=== PATIENT | female | born 1965 | race Caucasian/White ===

== ENCOUNTER 2017-10-16 17:45 | Emergency (ER) | payer OTHER, MEDICARE ==
[2017-10-16 17:58] VITALS: BP 131/81
--- NOTE | 2017-10-16 18:24 | EDM.PDOC ---
ED HPI GENERAL MEDICAL PROBLEM - General Chief Complaint: Lower Extremity Injury/Pain Stated Complaint: [facility] Time Seen by Provider: 10/16/17 18:10 Source of Information: Reports: Patient History Limitations: Reports: No Limitations - History of Present Illness INITIAL COMMENTS - FREE TEXT/NARRATIVE: Patient is a 52-year-old female who underwent right rotator cuff surgery the end of August with shoulder immobilizer in place. Patient presents to the ED complaining of posterior midline cervical neck pain, right shoulder pain, right upper arm pain, and right hip status post fall. Patient states she was walking up the stairs and accidentally fell over her granddaughter landing on the affected areas. She did hit her head on the wall but denies any loss of consciousness. This was at the top of the stairs and was unable to get up and thus has not been weightbearing since. She has pain to the right lateral aspect of her hip. Pinpoint tenderness noted. No pain distally. States headache is mild in nature. No vision changes, nausea/vomiting, chest pain, shortness of breath, abdominal pain, no numbness/tingling to extremities, or any additional complaints. She does have limited range of motion secondary to neck pain. She was transported via ambulance and administered fentanyl in route. She is on no anticoagulants. 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: IV/IO Right Shoulder Pain Score (Numeric/FACES): 10 Right Hip Pain Score (Numeric/FACES): 10 - Related Data Allergies Allergy/AdvReac Type Severity Reaction Status Date / Time amoxicillin [From Augmentin] Allergy Diarrhea Verified 10/16/17 17:56 clavulanic acid Allergy Diarrhea Verified 10/16/17 17:56 [From Augmentin] exenatide [From Bydureon] Allergy Other Verified 10/16/17 17:56 metformin Allergy Other Verified 10/16/17 17:56 simvastatin Allergy Other Verified 10/16/17 17:56 Sulfonylureas Allergy Other Verified 10/16/17 17:56 Home Meds: Home Meds Carvedilol [Coreg] 3.125 mg PO BID 10/09/15 [History] Gabapentin [Neurontin] 300 mg PO BID 10/09/15 [History] Losartan [Cozaar] 50 mg PO BID 10/09/15 [History] Omeprazole [Prilosec] 40 mg PO BEDTIME 10/09/15 [History] Spironolactone [Aldactone] 25 mg PO DAILY 10/09/15 [History] Venlafaxine [Effexor] 150 mg PO DAILY 10/09/15 [History] Zolpidem [Ambien] 10 mg PO BEDTIME 10/09/15 [History] lamoTRIgine [Lamictal] 100 mg PO BID 10/09/15 [History] traZODone 150 mg PO BEDTIME 10/09/15 [History] ALPRAZolam [Xanax] 0.5 - 1 mg PO Q4HR PRN 04/12/16 [History] Calcium Carb & Citrate/Vit D3 [Citracal + D ER] 200 - 600 mg PO DAILY 04/12/16 [ History] Ergocalciferol (Vitamin D2) [Vitamin D] 400 intunit PO DAILY 04/12/16 [History] Ferrous Gluconate 325 mg PO BEDTIME 04/12/16 [History] Gluc HCl/Csa/Nelson Hy/Hyalur Ac [Glucosamine Chondroitin] 1 tab PO BEDTIME [History] Magnesium 250 mg PO DAILY 04/12/16 [History] Meloxicam 15 mg PO BEDTIME 04/12/16 [History] Multivitamin [Multivitamins] 1 tab PO BEDTIME 04/12/16 [History] Vit B Cmplx 3/Fa/Vit C/Biotin [Drafter (Cad) Electrical-Marsha Rx Tablet] 1 tab PO BEDTIME 04/12/16 [ History] Cyclobenzaprine [Flexeril] 5 mg PO BID PRN 07/10/16 [History] Acetaminophen/HYDROcodone [[place]field 325-5 MG] 1 tab PO Q6H PRN #12 tablet 10/16/17 [Rx] Past Medical History HEENT History: Reports: Impaired Vision Other HEENT History: glasses Cardiovascular History: Reports: Angina, Cardiomyopathy, Hypertension Other Cardiovascular History: PSVT, 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." Respiratory History: Reports: Sleep Apnea Gastrointestinal History: Reports: Bowel Obstruction Other Gastrointestinal History: hernia Genitourinary History: Reports: Renal Calculus, Urinary Incontinence FREIGHT CHECKER History: Reports: Endometriosis, Other Musculoskeletal History: T7 compression fx, 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 Hematologic History: Reports: Anemia Dermatologic History: Reports: Other (See Below) Other Dermatologic History: Celoids - Infectious Disease History Infectious Disease History: Reports: Influenza - Past Surgical History GI Surgical History: Reports: Appendectomy, Cholecystectomy, Hernia Repair/Other , Other (See Below) Musculoskeletal Surgical History: Reports: Shoulder Surgery Social & Family History - Family History Family Medical History: Noncontributory - Tobacco Use Smoking Status *Q: Former Smoker Years of Tobacco use: 6 Packs/Tins Daily: 0.5 Used Tobacco, but Quit: Yes Month Tobacco Last Used: 1990 Second Hand Smoke Exposure: No - Caffeine Use Caffeine Use: Reports: Soda - Recreational Drug Use Recreational Drug Use: No - Living Situation & Occupation Living situation: Reports: , with Family Occupation: Employed Review of Systems - Review of Systems Review Of Systems: ROS reveals no pertinent complaints other than HPI. ED EXAM, GENERAL - Physical Exam Exam: See Below Exam Limited By: No Limitations General Appearance: Alert, WD/WN, Mild Distress Eye Exam: Bilateral Eye: EOMI, PERRL Ears: Hearing Grossly Normal Nose: Normal Inspection Throat/Mouth: Normal Inspection, Normal Oropharynx, Normal Voice, No Airway Compromise Head: Atraumatic, Normocephalic Neck: Normal Inspection, Supple, Limited Range of Motion, Tender Midline (c4-6) Respiratory/Chest: No Respiratory Distress, Lungs Clear, Normal Breath Sounds, No Accessory Muscle Use, Chest Non-Tender Cardiovascular: Normal Peripheral Pulses, Regular Rate, Rhythm Peripheral Pulses: 3+: Radial (L), Radial (R) GI/Abdominal: Normal Bowel Sounds, Soft, Non-Tender, No Organomegaly, No Distention Back Exam: Normal Inspection. No: Paraspinal Tenderness, Vertebral Tenderness Extremities: Other (Right arm is in a shoulder immobilizer. Pinpoint tenderness along the lateral aspect of the shoulder and upper arm. No bony abnormalities noted. No pain noted with palpation of the elbow, forearm, wrist, hand. No sensory deficits noted. No pain along the clavicle. Surgical incisions intact with no signs of infection. ) Neurological: Alert, Oriented, CN II-XII Intact, Normal Cognition, No Motor/ Sensory Deficits Psychiatric: Normal Affect Skin Exam: Warm, Dry, Intact, Normal Color Course - Vital Signs Last Recorded V/S: Last Vital Signs Temp 97.8 F 10/16/17 17:53 Pulse 66 10/16/17 17:53 Resp 20 10/16/17 17:53 BP 131/81 10/16/17 17:53 Pulse Ox 98 10/16/17 17:53 - Orders/Labs/Meds Orders: Active Orders 24 hr Category Date Time Status Hip Min 2V or 3V Rt [CR] Stat Exams 10/16/17 20:02 Taken Hip wo Cont Rt [CT] Stat Exams 10/16/17 20:17 Taken Humerus Rt [CR] Stat Exams 10/16/17 18:28 Taken Shoulder Comp Rt [CR] Stat Exams 10/16/17 18:28 Taken Meds: Medications Discontinued Medications Generic Name Dose Route Start Last Admin Trade Name Baldomero PRN Reason Stop Dose Admin Fentanyl 50 mcg 10/16/17 19:55 10/16/17 20:01 Sublimaze IVPUSH 10/16/17 19:56 50 mcg ONETIME ONE Administration Oxycodone/Acetaminophen 1 tab 10/16/17 19:53 10/16/17 20:02 Percocet 325-5 Mg PO 10/16/17 19:54 1 tab ONETIME ONE Administration - Re-Assessments/Exams Free Text/Narrative Re-Assessment/Exam: Will obtain CT of the cervical spine, x-ray of the right shoulder and humerus, and x-ray of the right hip. Pain under control at this point with IV fentanyl per ambulance. X-ray of the right shoulder: no acute findings. Reviewed with Dr. Gonzalez. X-ray of the right humerus: no acute findings. Reviewed with Dr. Gonzalez. Patient complaining of pain after having the x-rays obtained. Ordered fentanyl 50 mg IVP, and Percocet 5-325 by mouth 1. X-ray of the right hip was not ordered initially by mistake. On examination patient has limited change in range of motion. Pain is localized to the lateral aspect of hip. Offered to obtain x-ray of the right hip to the patient initially refused. After speaking with her she did have it difficulties with transferring thus we'll go ahead with the x-ray. X-ray of the right hip does show a apparent questionable avulsion fracture. Limited images thus we'll order a CT of the right hip. 10/16/17 21:35 CT of the hip reveal no acute fracture dislocation identified. Discharge instructions as documented. Departure - Departure Time of Disposition: 21:37 Disposition: Home, Self-Care 01 Condition: Good Clinical Impression: Status post shoulder surgery, Neck pain on right side, Right hip pain, Status post fall - Discharge Information Prescriptions: Acetaminophen/HYDROcodone [[place] 325-5 MG] 1 tab PO Q6H PRN #12 tablet PRN Reason: Pain (Severe 7-10) Instructions: Pain Medicine Instructions, [id number] Referrals: Radha Goodman [Primary Care Provider] - Forms: ED Department Discharge Additional Instructions: As discussed no acute finding noted on studies. Keep following instructions by orthopedic surgeon for right shoulder. Apply ice to the affected area 4 times daily, 20 minutes in duration, do not apply ice directly on the skin. Continue taking all home medications as prescribed. In addition for severe pain take norco 5-325mg 1 tab every 6 hrs for pain as needed. Followup with orthopedic surgeon if pain does not improve. Return to the E.D. if you develop any new or worsening. No driving this evening since receiving a sedative medication while in the E.D. No driving while taking norco. - My Orders Last 24 Hours: My Active Orders 10/16/17 18:28 Humerus Rt [CR] Stat Shoulder Comp Rt [CR] Stat 10/16/17 20:02 Hip Min 2V or 3V Rt [CR] Stat 10/16/17 20:17 Hip wo Cont Rt [CT] Stat - Assessment/Plan Last 24 Hours: My Active Orders 10/16/17 18:28 Humerus Rt [CR] Stat Shoulder Comp Rt [CR] Stat 10/16/17 20:02 Hip Min 2V or 3V Rt [CR] Stat 10/16/17 20:17 Hip wo Cont Rt [CT] Stat
--- NOTE | 2017-10-16 19:24 | CT ---
CT cervical spine Technique: Multiple axial sections were obtained from above C1 inferiorly to the top of T2. Reconstructed sagittal and coronal images were reviewed. Findings: Small bony density is seen off the tip of C2 which is well corticated and felt to be incidental. Minimal disc space narrowing is noted anteriorly at C5-C6. Slight anterior osteophytes are noted at C5-C6 and C6-C7. Minimal posterior osteophytes are noted C5-C6. Mastoid sinuses and middle ear cavities are clear. Posterior skull base is intact. Vertebral bodies and posterior arches are intact. No fracture is seen. No bony central or bony neural foraminal stenosis is seen. No abnormal subluxation is seen on the reconstructed sagittal views. Impression: 1. Slight degenerative change. 2. Nothing acute is appreciated on CT study of the cervical spine. Diagnostic code #2
[2017-10-16] MEDS ORDERED: Acetaminophen/oxyCODONE 325-5 MG Tab PO ONE (19:53)
[2017-10-16] MEDS ORDERED: fentaNYL 100 MCG/2 ML SDV IVPUSH ONE (19:55)
--- NOTE | 2017-10-17 15:52 | CR ---
Right hip: AP and frog-leg lateral views of the right hip were obtained. Calcification is noted off the greater trochanter which appears old and likely represents old calcific bursitis. Joint space within the right hip is maintained. No acute fracture or other abnormality is seen. Impression: 1. Nothing acute is appreciated. Other incidental finding as noted above. Diagnostic code #2
--- NOTE | 2017-10-17 15:52 | CR ---
Right humerus: Two views of the right humerus were obtained. Comparison: No prior study. Acromioclavicular joint is widened most likely due to previous resection of the distal right clavicle. No acute fracture or other bony abnormality is seen. Impression: 1. Incidental finding. Nothing acute is seen on two-view right humerus study. Diagnostic code #1
--- NOTE | 2017-10-17 15:52 | CR ---
Right shoulder: Three views of the right shoulder were obtained. Comparison: No prior right shoulder study. Acromioclavicular joint is widened most likely representing resection of the distal right clavicle. Glenohumeral joint is within normal limits. No fracture, dislocation or other bony abnormality is seen. Impression: 1. Presumed resection of the distal right clavicle. 2. Right shoulder study is otherwise unremarkable. Diagnostic code #2
--- NOTE | 2017-10-19 08:03 | CT ---
CT right hip Technique: Multiple axial sections through the right hip were obtained. Intravenous contrast was not utilized. Comparison: Prior right hip radiograph performed earlier on the same day (8:03 PM). Findings: Well-corticated calcification off the greater trochanter is seen. This appears to be old. No fracture is appreciated within the right hip. Inferior and superior pubic rami on the right side appear intact. Slight sigmoid diverticulosis is incidentally noted. Impression: 1. Incidental findings. Nothing acute is appreciated on CT study of the right hip. Diagnostic code #2 I agree with preliminary report issued by [facility] ([facility] preliminary report dictated on 10/16/17, 10:18 PM Central Time) [email or web address]
== END 2017-10-16 22:00 | disposition home or self-care (01) ==
LOC: JD.ED 17:45
DX: M54.2 Cervicalgia (principal); M25.551 Pain in right hip; I10 Essential (primary) hypertension; E11.9 Type 2 diabetes mellitus without complications; Z88.1 Allergy status to other antibiotic agents; Z88.8 Allergy status to other drugs, medicaments and biological substances; Z79.899 Other long term (current) drug therapy; Z87.891 Personal history of nicotine dependence; Z98.890 Other specified postprocedural states; W18.30XA Fall on same level, unspecified, initial encounter
CPT/HCPCS: 72125; 73030; 73060; 73502; 73700; 96374; 99285; A9270; J3010; 99284

== ENCOUNTER 2017-10-25 08:34 | Emergency (ER) | payer OTHER, MEDICARE ==
[2017-10-25] MEDS ORDERED: Ondansetron 4 MG/2 ML SDV IVPUSH ONE (09:20)
[2017-10-25] MEDS ORDERED: Sodium Chloride 0.9% 1,000 ML IV ONE (09:20)
[2017-10-25] MEDS ORDERED: Atropine/Diphenoxylate 0.025-2.5 MG Tab PO ONE (10:39)
--- NOTE | 2017-10-25 10:42 | EDM.PDOC ---
ED HPI GENERAL MEDICAL PROBLEM - General Chief Complaint: Gastrointestinal Problem Stated Complaint: VOMITING AND DIARRHEA Time Seen by Provider: 10/25/17 08:49 Source of Information: Reports: Patient, Family () History Limitations: Reports: No Limitations - History of Present Illness INITIAL COMMENTS - FREE TEXT/NARRATIVE: The patient states that she developed loose bowel movements , then developed nausea and emesis this past 10/23/2017. She took Zofran, and while she has had some nausea, she has not had any emesis since. Her loose bowel movements have developed into watery diarrhea, however. No blood. She has had lower abdominal cramps. No fever. She states that she feels dizzy when upright since yesterday. She states that she took 3 tablets of Imodium on 10/23/2017, 2 tablets yesterday , but none today, as she states that it has not helped. No prior similar symptoms. The patient does not recall eating any spoiled food. She has not been on any antibiotics since 09/19/2017. No recent travel. No similarly ill contacts. The patient's PCP is Dr. Goodman. - Related Data Allergies Allergy/AdvReac Type Severity Reaction Status Date / Time exenatide [From Bydureon] Allergy Other Verified 10/25/17 09:03 metformin Allergy Other Verified 10/25/17 09:03 simvastatin Allergy Other Verified 10/25/17 09:03 Exwdfer-Pef-Mxk Reductase Allergy Muscle Verified 10/25/17 09:03 Inhibitor Aches Sulfonylureas Allergy Other Verified 10/25/17 09:03 amoxicillin [From Augmentin] AdvReac Diarrhea Verified 10/25/17 09:03 clavulanic acid AdvReac Diarrhea Verified 10/25/17 09:03 [From Augmentin] Home Meds: Home Meds Carvedilol [Coreg] 3.125 mg PO BID 10/09/15 [History] Gabapentin [Neurontin] 300 mg PO BID 10/09/15 [History] Losartan [Cozaar] 50 mg PO BID 10/09/15 [History] Omeprazole [Prilosec] 40 mg PO BEDTIME 10/09/15 [History] Spironolactone [Aldactone] 25 mg PO DAILY 10/09/15 [History] Venlafaxine [Effexor] 150 mg PO DAILY 10/09/15 [History] Zolpidem [Ambien] 10 mg PO BEDTIME 10/09/15 [History] lamoTRIgine [Lamictal] 100 mg PO BID 10/09/15 [History] traZODone 150 mg PO BEDTIME 10/09/15 [History] ALPRAZolam [Xanax] 0.5 - 1 mg PO Q4HR PRN 04/12/16 [History] Calcium Carb & Citrate/Vit D3 [Citracal + D ER] 200 - 600 mg PO DAILY 04/12/16 [ History] Ergocalciferol (Vitamin D2) [Vitamin D] 400 intunit PO DAILY 04/12/16 [History] Ferrous Gluconate 325 mg PO BEDTIME 04/12/16 [History] Gluc HCl/Csa/Nelson Hy/Hyalur Ac [Glucosamine Chondroitin] 1 tab PO BEDTIME [History] Magnesium 250 mg PO DAILY 04/12/16 [History] Meloxicam 15 mg PO BEDTIME 04/12/16 [History] Multivitamin [Multivitamins] 1 tab PO BEDTIME 04/12/16 [History] Vit B Cmplx 3/Fa/Vit C/Biotin [[employer]-Marsha Rx Tablet] 1 tab PO BEDTIME 04/12/16 [ History] Cyclobenzaprine [Flexeril] 5 mg PO BID PRN 07/10/16 [History] Acetaminophen/HYDROcodone [[place] 325-5 MG] 1 tab PO Q6H PRN #12 tablet 10/16/17 [Rx] Diphenoxylate HCl/Atropine [Lomotil] 2 tab PO Q6H PRN #24 tablet 10/25/17 [Rx] Ondansetron [Zofran ODT] 1 tab PO Q8H PRN #10 tab.dis 10/25/17 [Rx] Past Medical History HEENT History: Reports: Impaired Vision Other HEENT History: glasses Cardiovascular History: Reports: Angina (Vasospastic), Cardiomyopathy ( Idiopathic, LVEF 55%), Hypertension Respiratory History: Reports: Sleep Apnea (on nightly BiPAP, O2) Gastrointestinal History: Reports: Bowel Obstruction (SBO) Genitourinary History: Reports: Renal Calculus, Urinary Incontinence [facility] [facility] History: Reports: Endometriosis, Musculoskeletal History: Reports: Fracture (T7 compression fx) Psychiatric History: Reports: Anxiety, Depression, Suicidal Ideation, Other ( See Below) (Borderline personality disorder) Endocrine/Metabolic History: Reports: Diabetes, Type II, Obesity/BMI 30+ Hematologic History: Reports: Anemia - Infectious Disease History Infectious Disease History: Reports: Influenza - Past Surgical History HEENT Surgical History: Reports: Adenoidectomy, Tonsillectomy GI Surgical History: Reports: Appendectomy, Cholecystectomy, Hernia Repair/ Other (x 2), Other (See Below) (Terminal ileum resection) Musculoskeletal Surgical History: Reports: Shoulder Surgery (Left, arthroscopic. Right, open) Social & Family History - Family History Family Medical History: Noncontributory - Tobacco Use Smoking Status *Q: Former Smoker Years of Tobacco use: 14 Packs/Tins Daily: 0.5 Month Tobacco Last Used: Quit 1987 Second Hand Smoke Exposure: No - Caffeine Use Caffeine Use: Reports: Coffee, Soda - Alcohol Use Alcohol Use History: Yes Alcohol Use Frequency: Socially - Recreational Drug Use Recreational Drug Use: Yes Drug Use in Last 12 Months: No Recreational Drug Type: Reports: Marijuana/Hashish (last in 1986) - Living Situation & Occupation Living situation: Reports: , with Spouse, with Family (Granddaughter) Occupation: Unemployed ED ROS GENERAL - Review of Systems Review Of Systems: ROS reveals no pertinent complaints other than HPI. ED EXAM, GI/ABD - Physical Exam Exam: See Below Exam Limited By: No Limitations General Appearance: Alert, WD/WN, No Apparent Distress Eyes: Bilateral: Normal Appearance, EOMI Ears: Normal External Exam, Hearing Grossly Normal Nose: Normal Inspection, No Blood Throat/Mouth: Normal Inspection, Normal Lips, Normal Voice, No Airway Compromise Head: Atraumatic, Normocephalic Neck: Normal Inspection, Full Range of Motion Respiratory/Chest: No Respiratory Distress, Lungs Clear, Normal Breath Sounds, No Accessory Muscle Use Cardiovascular: Normal Peripheral Pulses, Regular Rate, Rhythm, No Gallop, No JVD, No Murmur, No Rub GI/Abdominal Exam: Normal Bowel Sounds, Soft, Non-Tender, No Organomegaly, No Distention, No Abnormal Bruit, No Mass, Other (Obese) (Female) Exam: Deferred Rectal (Female) Exam: Deferred Back Exam: Normal Inspection, Full Range of Motion, NT Extremities: Normal Inspection, Normal Range of Motion, No Pedal Edema, Normal Capillary Refill Neurological: Alert, Oriented, Normal Cognition, No Motor/Sensory Deficits Psychiatric: Normal Affect Skin Exam: Warm, Dry, Intact, Normal Color, No Rash Course - Vital Signs Last Recorded V/S: Last Vital Signs Temp 36.1 C 10/25/17 08:57 Pulse 75 10/25/17 08:57 Resp 16 10/25/17 08:57 BP 119/69 10/25/17 08:57 Pulse Ox 95 10/25/17 08:57 Orthostatic Blood Pressure [ 113/82 Standing] Orthostatic Blood Pressure [ 98/64 Sitting] Orthostatic Blood Pressure [ 97/58 Supine] - Orders/Labs/Meds Orders: Active Orders 24 hr Category Date Time Status Orthostatic Vital Signs [RC] STAT Care 10/25/17 09:18 Active CULTURE STOOL + SHIGATOX [RM] Stat Lab 10/25/17 09:50 Received [facility] 1 & 2 RT-PCR Stat Lab 10/25/17 09:50 Received Labs: Laboratory Tests 10/25/17 10/25/17 Range/Units 09:40 09:40 WBC 6.21 (3.98-10.04) K/mm3 RBC 4.12 (3.98-5.22) M/mm3 Hgb 12.3 (11.2-15.7) gm/L Hct 38.6 (34.1-44.9) % MCV 93.7 (79.4-94.8) fl MCH 29.9 (25.6-32.2) pg MCHC 31.9 L (32.2-35.5) g/dl RDW Std Deviation 47.0 H (36.4-46.3) fL Plt Count 280 (182-369) K/mm3 MPV 9.1 L (9.4-12.3) fl Neutrophils % (Manual) 61 H (40-60) % Band Neutrophils % 0 (0-10) % Lymphocytes % (Manual) 27 (20-40) % Atypical Lymphs % 0 % Monocytes % (Manual) 5 (2-10) % Eosinophils % (Manual) 7 H (0.7-5.8) % Basophils % (Manual) 0 L (0.1-1.2) Platelet Estimate Adequate RBC Morph Comment Normal Sodium 141 (136-145) mEq/L Potassium 4.2 (3.5-5.1) mEq/L Chloride 105 (98-107) mEq/L Carbon Dioxide 25 (21-32) mEq/L Anion Gap 15.2 H (5-15) BUN 16 (7-18) mg/dL Creatinine 0.9 (0.55-1.02) mg/dL Est Cr Clr Drug Dosing 73.76 mL/min Estimated GFR (MDRD) > 60 (>60) mL/min BUN/Creatinine Ratio 17.8 (14-18) Glucose 103 (74-106) mg/dL Calcium 8.9 (8.5-10.1) mg/dL Magnesium 1.9 (1.8-2.4) mg/dl Total Bilirubin 0.3 (0.2-1.0) mg/dL AST 24 (15-37) U/L ALT 34 (14-59) U/L Alkaline Phosphatase 92 (46-116) U/L Total Protein 7.1 (6.4-8.2) g/dl Albumin 3.5 (3.4-5.0) g/dl Globulin 3.6 gm/dL Albumin/Globulin Ratio 1.0 (1-2) Meds: Medications Discontinued Medications Generic Name Dose Route Start Last Admin Trade Name Freq PRN Reason Stop Dose Admin Diphenoxylate HCl/Atropine 2 tab 10/25/17 10:39 10/25/17 11:23 Lomotil 0.025-2.5 Mg PO 10/25/17 10:40 2 tab ONETIME ONE Administration Sodium Chloride 1,000 mls @ 999 mls/hr 10/25/17 09:20 10/25/17 10:05 Normal Saline IV 10/25/17 10:20 999 mls/hr ONETIME ONE Administration Ondansetron HCl 4 mg 10/25/17 09:20 10/25/17 10:03 Zofran IVPUSH 10/25/17 09:21 4 mg ONETIME ONE Administration - Re-Assessments/Exams Free Text/Narrative Re-Assessment/Exam: 10/25/17 10:01 The patient is not orthostatic. 10/25/17 11:46 Test results discussed with the patient. Today's workup is unremarkable. She is not dehydrated, and has not suffered any loculated abnormalities from her vomiting or diarrhea. As she does not have a history of fever or bloody diarrhea , bacterial gastroenteritis was not suspected, but her stool WBCs have returned negative, further reducing the likelihood that this is bacterial. Based on her history, this is most likely viral. I explained her that there are is no direct treatment for viral gastroenteritis, but that we can treat her symptoms with Zofran. As she states that Imodium did not work for her, I will prescribe Lomotil. I would like her to stay adequately hydrated with Gatorade or Powerade , and I would like her to follow-up with her PCP, Dr. Goodman, either tomorrow or 10/27/2017. Departure - Departure Time of Disposition: 11:49 Disposition: Home, Self-Care 01 Condition: Fair Clinical Impression: Viral gastroenteritis - Discharge Information Prescriptions: Diphenoxylate HCl/Atropine [Lomotil] 2 tab PO Q6H PRN #24 tablet PRN Reason: Diarrhea Ondansetron [Zofran ODT] 1 tab PO Q8H PRN #10 tab.dis PRN Reason: Nausea/Vomiting Instructions: Viral Gastroenteritis, Adult, [id number] Referrals: Radha Goodman [Primary Care Provider] - Forms: ED Department Discharge Additional Instructions: You were seen in the emergency room for vomiting and watery diarrhea. Workup in the ER included blood work, stool studies, and positional blood pressure checks. Your entire workup was unremarkable. You have not suffered any electrolyte abnormalities, you are not dehydrated, and your blood pressure did not significantly drop when you stood up. A stool culture and stool norovirus test have been sent, but will not be back for 2 to 3 days. If you are hungry, consider chicken noodle soup. Stay well hydrated. Gatorade or Powerade are best. Prescriptions for the anti-nausea medicine Zofran and the anti-diarrhea medicine Lomotil have been sent to the [facility] pharmacy on , [address] from [facility]. They will be open between noon and 4:00 today. Dissolve one tablet of Zofran on your tongue up to every 8 hours, as needed for nausea/vomiting. Take 2 tablets of Lomotil up to every 6 hours, as needed for diarrhea, not to exceed 8 tablets within a 24-hour period. Follow-up with Dr. Goodman either tomorrow or 10/27/2017. If any other problems, please do not hesitate to return to the ER. - My Orders Last 24 Hours: My Active Orders 10/25/17 09:18 Orthostatic Vital Signs [RC] STAT 10/25/17 09:50 CULTURE STOOL + SHIGATOX [RM] Stat [facility] 1 & 2 RT-PCR Stat - Assessment/Plan Last 24 Hours: My Active Orders 10/25/17 09:18 Orthostatic Vital Signs [RC] STAT 10/25/17 09:50 CULTURE STOOL + SHIGATOX [RM] Stat [facility] 1 & 2 RT-PCR Stat
[2017-10-25 15:59] VITALS: BP 93/55
== END 2017-10-25 12:30 | disposition home or self-care (01) ==
LOC: JD.ED 08:34
DX: A08.4 Viral intestinal infection, unspecified (principal); E11.9 Type 2 diabetes mellitus without complications; Z88.8 Allergy status to other drugs, medicaments and biological substances; Z88.2 Allergy status to sulfonamides; Z88.1 Allergy status to other antibiotic agents; Z79.899 Other long term (current) drug therapy; Z87.891 Personal history of nicotine dependence
CPT/HCPCS: 36415; 80053; 83735; 85025; 87046; 87425; 87427; 87798; 89055; 96361; 96374; 99284; A9270; J2405; J7040

== ENCOUNTER 2018-04-16 12:38 | Emergency (ER) | payer BC, MEDICARE ==
[2018-04-16 13:01] VITALS: BP 120/82
[2018-04-16] MEDS ORDERED: Albuterol 0.083% 2.5 MG/3 ML Neb Soln NEB ONE (13:16)
[2018-04-16] MEDS ORDERED: Sodium Chloride 0.9% 10 ML Syringe FLUSH PRN (13:17)
--- NOTE | 2018-04-16 13:29 | EDM.PDOC ---
ED HPI GENERAL MEDICAL PROBLEM - General Chief Complaint: Respiratory Problem Stated Complaint: RESPIRATORY ISSUES Time Seen by Provider: 04/16/18 13:06 Source of Information: Reports: Patient History Limitations: Reports: No Limitations - History of Present Illness INITIAL COMMENTS - FREE TEXT/NARRATIVE: 52-year-old female presents for evaluation and treatment of shortness of breath. Patient reports on Thursday she was exposed to a child with a fever. She reports that Thursday she worsening shortness of breath, wheezing and dyspnea on insertion. She reports associated symptoms of a cough and head congestion. She denies any headaches, lightheadedness or dizziness. She denies any pain or swelling in her legs. She denies any fevers or chills but she has been feeling "hot" ". Patient is on 3 L nasal cannula at all times. This was recently started January for pulmonary shunt. She uses a CPAP at night. Patient has also been experiencing Sinus congestion. She denies any ear pain or throat pain. Reports she has tried [id number] sinus rinses which seemed to cause her ear pain and did not relieve her sinus congestion. Reports she had similar symptoms in February. She saw her primary care provider who prescribed albuterol, prednisone and Z-Jim. She followed up in the clinic as she did not improve with these treatments. Prescribed Levaquin. She states she then felt better after the Levaquin. She reports her white blood cell count at that time was 13.9. Patient reports that she had a cardiac catheterization done on February [facility]. She states it was unremarkable. Primary care provider is Dr. Welch and Khalida Mars. Chest Pain Score (Numeric/FACES): 2 - Related Data Allergies Allergy/AdvReac Type Severity Reaction Status Date / Time exenatide [From Bydureon] Allergy Other Verified 04/16/18 13:02 metformin Allergy Other Verified 04/16/18 13:02 simvastatin Allergy Other Verified 04/16/18 13:02 Sulfonylureas Allergy Other Verified 04/16/18 13:02 amoxicillin [From Augmentin] AdvReac Diarrhea Verified 04/16/18 13:02 clavulanic acid AdvReac Diarrhea Verified 04/16/18 13:02 [From Augmentin] Jhzpzac-Dfe-Bas Reductase AdvReac Muscle Verified 04/16/18 13:02 Inhibitor Aches Home Meds: Home Meds Carvedilol [Coreg] 3.125 mg PO BID 10/09/15 [History] Gabapentin [Neurontin] 600 mg PO QAM 10/09/15 [History] Losartan [Cozaar] 50 mg PO BID 10/09/15 [History] Omeprazole [Prilosec] 40 mg PO BEDTIME 10/09/15 [History] Spironolactone [Aldactone] 25 mg PO DAILY 10/09/15 [History] Venlafaxine [Effexor] 75 mg PO DAILY 10/09/15 [History] lamoTRIgine [Lamictal] 200 mg PO QAM 10/09/15 [History] traZODone 150 mg PO BEDTIME 10/09/15 [History] ALPRAZolam [Xanax] 0.5 - 1 mg PO Q4HR PRN 04/12/16 [History] Calcium Carb & Citrate/Vit D3 [Citracal + D ER] 600 mg PO DAILY 04/12/16 [ History] Ergocalciferol (Vitamin D2) [Vitamin D] 1,000 intunit PO DAILY 04/12/16 [History ] Gluc HCl/Csa/Nelson Hy/Hyalur Ac [Glucosamine Chondroitin] 1 tab PO BEDTIME [History] Magnesium 400 mg PO DAILY 04/12/16 [History] Meloxicam 15 mg PO BEDTIME 04/12/16 [History] Multivitamin [Multivitamins] 1 tab PO BEDTIME 04/12/16 [History] Vit B Cmplx 3/Fa/Vit C/Biotin [Res[employer] Writer-Marsha Rx Tablet] 1 tab PO BEDTIME 04/12/16 [ History] Cyclobenzaprine [Flexeril] 5 mg PO BID PRN 07/10/16 [History] Acetaminophen/HYDROcodone [[place] 325-5 MG] 1 tab PO Q6H PRN #12 tablet 10/16/17 [Rx] Ondansetron [Zofran ODT] 1 tab PO Q8H PRN #10 tab.dis 10/25/17 [Rx] Codeine/Promethazine [Phenergan with Codeine] 5 ml PO Q4HR PRN #120 ml 04/16/18 [Rx] Gabapentin [Neurontin] 1,200 mg PO QPM 04/16/18 [History] Liraglutide [[place] 3-Jim] 1.8 mg INJECT QPM 04/16/18 [History] Methylphenidate HCl [[place]] 18 mg PO QAM 04/16/18 [History] Temazepam 1 - 2 tab PO QPM 04/16/18 [History] lamoTRIgine [Lamictal] 100 mg PO QPM 18 [History] Past Medical History HEENT History: Reports: Impaired Vision Other HEENT History: glasses Cardiovascular History: Reports: Angina, Cardiomyopathy, Hypertension Other Cardiovascular History: PSVT, 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." Respiratory History: Reports: Sleep Apnea Gastrointestinal History: Reports: Bowel Obstruction Other Gastrointestinal History: hernia Genitourinary History: Reports: Renal Calculus, Urinary Incontinence [employer]IEF History: Reports: Endometriosis, Musculoskeletal History: Reports: Fracture, Muscular Dystrophy Other Musculoskeletal History: T7 compression fx, 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 Hematologic History: Reports: Anemia Dermatologic History: Reports: Other (See Below) Other Dermatologic History: Celoids - Infectious Disease History Infectious Disease History: Reports: Influenza - Past Surgical History HEENT Surgical History: Reports: Adenoidectomy, Tonsillectomy GI Surgical History: Reports: Appendectomy, Cholecystectomy, Hernia Repair/Other , Other (See Below) Musculoskeletal Surgical History: Reports: Shoulder Surgery Social & Family History - Family History Family Medical History: Noncontributory - Tobacco Use Smoking Status *Q: Never Smoker - Caffeine Use Caffeine Use: Reports: None - Recreational Drug Use Recreational Drug Use: No - Living Situation & Occupation Living situation: Reports: , with Spouse, with Family (Granddaughter) Occupation: Unemployed ED ROS GENERAL - Review of Systems Review Of Systems: See Below Constitutional: Denies: Fever, Chills HEENT: Reports: Ear Pain, Sinus Problem (reports congestion). Denies: Throat Pain Respiratory: Reports: Shortness of Breath, Wheezing, Cough, Sputum Cardiovascular: Reports: Dyspnea on Exertion. Denies: Edema, Lightheadedness Musculoskeletal: Denies: Leg Pain Neurological: Denies: Dizziness, Headache ED EXAM, GENERAL - Physical Exam Exam: See Below Exam Limited By: No Limitations General Appearance: Alert, WD/WN, No Apparent Distress, Obese Eye Exam: Bilateral Eye: Normal Inspection Ears: Normal External Exam, Normal Canal, Hearing Grossly Normal Ear Exam: Bilateral Ear: TM Red Nose: Normal Inspection Throat/Mouth: Normal Inspection, Normal Lips, Normal Voice, No Airway Compromise , Other (dry mucus membranes) Respiratory/Chest: No Respiratory Distress, Lungs Clear, Normal Breath Sounds Cardiovascular: Normal Peripheral Pulses, Regular Rate, Rhythm, No Murmur GI/Abdominal: Soft, Non-Tender Neurological: Alert, Oriented, Normal Cognition Psychiatric: Normal Affect, Normal Mood Skin Exam: Warm, Dry, Normal Color Course - Vital Signs Last Recorded V/S: Last Vital Signs Temp 98.1 F 04/16/18 12:52 Pulse 79 04/16/18 12:52 Resp 12 04/16/18 12:52 BP 120/82 04/16/18 12:52 Pulse Ox 100 04/16/18 13:17 - Orders/Labs/Meds Labs: Laboratory Tests 04/16/18 04/16/18 04/16/18 Range/Units 13:50 13:50 13:50 WBC 6.78 (3.98-10.04) K/mm3 RBC 4.09 (3.98-5.22) M/mm3 Hgb 12.4 (11.2-15.7) gm/L Hct 38.9 (34.1-44.9) % MCV 95.1 H (79.4-94.8) fl MCH 30.3 (25.6-32.2) pg MCHC 31.9 L (32.2-35.5) g/dl RDW Std Deviation 44.6 (36.4-46.3) fL Plt Count 285 (182-369) K/mm3 MPV 8.8 L (9.4-12.3) fl Neutrophils % (Manual) 51 (40-60) % Band Neutrophils % 0 (0-10) % Lymphocytes % (Manual) 41 H (20-40) % Monocytes % (Manual) 6 (2-10) % Eosinophils % (Manual) 2 (0.7-5.8) % Basophils % (Manual) 0 L (0.1-1.2) Platelet Estimate Adequate RBC Morph Comment Normal Sodium 140 (136-145) mEq/L Potassium 4.6 (3.5-5.1) mEq/L Chloride 104 (98-107) mEq/L Carbon Dioxide 28 (21-32) mEq/L Anion Gap 12.6 (5-15) BUN 15 (7-18) mg/dL Creatinine 1.1 H (0.55-1.02) mg/dL Est Cr Clr Drug Dosing 62.52 mL/min Estimated GFR (MDRD) 52 (>60) mL/min BUN/Creatinine Ratio 13.6 L (14-18) Glucose 94 (74-106) mg/dL Calcium 9.3 (8.5-10.1) mg/dL Magnesium 2.2 (1.8-2.4) mg/dl Total Bilirubin 0.4 (0.2-1.0) mg/dL AST 20 (15-37) U/L ALT 42 (14-59) U/L Alkaline Phosphatase 90 (46-116) U/L C-Reactive Protein 1.2 H* (<1.0) mg/dL NT-Pro-B Natriuret Pep 100 (0-125) pg/mL Total Protein 7.9 (6.4-8.2) g/dl Albumin 3.9 (3.4-5.0) g/dl Globulin 4.0 gm/dL Albumin/Globulin Ratio 1.0 (1-2) Meds: Medications Discontinued Medications Generic Name Dose Route Start Last Admin Trade Name Freq PRN Reason Stop Dose Admin Albuterol 2.5 mg 04/16/18 13:16 04/16/18 13:24 Proventil Neb Soln NEB 04/16/18 13:17 2.5 mg ONETIME ONE Administration Sodium Chloride 500 mls @ 999 mls/hr 04/16/18 16:03 04/16/18 16:10 Normal Saline IV 04/16/18 16:33 999 mls/hr ONETIME ONE Administration Sodium Chloride 10 ml 04/16/18 13:17 04/16/18 13:54 Saline Flush FLUSH 10 ml ASDIRECTED PRN Administration Keep Vein Open - Radiology Interpretation Free Text/Narrative:: Chest: Two views of the chest were obtained. Comparison: Prior chest x-ray of 03/10/18. Heart size and mediastinum are normal. Lungs are clear. Bony structures are within normal limits for the patient's age. Impression: 1. Nothing acute is seen on two-view chest x-ray. - Re-Assessments/Exams Free Text/Narrative Re-Assessment/Exam: 04/16/18 16:14 Reviewed the labs and imaging with the patient. Her blood pressure was slight low with systolic 90s to low 100s, improved with a 500 bolus of fluid. The plans to treat her for viral infection. A decongestant for the nasal congestion , cough syrup and close follow-up in the clinic. She is agreeable as planned. Will check her shortly. 04/16/18 17:15 b/p improved to 100/64. Will discharge home with recommendations for viral upper respiratory infection. Discharge instructions as documented. Departure - Departure Time of Disposition: 17:17 Disposition: Home, Self-Care 01 Condition: Fair Clinical Impression: Viral upper respiratory illness - Discharge Information *PRESCRIPTION DRUG MONITORING PROGRAM REVIEWED*: No *COPY OF PRESCRIPTION DRUG MONITORING REPORT IN PATIENT STIVEN: No Prescriptions: Codeine/Promethazine [Phenergan with Codeine] 5 ml PO Q4HR PRN #120 ml PRN Reason: Cough Instructions: Upper Respiratory Infection, Adult, [id number] Referrals: Gina Welch MD [Primary Care Provider] - Forms: ED Department Discharge Additional Instructions: Follow-up in the clinic next week for recheck of your symptoms. Rest. Make sure you are drinking plenty of fluids. Recommend a decongestant such as Sudafed D, these are available over-the- counter. phenergran with codein cough syrup 5mls PO every 4-6 horus prn cough. Codeine is habit-forming, take as little as need to control your cough. Do not drive or operate machinery within 10 hours of taking codeine. Take your albuterol as prescribed. Return to the ER for symptoms change or worsen.
--- NOTE | 2018-04-16 16:02 | CR ---
Chest: Two views of the chest were obtained. Comparison: Prior chest x-ray of 03/10/18. Heart size and mediastinum are normal. Lungs are clear. Bony structures are within normal limits for the patient's age. Impression: 1. Nothing acute is seen on two-view chest x-ray. Diagnostic code #1
[2018-04-16] MEDS ORDERED: Sodium Chloride 0.9% 500 ML IV ONE (16:03)
== END 2018-04-16 17:35 | disposition home or self-care (01) ==
LOC: JD.ED 12:38
DX: J06.9 Acute upper respiratory infection, unspecified (principal); E11.9 Type 2 diabetes mellitus without complications; E66.9 Obesity, unspecified; Z88.8 Allergy status to other drugs, medicaments and biological substances; Z88.1 Allergy status to other antibiotic agents; Z88.2 Allergy status to sulfonamides; Z79.899 Other long term (current) drug therapy
CPT/HCPCS: 36415; 71046; 80053; 83735; 83880; 85007; 85027; 86140; 94640; 96360; 99285; J7040; J7050

== ENCOUNTER 2018-05-04 18:59 | Emergency (ER) | payer BC, MEDICARE ==
[2018-05-04 19:07] VITALS: BP 97/76
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
== END 2018-05-04 22:15 ==
LOC: JD.ED 18:59
DX: T42.4X2A Poisoning by benzodiazepines, intentional self-harm, initial encounter (principal); R40.2421 Glasgow coma scale score 9-12, in the field [EMT or ambulance]; E11.9 Type 2 diabetes mellitus without complications; E66.9 Obesity, unspecified; Z88.8 Allergy status to other drugs, medicaments and biological substances; Z88.2 Allergy status to sulfonamides; Z88.1 Allergy status to other antibiotic agents; Z79.899 Other long term (current) drug therapy
CPT/HCPCS: 36415; 80053; 80306; 85025; 99285; G0480

== ENCOUNTER 2018-12-29 08:39 | Emergency (ER) | payer BC, MEDICARE ==
[2018-12-29 08:58] VITALS: BP 126/78
[2018-12-29] MEDS ORDERED: Sodium Chloride 0.9% 10 ML Syringe FLUSH PRN (09:25)
--- NOTE | 2018-12-29 10:08 | CR ---
Chest: Portable view of the chest was obtained. Comparison: Prior chest x-ray of 12/14/18. Heart size within normal limits for portable technique. Lungs are clear with no acute parenchymal change. Bony structures show prior resection of the distal right clavicle. Impression: 1. Nothing acute is seen on portable chest x-ray. Diagnostic code #2
--- NOTE | 2018-12-29 11:39 | EDM.PDOC ---
ED HPI GENERAL MEDICAL PROBLEM - General Chief Complaint: Chest Pain Stated Complaint: CHEST CONGESTION/SOB Time Seen by Provider: 12/29/18 08:59 Source of Information: Reports: Patient, RN Notes Reviewed - History of Present Illness INITIAL COMMENTS - FREE TEXT/NARRATIVE: 53-year-old female comes in with symptoms of fatigue, anterior chest "heaviness ", shortness of breath and just not feeling well for the past 4 to 5 days. she does have history of "cardiomyopathy. She states this was diagnosed about 12-15 years ago. On medication her ejection fraction has improved and to her knowledge that has been relatively stable for her for quite some time. She does run low oxygen saturation typically, often in the upper 80s. There's been no recent cough fever or chills. No current abdominal pain nausea or vomiting. She is not diabetic. She has been eating and drinking satisfactorily. No recent medication changes. - Related Data Allergies Allergy/AdvReac Type Severity Reaction Status Date / Time exenatide [From Bydureon] Allergy Hives Verified 12/29/18 08:59 metformin Allergy Other Verified 05/04/18 19:07 oxycodone Allergy Itching Verified 12/29/18 08:59 simvastatin Allergy Other Verified 05/04/18 19:07 Sulfonylureas Allergy Other Verified 05/04/18 19:07 clavulanic acid AdvReac Diarrhea Verified 05/04/18 19:07 [From Augmentin] [id number] Reductase AdvReac Muscle Verified 05/04/18 19:07 Inhibitor Aches Home Meds: Home Meds Carvedilol [Coreg] 3.125 mg PO BID 10/09/15 [History] Gabapentin [Neurontin] 600 mg PO QAM 10/09/15 [History] Losartan [Cozaar] 50 mg PO BID 10/09/15 [History] Omeprazole [Prilosec] 40 mg PO BEDTIME 10/09/15 [History] Spironolactone [Aldactone] 25 mg PO DAILY 10/09/15 [History] Venlafaxine [Effexor] 75 mg PO DAILY 10/09/15 [History] traZODone 150 mg PO BEDTIME 10/09/15 [History] ALPRAZolam [Xanax] 0.5 - 1 mg PO Q4HR PRN 04/12/16 [History] Ergocalciferol (Vitamin D2) [Vitamin D] 1,000 intunit PO DAILY 04/12/16 [History ] Gluc HCl/Csa/Nelson Hy/Hyalur Ac [Glucosamine Chondroitin] 1 tab PO BEDTIME [History] Magnesium 400 mg PO DAILY 04/12/16 [History] Cyclobenzaprine [Flexeril] 5 mg PO BID PRN 07/10/16 [History] Acetaminophen/HYDROcodone [[place] 325-5 MG] 1 tab PO Q6H PRN #12 tablet 10/16/17 [Rx] Liraglutide [Victoza 3-Jim] 1.8 mg INJECT QPM 04/16/18 [History] Temazepam 1 - 2 tab PO QPM 04/16/18 [History] lamoTRIgine [Lamictal] 100 mg PO QPM 04/16/18 [History] Past Medical History HEENT History: Reports: Impaired Vision Other HEENT History: glasses Cardiovascular History: Reports: Angina, Cardiomyopathy, Hypertension Other Cardiovascular History: PSVT, 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." Respiratory History: Reports: Sleep Apnea Gastrointestinal History: Reports: Bowel Obstruction Other Gastrointestinal History: hernia Genitourinary History: Reports: Renal Calculus, Urinary Incontinence 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 Hematologic History: Reports: Anemia Dermatologic History: Reports: Other (See Below) Other Dermatologic History: Keloids - Infectious Disease History Infectious Disease History: Reports: Influenza - Past Surgical History HEENT Surgical History: Reports: Adenoidectomy, Tonsillectomy GI Surgical History: Reports: Appendectomy, Cholecystectomy, Hernia Repair/Other , Other (See Below) Other GI Surgeries/Procedures: Bowel resection after bowel obstruction. Musculoskeletal Surgical History: Reports: Shoulder Surgery Social & Family History - Family History Family Medical History: Noncontributory - Tobacco Use Smoking Status *Q: Never Smoker - Caffeine Use Caffeine Use: Reports: Other Other Caffeine Use: unknown - Recreational Drug Use Recreational Drug Use: No - Living Situation & Occupation Living situation: Reports: , with Spouse, with Family (Granddaughter) Occupation: Unemployed ED ROS GENERAL - Review of Systems Review Of Systems: See Below Constitutional: Denies: Fever, Chills, Diaphoresis HEENT: Denies: Throat Pain Respiratory: Reports: Shortness of Breath (Chronically with exertion). Denies: Cough Cardiovascular: Reports: Chest Pain (Chest heaviness for the past 4-5 days), Palpitations GI/Abdominal: Denies: Abdominal Pain (Occasional), Nausea, Vomiting Musculoskeletal: Reports: Shoulder Pain (Occasional mild), Arm Pain (States her arms felt heavier than usual) Skin: Denies: Rash Neurological: Reports: Dizziness (Mild) ED EXAM, GENERAL - Physical Exam Exam: See Below General Appearance: Alert, No Apparent Distress Eye Exam: Bilateral Eye: PERRL Throat/Mouth: Normal Inspection Neck: Supple Respiratory/Chest: No Respiratory Distress, Lungs Clear, Normal Breath Sounds Cardiovascular: Regular Rate, Rhythm GI/Abdominal: Soft, Non-Tender Extremities: Normal Inspection. No: Pedal Edema Skin Exam: Warm, Dry, Normal Color EKG INTERPRETATION EKG Date: 12/29/18 Rhythm: NSR Rate (Beats/Min): 69 [place]: Normal P-Wave: Present QRS: Other (Q waves present lead 3) ST-T: Normal Course - Vital Signs Last Recorded V/S: Last Vital Signs Temp 97.5 F 12/29/18 08:55 Pulse 69 12/29/18 08:55 Resp 14 12/29/18 08:55 BP 126/78 12/29/18 08:55 Pulse Ox 89 L 12/29/18 08:55 - Orders/Labs/Meds Orders: Active Orders 24 hr Category Date Time Status EKG Documentation Completion [RC] ASDIRECTED Care 12/29/18 08:56 Active Peripheral IV Care [RC] . DIRECTED Care 12/29/18 09:25 Active Peripheral IV Insertion Adult [OM.PC] Stat Oth 12/29/18 09:25 Ordered EKG 12 Lead [EK] Stat Ther 12/29/18 08:56 Ordered Labs: Laboratory Tests 12/29/18 12/29/18 12/29/18 Range/Units 10:15 10:15 10:15 WBC 7.26 (3.98-10.04) K/mm3 RBC 4.22 (3.98-5.22) M/mm3 Hgb 12.9 (11.2-15.7) gm/L Hct 40.7 (34.1-44.9) % MCV 96.4 H (79.4-94.8) fl MCH 30.6 (25.6-32.2) pg MCHC 31.7 L (32.2-35.5) g/dl RDW Std Deviation 45.9 (36.4-46.3) fL Plt Count 304 (182-369) K/mm3 MPV 8.7 L (9.4-12.3) fl Neut % (Auto) 62.3 (34.0-71.1) % Lymph % (Auto) 26.0 (19.3-51.7) % [place] % (Auto) 7.3 (4.7-12.5) % Eos % (Auto) 3.7 (0.7-5.8) Baso % (Auto) 0.6 (0.1-1.2) % Neut # (Auto) 4.52 (1.56-6.13) K/mm3 Lymph # (Auto) 1.89 (1.18-3.74) K/mm3 [place] # (Auto) 0.53 H (0.24-0.36) K/mm3 Eos # (Auto) 0.27 (0.04-0.36) K/mm3 Baso # (Auto) 0.04 (0.01-0.08) K/mm3 D-Dimer, Quantitative 0.64 H (0.19-0.50) mg/L Sodium 142 (136-145) mEq/L Potassium 4.0 (3.5-5.1) mEq/L Chloride 106 (98-107) mEq/L Carbon Dioxide 29 (21-32) mEq/L Anion Gap 11.0 (5-15) BUN 12 (7-18) mg/dL Creatinine 1.2 H (0.55-1.02) mg/dL Est Cr Clr Drug Dosing 56.66 mL/min Estimated GFR (MDRD) 47 (>60) mL/min BUN/Creatinine Ratio 10.0 L (14-18) Glucose 103 (74-106) mg/dL Calcium 10.1 (8.5-10.1) mg/dL Total Bilirubin 0.4 (0.2-1.0) mg/dL AST 17 (15-37) U/L ALT 31 (14-59) U/L Alkaline Phosphatase 83 (46-116) U/L Creatine Kinase (26-192) U/L Troponin I (0.00-0.056) ng/mL Total Protein 7.4 (6.4-8.2) g/dl Albumin 4.0 (3.4-5.0) g/dl Globulin 3.4 gm/dL Albumin/Globulin Ratio 1.2 (1-2) TSH 3rd Generation 0.996 (0.358-3.74) uIU/mL 12/29/18 12/29/18 Range/Units 10:15 10:15 WBC (3.98-10.04) K/mm3 RBC (3.98-5.22) M/mm3 Hgb (11.2-15.7) gm/L Hct (34.1-44.9) % MCV (79.4-94.8) fl MCH (25.6-32.2) pg MCHC (32.2-35.5) g/dl RDW Std Deviation (36.4-46.3) fL Plt Count (182-369) K/mm3 MPV (9.4-12.3) fl Neut % (Auto) (34.0-71.1) % Lymph % (Auto) (19.3-51.7) % [place] % (Auto) (4.7-12.5) % Eos % (Auto) (0.7-5.8) Baso % (Auto) (0.1-1.2) % Neut # (Auto) (1.56-6.13) K/mm3 Lymph # (Auto) (1.18-3.74) K/mm3 [place] # (Auto) (0.24-0.36) K/mm3 Eos # (Auto) (0.04-0.36) K/mm3 Baso # (Auto) (0.01-0.08) K/mm3 D-Dimer, Quantitative (0.19-0.50) mg/L Sodium (136-145) mEq/L Potassium (3.5-5.1) mEq/L Chloride (98-107) mEq/L Carbon Dioxide (21-32) mEq/L Anion Gap (5-15) BUN (7-18) mg/dL Creatinine (0.55-1.02) mg/dL Est Cr Clr Drug Dosing mL/min Estimated GFR (MDRD) (>60) mL/min BUN/Creatinine Ratio (14-18) Glucose (74-106) mg/dL Calcium (8.5-10.1) mg/dL Total Bilirubin (0.2-1.0) mg/dL AST (15-37) U/L ALT (14-59) U/L Alkaline Phosphatase (46-116) U/L Creatine Kinase 252 H (26-192) U/L Troponin I 0.029 (0.00-0.056) ng/mL Total Protein (6.4-8.2) g/dl Albumin (3.4-5.0) g/dl Globulin gm/dL Albumin/Globulin Ratio (1-2) TSH 3rd Generation (0.358-3.74) uIU/mL Meds: Medications Discontinued Medications Generic Name Dose Route Start Last Admin Trade Name Freq PRN Reason Stop Dose Admin Sodium Chloride 10 ml 12/29/18 09:25 12/29/18 09:10 Saline Flush FLUSH 10 ml ASDIRECTED PRN Administration Keep Vein Open - Re-Assessments/Exams Free Text/Narrative Re-Assessment/Exam: 12/29/18 15:01 Chest x-ray looked fine, EKG showed Q waves inferiorly but no acute ST elevation or depression, came back all relatively okay, I'm her was slightly elevated at 0.64, not high enough to suggest PE, legs are nontender without swelling warmth at erythema or edema. trop came back at 0.024. With her hx of cardiomyopathy that is acceptable. At time of discharge she mentioned also that she has hx of muscular dystrophy and wonders if I would check a cpk for her. That order was placed at time of discharge and has come back very mildly high at 252. Discharge instr. as documented. Departure - Departure Time of Disposition: 12:35 Disposition: Home, Self-Care 01 Condition: Fair Clinical Impression: Myalgia, Fatigue, Atypical chest pain Instructions: Muscle Pain, Adult Referrals: Gina Welch MD [Primary Care Provider] - Forms: ED Department Discharge Additional Instructions: Rest, drink plenty of water to maintain hydration, continue current medications , try see Dr. Welch Thursday for recheck or otherwise early next week next available appointment, return to ED as needed if symptoms worsening in any way. - My Orders Last 24 Hours: My Active Orders 12/29/18 08:56 EKG Documentation Completion [RC] ASDIRECTED EKG 12 Lead [EK] Stat 12/29/18 09:25 Peripheral IV Care [RC] . DIRECTED Peripheral IV Insertion Adult [OM.PC] Stat - Assessment/Plan Last 24 Hours: My Active Orders 12/29/18 08:56 EKG Documentation Completion [RC] ASDIRECTED EKG 12 Lead [EK] Stat 12/29/18 09:25 Peripheral IV Care [RC] . DIRECTED Peripheral IV Insertion Adult [OM.PC] Stat
== END 2018-12-29 12:38 | disposition home or self-care (01) ==
LOC: JD.ED 08:39
DX: R07.89 Other chest pain (principal); R53.83 Other fatigue; M79.10 Myalgia, unspecified site; F41.9 Anxiety disorder, unspecified; F32.9 Major depressive disorder, single episode, unspecified; I10 Essential (primary) hypertension; D64.9 Anemia, unspecified; Z79.899 Other long term (current) drug therapy; Z88.8 Allergy status to other drugs, medicaments and biological substances; Z88.1 Allergy status to other antibiotic agents
CPT/HCPCS: 36415; 71045; 71045-26; 80053; 82550; 84443; 84484; 85025; 85379; 93005; 99285-25

== ENCOUNTER 2020-10-31 16:30 | Inpatient (IN) | payer BC, MEDICARE ==
[2020-10-31] MEDS ORDERED: Sodium Chloride 0.9% 10 ML Syringe FLUSH PRN (16:57)
[2020-10-31] MEDS ORDERED: HYDROmorphone 1 MG/ML Syringe IVPUSH ONE (16:59)
[2020-10-31] MEDS ORDERED: Sodium Chloride 0.9% 1,000 ML IV SCH (17:00)
[2020-10-31] MEDS ORDERED: Albuterol/Ipratropium 3.0-0.5 MG/3 ML Neb Soln NEB ONE (17:00)
--- NOTE | 2020-10-31 18:05 | EDM.PDOC ---
ED HPI GENERAL MEDICAL PROBLEM - General Chief Complaint: Chest Pain Stated Complaint: [facility] Time Seen by Provider: 10/31/20 16:48 Source of Information: Reports: Patient, EMS History Limitations: Reports: No Limitations - History of Present Illness INITIAL COMMENTS - FREE TEXT/NARRATIVE: The patient presents by [facility] for chest pain. She also has ge neralized weakness and generalized muscle pain. She has muscular dystrophy and they just moved back to the area from [place] and she may have over done it. She says when her CK gets very high she can feel like this. She also has shortness of breath. Her gas treater says she is a CO2 retainer. She thinks she has COPD. She has no fever, chills, cough, abdominal pain, nausea or vomiting. She is on Bipap at night but today she was using it because she felt short of breath. When she arrived here her oxygen saturations were low and she needed oxygen. Onset: Gradual Duration: Day(s): Quality: Reports: Sharp Severity: Moderate Improves with: Reports: None Worsens with: Reports: None Associated Symptoms: Reports: Chest Pain, Shortness of Breath. Denies: Cough, Fever/Chills, Headaches, Nausea/Vomiting Treatments CONVERTER OPERATOR: Reports: IV/IO Middle Chest Pain Score (Numeric/FACES): 8 - Related Data Allergies Allergy/AdvReac Type Severity Reaction Status Date / Time exenatide [From Bydureon] Allergy Severe Hives Verified 10/31/20 16:48 metformin Allergy Severe Other Verified 10/31/20 16:48 oxycodone Allergy Severe Itching Verified 10/31/20 16:48 simvastatin Allergy Severe Other Verified 10/31/20 16:48 Sulfonylureas Allergy Severe Other Verified 10/31/20 16:48 clavulanic acid AdvReac Severe Diarrhea Verified 10/31/20 16:48 [From Augmentin] [id number] Reductase AdvReac Severe Muscle Verified 10/31/20 16:48 Inhibitor Aches Home Meds: Home Meds Gabapentin [Neurontin] 900 mg PO BID 10/09/15 [History] Losartan [Cozaar] 50 mg PO BID 10/09/15 [History] Spironolactone [Aldactone] 25 mg PO DAILY 10/09/15 [History] Venlafaxine [Effexor] 75 mg PO DAILY 10/09/15 [History] carvediloL [Coreg] 3.125 mg PO BID 10/09/15 [History] traZODone 150 mg PO BEDTIME 10/09/15 [History] ALPRAZolam [Xanax] 0.5 - 1 mg PO Q4HR PRN 04/12/16 [History] Glucosam/Chond/Collagen/Hyalur [Glucosamine Chondroitin] 1 tab PO BEDTIME 04/12/16 [History] Magnesium 400 mg PO DAILY 04/12/16 [History] Cyclobenzaprine [Flexeril] 5 mg PO BID PRN 07/10/16 [History] Acetaminophen/HYDROcodone [[place] 325-5 MG] 1 tab PO Q6H PRN #12 tablet 10/16/17 [Rx] Liraglutide [Victoza 3-Jim] 1.8 mg INJECT QPM 04/16/18 [History] Temazepam 3 tab PO QPM 04/16/18 [History] lamoTRIgine [Lamictal] 100 mg PO QPM 04/16/18 [History] Cholecalciferol (Vitamin D3) [Vitamin D3] 1,000 unit PO DAILY 07/23/19 [History] Past Medical History HEENT History: Reports: Impaired Vision Other HEENT History: glasses Cardiovascular History: Reports: Angina, Cardiomyopathy, Hypertension, SOB on Exertion Other Cardiovascular History: PSVT, 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." Respiratory History: Reports: Sleep Apnea Other Respiratory History: "CO2 retention." Gastrointestinal History: Reports: Bowel Obstruction Other Gastrointestinal History: hernia Genitourinary History: Reports: Renal Calculus, Urinary Incontinence 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 Hematologic History: Reports: Anemia Immunologic History: Reports: None Oncologic (Cancer) History: Reports: None Dermatologic History: Reports: Other (See Below) Other Dermatologic History: Keloids - Infectious Disease History Infectious Disease History: Reports: Influenza - Past Surgical History HEENT Surgical History: Reports: Adenoidectomy, Tonsillectomy Cardiovascular Surgical History: Reports: Other (See Below) Other Cardiovascular Surgeries/Procedures: Pt has had 7 cardiac catheterizations. GI Surgical History: Reports: Appendectomy, Cholecystectomy, Hernia Repair/Other, Other (See Below) Other GI Surgeries/Procedures: Bowel resection after bowel obstruction. Musculoskeletal Surgical History: Reports: Ganglion Cyst, Shoulder Surgery Other Musculoskeletal Surgeries/Procedures:: Carpal tunnel, trigger finger surgery Social & Family History - Family History Family Medical History: No Pertinent Family History - Tobacco Use Tobacco Use Status *Q: Never Tobacco User - Caffeine Use Caffeine Use: Reports: Tea Other Caffeine Use: unknown - Recreational Drug Use Recreational Drug Use: No - Living Situation & Occupation Living situation: Reports: , with Spouse, with Family (Granddaughter) Occupation: Unemployed ED ROS GENERAL - Review of Systems Review Of Systems: See Below Constitutional: Reports: No Symptoms HEENT: Reports: No Symptoms Respiratory: Reports: Shortness of Breath Cardiovascular: Reports: Chest Pain Endocrine: Reports: No Symptoms GI/Abdominal: Reports: No Symptoms : Reports: No Symptoms Musculoskeletal: Reports: Muscle Stiffness ED EXAM, GENERAL - Physical Exam Exam: See Below Exam Limited By: No Limitations General Appearance: Alert, No Apparent Distress Ears: Normal External Exam Nose: Normal Inspection Head: Atraumatic, Normocephalic Neck: Normal Inspection Respiratory/Chest: No Respiratory Distress, Decreased Breath Sounds Cardiovascular: Regular Rate, Rhythm, No Edema, No Murmur GI/Abdominal: Soft, Non-Tender, No Organomegaly, No Mass Back Exam: Normal Inspection Extremities: Normal Inspection #1 Interpretation EKG Date: 10/31/20 Time: 16:41 Rhythm: NSR Rate (Beats/Min): 79 [place]: LAD-Left [place] Deviation P-Wave: Present QRS: Normal ST-T: Normal QT: Normal EKG Interpretation Comments: Q waves in the anterior and inferior leads. Course - Vital Signs Last Recorded V/S: Last Vital Signs Temp 97 F 10/31/20 16:44 Pulse 78 10/31/20 16:44 Resp 16 10/31/20 16:44 BP 123/67 10/31/20 16:44 Pulse Ox 92 L 10/31/20 17:16 - Orders/Labs/Meds Orders: Active Orders 24 hr Category Date Time Status Cardiac Monitoring [RC] . DIRECTED Care 10/31/20 16:57 Active EKG Documentation Completion [RC] STAT Care 10/31/20 16:58 Active Oxygen Therapy [RC] PRN Care 10/31/20 16:57 Active Peripheral IV Care [RC] . DIRECTED Care 10/31/20 16:57 Active RT Aerosol Therapy [RC] ASDIRECTED Care 10/31/20 17:00 Active Chest 1V Frontal [CR] Stat Exams 10/31/20 16:58 Taken Sodium Chloride 0.9% [Normal Saline] 1,000 ml Med 10/31/20 17:00 Active IV .BOLUS Sodium Chloride 0.9% [Saline Flush] Med 10/31/20 16:57 Active 10 ml FLUSH ASDIRECTED PRN Peripheral IV Insertion Adult [OM.PC] Stat Oth 10/31/20 16:57 Ordered Medication Orders Sodium Chloride (Normal Saline) 1,000 mls @ 1,000 mls/hr IV .BOLUS JUSTIN Last Infusion: 10/31/20 18:43 Dose: 125 mls/hr Documented by: [id number] Admin: 10/31/20 17:31 Dose: 1,000 mls/hr Documented by: [email or web address] Sodium Chloride (Saline Flush) 10 ml FLUSH ASDIRECTED PRN PRN Reason: Keep Vein Open Last Admin: 10/31/20 17:32 Dose: 10 ml Documented by: [id number] Labs: Laboratory Tests 10/31/20 10/31/20 10/31/20 Range/Units 16:58 16:59 17:31 WBC 4.42 (3.98-10.04) K/mm3 RBC 3.93 L (3.98-5.22) M/mm3 Hgb 11.8 D (11.2-15.7) gm/dl Hct 38.5 (34.1-44.9) % MCV 98.0 H (79.4-94.8) fl MCH 30.0 (25.6-32.2) pg MCHC 30.6 L (32.2-35.5) g/dl RDW Std Deviation 48.6 H (36.4-46.3) fL Plt Count 300 (182-369) K/mm3 MPV 9.3 L (9.4-12.3) fl Neut % (Auto) 50.4 (34.0-71.1) % Lymph % (Auto) 29.9 (19.3-51.7) % [place] % (Auto) 14.7 H (4.7-12.5) % Eos % (Auto) 4.3 (0.7-5.8) Baso % (Auto) 0.7 (0.1-1.2) % Neut # (Auto) 2.23 (1.56-6.13) K/mm3 Lymph # (Auto) 1.32 (1.18-3.74) K/mm3 [place] # (Auto) 0.65 H (0.24-0.36) K/mm3 Eos # (Auto) 0.19 (0.04-0.36) K/mm3 Baso # (Auto) 0.03 (0.01-0.08) K/mm3 D-Dimer, Quantitative (0.19-0.50) mg/L Puncture Site Rt radial ABG pH 7.34 L (7.35-7.45) ABG pCO2 50.8 H (35.0-45.0) mmHg ABG pO2 61.0 L (80.0-100.0) mmHg ABG HCO3 26.9 H (22.0-26.0) meq/L ABG O2 Saturation 89.4 L (96.0-97.0) % ABG Base Excess 1.0 (-2-2.0) Vik Test Positive O2 Delivery Device Nasal cannula Oxygen Flow Rate 2.0 FiO2 0.00 L (21.00-100.00) % Sodium (136-145) mEq/L Potassium (3.5-5.1) mEq/L Chloride (98-107) mEq/L Carbon Dioxide (21-32) mEq/L Anion Gap (5-15) BUN (7-18) mg/dL Creatinine (0.55-1.02) mg/dL Est Cr Clr Drug Dosing mL/min Estimated GFR (MDRD) (>60) mL/min BUN/Creatinine Ratio (14-18) Glucose (74-106) mg/dL Calcium (8.5-10.1) mg/dL Total Bilirubin (0.2-1.0) mg/dL AST (15-37) U/L ALT (14-59) U/L Alkaline Phosphatase (46-116) U/L Creatine Kinase (26-192) U/L CK-MB (CK-2) (0-3.6) ng/ml Troponin I (0.00-0.056) ng/mL Total Protein (6.4-8.2) g/dl Albumin (3.4-5.0) g/dl Globulin gm/dL Albumin/Globulin Ratio (1-2) SARS-CoV-2 RNA (MARY) Positive H (NEGATIVE) 10/31/20 10/31/20 Range/Units 17:31 17:31 WBC (3.98-10.04) K/mm3 RBC (3.98-5.22) M/mm3 Hgb (11.2-15.7) gm/dl Hct (34.1-44.9) % MCV (79.4-94.8) fl MCH (25.6-32.2) pg MCHC (32.2-35.5) g/dl RDW Std Deviation (36.4-46.3) fL Plt Count (182-369) K/mm3 MPV (9.4-12.3) fl Neut % (Auto) (34.0-71.1) % Lymph % (Auto) (19.3-51.7) % [place] % (Auto) (4.7-12.5) % Eos % (Auto) (0.7-5.8) Baso % (Auto) (0.1-1.2) % Neut # (Auto) (1.56-6.13) K/mm3 Lymph # (Auto) (1.18-3.74) K/mm3 [place] # (Auto) (0.24-0.36) K/mm3 Eos # (Auto) (0.04-0.36) K/mm3 Baso # (Auto) (0.01-0.08) K/mm3 D-Dimer, Quantitative 1.36 H (0.19-0.50) mg/L Puncture Site ABG pH (7.35-7.45) ABG pCO2 (35.0-45.0) mmHg ABG pO2 (80.0-100.0) mmHg ABG HCO3 (22.0-26.0) meq/L ABG O2 Saturation (96.0-97.0) % ABG Base Excess (-2-2.0) Vik Test O2 Delivery Device Oxygen Flow Rate FiO2 (21.00-100.00) % Sodium 143 (136-145) mEq/L Potassium 4.1 (3.5-5.1) mEq/L Chloride 105 (98-107) mEq/L Carbon Dioxide 28 (21-32) mEq/L Anion Gap 14.1 (5-15) BUN 12 (7-18) mg/dL Creatinine 1.3 H (0.55-1.02) mg/dL Est Cr Clr Drug Dosing 51.10 mL/min Estimated GFR (MDRD) 43 (>60) mL/min BUN/Creatinine Ratio 9.2 L (14-18) Glucose 138 H (74-106) mg/dL Calcium 8.7 (8.5-10.1) mg/dL Total Bilirubin 0.2 (0.2-1.0) mg/dL AST 43 H (15-37) U/L ALT 59 (14-59) U/L Alkaline Phosphatase 84 (46-116) U/L Creatine Kinase 449 H (26-192) U/L CK-MB (CK-2) 1.4 (0-3.6) ng/ml Troponin I 0.054 (0.00-0.056) ng/mL Total Protein 7.1 (6.4-8.2) g/dl Albumin 3.6 (3.4-5.0) g/dl Globulin 3.5 gm/dL Albumin/Globulin Ratio 1.0 (1-2) SARS-CoV-2 RNA (MARY) (NEGATIVE) Meds: Medications Generic Name Dose Route Start Last Admin Trade Name Freq PRN Reason Stop Dose Admin Sodium Chloride 1,000 mls @ 1,000 mls/hr 10/31/20 17:00 10/31/20 18:43 Normal Saline IV Infused .BOLUS JUSTIN Infusion Sodium Chloride 10 ml 10/31/20 16:57 10/31/20 17:32 Saline Flush FLUSH 10 ml ASDIRECTED PRN Administration Keep Vein Open Discontinued Medications Generic Name Dose Route Start Last Admin Trade Name Freq PRN Reason Stop Dose Admin Albuterol/Ipratropium 3 ml 10/31/20 17:00 10/31/20 17:15 Duoneb 3.0-0.5 Mg/3 Ml NEB 10/31/20 17:01 3 ml ONETIME ONE Administration Hydromorphone HCl 1 mg 10/31/20 16:59 10/31/20 17:31 Dilaudid IVPUSH 10/31/20 17:00 1 mg ONETIME ONE Administration Methylprednisolone Sodium Succinate 125 mg 10/31/20 18:07 10/31/20 18:44 Solu-Medrol IVPUSH 10/31/20 18:08 125 mg ONETIME ONE Administration - Re-Assessments/Exams Free Text/Narrative Re-Assessment/Exam: 10/31/20 18:05 I ordered oxygen, IV NS at 1L, EKG, CXR, and labs. 10/31/20 18:48 Her CXR shows nothing acute. 10/31/20 18:49 Her EKG shows a NSR with Q waves in the anterior and inferior leads. I did order a duoneb and solu-medrol 125mg IV. Her CBC is negative. Her creatinine is elevated at 1.3. Her D-dimer is elevated at 1.36. Her glucose was elevated at 138. Her AST is elevated at 43. Her CK was elevated at 449. She is COVID 19 positive. I feels she needs to be admitted. She is on 4L by [place]. I talked to Dr Flowers and he agreed to the admission. Departure - Departure Time of Disposition: 18:55 Disposition: Admitted As Inpatient 66 Condition: Fair Clinical Impression: COVID-19, Hypoxia, Elevated CK Forms: ED Department Discharge Sepsis Event Note (ED) - Evaluation Sepsis Screening Result: No Definite Risk - Focused Exam Vital Signs: Vital Signs Temp Pulse Resp BP Pulse Ox Pulse Ox 10/31/20 17:16 92 L 10/31/20 16:57 90 L 10/31/20 16:51 91 L 10/31/20 16:44 97 F 78 16 123/67 84 L - My Orders Last 24 Hours: My Active Orders 10/31/20 16:57 Cardiac Monitoring [RC] . DIRECTED Oxygen Therapy [RC] PRN Peripheral IV Care [RC] . DIRECTED Sodium Chloride 0.9% [Saline Flush] 10 ml FLUSH ASDIRECTED PRN Peripheral IV Insertion Adult [OM.PC] Stat 10/31/20 16:58 EKG Documentation Completion [RC] STAT Chest 1V Frontal [CR] Stat 10/31/20 17:00 RT Aerosol Therapy [RC] ASDIRECTED Sodium Chloride 0.9% [Normal Saline] 1,000 ml IV .BOLUS - Assessment/Plan Last 24 Hours: My Active Orders 10/31/20 16:57 Cardiac Monitoring [RC] . DIRECTED Oxygen Therapy [RC] PRN Peripheral IV Care [RC] . DIRECTED Sodium Chloride 0.9% [Saline Flush] 10 ml FLUSH ASDIRECTED PRN Peripheral IV Insertion Adult [OM.PC] Stat 10/31/20 16:58 EKG Documentation Completion [RC] STAT Chest 1V Frontal [CR] Stat 10/31/20 17:00 RT Aerosol Therapy [RC] ASDIRECTED Sodium Chloride 0.9% [Normal Saline] 1,000 ml IV .BOLUS
[2020-10-31] MEDS ORDERED: methylPREDNISolone Sodium Succinate 125 MG/2 ML SDV IVPUSH ONE (18:07)
--- NOTE | 2020-10-31 20:22 | PCM.HP.2 ---
H&P History of Present Illness - General Date of Service: 10/31/20 Admit Problem/Dx: Admission Diagnosis/Problem Admission Diagnosis/Problem Hypoxia Source of Information: Patient, Old Records, Provider, RN Notes Reviewed, Significant Other History Limitations: Reports: Physical Impairment - History of Present Illness Initial Comments - Free Text/Narative: This is a 55 yo white female with past medical hx/o HTN, Iatrogenic Hypothyroidism due to Thyroid Surgery, Chronic Neck Pain, DM2, Urinary Retention, Vit D Deficiency, Muscle Spasms, Muscular Dystrophy, Peripheral Neur opathy, Anxiety, Depression Insomnia and Obesity who comes to us for evaluation of generalized weakness as well as diffuse aches and pains. Her chief complaints were associated with chills, wet cough, some lightheadedness, shortness of breath, chest pain, mild lower abdominal pain, tired, fatigue and overall sense of not feeling well. Patient states she just moved back in area from [place]. She felt she may have over worked herself. Her symptoms started over the weekend. She denies having been exposed to covid + individuals but she felt maybe her . However he has not been tested. She is on BIPAP at night but usually not on supplemental O2. Upon arrival to ED she, found hypoxic with O2 sat in the low 80s. Her initial work up shows a CBC notable for RBC of 3.93, MCV of 98, MCHC of 30 .6, RDW of 48.6, MPV of 9.3, and Monocytes of 14.7. Her coagulation is significant for d-dimer of 1.36. Her ABG shows a pH of 7.34, pCO2 of 50.8, pO2 of 61, HCO3 of 26.9, O2 sat of 89.4% on 2L NC. Her chemistry is significant for Cr of 1.3, BS of 138, AST of 43, and CK off 449. Her initial troponin is wnl. Her covid-test is positive. Her chest x-ray shows no acute abnormal findings. Patient is coming in for further management of generalized weakness and covid-19 infection. Middle Chest Pain Score (Numeric/FACES): 8 - Related Data Allergies/Adverse Reactions: Allergies Allergy/AdvReac Type Severity Reaction Status Date / Time exenatide [From Bydureon] Allergy Intermediate Hives Verified 11/01/20 12:03 oxycodone Allergy Intermediate Itching Verified 11/01/20 12:03 metformin Allergy Unknown Other Verified 11/01/20 12:03 simvastatin Allergy Unknown Other Verified 11/01/20 12:03 Sulfonylureas Allergy Unknown Other Verified 11/01/20 12:03 clavulanic acid AdvReac Mild Diarrhea Verified 11/01/20 12:03 [From Augmentin] [id number] Reductase AdvReac Mild Muscle Verified 11/01/20 12:03 Inhibitor Aches Home Medications: Home Meds Gabapentin [Neurontin] 1,800 mg PO BID 10/09/15 [History] Losartan [Cozaar] 50 mg PO BID 10/09/15 [History] Spironolactone [Aldactone] 25 mg PO DAILY 10/09/15 [History] carvediloL [Coreg] 3.125 mg PO BID 10/09/15 [History] traZODone 225 mg PO BEDTIME 10/09/15 [History] ALPRAZolam [Xanax] 0.5 mg PO TID PRN 04/12/16 [History] Temazepam 45 mg PO BEDTIME PRN 04/16/18 [History] lamoTRIgine [Lamictal] 200 mg PO BID 04/16/18 [History] Cholecalciferol (Vitamin D3) [Vitamin D3] 10,000 unit PO DAILY 07/23/19 [History] Acetaminophen with Codeine [Acetaminophen-Cod #4] 1 tab PO TID PRN 11/01/20 [History] Albuterol Sulfate [Albuterol Sulfate HFA] 1 puff INH Q4H PRN 11/01/20 [History] Fluticasone Propion/Salmeterol [Advair 250-50 Diskus] 1 puff INH BID 11/01/20 [History] Levothyroxine Sodium [Levothyroxine] 137 mcg PO ACBREAKFAST 11/01/20 [History] Methylphenidate HCl [Methylphenidate ER] 27 mg PO DAILY 11/01/20 [History] Multivitamin [Multi-Day Vitamins] 1 tab PO DAILY 11/01/20 [History] Triamcinolone Acetonide [Nasacort AQ [place]] 2 sprays NASBOTH DAILY 11/01/20 [History] Venlafaxine HCl [Venlafaxine ER] 187.5 mg PO DAILY 11/01/20 [History] Past Medical History HEENT History: Reports: Impaired Vision Other HEENT History: glasses Cardiovascular History: Reports: Angina, Cardiomyopathy, Hypertension, SOB on Exertion Other Cardiovascular History: PSVT, 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." Respiratory History: Reports: Sleep Apnea Other Respiratory History: "CO2 retention." Gastrointestinal History: Reports: Bowel Obstruction Other Gastrointestinal History: hernia Genitourinary History: Reports: Renal Calculus, Urinary Incontinence [employer] History: Reports: Endometriosis, Musculoskeletal History: Reports: Fracture, Muscular Dystrophy Other Musculoskeletal History: T7 compression fx, 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 Hematologic History: Reports: Anemia Immunologic History: Reports: None Oncologic (Cancer) History: Reports: None Dermatologic History: Reports: Other (See Below) Other Dermatologic History: Keloids - Infectious Disease History Infectious Disease History: Reports: Influenza - Past Surgical History HEENT Surgical History: Reports: Adenoidectomy, Tonsillectomy Cardiovascular Surgical History: Reports: Other (See Below) Other Cardiovascular Surgeries/Procedures: Pt has had 7 cardiac catheterizations. GI Surgical History: Reports: Appendectomy, Cholecystectomy, Hernia Repair/Other, Other (See Below) Other GI Surgeries/Procedures: Bowel resection after bowel obstruction. Musculoskeletal Surgical History: Reports: Ganglion Cyst, Shoulder Surgery Other Musculoskeletal Surgeries/Procedures:: Carpal tunnel, trigger finger surgery Social & Family History - Family History Family Medical History: No Pertinent Family History - Tobacco Use Tobacco Use Status *Q: Never Tobacco User - Caffeine Use Caffeine Use: Reports: Tea Other Caffeine Use: unknown - Recreational Drug Use Recreational Drug Use: No - Living Situation & Occupation Living situation: Reports: , with Spouse, with Family (Granddaughter) Occupation: Unemployed H&P Review of Systems - Review of Systems: Review Of Systems: See Below General: Reports: Chills, Malaise, Weakness, Fatigue. Denies: Fever HEENT: Reports: No Symptoms Pulmonary: Reports: Shortness of Breath, Cough, Sputum Cardiovascular: Reports: Lightheadedness. Denies: Chest Pain, Edema Gastrointestinal: Reports: Abdominal Pain (lower abdomen). Denies: Nausea, Vomiting Genitourinary: Reports: No Symptoms Musculoskeletal: Reports: Muscle Pain Skin: Denies: Jaundice, Bruising, Rash, Erythema Psychiatric: Denies: Confusion, Depression, Anxiety Neurological: Reports: Dizziness, Difficulty Walking, Weakness, Gait Disturba nce. Denies: Paresthesia, Seizure, Trouble Speaking Hematologic/Lymphatic: Reports: No Symptoms Immunologic: Reports: No Symptoms Exam - Exam Exam: See Below - Vital Signs Vital Signs: Last Vital Signs Temp 36.1 C 10/31/20 16:44 Pulse 78 10/31/20 16:44 Resp 16 10/31/20 16:44 BP 123/67 10/31/20 16:44 Pulse Ox 92 L 10/31/20 17:16 Weight: 110.223 kg - Exam Quality Assessment: Supplemental Oxygen General: Alert, Oriented, Cooperative, Mild Distress HEENT: Conjunctiva Clear, EACs Clear, EOMI, Hearing Intact, Mucosa Moist & [place], Nares Patent, Normal Nasal Septum, Posterior Pharynx Clear, Pupils Equal, Pupils Reactive Neck: Supple, Trachea Midline Lungs: Clear to Auscultation, Normal Respiratory Effort Cardiovascular: Regular Rate, Regular Rhythm GI/Abdominal Exam: Normal Bowel Sounds, Soft, Non-Tender, No Organomegaly, No Distention, No Abnormal Bruit, Other (Obese) (Female) Exam: Deferred Rectal (Female) Exam: Deferred Back Exam: Normal Inspection, Decreased Range of Motion Extremities: Normal Inspection, Normal Range of Motion, Non-Tender, No Pedal Edema, Normal Capillary Refill, Other (baseline muscular dystrophy) Peripheral Pulses: 2+: Dorsalis Pedis (L), Dorsalis Pedis (R) Skin: Warm, Dry, Intact Neuro Extensive - Mental Status: Oriented x3, Normal Cognition, Memory Intact Neuro Extensive - Motor, Sensory, Reflexes: CN II-XII Intact, Abnormal Gait Psychiatric: Alert, Normal Affect, Normal Mood - Patient Data Lab Results Last 24 hrs: Laboratory Results - last 24 hr 10/31/20 10/31/20 10/31/20 Range/Units 16:58 16:59 17:31 WBC 4.42 (3.98-10.04) K/mm3 RBC 3.93 L (3.98-5.22) M/mm3 Hgb 11.8 D (11.2-15.7) gm/dl Hct 38.5 (34.1-44.9) % MCV 98.0 H (79.4-94.8) fl MCH 30.0 (25.6-32.2) pg MCHC 30.6 L (32.2-35.5) g/dl RDW Std Deviation 48.6 H (36.4-46.3) fL Plt Count 300 (182-369) K/mm3 MPV 9.3 L (9.4-12.3) fl Neut % (Auto) 50.4 (34.0-71.1) % Lymph % (Auto) 29.9 (19.3-51.7) % [place] % (Auto) 14.7 H (4.7-12.5) % Eos % (Auto) 4.3 (0.7-5.8) Baso % (Auto) 0.7 (0.1-1.2) % Neut # (Auto) 2.23 (1.56-6.13) K/mm3 Lymph # (Auto) 1.32 (1.18-3.74) K/mm3 [place] # (Auto) 0.65 H (0.24-0.36) K/mm3 Eos # (Auto) 0.19 (0.04-0.36) K/mm3 Baso # (Auto) 0.03 (0.01-0.08) K/mm3 D-Dimer, Quantitative (0.19-0.50) mg/L Puncture Site Rt radial ABG pH 7.34 L (7.35-7.45) ABG pCO2 50.8 H (35.0-45.0) mmHg ABG pO2 61.0 L (80.0-100.0) mmHg ABG HCO3 26.9 H (22.0-26.0) meq/L ABG O2 Saturation 89.4 L (96.0-97.0) % ABG Base Excess 1.0 (-2-2.0) Vik Test Positive O2 Delivery Device Nasal cannula Oxygen Flow Rate 2.0 FiO2 0.00 L (21.00-100.00) % Sodium (136-145) mEq/L Potassium (3.5-5.1) mEq/L Chloride (98-107) mEq/L Carbon Dioxide (21-32) mEq/L Anion Gap (5-15) BUN (7-18) mg/dL Creatinine (0.55-1.02) mg/dL Est Cr Clr Drug Dosing mL/min Estimated GFR (MDRD) (>60) mL/min BUN/Creatinine Ratio (14-18) Glucose (74-106) mg/dL Calcium (8.5-10.1) mg/dL Total Bilirubin (0.2-1.0) mg/dL AST (15-37) U/L ALT (14-59) U/L Alkaline Phosphatase (46-116) U/L Creatine Kinase (26-192) U/L CK-MB (CK-2) (0-3.6) ng/ml Troponin I (0.00-0.056) ng/mL Total Protein (6.4-8.2) g/dl Albumin (3.4-5.0) g/dl Globulin gm/dL Albumin/Globulin Ratio (1-2) SARS-CoV-2 RNA (MARY) Positive H (NEGATIVE) 10/31/20 10/31/20 Range/Units 17:31 17:31 WBC (3.98-10.04) K/mm3 RBC (3.98-5.22) M/mm3 Hgb (11.2-15.7) gm/dl Hct (34.1-44.9) % MCV (79.4-94.8) fl MCH (25.6-32.2) pg MCHC (32.2-35.5) g/dl RDW Std Deviation (36.4-46.3) fL Plt Count (182-369) K/mm3 MPV (9.4-12.3) fl Neut % (Auto) (34.0-71.1) % Lymph % (Auto) (19.3-51.7) % [place] % (Auto) (4.7-12.5) % Eos % (Auto) (0.7-5.8) Baso % (Auto) (0.1-1.2) % Neut # (Auto) (1.56-6.13) K/mm3 Lymph # (Auto) (1.18-3.74) K/mm3 [place] # (Auto) (0.24-0.36) K/mm3 Eos # (Auto) (0.04-0.36) K/mm3 Baso # (Auto) (0.01-0.08) K/mm3 D-Dimer, Quantitative 1.36 H (0.19-0.50) mg/L Puncture Site ABG pH (7.35-7.45) ABG pCO2 (35.0-45.0) mmHg ABG pO2 (80.0-100.0) mmHg ABG HCO3 (22.0-26.0) meq/L ABG O2 Saturation (96.0-97.0) % ABG Base Excess (-2-2.0) Vik Test O2 Delivery Device Oxygen Flow Rate FiO2 (21.00-100.00) % Sodium 143 (136-145) mEq/L Potassium 4.1 (3.5-5.1) mEq/L Chloride 105 (98-107) mEq/L Carbon Dioxide 28 (21-32) mEq/L Anion Gap 14.1 (5-15) BUN 12 (7-18) mg/dL Creatinine 1.3 H (0.55-1.02) mg/dL Est Cr Clr Drug Dosing 51.10 mL/min Estimated GFR (MDRD) 43 (>60) mL/min BUN/Creatinine Ratio 9.2 L (14-18) Glucose 138 H (74-106) mg/dL Calcium 8.7 (8.5-10.1) mg/dL Total Bilirubin 0.2 (0.2-1.0) mg/dL AST 43 H (15-37) U/L ALT 59 (14-59) U/L Alkaline Phosphatase 84 (46-116) U/L Creatine Kinase 449 H (26-192) U/L CK-MB (CK-2) 1.4 (0-3.6) ng/ml Troponin I 0.054 (0.00-0.056) ng/mL Total Protein 7.1 (6.4-8.2) g/dl Albumin 3.6 (3.4-5.0) g/dl Globulin 3.5 gm/dL Albumin/Globulin Ratio 1.0 (1-2) SARS-CoV-2 RNA (MARY) (NEGATIVE) Result Diagrams: 11/01/20 06:46 11/01/20 06:46 Sepsis Event Note - Evaluation Sepsis Screening Result: No Definite Risk - Focused Exam Vital Signs: Vital Signs Temp Pulse Resp BP Pulse Ox Pulse Ox 10/31/20 17:16 92 L 10/31/20 16:57 90 L 10/31/20 16:51 91 L 10/31/20 16:44 36.1 C 78 16 123/67 84 L Problem List Initiated/Reviewed/Updated: Yes Orders Last 24hrs: Active Orders 24 hr Category Date Time Status Patient Status [ADT] Routine ADT 10/31/20 19:12 Active Cardiac Monitoring [RC] . DIRECTED Care 10/31/20 16:57 Active EKG Documentation Completion [RC] STAT Care 10/31/20 16:58 Active Oxygen Therapy [RC] PRN Care 10/31/20 16:57 Active Peripheral IV Care [RC] . DIRECTED Care 10/31/20 16:57 Active RT Aerosol Therapy [RC] ASDIRECTED Care 10/31/20 17:00 Active Chest 1V Frontal [CR] Stat Exams 10/31/20 16:58 Taken Sodium Chloride 0.9% [Normal Saline] 1,000 ml Med 10/31/20 17:00 Active IV .BOLUS Sodium Chloride 0.9% [Saline Flush] Med 10/31/20 16:57 Active 10 ml FLUSH ASDIRECTED PRN Peripheral IV Insertion Adult [OM.PC] Stat Oth 10/31/20 16:57 Ordered Medication Orders Sodium Chloride (Normal Saline) 1,000 mls @ 1,000 mls/hr IV .BOLUS JUSTIN Last Infusion: 10/31/20 18:43 Dose: 125 mls/hr Documented by: [email or web address] Admin: 10/31/20 17:31 Dose: 1,000 mls/hr Documented by: [email or web address] Sodium Chloride (Saline Flush) 10 ml FLUSH ASDIRECTED PRN PRN Reason: Keep Vein Open Last Admin: 10/31/20 17:32 Dose: 10 ml Documented by: [email or web address] Assessment/Plan Comment:: This is a 55 yo white female with past medical hx/o HTN, Iatrogenic 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 Assessment: Acute: Covid-19 Infection with respiratory symptoms Acute respiratory failure on 3L NC Hypoxia with O2 sat in the low 80s on RA Elevated D-dimer 1.36 -Symptom started this weekend -Covid positive today -Chest x-ray shows no acute abnormal findings -Plan: IV fluids for hydration, Chest CTA to r/o PE. inflammatory markers. Dexamethasone 6 mg po daily for 10 days and Veklury for 5 days. Consider Actemra Therapy. No indication for IV antibiotics. Vit D level and Thyroid Panel. Oral zinc supplement. IS/FV as directed. H2B for GI prophylaxis. DVT prophylaxis: Elizabeth enox 40 mg sub BID. RT to assess and treat. Acute Kidney Injury vs CKD Stage 2-3 -Cr of 1.3, appears to be at baseline -IV fluids for hydration -Monitor renal panel Hyperglycemia with DM2 -BS of 138 -Expect to get worse with steroid (for covid-19 treatment) -Hold oral agents if she is on -Accu-check TID with ISS Generalized Weakness Diffuse Aches and Pain Elevated AST Nontraumatic Rhabdomyolysis with CK of 449 Chronic Muscular Dystrophy Class II Obese -She normally follows a specialist in [place] Q3 months -Monitor CK level -IV fluids for hydration -BMI of >35 -Dietary Consult for weight management Chest Pain r/o ACS -Has risk factors to include HTN, DM2, and Obesity -ACS work up -Lexiscan test and nuclear scan in AM Chronic: HTN, Iatrogenic Hypothyroidism due to Thyroid Surgery, Chronic Neck Pain, DM2, Urinary Retention, Vit D Deficiency, Muscle Spasms, Muscular Dystrophy, Peripheral Neuropathy, Anxiety, Depression, Insomnia, and Obesity Plan: Admit to [facility]. Routine AM labs. ACS work up. Inflammatory markers. ADA diet. NPO midnight. Lexiscan stress test in AM. Resume home meds once verified. Additional orders as above. IS as directed. PT/OT for generalized weakness. Code status is full. Prognosis is guarded-good.
[2020-10-31] MEDS ORDERED: Apixaban 5 MG Tab PO ONE (21:19)
[2020-10-31] MEDS ORDERED: Promethazine 12.5 MG in Sodium Chloride 0.9% 50 ML IV PRN (22:35)
[2020-10-31] MEDS ORDERED: Morphine 2 MG/ML SYRINGE IVPUSH PRN (22:35)
[2020-10-31] MEDS ORDERED: Polyethylene Glycol 3350 Powder 17 GM Packet PO PRN (22:35)
[2020-10-31] MEDS ORDERED: HYDROmorphone 0.5 MG/0.5 ML Syringe IVPUSH PRN (22:35)
[2020-10-31] MEDS ORDERED: Albuterol/Ipratropium 3.0-0.5 MG/3 ML Neb Soln NEB PRN (22:35)
[2020-10-31] MEDS ORDERED: Ondansetron 4 MG/2 ML SDV IV PRN (22:35)
[2020-10-31] MEDS ORDERED: Bisacodyl 5 MG Tab PO PRN (22:35)
[2020-10-31 23:26] LABS: VITAMIN D,25-HYDROXY 60.2 ng/ml (30.0-100.0)
[2020-10-31] MEDS ORDERED: REMDESIVIR 200 MG in Sodium Chloride 0.9% 250 ML IV ONE (23:30)
[2020-10-31] MEDS ORDERED: Nitroglycerin 0.4 MG Tab.SL SL PRN (23:32)
[2020-11-01] MEDS ORDERED: Enoxaparin 40 MG/0.4 ML Syringe SUBCUT ONE (00:33)
[2020-11-01] MEDS: Sodium Chloride 0.9% 1,000 ML IV SCH ×2 (02:25→17:16)
--- NOTE | 2020-11-01 07:55 | PCM.PN ---
- General Info Date of Service: 11/01/20 Admission Dx/Problem (Free Text): Admission Diagnosis/Problem Admission Diagnosis/Problem Hypoxia Subjective Update: No significant overnight or acute issues. her Chest CTA was negative for PE. She did receive Lovenox 40 mg subQ for DVT prophylaxis last night. Her lexiscan stress test was negative. Troponin I was slightly elevated x 2. EKG showed no acute ischemia. Lipid panel is abnormal with LDL of 107. BS is slightly up at 224, CK is better at 342. She was on 3 L NC overnight but now on 2L. She does not have lingering chest pain/discomfort. She feels about the same and wanting to take her psych meds. She tells me she also has ADHD and BPD with suicidal ideations. She denies feeling depressed or having suicidal thoughts at the moment. Functional Status: Reports: Pain Controlled, Ambulating, Urinating, Incentive Spirometry. Denies: New Symptoms - Review of Systems General: Reports: Weakness, Fatigue, Malaise. Denies: Fever, Chills HEENT: Denies: Contact Lenses Pulmonary: Reports: Shortness of Breath Cardiovascular: Denies: Chest Pain Gastrointestinal: Denies: Abdominal Pain, Nausea, Vomiting Musculoskeletal: Reports: Joint Pain Skin: Denies: Cyanosis, Rash Neurological: Reports: Difficulty Walking, Weakness, Gait Disturbance. Denies: Confusion, Dizziness, Headache, Seizure, Syncope Psychiatric: Denies: Depression, Anxiety - Patient Data Vitals - Most Recent: Last Vital Signs Temp 36.4 C 11/01/20 04:16 Pulse 65 11/01/20 04:16 Resp 20 11/01/20 04:16 BP 116/79 11/01/20 04:16 Pulse Ox 91 L 11/01/20 06:57 Weight - Most Recent: 111.493 kg I&O - Last 24 Hours: Intake & Output 10/31/20 11/01/20 11/01/20 22:59 06:59 14:59 Intake Total 780 Output Total 900 Balance -120 Lab Results Last 24 Hours: Laboratory Results - last 24 hr 10/31/20 10/31/20 10/31/20 Range/Units 16:58 16:59 17:31 WBC 4.42 (3.98-10.04) K/mm3 RBC 3.93 L (3.98-5.22) M/mm3 Hgb 11.8 D (11.2-15.7) gm/dl Hct 38.5 (34.1-44.9) % MCV 98.0 H (79.4-94.8) fl MCH 30.0 (25.6-32.2) pg MCHC 30.6 L (32.2-35.5) g/dl RDW Std Deviation 48.6 H (36.4-46.3) fL Plt Count 300 (182-369) K/mm3 MPV 9.3 L (9.4-12.3) fl Neut % (Auto) 50.4 (34.0-71.1) % Lymph % (Auto) 29.9 (19.3-51.7) % [place] % (Auto) 14.7 H (4.7-12.5) % Eos % (Auto) 4.3 (0.7-5.8) Baso % (Auto) 0.7 (0.1-1.2) % Neut # (Auto) 2.23 (1.56-6.13) K/mm3 Lymph # (Auto) 1.32 (1.18-3.74) K/mm3 [place] # (Auto) 0.65 H (0.24-0.36) K/mm3 Eos # (Auto) 0.19 (0.04-0.36) K/mm3 Baso # (Auto) 0.03 (0.01-0.08) K/mm3 ESR (0-20) mm/hr D-Dimer, Quantitative (0.19-0.50) mg/L Puncture Site Rt radial ABG pH 7.34 L (7.35-7.45) ABG pCO2 50.8 H (35.0-45.0) mmHg ABG pO2 61.0 L (80.0-100.0) mmHg ABG HCO3 26.9 H (22.0-26.0) meq/L ABG O2 Saturation 89.4 L (96.0-97.0) % ABG Base Excess 1.0 (-2-2.0) Vik Test Positive O2 Delivery Device Nasal cannula Oxygen Flow Rate 2.0 FiO2 0.00 L (21.00-100.00) % Sodium (136-145) mEq/L Potassium (3.5-5.1) mEq/L Chloride (98-107) mEq/L Carbon Dioxide (21-32) mEq/L Anion Gap (5-15) BUN (7-18) mg/dL Creatinine (0.55-1.02) mg/dL Est Cr Clr Drug Dosing mL/min Estimated GFR (MDRD) (>60) mL/min BUN/Creatinine Ratio (14-18) Glucose (74-106) mg/dL Lactic Acid (0.4-2.0) mmol/L Calcium (8.5-10.1) mg/dL Total Bilirubin (0.2-1.0) mg/dL AST (15-37) U/L ALT (14-59) U/L Alkaline Phosphatase (46-116) U/L Lactate Dehydrogenase (81-234) U/L Creatine Kinase (26-192) U/L CK-MB (CK-2) (0-3.6) ng/ml Troponin I (0.00-0.056) ng/mL C-Reactive Protein (<1.0) mg/dL Total Protein (6.4-8.2) g/dl Albumin (3.4-5.0) g/dl Globulin gm/dL Albumin/Globulin Ratio (1-2) Vitamin D 25-Hydroxy (30.0-100.0) ng/ml Free T4 (0.76-1.46) ng/dL TSH 3rd Generation (0.358-3.74) uIU/mL SARS-CoV-2 RNA (MARY) Positive H (NEGATIVE) 10/31/20 10/31/20 10/31/20 Range/Units 17:31 17:31 22:15 WBC (3.98-10.04) K/mm3 RBC (3.98-5.22) M/mm3 Hgb (11.2-15.7) gm/dl Hct (34.1-44.9) % MCV (79.4-94.8) fl MCH (25.6-32.2) pg MCHC (32.2-35.5) g/dl RDW Std Deviation (36.4-46.3) fL Plt Count (182-369) K/mm3 MPV (9.4-12.3) fl Neut % (Auto) (34.0-71.1) % Lymph % (Auto) (19.3-51.7) % [place] % (Auto) (4.7-12.5) % Eos % (Auto) (0.7-5.8) Baso % (Auto) (0.1-1.2) % Neut # (Auto) (1.56-6.13) K/mm3 Lymph # (Auto) (1.18-3.74) K/mm3 [place] # (Auto) (0.24-0.36) K/mm3 Eos # (Auto) (0.04-0.36) K/mm3 Baso # (Auto) (0.01-0.08) K/mm3 ESR 14 (0-20) mm/hr D-Dimer, Quantitative 1.36 H (0.19-0.50) mg/L Puncture Site ABG pH (7.35-7.45) ABG pCO2 (35.0-45.0) mmHg ABG pO2 (80.0-100.0) mmHg ABG HCO3 (22.0-26.0) meq/L ABG O2 Saturation (96.0-97.0) % ABG Base Excess (-2-2.0) Vik Test O2 Delivery Device Oxygen Flow Rate FiO2 (21.00-100.00) % Sodium 143 (136-145) mEq/L Potassium 4.1 (3.5-5.1) mEq/L Chloride 105 (98-107) mEq/L Carbon Dioxide 28 (21-32) mEq/L Anion Gap 14.1 (5-15) BUN 12 (7-18) mg/dL Creatinine 1.3 H (0.55-1.02) mg/dL Est Cr Clr Drug Dosing 51.10 mL/min Estimated GFR (MDRD) 43 (>60) mL/min BUN/Creatinine Ratio 9.2 L (14-18) Glucose 138 H (74-106) mg/dL Lactic Acid (0.4-2.0) mmol/L Calcium 8.7 (8.5-10.1) mg/dL Total Bilirubin 0.2 (0.2-1.0) mg/dL AST 43 H (15-37) U/L ALT 59 (14-59) U/L Alkaline Phosphatase 84 (46-116) U/L Lactate Dehydrogenase (81-234) U/L Creatine Kinase 449 H (26-192) U/L CK-MB (CK-2) 1.4 (0-3.6) ng/ml Troponin I 0.054 (0.00-0.056) ng/mL C-Reactive Protein (<1.0) mg/dL Total Protein 7.1 (6.4-8.2) g/dl Albumin 3.6 (3.4-5.0) g/dl Globulin 3.5 gm/dL Albumin/Globulin Ratio 1.0 (1-2) Vitamin D 25-Hydroxy (30.0-100.0) ng/ml Free T4 (0.76-1.46) ng/dL TSH 3rd Generation (0.358-3.74) uIU/mL SARS-CoV-2 RNA (MARY) (NEGATIVE) 10/31/20 10/31/20 10/31/20 Range/Units 22:15 22:15 22:15 WBC (3.98-10.04) K/mm3 RBC (3.98-5.22) M/mm3 Hgb (11.2-15.7) gm/dl Hct (34.1-44.9) % MCV (79.4-94.8) fl MCH (25.6-32.2) pg MCHC (32.2-35.5) g/dl RDW Std Deviation (36.4-46.3) fL Plt Count (182-369) K/mm3 MPV (9.4-12.3) fl Neut % (Auto) (34.0-71.1) % Lymph % (Auto) (19.3-51.7) % [place] % (Auto) (4.7-12.5) % Eos % (Auto) (0.7-5.8) Baso % (Auto) (0.1-1.2) % Neut # (Auto) (1.56-6.13) K/mm3 Lymph # (Auto) (1.18-3.74) K/mm3 [place] # (Auto) (0.24-0.36) K/mm3 Eos # (Auto) (0.04-0.36) K/mm3 Baso # (Auto) (0.01-0.08) K/mm3 ESR (0-20) mm/hr D-Dimer, Quantitative 1.33 H (0.19-0.50) mg/L Puncture Site ABG pH (7.35-7.45) ABG pCO2 (35.0-45.0) mmHg ABG pO2 (80.0-100.0) mmHg ABG HCO3 (22.0-26.0) meq/L ABG O2 Saturation (96.0-97.0) % ABG Base Excess (-2-2.0) Vik Test O2 Delivery Device Oxygen Flow Rate FiO2 (21.00-100.00) % Sodium (136-145) mEq/L Potassium (3.5-5.1) mEq/L Chloride (98-107) mEq/L Carbon Dioxide (21-32) mEq/L Anion Gap (5-15) BUN (7-18) mg/dL Creatinine (0.55-1.02) mg/dL Est Cr Clr Drug Dosing mL/min Estimated GFR (MDRD) (>60) mL/min BUN/Creatinine Ratio (14-18) Glucose (74-106) mg/dL Lactic Acid 1.7 (0.4-2.0) mmol/L Calcium (8.5-10.1) mg/dL Total Bilirubin (0.2-1.0) mg/dL AST (15-37) U/L ALT (14-59) U/L Alkaline Phosphatase (46-116) U/L Lactate Dehydrogenase 204 (81-234) U/L Creatine Kinase (26-192) U/L CK-MB (CK-2) (0-3.6) ng/ml Troponin I (0.00-0.056) ng/mL C-Reactive Protein 4.9 H* (<1.0) mg/dL Total Protein (6.4-8.2) g/dl Albumin (3.4-5.0) g/dl Globulin gm/dL Albumin/Globulin Ratio (1-2) Vitamin D 25-Hydroxy (30.0-100.0) ng/ml Free T4 (0.76-1.46) ng/dL TSH 3rd Generation (0.358-3.74) uIU/mL SARS-CoV-2 RNA (MARY) (NEGATIVE) 10/31/20 10/31/20 11/01/20 Range/Units 22:15 22:15 06:46 WBC 4.79 (3.98-10.04) K/mm3 RBC 3.97 L (3.98-5.22) M/mm3 Hgb 11.8 (11.2-15.7) gm/dl Hct 38.9 (34.1-44.9) % MCV 98.0 H (79.4-94.8) fl MCH 29.7 (25.6-32.2) pg MCHC 30.3 L (32.2-35.5) g/dl RDW Std Deviation 48.5 H (36.4-46.3) fL Plt Count 310 (182-369) K/mm3 MPV 9.2 L (9.4-12.3) fl Neut % (Auto) 79.8 H (34.0-71.1) % Lymph % (Auto) 17.1 L (19.3-51.7) % [place] % (Auto) 2.7 L (4.7-12.5) % Eos % (Auto) 0 L (0.7-5.8) Baso % (Auto) 0.2 (0.1-1.2) % Neut # (Auto) 3.82 (1.56-6.13) K/mm3 Lymph # (Auto) 0.82 L (1.18-3.74) K/mm3 [place] # (Auto) 0.13 L (0.24-0.36) K/mm3 Eos # (Auto) 0.00 L (0.04-0.36) K/mm3 Baso # (Auto) 0.01 (0.01-0.08) K/mm3 ESR (0-20) mm/hr D-Dimer, Quantitative (0.19-0.50) mg/L Puncture Site ABG pH (7.35-7.45) ABG pCO2 (35.0-45.0) mmHg ABG pO2 (80.0-100.0) mmHg ABG HCO3 (22.0-26.0) meq/L ABG O2 Saturation (96.0-97.0) % ABG Base Excess (-2-2.0) Vik Test O2 Delivery Device Oxygen Flow Rate FiO2 (21.00-100.00) % Sodium (136-145) mEq/L Potassium (3.5-5.1) mEq/L Chloride (98-107) mEq/L Carbon Dioxide (21-32) mEq/L Anion Gap (5-15) BUN (7-18) mg/dL Creatinine (0.55-1.02) mg/dL Est Cr Clr Drug Dosing mL/min Estimated GFR (MDRD) (>60) mL/min BUN/Creatinine Ratio (14-18) Glucose (74-106) mg/dL Lactic Acid (0.4-2.0) mmol/L Calcium (8.5-10.1) mg/dL Total Bilirubin (0.2-1.0) mg/dL AST (15-37) U/L ALT (14-59) U/L Alkaline Phosphatase (46-116) U/L Lactate Dehydrogenase (81-234) U/L Creatine Kinase (26-192) U/L CK-MB (CK-2) (0-3.6) ng/ml Troponin I 0.064 H* (0.00-0.056) ng/mL C-Reactive Protein (<1.0) mg/dL Total Protein (6.4-8.2) g/dl Albumin (3.4-5.0) g/dl Globulin gm/dL Albumin/Globulin Ratio (1-2) Vitamin D 25-Hydroxy 60.2 (30.0-100.0) ng/ml Free T4 0.98 (0.76-1.46) ng/dL TSH 3rd Generation 3.766 H (0.358-3.74) uIU/mL SARS-CoV-2 RNA (MARY) (NEGATIVE) Med Orders - Current: Current Medications Acetaminophen (Tylenol) 650 mg PO Q4H PRN PRN Reason: Pain (Mild 1-3)/fever Albuterol/Ipratropium (Duoneb 3.0-0.5 Mg/3 Ml) 3 ml NEB Q4H PRN PRN Reason: Shortness Of Breath/wheezing Bisacodyl (Dulcolax) 5 mg PO DAILY PRN PRN Reason: Constipation Dexamethasone (Dexamethasone) 6 mg PO DAILY [facility] Stop: 11/10/20 09:01 Enoxaparin Sodium (Lovenox) 40 mg SUBCUT BID JUSTIN Famotidine (Pepcid) 20 mg PO BID [facility] Hydromorphone HCl (Dilaudid) 0.5 mg IVPUSH Q2H PRN PRN Reason: Pain (severe 7-10) Promethazine HCl 12.5 mg/ (Sodium Chloride) 50.5 mls @ 100 mls/hr IV Q6H PRN PRN Reason: Nausea/Vomiting Remdesivir 100 mg/ Sodium (Chloride) 100 mls @ 100 mls/hr IV Q24H [facility] Stop: 11/04/20 21:59 Sodium Chloride (Normal Saline) 1,000 mls @ 75 mls/hr IV ASDIRECTED [facility] Last Admin: 11/01/20 02:25 Dose: 75 mls/hr Documented by: Ibuprofen (Motrin) 600 mg PO Q6H PRN PRN Reason: Pain (moderate 4-6) Insulin Human Lispro (Humalog) 0 unit SUBCUT TIDAC [facility]; Protocol Morphine Sulfate (Morphine) 1 mg IVPUSH Q4H PRN PRN Reason: Pain (severe 7-10) Stop: 11/01/20 22:37 Nitroglycerin (Nitrostat) 0.4 mg SL Q5M PRN PRN Reason: Chest Pain Ondansetron HCl (Zofran) 4 mg IV Q6H PRN PRN Reason: Nausea/Vomiting Polyethylene Glycol (Miralax) 17 gm PO DAILY PRN PRN Reason: Constipation Senna/Docusate Sodium (Senna Plus) 1 tab PO BID PRN PRN Reason: Constipation Sodium Chloride (Saline Flush) 10 ml FLUSH ASDIRECTED PRN PRN Reason: Keep Vein Open Last Admin: 10/31/20 17:32 Dose: 10 ml Documented by: Zinc Sulfate (Zincate) 220 mg PO DAILY [facility] Zolpidem Tartrate (Ambien) 5 mg PO BEDTIME PRN PRN Reason: Sleep Discontinued Medications Albuterol/Ipratropium (Duoneb 3.0-0.5 Mg/3 Ml) 3 ml NEB ONETIME ONE Stop: 10/31/20 17:01 Last Admin: 10/31/20 17:15 Dose: 3 ml Documented by: Apixaban (Eliquis) 5 mg PO ONETIME ONE Stop: 10/31/20 21:20 Last Admin: 10/31/20 21:24 Dose: Not Given Documented by: Enoxaparin Sodium (Lovenox) 40 mg SUBCUT ONETIME ONE Stop: 11/01/20 00:34 Last Admin: 11/01/20 01:08 Dose: 40 mg Documented by: Hydromorphone HCl (Dilaudid) 1 mg IVPUSH ONETIME ONE Stop: 10/31/20 17:00 Last Admin: 10/31/20 17:31 Dose: 1 mg Documented by: Sodium Chloride (Normal Saline) 1,000 mls @ 1,000 mls/hr IV .BOLUS JUSTIN Last Infusion: 10/31/20 18:43 Dose: Infused Documented by: Remdesivir 200 mg/ Sodium (Chloride) 250 mls @ 250 mls/hr IV ONETIME ONE Stop: 11/01/20 00:29 Last Admin: 11/01/20 01:07 Dose: 250 mls/hr Documented by: Methylprednisolone Sodium Succinate (Solu-Medrol) 125 mg IVPUSH ONETIME ONE Stop: 10/31/20 18:08 Last Admin: 10/31/20 18:44 Dose: 125 mg Documented by: - Exam Quality Assessment: Supplemental Oxygen General: Alert, Oriented, Cooperative, No Acute Distress, Other (Obese) HEENT: Pupils Equal, Pupils Reactive, EOMI, Mucous Membr. Moist/[place] Neck: Supple, Trachea Midline Lungs: Clear to Auscultation, Normal Respiratory Effort Cardiovascular: Regular Rate, Regular Rhythm GI/Abdominal Exam: Normal Bowel Sounds, Soft, Non-Tender, No Organomegaly, No Abnormal Bruit, Guarding, Other (Obese) (Female) Exam: Deferred Back Exam: Normal Inspection, Decreased Range of Motion Extremities: Normal Inspection, Normal Range of Motion, Non-Tender, No Pedal Edema, Normal Capillary Refill Peripheral Pulses: 2+: Dorsalis Pedis (L), Dorsalis Pedis (R) Skin: Warm, Dry, Intact Neurological: No New Focal Deficit. No: Normal Gait Psy/Mental Status: Alert, Normal Affect, Normal Mood - Patient Data Lab Results Last 24 hrs: Laboratory Results - last 24 hr 10/31/20 10/31/20 10/31/20 Range/Units 16:58 16:59 17:31 WBC 4.42 (3.98-10.04) K/mm3 RBC 3.93 L (3.98-5.22) M/mm3 Hgb 11.8 D (11.2-15.7) gm/dl Hct 38.5 (34.1-44.9) % MCV 98.0 H (79.4-94.8) fl MCH 30.0 (25.6-32.2) pg MCHC 30.6 L (32.2-35.5) g/dl RDW Std Deviation 48.6 H (36.4-46.3) fL Plt Count 300 (182-369) K/mm3 MPV 9.3 L (9.4-12.3) fl Neut % (Auto) 50.4 (34.0-71.1) % Lymph % (Auto) 29.9 (19.3-51.7) % [place] % (Auto) 14.7 H (4.7-12.5) % Eos % (Auto) 4.3 (0.7-5.8) Baso % (Auto) 0.7 (0.1-1.2) % Neut # (Auto) 2.23 (1.56-6.13) K/mm3 Lymph # (Auto) 1.32 (1.18-3.74) K/mm3 [place] # (Auto) 0.65 H (0.24-0.36) K/mm3 Eos # (Auto) 0.19 (0.04-0.36) K/mm3 Baso # (Auto) 0.03 (0.01-0.08) K/mm3 ESR (0-20) mm/hr D-Dimer, Quantitative (0.19-0.50) mg/L Puncture Site Rt radial ABG pH 7.34 L (7.35-7.45) ABG pCO2 50.8 H (35.0-45.0) mmHg ABG pO2 61.0 L (80.0-100.0) mmHg ABG HCO3 26.9 H (22.0-26.0) meq/L ABG O2 Saturation 89.4 L (96.0-97.0) % ABG Base Excess 1.0 (-2-2.0) Vik Test Positive O2 Delivery Device Nasal cannula Oxygen Flow Rate 2.0 FiO2 0.00 L (21.00-100.00) % Sodium (136-145) mEq/L Potassium (3.5-5.1) mEq/L Chloride (98-107) mEq/L Carbon Dioxide (21-32) mEq/L Anion Gap (5-15) BUN (7-18) mg/dL Creatinine (0.55-1.02) mg/dL Est Cr Clr Drug Dosing mL/min Estimated GFR (MDRD) (>60) mL/min BUN/Creatinine Ratio (14-18) Glucose (74-106) mg/dL Lactic Acid (0.4-2.0) mmol/L Calcium (8.5-10.1) mg/dL Total Bilirubin (0.2-1.0) mg/dL AST (15-37) U/L ALT (14-59) U/L Alkaline Phosphatase (46-116) U/L Lactate Dehydrogenase (81-234) U/L Creatine Kinase (26-192) U/L CK-MB (CK-2) (0-3.6) ng/ml Troponin I (0.00-0.056) ng/mL C-Reactive Protein (<1.0) mg/dL Total Protein (6.4-8.2) g/dl Albumin (3.4-5.0) g/dl Globulin gm/dL Albumin/Globulin Ratio (1-2) Vitamin D 25-Hydroxy (30.0-100.0) ng/ml Free T4 (0.76-1.46) ng/dL TSH 3rd Generation (0.358-3.74) uIU/mL SARS-CoV-2 RNA (MARY) Positive H (NEGATIVE) 10/31/20 10/31/20 10/31/20 Range/Units 17:31 17:31 22:15 WBC (3.98-10.04) K/mm3 RBC (3.98-5.22) M/mm3 Hgb (11.2-15.7) gm/dl Hct (34.1-44.9) % MCV (79.4-94.8) fl MCH (25.6-32.2) pg MCHC (32.2-35.5) g/dl RDW Std Deviation (36.4-46.3) fL Plt Count (182-369) K/mm3 MPV (9.4-12.3) fl Neut % (Auto) (34.0-71.1) % Lymph % (Auto) (19.3-51.7) % [place] % (Auto) (4.7-12.5) % Eos % (Auto) (0.7-5.8) Baso % (Auto) (0.1-1.2) % Neut # (Auto) (1.56-6.13) K/mm3 Lymph # (Auto) (1.18-3.74) K/mm3 [place] # (Auto) (0.24-0.36) K/mm3 Eos # (Auto) (0.04-0.36) K/mm3 Baso # (Auto) (0.01-0.08) K/mm3 ESR 14 (0-20) mm/hr D-Dimer, Quantitative 1.36 H (0.19-0.50) mg/L Puncture Site ABG pH (7.35-7.45) ABG pCO2 (35.0-45.0) mmHg ABG pO2 (80.0-100.0) mmHg ABG HCO3 (22.0-26.0) meq/L ABG O2 Saturation (96.0-97.0) % ABG Base Excess (-2-2.0) Vik Test O2 Delivery Device Oxygen Flow Rate FiO2 (21.00-100.00) % Sodium 143 (136-145) mEq/L Potassium 4.1 (3.5-5.1) mEq/L Chloride 105 (98-107) mEq/L Carbon Dioxide 28 (21-32) mEq/L Anion Gap 14.1 (5-15) BUN 12 (7-18) mg/dL Creatinine 1.3 H (0.55-1.02) mg/dL Est Cr Clr Drug Dosing 51.10 mL/min Estimated GFR (MDRD) 43 (>60) mL/min BUN/Creatinine Ratio 9.2 L (14-18) Glucose 138 H (74-106) mg/dL Lactic Acid (0.4-2.0) mmol/L Calcium 8.7 (8.5-10.1) mg/dL Total Bilirubin 0.2 (0.2-1.0) mg/dL AST 43 H (15-37) U/L ALT 59 (14-59) U/L Alkaline Phosphatase 84 (46-116) U/L Lactate Dehydrogenase (81-234) U/L Creatine Kinase 449 H (26-192) U/L CK-MB (CK-2) 1.4 (0-3.6) ng/ml Troponin I 0.054 (0.00-0.056) ng/mL C-Reactive Protein (<1.0) mg/dL Total Protein 7.1 (6.4-8.2) g/dl Albumin 3.6 (3.4-5.0) g/dl Globulin 3.5 gm/dL Albumin/Globulin Ratio 1.0 (1-2) Vitamin D 25-Hydroxy (30.0-100.0) ng/ml Free T4 (0.76-1.46) ng/dL TSH 3rd Generation (0.358-3.74) uIU/mL SARS-CoV-2 RNA (MARY) (NEGATIVE) 10/31/20 10/31/20 10/31/20 Range/Units 22:15 22:15 22:15 WBC (3.98-10.04) K/mm3 RBC (3.98-5.22) M/mm3 Hgb (11.2-15.7) gm/dl Hct (34.1-44.9) % MCV (79.4-94.8) fl MCH (25.6-32.2) pg MCHC (32.2-35.5) g/dl RDW Std Deviation (36.4-46.3) fL Plt Count (182-369) K/mm3 MPV (9.4-12.3) fl Neut % (Auto) (34.0-71.1) % Lymph % (Auto) (19.3-51.7) % [place] % (Auto) (4.7-12.5) % Eos % (Auto) (0.7-5.8) Baso % (Auto) (0.1-1.2) % Neut # (Auto) (1.56-6.13) K/mm3 Lymph # (Auto) (1.18-3.74) K/mm3 [place] # (Auto) (0.24-0.36) K/mm3 Eos # (Auto) (0.04-0.36) K/mm3 Baso # (Auto) (0.01-0.08) K/mm3 ESR (0-20) mm/hr D-Dimer, Quantitative 1.33 H (0.19-0.50) mg/L Puncture Site ABG pH (7.35-7.45) ABG pCO2 (35.0-45.0) mmHg ABG pO2 (80.0-100.0) mmHg ABG HCO3 (22.0-26.0) meq/L ABG O2 Saturation (96.0-97.0) % ABG Base Excess (-2-2.0) Vik Test O2 Delivery Device Oxygen Flow Rate FiO2 (21.00-100.00) % Sodium (136-145) mEq/L Potassium (3.5-5.1) mEq/L Chloride (98-107) mEq/L Carbon Dioxide (21-32) mEq/L Anion Gap (5-15) BUN (7-18) mg/dL Creatinine (0.55-1.02) mg/dL Est Cr Clr Drug Dosing mL/min Estimated GFR (MDRD) (>60) mL/min BUN/Creatinine Ratio (14-18) Glucose (74-106) mg/dL Lactic Acid 1.7 (0.4-2.0) mmol/L Calcium (8.5-10.1) mg/dL Total Bilirubin (0.2-1.0) mg/dL AST (15-37) U/L ALT (14-59) U/L Alkaline Phosphatase (46-116) U/L Lactate Dehydrogenase 204 (81-234) U/L Creatine Kinase (26-192) U/L CK-MB (CK-2) (0-3.6) ng/ml Troponin I (0.00-0.056) ng/mL C-Reactive Protein 4.9 H* (<1.0) mg/dL Total Protein (6.4-8.2) g/dl Albumin (3.4-5.0) g/dl Globulin gm/dL Albumin/Globulin Ratio (1-2) Vitamin D 25-Hydroxy (30.0-100.0) ng/ml Free T4 (0.76-1.46) ng/dL TSH 3rd Generation (0.358-3.74) uIU/mL SARS-CoV-2 RNA (MARY) (NEGATIVE) 10/31/20 10/31/20 11/01/20 Range/Units 22:15 22:15 06:46 WBC 4.79 (3.98-10.04) K/mm3 RBC 3.97 L (3.98-5.22) M/mm3 Hgb 11.8 (11.2-15.7) gm/dl Hct 38.9 (34.1-44.9) % MCV 98.0 H (79.4-94.8) fl MCH 29.7 (25.6-32.2) pg MCHC 30.3 L (32.2-35.5) g/dl RDW Std Deviation 48.5 H (36.4-46.3) fL Plt Count 310 (182-369) K/mm3 MPV 9.2 L (9.4-12.3) fl Neut % (Auto) 79.8 H (34.0-71.1) % Lymph % (Auto) 17.1 L (19.3-51.7) % [place] % (Auto) 2.7 L (4.7-12.5) % Eos % (Auto) 0 L (0.7-5.8) Baso % (Auto) 0.2 (0.1-1.2) % Neut # (Auto) 3.82 (1.56-6.13) K/mm3 Lymph # (Auto) 0.82 L (1.18-3.74) K/mm3 [place] # (Auto) 0.13 L (0.24-0.36) K/mm3 Eos # (Auto) 0.00 L (0.04-0.36) K/mm3 Baso # (Auto) 0.01 (0.01-0.08) K/mm3 ESR (0-20) mm/hr D-Dimer, Quantitative (0.19-0.50) mg/L Puncture Site ABG pH (7.35-7.45) ABG pCO2 (35.0-45.0) mmHg ABG pO2 (80.0-100.0) mmHg ABG HCO3 (22.0-26.0) meq/L ABG O2 Saturation (96.0-97.0) % ABG Base Excess (-2-2.0) Vik Test O2 Delivery Device Oxygen Flow Rate FiO2 (21.00-100.00) % Sodium (136-145) mEq/L Potassium (3.5-5.1) mEq/L Chloride (98-107) mEq/L Carbon Dioxide (21-32) mEq/L Anion Gap (5-15) BUN (7-18) mg/dL Creatinine (0.55-1.02) mg/dL Est Cr Clr Drug Dosing mL/min Estimated GFR (MDRD) (>60) mL/min BUN/Creatinine Ratio (14-18) Glucose (74-106) mg/dL Lactic Acid (0.4-2.0) mmol/L Calcium (8.5-10.1) mg/dL Total Bilirubin (0.2-1.0) mg/dL AST (15-37) U/L ALT (14-59) U/L Alkaline Phosphatase (46-116) U/L Lactate Dehydrogenase (81-234) U/L Creatine Kinase (26-192) U/L CK-MB (CK-2) (0-3.6) ng/ml Troponin I 0.064 H* (0.00-0.056) ng/mL C-Reactive Protein (<1.0) mg/dL Total Protein (6.4-8.2) g/dl Albumin (3.4-5.0) g/dl Globulin gm/dL Albumin/Globulin Ratio (1-2) Vitamin D 25-Hydroxy 60.2 (30.0-100.0) ng/ml Free T4 0.98 (0.76-1.46) ng/dL TSH 3rd Generation 3.766 H (0.358-3.74) uIU/mL SARS-CoV-2 RNA (MARY) (NEGATIVE) Result Diagrams: 11/01/20 06:46 11/01/20 06:46 Sepsis Event Note - Evaluation Sepsis Screening Result: No Definite Risk - Focused Exam Vital Signs: Vital Signs Temp Pulse Pulse Resp BP BP Pulse Ox 11/01/20 06:57 11/01/20 04:16 36.4 C 65 20 116/79 95 10/31/20 22:35 10/31/20 20:52 36.6 C 66 20 106/74 95 10/31/20 20:40 71 17 108/69 89 L 10/31/20 20:00 71 17 90 L Pulse Ox 11/01/20 06:57 91 L 11/01/20 04:16 10/31/20 22:35 95 10/31/20 20:52 10/31/20 20:40 10/31/20 20:00 - Problem List Review Problem List Initiated/Reviewed/Updated: Yes - My Orders Last 24 Hours: My Active Orders 10/31/20 Breakfast Nothing Per Oral Diet [DIET] 10/31/20 Dinner Heart Healthy Diet [DIET] 10/31/20 22:13 Ang Chest [CT] Stat 10/31/20 22:15 PROCALCITONIN [REF] Stat 10/31/20 22:35 Height and Weight [RC] 06 Oxygen Therapy [RC] PRN Up With Assistance [RC] BID Up ad Emily [RC] BID VTE/DVT Education [RC] DAILY Vital Signs [RC] Q4HR Consult to Case Management/Gallery Host [CONS] Routine Consult to Print Operator [CONS] Routine Consult to Spiritual Care [CONS] Routine OT Evaluation and Treatment [CONS] Routine PT Evaluation and Treatment [CONS] Routine Respiratory Care Assess and Treatment [CONS] Routine CULTURE SPUTUM + SMEAR [RM] Stat Acetaminophen [TylenoL] 650 mg PO Q4H PRN Albuterol/Ipratropium [DuoNeb 3.0-0.5 MG/3 ML] 3 ml NEB Q4H PRN Docusate Sodium/Sennosides [Senna Plus] 1 tab PO BID PRN HYDROmorphone [Dilaudid] 0.5 mg IVPUSH Q2H PRN Ibuprofen [Motrin] 600 mg PO Q6H PRN Morphine 1 mg IVPUSH Q4H PRN Ondansetron [Zofran] 4 mg IV Q6H PRN Promethazine [Phenergan] 12.5 mg Sodium Chloride 0.9% [Normal Saline] 50 ml IV Q6H Zolpidem [Ambien] 5 mg PO BEDTIME PRN bisacodyL [Dulcolax] 5 mg PO DAILY PRN polyethylene glycoL 3350 [MiraLAX] 17 gm PO DAILY PRN Resuscitation Status Routine 10/31/20 22:36 Intake and Output [RC] 04,16 10/31/20 22:40 IS (RT) [RT Incentive Spirometry] [RC] ASDIRECTED 10/31/20 22:41 Consult to Pulmonary Rehabilitation [CONS] Routine 10/31/20 22:42 Accu Check [Blood Glucose Check, Bedside] [RC] TIDAC 10/31/20 23:00 Sodium Chloride 0.9% [Normal Saline] 1,000 ml IV ASDIRECTED 10/31/20 23:32 Nitroglycerin [Nitrostat] 0.4 mg SL Q5M PRN 11/01/20 06:46 CMP [COMPREHENSIVE METABOLIC PN,CMP] [CHEM] AM CREATINE KINASE,CK [CHEM] AM CRP [C-REACTIVE PROTEIN] [CHEM] AM LIPID PANEL [CHEM] AM MAGNESIUM [CHEM] AM TROPONIN I [CHEM] Q6H 11/01/20 07:00 EKG 12 Lead [EKG Documentation Completion] [RC] ROUTINE NPO After Midnight [Nothing per Oral After Midnight Diet] [DIET] Insulin Lispro [HumaLOG] See Protocol SUBCUT TIDAC Lexiscan [EKG Stress NM Adenosine] [EK] Routine 11/01/20 09:00 Enoxaparin [Lovenox] 40 mg SUBCUT BID Famotidine [Pepcid] 20 mg PO BID Zinc Sulfate [Zincate] 220 mg PO DAILY dexAMETHasone 6 mg PO DAILY 11/01/20 21:00 Remdesivir 100 mg Sodium Chloride 0.9% [Normal Saline] 100 ml IV Q24H 11/02/20 05:11 CBC WITH AUTO DIFF [HEME] AM CMP [COMPREHENSIVE METABOLIC PN,CMP] [CHEM] AM CREATINE KINASE,CK [CHEM] AM CRP [C-REACTIVE PROTEIN] [CHEM] AM MAGNESIUM [CHEM] AM 11/03/20 05:11 CBC WITH AUTO DIFF [HEME] AM CMP [COMPREHENSIVE METABOLIC PN,CMP] [CHEM] AM CRP [C-REACTIVE PROTEIN] [CHEM] AM MAGNESIUM [CHEM] AM 11/04/20 05:11 CBC WITH AUTO DIFF [HEME] AM CMP [COMPREHENSIVE METABOLIC PN,CMP] [CHEM] AM CRP [C-REACTIVE PROTEIN] [CHEM] AM MAGNESIUM [CHEM] AM 11/05/20 05:11 CBC WITH AUTO DIFF [HEME] AM CMP [COMPREHENSIVE METABOLIC PN,CMP] [CHEM] AM MAGNESIUM [CHEM] AM 11/06/20 05:11 CBC WITH AUTO DIFF [HEME] AM CMP [COMPREHENSIVE METABOLIC PN,CMP] [CHEM] AM MAGNESIUM [CHEM] AM 11/07/20 05:11 CBC WITH AUTO DIFF [HEME] AM CMP [COMPREHENSIVE METABOLIC PN,CMP] [CHEM] AM MAGNESIUM [CHEM] AM - Plan Plan:: This is a 55 yo white female with past medical hx/o HTN, Iatrogenic 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 Assessment: Acute: Covid-19 Infection with respiratory symptoms Acute respiratory failure on 3L NC; now on 2L NC Hypoxia with O2 sat in the low 80s on RA Elevated D-dimer 1.36 Elevated CRP of 4.3, POA -Symptom started this weekend -Covid positive today -Chest x-ray shows no acute abnormal findings -Chest CTA negative for PE -Plan: IV fluids for hydration. Inflammatory markers. Dexamethasone 6 mg po daily for 1/10 days and Veklury for 2/5 days. Consider Actemra Therapy. No indication for IV antibiotics. Vit D wnl. Thyroid Panel: Elevated TSH with normal FT4 level. Oral zinc supplement. IS/FV as directed. H2B for GI prophylaxis. DVT prophylaxis: Lovenox 40 mg sub BID. RT to assess and treat. Acute Kidney Injury vs CKD Stage 2-3, improved -Cr of 1.3, appears to be at baseline -IV fluids for hydration -Monitor renal panel Hyperglycemia with DM2 -Last A1C 6.4 10/2019 -BS of 138; now 224 -Expect to get worse with steroid -Hold oral agents -Add Lantus 10 units subQ BID -Accu-check TID with ISS Generalized Weakness Diffuse Aches and Pain Elevated AST Nontraumatic Rhabdomyolysis with CK of 449; now 342 Muscular Dystrophy Class II Obese -She normally follows a specialist in [place] Q3 months -Monitor CK level -IV fluids for hydration -BMI of 36.3 -Dietary Consult for weight management Hyperlipidemia -Has hx/o diabetes -LDL of 107 -She is intolerant to statin. Also has chronic generalized body aches and pain -Diet controlled -May benefit with at least fish oil Chest Pain r/o ACS -Troponin x 2 slightly elevated -EKGs show no acute ST-T wave changes -No abnormal rhythm on telemetry -Lexiscan test is negative; nuclear scan is pending Chronic: HTN, Iatrogenic Hypothyroidism due to Thyroid Surgery, Chronic Neck Pain, DM2, Urinary Retention, Vit D Deficiency, Muscle Spasms, Muscular Dystrophy, Peripheral Neuropathy, Anxiety, Depression, Insomnia, and Obesity Plan: She looks much better clinically. Routine AM labs. Inflammatory markers. ADA diet. Resume home meds once verified. Additional orders as above. IS as directed. PT/OT for generalized weakness. Code status is full. Prognosis remains guarded-good. LOS > 96hrs, she needs to complete Covid-19 treatment regimen. 1400: Nuclear scan report read as no definite findings of ischemia are seen.
[2020-11-01] MEDS: Acetaminophen 325 MG Tab PO PRN (08:00)
--- NOTE | 2020-11-01 08:38 | PCM.PRNOTE ---
- Free Text/Narrative Note: Date of service: 11/01/20 Procedure: Regadenoson (Lexiscan) stress test Ordering provider: Dr. Cali Flowers Indication: Chest pain Baseline EKG: Sinus rhythm at 63 bpm. Near q-waves in V1-V4 Risks and benefits were discussed with the patient and consent form was signed. The patient received Regadenoson (Lexiscan) 0.4 mg IV and a nuclear agent using standard protocol. The patient was seated for the procedure. Lexiscan test: Heart rate: 85 bpm; Blood pressure: 137/94mm Hg; Oxygenation: 99%. EKG changes of ischemia during stress test or in recovery: None Arrhythmias: None Adverse effects of Lexiscan: Dyspnea that rapidly and spontaneously resolved prior to completion of test. Test terminated due to: End of protocol Impression: 1. Indeterminate Lexiscan stress test ECG for ischemia. Non-diagnostic per Lexiscan protocol. No definitive signs of ischemia seen. 2. Nuclear images pending and will be reported separately per Radiologist.
--- NOTE | 2020-11-01 10:14 | CR ---
Chest: Frontal view of the chest was obtained. Comparison: Prior chest x-ray of 01/03/20. Heart size and mediastinum are within normal limits. There is minimal atelectasis within the right upper lung. Lungs otherwise are clear. Bony structure shows prior surgery within the distal right clavicle. No acute osseous abnormality is appreciated. Impression: 1. Findings believed to be incidental. 2. Nothing acute is seen. Diagnostic code #2
--- NOTE | 2020-11-01 10:17 | CT ---
CT chest Technique: Multiple axial sections through the chest were obtained. Intravenous contrast was utilized. Study has been performed as a pulmonary angiogram protocol. Comparison: Prior CT chest study of 02/02/18. Findings: Pulmonary arteries are well opacified. No filling defects are seen to indicate pulmonary embolism. Thoracic aorta shows mild atherosclerotic change with no aneurysm. Mediastinum shows no adenopathy. No pericardial thickening is seen. Small portion of the visualized upper abdominal structures shows prior cholecystectomy. Lung window settings were reviewed. Very slight peribronchial wall thickening is seen. Very slight areas of scarring and atelectasis are seen within the left lung base. Bone window settings were reviewed which show mild degenerative changes scattered within the spine. No acute osseous abnormality is appreciated. Impression: 1. Slight peribronchial thickening with differential including bronchitis, history of asthma or change from smoking. Please correlate. 2. No findings of pulmonary embolism. 3. Other findings as noted above. Nothing acute is otherwise seen. Diagnostic code #3 I agree with preliminary report from [facility], finalized on 11/01/20, 1:15 AM NURSE [facility]WIFE
[2020-11-01] MEDS: Dexamethasone 4 MG Tab PO SCH (10:51)
[2020-11-01] MEDS: Zinc Sulfate 220 MG Cap PO SCH (10:51)
[2020-11-01] MEDS: Enoxaparin 40 MG/0.4 ML Syringe SUBCUT SCH ×2 (10:51→20:18)
[2020-11-01] MEDS: Famotidine 20 MG Tab PO SCH ×2 (10:51→20:17)
[2020-11-01] MEDS: Ibuprofen 600 MG Tab PO PRN (12:45)
--- NOTE | 2020-11-01 13:04 | NM ---
Addendum: Stress dose of technetium 99m Cardiolite was given as 31.3 mCi after the exam's dictation. --- Addendum1 above dictated on [11/01/2020 13:25] by [Leif Walker Hilton J.] --- --- Addendum1 above signed on [11/01/2020 13:42] by [Leif Walker Hilton J.] --- --- Original report below dictated on [11/01/2020 12:58] by [Leif Walker Hilton J.] --- --- Original report below signed on [11/01/2020 13:01] by [Leif Walker Hilton J.] --- Cardiolite cardiac scan with Lexiscan Technique: I have data stating the patient was stressed utilizing Lexiscan protocol. Stress dose of technetium 99m Cardiolite was 10.8 mCi. Rest dose not given at time of dictation. SPECT imaging was obtained 3 planes for both portions of the study. Study was also gated. Low-dose chest CT was performed to allow for attenuation correction. Comparison: No prior study is available at this time. Findings: Activity is somewhat patchy. There is diminished activity within the inferior wall which disappears on the attenuation corrected images most likely relating to diaphragmatic attenuation. I do not see any definite areas of reversible change. Ejection fraction is 59 percent. Wall thickening appears fairly normal. Impression: 1. No definite findings of ischemia are seen on Cardiolite scan with Lexiscan protocol. Diagnostic code #2 --- Addendum1 signed ---
[2020-11-01] MEDS: Insulin Glarg,Human.Rec.Analog 100 Unit/ML SUBCUT SCH (17:11)
[2020-11-01] MEDS ORDERED: Temazepam 15 MG Cap PO PRN (19:25)
[2020-11-01] MEDS ORDERED: [UNRECOGNIZED DRUG - OTHER] PO PRN (19:25)
[2020-11-01] MEDS ORDERED: ACETAMINOPHEN WITH CODEINE PO PRN (19:25)
[2020-11-01] MEDS: Losartan 50 MG Tab PO SCH (20:15)
[2020-11-01] MEDS: traZODone 50 MG Tab PO SCH (20:16)
[2020-11-01] MEDS: Carvedilol 3.125 MG Tab PO SCH (20:17)
[2020-11-01] MEDS: Gabapentin 600 MG Tab PO SCH (20:17)
[2020-11-01] MEDS: REMDESIVIR 100 MG in Sodium Chloride 0.9% 100 ML IV SCH (20:21)
[2020-11-01] MEDS ORDERED: Non-Formulary Medication 1 Each (Fluticasone Propion/Salmeterol 1 PUFF) INH SCH (21:00)
[2020-11-01] MEDS: lamoTRIgine 100 MG Tab PO SCH (21:35)
[2020-11-01] MEDS: Zolpidem 5 MG Tab PO PRN (21:35)
[2020-11-01] MEDS: Formoterol/Mometasone 200-5 MCG 8.8 GM Inhaler IH SCH (22:48)
[2020-11-02] MEDS ORDERED: LEVOTHYROXINE SODIUM 137 MCG PO SCH (06:00)
[2020-11-02] MEDS: Levothyroxine 112 MCG Tab PO SCH (06:43)
[2020-11-02] MEDS: Levothyroxine 25 MCG Tab PO SCH (06:43)
[2020-11-02] MEDS: Sodium Chloride 0.9% 1,000 ML IV SCH ×2 (06:43→22:12)
[2020-11-02] MEDS: Insulin Glarg,Human.Rec.Analog 100 Unit/ML SUBCUT SCH ×2 (06:45→17:26)
[2020-11-02] MEDS: Fluticasone Propionate Nasal Spray 16 GM Bottle NASBOTH SCH (08:26)
[2020-11-02] MEDS: Gabapentin 600 MG Tab PO SCH ×2 (08:26→20:50)
[2020-11-02] MEDS: Venlafaxine 75 MG Cap.ER PO SCH (08:27)
[2020-11-02] MEDS: Famotidine 20 MG Tab PO SCH ×2 (08:27→20:50)
[2020-11-02] MEDS: Cholecalciferol (Vitamin D3) 5,000 UNIT Cap PO SCH (08:27)
[2020-11-02] MEDS: lamoTRIgine 100 MG Tab PO SCH ×2 (08:27→20:53)
[2020-11-02] MEDS: Venlafaxine 37.5 MG Cap.ER PO SCH (08:27)
[2020-11-02] MEDS: Carvedilol 3.125 MG Tab PO SCH ×2 (08:28→20:51)
[2020-11-02] MEDS: Losartan 50 MG Tab PO SCH ×2 (08:28→20:51)
[2020-11-02] MEDS: Zinc Sulfate 220 MG Cap PO SCH (08:28)
[2020-11-02] MEDS: Dexamethasone 4 MG Tab PO SCH (08:29)
[2020-11-02] MEDS: Enoxaparin 40 MG/0.4 ML Syringe SUBCUT SCH ×2 (08:30→20:53)
[2020-11-02] MEDS: Spironolactone 25 MG Tab PO SCH (08:34)
[2020-11-02] MEDS: METHYLPHENIDATE 27 MG PO SCH (08:35)
[2020-11-02] MEDS: ALPRAZolam 1 MG Tab PO PRN (08:55)
[2020-11-02] MEDS: Acetaminophen 325 MG Tab PO PRN (08:55)
[2020-11-02] MEDS ORDERED: VENLAFAXINE HCL PO SCH (09:00)
[2020-11-02] MEDS ORDERED: METHYLPHENIDATE HCL 27 MG PO SCH (09:00)
[2020-11-02] MEDS ORDERED: TRIAMCINOLONE ACETONIDE NASBOTH SCH (09:00)
[2020-11-02] MEDS: ADVAIR INH SCH ×2 (09:34→21:39)
[2020-11-02] MEDS: Formoterol/Mometasone 200-5 MCG 8.8 GM Inhaler IH SCH (09:53)
--- NOTE | 2020-11-02 10:03 | PCM.PN ---
- General Info Date of Service: 11/02/20 Admission Dx/Problem (Free Text): Admission Diagnosis/Problem Admission Diagnosis/Problem Hypoxia Subjective Update: In to see Nickie. She is laying in the bed taking a nap. She reports she has had quite a busy morning. She states that she is feeling pretty good but is quite dyspneic with exertion. She also reports significant weakness. She is off of oxygen now. We discussed pulmonary rehab and social work/case management is working on setting this up. Patient reportedly has a COPD diagnosis confirmed with PFT that was obtained at the [facility] and case management is obtaining these notes. Patient will likely remain hospitalized until Thursday while she completes her remdesivir treatment. Otherwise her labs look good. We will continue current treatment plan. Functional Status: Reports: Pain Controlled, Tolerating Diet, Ambulating, Urinating, Incentive Spirometry, Other (Acapella ). Denies: New Symptoms - Review of Systems General: Reports: Weakness, Fatigue, Malaise. Denies: Fever, Chills HEENT: Reports: No Symptoms. Denies: Headaches, Sore Throat Pulmonary: Reports: No Symptoms, Shortness of Breath, Cough. Denies: Sputum, Wheezing Cardiovascular: Reports: No Symptoms, Dyspnea on Exertion. Denies: Chest Pain, Palpitations, Edema Gastrointestinal: Reports: No Symptoms. Denies: Abdominal Pain, Constipation, Diarrhea, Nausea, Vomiting Genitourinary: Reports: No Symptoms. Denies: Pain Musculoskeletal: Reports: No Symptoms Skin: Reports: No Symptoms. Denies: Cyanosis Neurological: Reports: Difficulty Walking, Weakness, Gait Disturbance. Denies: Confusion Psychiatric: Reports: No Symptoms - Patient Data Vitals - Most Recent: Last Vital Signs Temp 98.0 F 11/01/20 20:00 Pulse 68 11/02/20 08:28 Resp 15 11/02/20 01:57 BP 139/92 H 11/02/20 08:28 Pulse Ox 96 11/02/20 07:20 Weight - Most Recent: 244 lb 1.6 oz I&O - Last 24 Hours: Intake & Output 11/01/20 11/02/20 11/02/20 22:59 06:59 14:59 Intake Total 1152 1899 Output Total 1700 1300 Balance -548 599 Lab Results Last 24 Hours: Laboratory Results - last 24 hr 10/31/20 11/01/20 11/01/20 Range/Units 22:15 11:02 12:35 WBC (3.98-10.04) K/mm3 RBC (3.98-5.22) M/mm3 Hgb (11.2-15.7) gm/dl Hct (34.1-44.9) % MCV (79.4-94.8) fl MCH (25.6-32.2) pg MCHC (32.2-35.5) g/dl RDW Std Deviation (36.4-46.3) fL Plt Count (182-369) K/mm3 MPV (9.4-12.3) fl Neut % (Auto) (34.0-71.1) % Lymph % (Auto) (19.3-51.7) % Falls % (Auto) (4.7-12.5) % Eos % (Auto) (0.7-5.8) Baso % (Auto) (0.1-1.2) % Neut # (Auto) (1.56-6.13) K/mm3 Lymph # (Auto) (1.18-3.74) K/mm3 Falls # (Auto) (0.24-0.36) K/mm3 Eos # (Auto) (0.04-0.36) K/mm3 Baso # (Auto) (0.01-0.08) K/mm3 Sodium (136-145) mEq/L Potassium (3.5-5.1) mEq/L Chloride (98-107) mEq/L Carbon Dioxide (21-32) mEq/L Anion Gap (5-15) BUN (7-18) mg/dL Creatinine (0.55-1.02) mg/dL Est Cr Clr Drug Dosing mL/min Estimated GFR (MDRD) (>60) mL/min BUN/Creatinine Ratio (14-18) Glucose (74-106) mg/dL POC Glucose 201 H 169 H (70-105) mg/dL Calcium (8.5-10.1) mg/dL Magnesium (1.8-2.4) mg/dl Total Bilirubin (0.2-1.0) mg/dL AST (15-37) U/L ALT (14-59) U/L Alkaline Phosphatase (46-116) U/L Creatine Kinase (26-192) U/L C-Reactive Protein (<1.0) mg/dL Total Protein (6.4-8.2) g/dl Albumin (3.4-5.0) g/dl Globulin gm/dL Albumin/Globulin Ratio (1-2) Procalcitonin <0.05 ng/mL 11/01/20 11/02/20 11/02/20 Range/Units 16:54 05:45 06:12 WBC (3.98-10.04) K/mm3 RBC (3.98-5.22) M/mm3 Hgb (11.2-15.7) gm/dl Hct (34.1-44.9) % MCV (79.4-94.8) fl MCH (25.6-32.2) pg MCHC (32.2-35.5) g/dl RDW Std Deviation (36.4-46.3) fL Plt Count (182-369) K/mm3 MPV (9.4-12.3) fl Neut % (Auto) (34.0-71.1) % Lymph % (Auto) (19.3-51.7) % Falls % (Auto) (4.7-12.5) % Eos % (Auto) (0.7-5.8) Baso % (Auto) (0.1-1.2) % Neut # (Auto) (1.56-6.13) K/mm3 Lymph # (Auto) (1.18-3.74) K/mm3 Falls # (Auto) (0.24-0.36) K/mm3 Eos # (Auto) (0.04-0.36) K/mm3 Baso # (Auto) (0.01-0.08) K/mm3 Sodium 144 (136-145) mEq/L Potassium 4.4 (3.5-5.1) mEq/L Chloride 107 (98-107) mEq/L Carbon Dioxide 26 (21-32) mEq/L Anion Gap 15.4 H (5-15) BUN 13 (7-18) mg/dL Creatinine 0.9 (0.55-1.02) mg/dL Est Cr Clr Drug Dosing 73.81 mL/min Estimated GFR (MDRD) > 60 (>60) mL/min BUN/Creatinine Ratio 14.4 (14-18) Glucose 161 H (74-106) mg/dL POC Glucose 173 H 181 H (70-105) mg/dL Calcium 8.3 L (8.5-10.1) mg/dL Magnesium 2.3 (1.8-2.4) mg/dl Total Bilirubin 0.1 L (0.2-1.0) mg/dL AST 20 (15-37) U/L ALT 42 (14-59) U/L Alkaline Phosphatase 77 (46-116) U/L Creatine Kinase 178 (26-192) U/L C-Reactive Protein 2.1 H* (<1.0) mg/dL Total Protein 6.8 (6.4-8.2) g/dl Albumin 3.4 (3.4-5.0) g/dl Globulin 3.4 gm/dL Albumin/Globulin Ratio 1.0 (1-2) Procalcitonin ng/mL 11/02/20 Range/Units 06:12 WBC 9.18 (3.98-10.04) K/mm3 RBC 3.94 L (3.98-5.22) M/mm3 Hgb 11.8 (11.2-15.7) gm/dl Hct 38.5 (34.1-44.9) % MCV 97.7 H (79.4-94.8) fl MCH 29.9 (25.6-32.2) pg MCHC 30.6 L (32.2-35.5) g/dl RDW Std Deviation 48.5 H (36.4-46.3) fL Plt Count 337 (182-369) K/mm3 MPV 9.4 (9.4-12.3) fl Neut % (Auto) 67.0 (34.0-71.1) % Lymph % (Auto) 20.6 (19.3-51.7) % Falls % (Auto) 12.2 (4.7-12.5) % Eos % (Auto) 0.1 L (0.7-5.8) Baso % (Auto) 0.0 L (0.1-1.2) % Neut # (Auto) 6.15 H (1.56-6.13) K/mm3 Lymph # (Auto) 1.89 (1.18-3.74) K/mm3 Falls # (Auto) 1.12 H (0.24-0.36) K/mm3 Eos # (Auto) 0.01 L (0.04-0.36) K/mm3 Baso # (Auto) 0.00 L (0.01-0.08) K/mm3 Sodium (136-145) mEq/L Potassium (3.5-5.1) mEq/L Chloride (98-107) mEq/L Carbon Dioxide (21-32) mEq/L Anion Gap (5-15) BUN (7-18) mg/dL Creatinine (0.55-1.02) mg/dL Est Cr Clr Drug Dosing mL/min Estimated GFR (MDRD) (>60) mL/min BUN/Creatinine Ratio (14-18) Glucose (74-106) mg/dL POC Glucose (70-105) mg/dL Calcium (8.5-10.1) mg/dL Magnesium (1.8-2.4) mg/dl Total Bilirubin (0.2-1.0) mg/dL AST (15-37) U/L ALT (14-59) U/L Alkaline Phosphatase (46-116) U/L Creatine Kinase (26-192) U/L C-Reactive Protein (<1.0) mg/dL Total Protein (6.4-8.2) g/dl Albumin (3.4-5.0) g/dl Globulin gm/dL Albumin/Globulin Ratio (1-2) Procalcitonin ng/mL [facility] Results Last 24 Hours: Microbiology 11/01/20 12:10 Gram Stain - Final Sputum - Expectorated Sputum Culture - Preliminary Med Orders - Current: Current Medications Acetaminophen (Tylenol) 650 mg PO Q4H PRN PRN Reason: Pain (Mild 1-3)/fever Last Admin: 11/02/20 08:55 Dose: 650 mg Documented by: Acetaminophen/Codeine Phosphate (Tylenol With Codeine No.3 300mg/30mg) 1 tab PO TID PRN PRN Reason: Pain Albuterol/Ipratropium (Duoneb 3.0-0.5 Mg/3 Ml) 3 ml NEB Q4H PRN PRN Reason: Shortness Of Breath/wheezing Alprazolam (Xanax) 0.5 mg PO TID PRN PRN Reason: Anxiety Last Admin: 11/02/20 08:55 Dose: 0.5 mg Documented by: Bisacodyl (Dulcolax) 5 mg PO DAILY PRN PRN Reason: Constipation Carvedilol (Coreg) 3.125 mg PO BID [facility] Last Admin: 11/02/20 08:28 Dose: 3.125 mg Documented by: Cholecalciferol (Vitamin D3) 10,000 unit PO DAILY [facility] Last Admin: 11/02/20 08:27 Dose: 10,000 unit Documented by: Dexamethasone (Dexamethasone) 6 mg PO DAILY [facility] Stop: 11/10/20 09:01 Last Admin: 11/02/20 08:29 Dose: 6 mg Documented by: Enoxaparin Sodium (Lovenox) 40 mg SUBCUT BID [facility] Last Admin: 11/02/20 08:30 Dose: 40 mg Documented by: Famotidine (Pepcid) 20 mg PO BID [facility] Last Admin: 11/02/20 08:27 Dose: 20 mg Documented by: Fluticasone Propionate (Flonase) 0 gm NASBOTH DAILY [facility] Last Admin: 11/02/20 08:26 Dose: 2 spray Documented by: Gabapentin (Neurontin) 1,800 mg PO BID [facility] Last Admin: 11/02/20 08:26 Dose: 1,800 mg Documented by: Hydromorphone HCl (Dilaudid) 0.5 mg IVPUSH Q2H PRN PRN Reason: Pain (severe 7-10) Promethazine HCl 12.5 mg/ (Sodium Chloride) 50.5 mls @ 100 mls/hr IV Q6H PRN PRN Reason: Nausea/Vomiting Remdesivir 100 mg/ Sodium (Chloride) 100 mls @ 100 mls/hr IV Q24H [facility] Stop: 11/04/20 21:59 Last Admin: 11/01/20 20:21 Dose: 100 mls/hr Documented by: Sodium Chloride (Normal Saline) 1,000 mls @ 75 mls/hr IV ASDIRECTED [facility] Last Admin: 11/02/20 06:43 Dose: 75 mls/hr Documented by: Ibuprofen (Motrin) 600 mg PO Q6H PRN PRN Reason: Pain (moderate 4-6) Last Admin: 11/01/20 12:45 Dose: 600 mg Documented by: [facility]ulin [facility] Last Admin: 11/02/20 06:45 Dose: 10 unit Documented by: Insulin Human Lispro (Humalog) 0 unit SUBCUT TIDAC [facility]; Protocol Last Admin: 11/02/20 06:44 Dose: 2 unit Documented by: Lamotrigine (Lamotrigine) 200 mg PO BID [facility] Last Admin: 11/02/20 08:27 Dose: 200 mg Documented by: Levothyroxine Sodium (Levothyroxine) 112 mcg PO ACBREAKFAST [facility] Last Admin: 11/02/20 06:43 Dose: 112 mcg Documented by: Levothyroxine Sodium (Levothyroxine) 25 mcg PO ACBREAKFAST [facility] Last Admin: 11/02/20 06:43 Dose: 25 mcg Documented by: Losartan Potassium (Cozaar) 50 mg PO BID [facility] Last Admin: 11/02/20 08:28 Dose: 50 mg Documented by: Multivitamins (Thera) 1 each PO DAILY [facility] Nitroglycerin (Nitrostat) 0.4 mg SL Q5M PRN PRN Reason: Chest Pain Methylphenidate Er (27 Mg Ptom) 0 each PO DAILY [facility] Last Admin: 11/02/20 08:35 Dose: 1 each Documented by: Advair 250/50 Mcg (Inhaler Ptom) 0 each INH BID [facility] Last Admin: 11/02/20 09:34 Dose: 1 each Documented by: Ondansetron HCl (Zofran) 4 mg IV Q6H PRN PRN Reason: Nausea/Vomiting Polyethylene Glycol (Miralax) 17 gm PO DAILY PRN PRN Reason: Constipation Senna/Docusate Sodium (Senna Plus) 1 tab PO BID PRN PRN Reason: Constipation Sodium Chloride (Saline Flush) 10 ml FLUSH ASDIRECTED PRN PRN Reason: Keep Vein Open Last Admin: 10/31/20 17:32 Dose: 10 ml Documented by: Spironolactone (Aldactone) 25 mg PO DAILY [facility] Last Admin: 11/02/20 08:34 Dose: 25 mg Documented by: Trazodone HCl (Trazodone) 225 mg PO BEDTIME [facility] Last Admin: 11/01/20 20:16 Dose: 225 mg Documented by: Venlafaxine HCl (Effexor Xr) 150 mg PO DAILY [facility] Last Admin: 11/02/20 08:27 Dose: 150 mg Documented by: Venlafaxine HCl (Effexor Xr) 37.5 mg PO DAILY [facility] Last Admin: 11/02/20 08:27 Dose: 37.5 mg Documented by: Zinc Sulfate (Zincate) 220 mg PO DAILY [facility] Last Admin: 11/02/20 08:28 Dose: 220 mg Documented by: Zolpidem Tartrate (Ambien) 5 mg PO BEDTIME PRN PRN Reason: Sleep Last Admin: 11/01/20 21:35 Dose: 5 mg Documented by: Discontinued Medications Albuterol/Ipratropium (Duoneb 3.0-0.5 Mg/3 Ml) 3 ml NEB ONETIME ONE Stop: 10/31/20 17:01 Last Admin: 10/31/20 17:15 Dose: 3 ml Documented by: Apixaban (Eliquis) 5 mg PO ONETIME ONE Stop: 10/31/20 21:20 Last Admin: 10/31/20 21:24 Dose: Not Given Documented by: Enoxaparin Sodium (Lovenox) 40 mg SUBCUT ONETIME ONE Stop: 11/01/20 00:34 Last Admin: 11/01/20 01:08 Dose: 40 mg Documented by: Hydromorphone HCl (Dilaudid) 1 mg IVPUSH ONETIME ONE Stop: 10/31/20 17:00 Last Admin: 10/31/20 17:31 Dose: 1 mg Documented by: Sodium Chloride (Normal Saline) 1,000 mls @ 1,000 mls/hr IV .BOLUS [facility] Last Infusion: 10/31/20 18:43 Dose: Infused Documented by: Remdesivir 200 mg/ Sodium (Chloride) 250 mls @ 250 mls/hr IV ONETIME ONE Stop: 11/01/20 00:29 Last Admin: 11/01/20 01:07 Dose: 250 mls/hr Documented by: Methylprednisolone Sodium Succinate (Solu-Medrol) 125 mg IVPUSH ONETIME ONE Stop: 10/31/20 18:08 Last Admin: 10/31/20 18:44 Dose: 125 mg Documented by: Mometasone Furoate/Formoterol Fumar (Dulera 200-5 Mcg) 2 puff IH BID [facility] Last Admin: 11/02/20 09:53 Dose: Not Given Documented by: Morphine Sulfate (Morphine) 1 mg IVPUSH Q4H PRN PRN Reason: Pain (severe 7-10) Stop: 11/01/20 22:37 Non-Formulary Medication (Acetaminophen With Codeine [Acetaminophen-Cod #4]) 1 tab PO TID PRN PRN Reason: Pain Non-Formulary Medication (Methylphenidate Hcl [Methylphenidate Er]) 27 mg PO DAILY [facility] Regadenoson (Lexiscan) 0.4 mg IVPUSH ONETIME ONE Stop: 11/01/20 07:58 Last Admin: 11/01/20 08:05 Dose: 0.4 mg Documented by: Temazepam (Restoril) 45 mg PO BEDTIME PRN PRN Reason: Sleep - Exam Quality Assessment: Supplemental Oxygen (2L), DVT Prophylaxis. No: Urine Catheter General: Alert, Oriented, Cooperative, No Acute Distress HEENT: Pupils Equal, Pupils Reactive, Mucous Membr. Moist/[place] Neck: Supple, Trachea Midline Lungs: Clear to Auscultation, Normal Respiratory Effort Cardiovascular: Regular Rate, Regular Rhythm GI/Abdominal Exam: Normal Bowel Sounds, Soft, Non-Tender, No Distention (Female) Exam: Deferred Back Exam: Normal Inspection, Full Range of Motion Extremities: Normal Inspection, Normal Range of Motion, Non-Tender, No Pedal Edema, Normal Capillary Refill Peripheral Pulses: 2+: Radial (L), Radial (R), Dorsalis Pedis (L), Dorsalis Pedis (R) Skin: Warm, Dry, Intact Neurological: No New Focal Deficit Psy/Mental Status: Alert - Patient Data Lab Results Last 24 hrs: Laboratory Results - last 24 hr 10/31/20 11/01/20 11/01/20 Range/Units 22:15 11:02 12:35 WBC (3.98-10.04) K/mm3 RBC (3.98-5.22) M/mm3 Hgb (11.2-15.7) gm/dl Hct (34.1-44.9) % MCV (79.4-94.8) fl MCH (25.6-32.2) pg MCHC (32.2-35.5) g/dl RDW Std Deviation (36.4-46.3) fL Plt Count (182-369) K/mm3 MPV (9.4-12.3) fl Neut % (Auto) (34.0-71.1) % Lymph % (Auto) (19.3-51.7) % Falls % (Auto) (4.7-12.5) % Eos % (Auto) (0.7-5.8) Baso % (Auto) (0.1-1.2) % Neut # (Auto) (1.56-6.13) K/mm3 Lymph # (Auto) (1.18-3.74) K/mm3 Falls # (Auto) (0.24-0.36) K/mm3 Eos # (Auto) (0.04-0.36) K/mm3 Baso # (Auto) (0.01-0.08) K/mm3 Sodium (136-145) mEq/L Potassium (3.5-5.1) mEq/L Chloride (98-107) mEq/L Carbon Dioxide (21-32) mEq/L Anion Gap (5-15) BUN (7-18) mg/dL Creatinine (0.55-1.02) mg/dL Est Cr Clr Drug Dosing mL/min Estimated GFR (MDRD) (>60) mL/min BUN/Creatinine Ratio (14-18) Glucose (74-106) mg/dL POC Glucose 201 H 169 H (70-105) mg/dL Calcium (8.5-10.1) mg/dL Magnesium (1.8-2.4) mg/dl Total Bilirubin (0.2-1.0) mg/dL AST (15-37) U/L ALT (14-59) U/L Alkaline Phosphatase (46-116) U/L Creatine Kinase (26-192) U/L C-Reactive Protein (<1.0) mg/dL Total Protein (6.4-8.2) g/dl Albumin (3.4-5.0) g/dl Globulin gm/dL Albumin/Globulin Ratio (1-2) Procalcitonin <0.05 ng/mL 11/01/20 11/02/20 11/02/20 Range/Units 16:54 05:45 06:12 WBC (3.98-10.04) K/mm3 RBC (3.98-5.22) M/mm3 Hgb (11.2-15.7) gm/dl Hct (34.1-44.9) % MCV (79.4-94.8) fl MCH (25.6-32.2) pg MCHC (32.2-35.5) g/dl RDW Std Deviation (36.4-46.3) fL Plt Count (182-369) K/mm3 MPV (9.4-12.3) fl Neut % (Auto) (34.0-71.1) % Lymph % (Auto) (19.3-51.7) % Falls % (Auto) (4.7-12.5) % Eos % (Auto) (0.7-5.8) Baso % (Auto) (0.1-1.2) % Neut # (Auto) (1.56-6.13) K/mm3 Lymph # (Auto) (1.18-3.74) K/mm3 Falls # (Auto) (0.24-0.36) K/mm3 Eos # (Auto) (0.04-0.36) K/mm3 Baso # (Auto) (0.01-0.08) K/mm3 Sodium 144 (136-145) mEq/L Potassium 4.4 (3.5-5.1) mEq/L Chloride 107 (98-107) mEq/L Carbon Dioxide 26 (21-32) mEq/L Anion Gap 15.4 H (5-15) BUN 13 (7-18) mg/dL Creatinine 0.9 (0.55-1.02) mg/dL Est Cr Clr Drug Dosing 73.81 mL/min Estimated GFR (MDRD) > 60 (>60) mL/min BUN/Creatinine Ratio 14.4 (14-18) Glucose 161 H (74-106) mg/dL POC Glucose 173 H 181 H (70-105) mg/dL Calcium 8.3 L (8.5-10.1) mg/dL Magnesium 2.3 (1.8-2.4) mg/dl Total Bilirubin 0.1 L (0.2-1.0) mg/dL AST 20 (15-37) U/L ALT 42 (14-59) U/L Alkaline Phosphatase 77 (46-116) U/L Creatine Kinase 178 (26-192) U/L C-Reactive Protein 2.1 H* (<1.0) mg/dL Total Protein 6.8 (6.4-8.2) g/dl Albumin 3.4 (3.4-5.0) g/dl Globulin 3.4 gm/dL Albumin/Globulin Ratio 1.0 (1-2) Procalcitonin ng/mL 11/02/20 Range/Units 06:12 WBC 9.18 (3.98-10.04) K/mm3 RBC 3.94 L (3.98-5.22) M/mm3 Hgb 11.8 (11.2-15.7) gm/dl Hct 38.5 (34.1-44.9) % MCV 97.7 H (79.4-94.8) fl MCH 29.9 (25.6-32.2) pg MCHC 30.6 L (32.2-35.5) g/dl RDW Std Deviation 48.5 H (36.4-46.3) fL Plt Count 337 (182-369) K/mm3 MPV 9.4 (9.4-12.3) fl Neut % (Auto) 67.0 (34.0-71.1) % Lymph % (Auto) 20.6 (19.3-51.7) % Falls % (Auto) 12.2 (4.7-12.5) % Eos % (Auto) 0.1 L (0.7-5.8) Baso % (Auto) 0.0 L (0.1-1.2) % Neut # (Auto) 6.15 H (1.56-6.13) K/mm3 Lymph # (Auto) 1.89 (1.18-3.74) K/mm3 Falls # (Auto) 1.12 H (0.24-0.36) K/mm3 Eos # (Auto) 0.01 L (0.04-0.36) K/mm3 Baso # (Auto) 0.00 L (0.01-0.08) K/mm3 Sodium (136-145) mEq/L Potassium (3.5-5.1) mEq/L Chloride (98-107) mEq/L Carbon Dioxide (21-32) mEq/L Anion Gap (5-15) BUN (7-18) mg/dL Creatinine (0.55-1.02) mg/dL Est Cr Clr Drug Dosing mL/min Estimated GFR (MDRD) (>60) mL/min BUN/Creatinine Ratio (14-18) Glucose (74-106) mg/dL POC Glucose (70-105) mg/dL Calcium (8.5-10.1) mg/dL Magnesium (1.8-2.4) mg/dl Total Bilirubin (0.2-1.0) mg/dL AST (15-37) U/L ALT (14-59) U/L Alkaline Phosphatase (46-116) U/L Creatine Kinase (26-192) U/L C-Reactive Protein (<1.0) mg/dL Total Protein (6.4-8.2) g/dl Albumin (3.4-5.0) g/dl Globulin gm/dL Albumin/Globulin Ratio (1-2) Procalcitonin ng/mL Result Diagrams: 11/02/20 06:12 11/02/20 06:12 [facility] Results Last 24 hrs: Microbiology 11/01/20 12:10 Gram Stain - Final Sputum - Expectorated Sputum Culture - Preliminary Sepsis Event Note - Evaluation Sepsis Screening Result: No Definite Risk - Focused Exam Vital Signs: Vital Signs Pulse Resp BP Pulse Ox 11/02/20 08:28 68 139/92 H 11/02/20 08:08 139/92 H 11/02/20 07:20 68 96 11/02/20 01:57 72 15 117/76 93 L - Problem List & Annotations (1) Acute respiratory failure SNOMED Code(s): 11821144 Code(s): J96.00 - ACUTE RESPIRATORY FAILURE, UNSP W HYPOXIA OR HYPERCAPNIA Status: Acute Priority: High Current Visit: Yes Qualifiers: Respiratory failure complication: hypoxia Qualified Code(s): J96.01 - Acute respiratory failure with hypoxia (2) Elevated d-dimer SNOMED Code(s): 815668539 Code(s): R79.89 - OTHER SPECIFIED ABNORMAL FINDINGS OF BLOOD CHEMISTRY Status: Acute Priority: High Current Visit: Yes (3) Elevated C-reactive protein (CRP) SNOMED Code(s): 936582100321602 Code(s): R79.82 - ELEVATED C-REACTIVE PROTEIN (CRP) Status: Acute P riority: High Current Visit: Yes (4) DYLAN (acute kidney injury) SNOMED Code(s): 53905970, 04347117 Code(s): N17.9 - ACUTE KIDNEY FAILURE, UNSPECIFIED Status: Resolved Priority: High Current Visit: Yes (5) Hyperglycemia due to type 2 diabetes mellitus SNOMED Code(s): 284943548248616, 266330878023321 Code(s): E11.65 - TYPE 2 DIABETES MELLITUS WITH HYPERGLYCEMIA Status: Acute Priority: High Current Visit: Yes Qualifiers: Diabetes mellitus emt intermediate insulin use: without emt intermediate use Qualified Code(s): E11.65 - Type 2 diabetes mellitus with hyperglycemia (6) Generalized weakness SNOMED Code(s): 46832928 Code(s): R53.1 - WEAKNESS Status: Acute Priority: High Current Visit: Yes (7) Elevated AST (SGOT) SNOMED Code(s): 552644524 Code(s): R74.01 - ELEVATION OF LEVELS OF LIVER TRANSAMINASE LEVELS Status: Acute Priority: Medium Current Visit: Yes (8) Muscular dystrophy SNOMED Code(s): 52822433 Code(s): G71.00 - MUSCULAR DYSTROPHY, UNSPECIFIED Status: Chronic Priority: Medium Current Visit: Yes (9) Obesity (BMI 30-39.9) SNOMED Code(s): 307279773, 115504563 Code(s): E66.9 - OBESITY, UNSPECIFIED Status: Chronic Priority: Medium Current Visit: Yes (10) HLD (hyperlipidemia) SNOMED Code(s): 93238211 Code(s): E78.5 - HYPERLIPIDEMIA, UNSPECIFIED Status: Chronic Priority: Low Current Visit: No Qualifiers: Hyperlipidemia type: unspecified Qualified Code(s): E78.5 - Hyperlipidemia, unspecified (11) Elevated troponin I level SNOMED Code(s): 833329296 Code(s): R77.8 - OTHER SPECIFIED ABNORMALITIES OF PLASMA PROTEINS Status: Acute Priority: High Current Visit: Yes (12) HTN (hypertension) SNOMED Code(s): 53661880 Code(s): I10 - ESSENTIAL (PRIMARY) HYPERTENSION Status: Chronic Priority: Medium Current Visit: No Qualifiers: Hypertension type: unspecified Qualified Code(s): I10 - Essential (primary) hypertension (13) Hypothyroidism SNOMED Code(s): 04869069 Code(s): E03.9 - HYPOTHYROIDISM, UNSPECIFIED Status: Chronic Priority: Low Current Visit: No Qualifiers: Hypothyroidism type: postoperative Qualified Code(s): E89.0 - Postprocedural hypothyroidism (14) Chronic neck pain SNOMED Code(s): 7497567945216 Code(s): M54.2 - CERVICALGIA; G89.29 - OTHER CHRONIC PAIN Status: Chronic Priority: Low Current Visit: No (15) Peripheral neuropathy SNOMED Code(s): 794892613 Code(s): G62.9 - POLYNEUROPATHY, UNSPECIFIED Status: Chronic Priority: M edium Current Visit: No Qualifiers: Peripheral neuropathy type: polyneuropathy, unspecified Qualified Code(s): G62.9 - Polyneuropathy, unspecified (16) Anxiety SNOMED Code(s): 91516233 Code(s): F41.9 - ANXIETY DISORDER, UNSPECIFIED Status: Chronic Priority: Low Current Visit: No (17) Depression SNOMED Code(s): 32965907 Code(s): F32.9 - MAJOR DEPRESSIVE DISORDER, SINGLE EPISODE, UNSPECIFIED Status: Chronic Priority: Low Current Visit: No Qualifiers: Depression Type: other depression Qualified Code(s): F32.89 - Other specified depressive episodes (18) Insomnia SNOMED Code(s): 975162026 Code(s): G47.00 - INSOMNIA, UNSPECIFIED Status: Chronic Priority: Low Current Visit: No Qualifiers: Insomnia type: unspecified Qualified Code(s): G47.00 - Insomnia, unspecified (19) Type II diabetes mellitus SNOMED Code(s): 07352533 Code(s): E11.9 - TYPE 2 DIABETES MELLITUS WITHOUT COMPLICATIONS Status: Chronic Priority: Medium Current Visit: Yes Qualifiers: Diabetes mellitus alf insulin use: unspecified alf insulin use status Diabetes mellitus complication status: with other specified complication Qualified Code(s): E11.69 - Type 2 diabetes mellitus with other specified complication (20) Urinary retention SNOMED Code(s): 000724696 Code(s): R33.9 - RETENTION OF URINE, UNSPECIFIED Status: Chronic Priority: Low Current Visit: No (21) Vitamin D deficiency SNOMED Code(s): 09734557 Code(s): E55.9 - VITAMIN D DEFICIENCY, UNSPECIFIED Status: Chronic Priority: Low Current Visit: No (22) Muscle spasm SNOMED Code(s): 82582366 Code(s): M62.838 - OTHER MUSCLE SPASM Status: Chronic Priority: Low Current Visit: No (23) COVID-19 SNOMED Code(s): 351590947 Code(s): U07.1 - COVID-19 Status: Acute Priority: High Current Visit: Yes (24) Elevated CK SNOMED Code(s): 170236887 Code(s): R74.8 - ABNORMAL LEVELS OF OTHER SERUM ENZYMES Status: Acute Priority: High Current Visit: Yes (25) Hypoxia SNOMED Code(s): 513118468 Code(s): R09.02 - HYPOXEMIA Status: Acute Priority: High Current Visit: Yes (26) Atypical chest pain SNOMED Code(s): 774621778 Code(s): R07.89 - OTHER CHEST PAIN Status: Acute Priority: High Current Visit: Yes - Problem List Review Problem List Initiated/Reviewed/Updated: Yes - Plan Plan:: This is a 55 yo white female with past medical hx/o HTN, Iatrogenic 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 Assessment: Acute: Covid-19 Infection with respiratory symptoms Acute respiratory failure on 3L NC; now off of oxygen Hypoxia with O2 sat in the low 80s on RA in ED Elevated D-dimer 1.36 Elevated CRP of 4.3, POA-->2.1 -Symptom started this weekend -Covid positive -Chest x-ray shows no acute abnormal findings -Chest CTA negative for PE -Plan: IV fluids for hydration. Inflammatory markers. Dexamethasone 6 mg po daily for 2/10 days and Veklury for 2/5 days. Consider Actemra Therapy. No indic ation for IV antibiotics. Vit D wnl. Thyroid Panel: Elevated TSH with normal FT4 level. Oral zinc supplement. IS/FV as directed. H2B for GI prophylaxis. DVT prophylaxis: Lovenox 40 mg sub BID. RT to assess and treat. Hyperglycemia with DM2 -Last A1C 6.4 10/2019 -BS of 138; now 224-->161 -Expect to get worse with steroid -Hold oral agents -Add Lantus 10 units subQ BID -Accu-check TID with ISS Generalized Weakness Diffuse Aches and Pain Elevated AST Nontraumatic Rhabdomyolysis with CK of 449; now 342-->178 Muscular Dystrophy Class II Obese -She normally follows a specialist in [place] Q3 months -Monitor CK level -IV fluids for hydration -BMI of 36.3 -Dietary Consult for weight management Hyperlipidemia -Has hx/o diabetes -LDL of 107 -She is intolerant to statin. 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 Inflammatory markers. ADA diet. Additional orders as above. IS/acapella as directed. PT/OT for generalized weakness. Plan for pulmonary rehab after discharge. Code status is full. Prognosis remains guarded-good. LOS >96 hrs due to need for continuing COVID-19 treatment.
[2020-11-02] MEDS: Multivitamins,Therapeutic Tab PO SCH (11:31)
[2020-11-02] MEDS: traZODone 50 MG Tab PO SCH (20:52)
[2020-11-02] MEDS: REMDESIVIR 100 MG in Sodium Chloride 0.9% 100 ML IV SCH (20:53)
[2020-11-02] MEDS: Zolpidem 5 MG Tab PO PRN (23:20)
[2020-11-03] MEDS: Levothyroxine 112 MCG Tab PO SCH (06:38)
[2020-11-03] MEDS: Levothyroxine 25 MCG Tab PO SCH (06:39)
[2020-11-03] MEDS: Insulin Glarg,Human.Rec.Analog 100 Unit/ML SUBCUT SCH ×2 (06:39→17:52)
--- NOTE | 2020-11-03 07:44 | PCM.PN ---
- General Info Date of Service: 11/03/20 Admission Dx/Problem (Free Text): Admission Diagnosis/Problem Admission Diagnosis/Problem Hypoxia Subjective Update: No significant overnight. However she feels more achy and worn out his AM. She actually looks good this morning and in good spirits. She is now on RA sating adequately. Her morning labs are fairly unremarkable. Functional Status: Reports: Pain Controlled, Tolerating Diet, Ambulating, Urinating, Incentive Spirometry - Review of Systems General: Reports: Weakness. Denies: Fever, Chills Pulmonary: Denies: Shortness of Breath, Cough Cardiovascular: Denies: Chest Pain Gastrointestinal: Denies: Abdominal Pain, Nausea, Vomiting Genitourinary: Denies: Dysuria Musculoskeletal: Reports: Joint Pain Skin: Denies: Cyanosis, Pallor Neurological: Reports: Dizziness, Difficulty Walking, Weakness, Gait Disturbance. Denies: Confusion Psychiatric: Denies: Depression, Anxiety - Patient Data Vitals - Most Recent: Last Vital Signs Temp 36.4 C 11/03/20 06:45 Pulse 71 11/03/20 06:45 Resp 16 11/03/20 06:45 BP 127/89 11/03/20 06:45 Pulse Ox 95 11/03/20 06:45 Weight - Most Recent: 109.86 kg I&O - Last 24 Hours: Intake & Output 11/02/20 11/03/20 11/03/20 22:59 06:59 14:59 Intake Total 3103 1900 Output Total 900 1800 Balance 2203 100 Lab Results Last 24 Hours: Laboratory Results - last 24 hr 11/02/20 11/02/20 11/02/20 Range/Units 06:12 10:56 16:32 WBC (3.98-10.04) K/mm3 RBC (3.98-5.22) M/mm3 Hgb (11.2-15.7) gm/dl Hct (34.1-44.9) % MCV (79.4-94.8) fl MCH (25.6-32.2) pg MCHC (32.2-35.5) g/dl RDW Std Deviation (36.4-46.3) fL Plt Count (182-369) K/mm3 MPV (9.4-12.3) fl Neut % (Auto) (34.0-71.1) % Lymph % (Auto) (19.3-51.7) % [place] % (Auto) (4.7-12.5) % Eos % (Auto) (0.7-5.8) Baso % (Auto) (0.1-1.2) % Neut # (Auto) (1.56-6.13) K/mm3 Lymph # (Auto) (1.18-3.74) K/mm3 [place] # (Auto) (0.24-0.36) K/mm3 Eos # (Auto) (0.04-0.36) K/mm3 Baso # (Auto) (0.01-0.08) K/mm3 Sodium 144 (136-145) mEq/L Potassium 4.4 (3.5-5.1) mEq/L Chloride 107 (98-107) mEq/L Carbon Dioxide 26 (21-32) mEq/L Anion Gap 15.4 H (5-15) BUN 13 (7-18) mg/dL Creatinine 0.9 (0.55-1.02) mg/dL Est Cr Clr Drug Dosing 73.81 mL/min Estimated GFR (MDRD) > 60 (>60) mL/min BUN/Creatinine Ratio 14.4 (14-18) Glucose 161 H (74-106) mg/dL POC Glucose 173 H 231 H (70-105) mg/dL Calcium 8.3 L (8.5-10.1) mg/dL Magnesium 2.3 (1.8-2.4) mg/dl Total Bilirubin 0.1 L (0.2-1.0) mg/dL AST 20 (15-37) U/L ALT 42 (14-59) U/L Alkaline Phosphatase 77 (46-116) U/L Creatine Kinase 178 (26-192) U/L C-Reactive Protein 2.1 H* (<1.0) mg/dL Total Protein 6.8 (6.4-8.2) g/dl Albumin 3.4 (3.4-5.0) g/dl Globulin 3.4 gm/dL Albumin/Globulin Ratio 1.0 (1-2) 11/03/20 11/03/20 11/03/20 Range/Units 06:03 06:03 06:43 WBC 8.87 (3.98-10.04) K/mm3 RBC 4.06 (3.98-5.22) M/mm3 Hgb 12.2 (11.2-15.7) gm/dl Hct 39.7 (34.1-44.9) % MCV 97.8 H (79.4-94.8) fl MCH 30.0 (25.6-32.2) pg MCHC 30.7 L (32.2-35.5) g/dl RDW Std Deviation 50.1 H (36.4-46.3) fL Plt Count 327 (182-369) K/mm3 MPV 9.4 (9.4-12.3) fl Neut % (Auto) 57.3 (34.0-71.1) % Lymph % (Auto) 32.1 (19.3-51.7) % [place] % (Auto) 10.4 (4.7-12.5) % Eos % (Auto) 0.1 L (0.7-5.8) Baso % (Auto) 0.1 (0.1-1.2) % Neut # (Auto) 5.08 (1.56-6.13) K/mm3 Lymph # (Auto) 2.85 (1.18-3.74) K/mm3 [place] # (Auto) 0.92 H (0.24-0.36) K/mm3 Eos # (Auto) 0.01 L (0.04-0.36) K/mm3 Baso # (Auto) 0.01 (0.01-0.08) K/mm3 Sodium 142 (136-145) mEq/L Potassium 4.2 (3.5-5.1) mEq/L Chloride 107 (98-107) mEq/L Carbon Dioxide 27 (21-32) mEq/L Anion Gap 12.2 (5-15) BUN 15 (7-18) mg/dL Creatinine 1.0 (0.55-1.02) mg/dL Est Cr Clr Drug Dosing 66.43 mL/min Estimated GFR (MDRD) 58 (>60) mL/min BUN/Creatinine Ratio 15.0 (14-18) Glucose 143 H (74-106) mg/dL POC Glucose 153 H (70-105) mg/dL Calcium 8.5 (8.5-10.1) mg/dL Magnesium 2.3 (1.8-2.4) mg/dl Total Bilirubin 0.2 (0.2-1.0) mg/dL AST 18 (15-37) U/L ALT 37 (14-59) U/L Alkaline Phosphatase 71 (46-116) U/L Creatine Kinase (26-192) U/L C-Reactive Protein 1.1 H* (<1.0) mg/dL Total Protein 7.0 (6.4-8.2) g/dl Albumin 3.4 (3.4-5.0) g/dl Globulin 3.6 gm/dL Albumin/Globulin Ratio 0.9 L (1-2) Maximus Results Last 24 Hours: Microbiology 11/01/20 12:10 Gram Stain - Final Sputum - Expectorated Sputum Culture - Preliminary Med Orders - Current: Current Medications Acetaminophen (Tylenol) 650 mg PO Q4H PRN PRN Reason: Pain (Mild 1-3)/fever Last Admin: 11/02/20 08:55 Dose: 650 mg Documented by: Acetaminophen/Codeine Phosphate (Tylenol With Codeine No.3 300mg/30mg) 1 tab PO TID PRN PRN Reason: Pain Albuterol/Ipratropium (Duoneb 3.0-0.5 Mg/3 Ml) 3 ml NEB Q4H PRN PRN Reason: Shortness Of Breath/wheezing Alprazolam (Xanax) 0.5 mg PO TID PRN PRN Reason: Anxiety Last Admin: 11/02/20 08:55 Dose: 0.5 mg Documented by: Bisacodyl (Dulcolax) 5 mg PO DAILY PRN PRN Reason: Constipation Carvedilol (Coreg) 3.125 mg PO BID [facility] Last Admin: 11/02/20 20:51 Dose: 3.125 mg Documented by: Cholecalciferol (Vitamin D3) 10,000 unit PO DAILY [facility] Last Admin: 11/02/20 08:27 Dose: 10,000 unit Documented by: Dexamethasone (Dexamethasone) 6 mg PO DAILY [facility] Stop: 11/10/20 09:01 Last Admin: 11/02/20 08:29 Dose: 6 mg Documented by: Enoxaparin Sodium (Lovenox) 40 mg SUBCUT BID [facility] Last Admin: 11/02/20 20:53 Dose: 40 mg Documented by: Famotidine (Pepcid) 20 mg PO BID [facility] Last Admin: 11/02/20 20:50 Dose: 20 mg Documented by: Fluticasone Propionate (Flonase) 0 gm NASBOTH DAILY [facility] Last Admin: 11/02/20 08:26 Dose: 2 spray Documented by: Gabapentin (Neurontin) 1,800 mg PO BID [facility] Last Admin: 11/02/20 20:50 Dose: 1,800 mg Documented by: Hydromorphone HCl (Dilaudid) 0.5 mg IVPUSH Q2H PRN PRN Reason: Pain (severe 7-10) Promethazine HCl 12.5 mg/ (Sodium Chloride) 50.5 mls @ 100 mls/hr IV Q6H PRN PRN Reason: Nausea/Vomiting Remdesivir 100 mg/ Sodium (Chloride) 100 mls @ 100 mls/hr IV Q24H [facility] Stop: 11/04/20 21:59 Last Admin: 11/02/20 20:53 Dose: 100 mls/hr Documented by: Sodium Chloride (Normal Saline) 1,000 mls @ 75 mls/hr IV ASDIRECTED [facility] Last Admin: 11/02/20 22:12 Dose: 75 mls/hr Documented by: Ibuprofen (Motrin) 600 mg PO Q6H PRN PRN Reason: Pain (moderate 4-6) Last Admin: 11/01/20 12:45 Dose: 600 mg Documented by: [facility]ulin [facility] Last Admin: 11/03/20 06:39 Dose: 10 unit Documented by: Insulin Human Lispro (Humalog) 0 unit SUBCUT TIDAC [facility]; Protocol Last Admin: 11/02/20 17:27 Dose: 6 unit Documented by: Lamotrigine (Lamotrigine) 200 mg PO BID [facility] Last Admin: 11/02/20 20:53 Dose: 200 mg Documented by: Levothyroxine Sodium (Levothyroxine) 112 mcg PO ACBREAKFAST [facility] Last Admin: 11/03/20 06:38 Dose: 112 mcg Documented by: Levothyroxine Sodium (Levothyroxine) 25 mcg PO ACBREAKFAST [facility] Last Admin: 11/03/20 06:39 Dose: 25 mcg Documented by: Losartan Potassium (Cozaar) 50 mg PO BID [facility] Last Admin: 11/02/20 20:51 Dose: 50 mg Documented by: Multivitamins (Thera) 1 each PO DAILY [facility] Last Admin: 11/02/20 11:31 Dose: 1 each Documented by: Nitroglycerin (Nitrostat) 0.4 mg SL Q5M PRN PRN Reason: Chest Pain Methylphenidate Er (27 Mg Ptom) 0 each PO DAILY [facility] Last Admin: 11/02/20 08:35 Dose: 1 each Documented by: Advair 250/50 Mcg (Inhaler Ptom) 0 each INH BID [facility] Last Admin: 11/02/20 21:39 Dose: 1 each Documented by: Ondansetron HCl (Zofran) 4 mg IV Q6H PRN PRN Reason: Nausea/Vomiting Polyethylene Glycol (Miralax) 17 gm PO DAILY PRN PRN Reason: Constipation Senna/Docusate Sodium (Senna Plus) 1 tab PO BID PRN PRN Reason: Constipation Sodium Chloride (Saline Flush) 10 ml FLUSH ASDIRECTED PRN PRN Reason: Keep Vein Open Last Admin: 10/31/20 17:32 Dose: 10 ml Documented by: Spironolactone (Aldactone) 25 mg PO DAILY [facility] Last Admin: 11/02/20 08:34 Dose: 25 mg Documented by: Trazodone HCl (Trazodone) 225 mg PO BEDTIME [facility] Last Admin: 11/02/20 20:52 Dose: 225 mg Documented by: Venlafaxine HCl (Effexor Xr) 150 mg PO DAILY [facility] Last Admin: 11/02/20 08:27 Dose: 150 mg Documented by: Venlafaxine HCl (Effexor Xr) 37.5 mg PO DAILY [facility] Last Admin: 11/02/20 08:27 Dose: 37.5 mg Documented by: Zinc Sulfate (Zincate) 220 mg PO DAILY [facility] Last Admin: 11/02/20 08:28 Dose: 220 mg Documented by: Zolpidem Tartrate (Ambien) 5 mg PO BEDTIME PRN PRN Reason: Sleep Last Admin: 11/02/20 23:20 Dose: 5 mg Documented by: Discontinued Medications Albuterol/Ipratropium (Duoneb 3.0-0.5 Mg/3 Ml) 3 ml NEB ONETIME ONE Stop: 10/31/20 17:01 Last Admin: 10/31/20 17:15 Dose: 3 ml Documented by: Apixaban (Eliquis) 5 mg PO ONETIME ONE Stop: 10/31/20 21:20 Last Admin: 10/31/20 21:24 Dose: Not Given Documented by: Enoxaparin Sodium (Lovenox) 40 mg SUBCUT ONETIME ONE Stop: 11/01/20 00:34 Last Admin: 11/01/20 01:08 Dose: 40 mg Documented by: Hydromorphone HCl (Dilaudid) 1 mg IVPUSH ONETIME ONE Stop: 10/31/20 17:00 Last Admin: 10/31/20 17:31 Dose: 1 mg Documented by: Sodium Chloride (Normal Saline) 1,000 mls @ 1,000 mls/hr IV .BOLUS JUSTIN Last Infusion: 10/31/20 18:43 Dose: Infused Documented by: Remdesivir 200 mg/ Sodium (Chloride) 250 mls @ 250 mls/hr IV ONETIME ONE Stop: 11/01/20 00:29 Last Admin: 11/01/20 01:07 Dose: 250 mls/hr Documented by: Methylprednisolone Sodium Succinate (Solu-Medrol) 125 mg IVPUSH ONETIME ONE Stop: 10/31/20 18:08 Last Admin: 10/31/20 18:44 Dose: 125 mg Documented by: Mometasone Furoate/Formoterol Fumar (Dulera 200-5 Mcg) 2 puff IH BID JUSTIN Last Admin: 11/02/20 09:53 Dose: Not Given Documented by: Morphine Sulfate (Morphine) 1 mg IVPUSH Q4H PRN PRN Reason: Pain (severe 7-10) Stop: 11/01/20 22:37 Non-Formulary Medication (Acetaminophen With Codeine [Acetaminophen-Cod #4]) 1 tab PO TID PRN PRN Reason: Pain Non-Formulary Medication (Methylphenidate Hcl [Methylphenidate Er]) 27 mg PO DAILY [facility] Regadenoson (Lexiscan) 0.4 mg IVPUSH ONETIME ONE Stop: 11/01/20 07:58 Last Admin: 11/01/20 08:05 Dose: 0.4 mg Documented by: Temazepam (Restoril) 45 mg PO BEDTIME PRN PRN Reason: Sleep - Exam Quality Assessment: No: Supplemental Oxygen General: Alert, Oriented, Cooperative, No Acute Distress, Other (Obese) HEENT: Pupils Equal, Pupils Reactive, EOMI, Mucous Membr. Moist/[place] Lungs: Clear to Auscultation Cardiovascular: Regular Rate, Regular Rhythm GI/Abdominal Exam: Normal Bowel Sounds, Soft, Non-Tender, No Organomegaly, No Distention, No Abnormal Bruit, No Mass, Pelvis Stable, Other (Obese) (Female) Exam: Deferred Back Exam: Normal Inspection, Decreased Range of Motion Extremities: Normal Inspection, Normal Range of Motion, Non-Tender, No Pedal Edema, Normal Capillary Refill Peripheral Pulses: 2+: Dorsalis Pedis (L), Dorsalis Pedis (R) Skin: Warm, Dry, Intact Neurological: No New Focal Deficit. No: Normal Gait Psy/Mental Status: Alert, Normal Affect, Normal Mood - Patient Data Lab Results Last 24 hrs: Laboratory Results - last 24 hr 11/02/20 11/02/20 11/02/20 Range/Units 06:12 10:56 16:32 WBC (3.98-10.04) K/mm3 RBC (3.98-5.22) M/mm3 Hgb (11.2-15.7) gm/dl Hct (34.1-44.9) % MCV (79.4-94.8) fl MCH (25.6-32.2) pg MCHC (32.2-35.5) g/dl RDW Std Deviation (36.4-46.3) fL Plt Count (182-369) K/mm3 MPV (9.4-12.3) fl Neut % (Auto) (34.0-71.1) % Lymph % (Auto) (19.3-51.7) % [place] % (Auto) (4.7-12.5) % Eos % (Auto) (0.7-5.8) Baso % (Auto) (0.1-1.2) % Neut # (Auto) (1.56-6.13) K/mm3 Lymph # (Auto) (1.18-3.74) K/mm3 [place] # (Auto) (0.24-0.36) K/mm3 Eos # (Auto) (0.04-0.36) K/mm3 Baso # (Auto) (0.01-0.08) K/mm3 Sodium 144 (136-145) mEq/L Potassium 4.4 (3.5-5.1) mEq/L Chloride 107 (98-107) mEq/L Carbon Dioxide 26 (21-32) mEq/L Anion Gap 15.4 H (5-15) BUN 13 (7-18) mg/dL Creatinine 0.9 (0.55-1.02) mg/dL Est Cr Clr Drug Dosing 73.81 mL/min Estimated GFR (MDRD) > 60 (>60) mL/min BUN/Creatinine Ratio 14.4 (14-18) Glucose 161 H (74-106) mg/dL POC Glucose 173 H 231 H (70-105) mg/dL Calcium 8.3 L (8.5-10.1) mg/dL Magnesium 2.3 (1.8-2.4) mg/dl Total Bilirubin 0.1 L (0.2-1.0) mg/dL AST 20 (15-37) U/L ALT 42 (14-59) U/L Alkaline Phosphatase 77 (46-116) U/L Creatine Kinase 178 (26-192) U/L C-Reactive Protein 2.1 H* (<1.0) mg/dL Total Protein 6.8 (6.4-8.2) g/dl Albumin 3.4 (3.4-5.0) g/dl Globulin 3.4 gm/dL Albumin/Globulin Ratio 1.0 (1-2) 11/03/20 11/03/20 11/03/20 Range/Units 06:03 06:03 06:43 WBC 8.87 (3.98-10.04) K/mm3 RBC 4.06 (3.98-5.22) M/mm3 Hgb 12.2 (11.2-15.7) gm/dl Hct 39.7 (34.1-44.9) % MCV 97.8 H (79.4-94.8) fl MCH 30.0 (25.6-32.2) pg MCHC 30.7 L (32.2-35.5) g/dl RDW Std Deviation 50.1 H (36.4-46.3) fL Plt Count 327 (182-369) K/mm3 MPV 9.4 (9.4-12.3) fl Neut % (Auto) 57.3 (34.0-71.1) % Lymph % (Auto) 32.1 (19.3-51.7) % [place] % (Auto) 10.4 (4.7-12.5) % Eos % (Auto) 0.1 L (0.7-5.8) Baso % (Auto) 0.1 (0.1-1.2) % Neut # (Auto) 5.08 (1.56-6.13) K/mm3 Lymph # (Auto) 2.85 (1.18-3.74) K/mm3 [place] # (Auto) 0.92 H (0.24-0.36) K/mm3 Eos # (Auto) 0.01 L (0.04-0.36) K/mm3 Baso # (Auto) 0.01 (0.01-0.08) K/mm3 Sodium 142 (136-145) mEq/L Potassium 4.2 (3.5-5.1) mEq/L Chloride 107 (98-107) mEq/L Carbon Dioxide 27 (21-32) mEq/L Anion Gap 12.2 (5-15) BUN 15 (7-18) mg/dL Creatinine 1.0 (0.55-1.02) mg/dL Est Cr Clr Drug Dosing 66.43 mL/min Estimated GFR (MDRD) 58 (>60) mL/min BUN/Creatinine Ratio 15.0 (14-18) Glucose 143 H (74-106) mg/dL POC Glucose 153 H (70-105) mg/dL Calcium 8.5 (8.5-10.1) mg/dL Magnesium 2.3 (1.8-2.4) mg/dl Total Bilirubin 0.2 (0.2-1.0) mg/dL AST 18 (15-37) U/L ALT 37 (14-59) U/L Alkaline Phosphatase 71 (46-116) U/L Creatine Kinase (26-192) U/L C-Reactive Protein 1.1 H* (<1.0) mg/dL Total Protein 7.0 (6.4-8.2) g/dl Albumin 3.4 (3.4-5.0) g/dl Globulin 3.6 gm/dL Albumin/Globulin Ratio 0.9 L (1-2) Result Diagrams: 11/03/20 06:03 11/03/20 06:03 Maximus Results Last 24 hrs: Microbiology 11/01/20 12:10 Gram Stain - Final Sputum - Expectorated Sputum Culture - Preliminary Sepsis Event Note - Evaluation Sepsis Screening Result: No Definite Risk - Focused Exam Vital Signs: Vital Signs Temp Pulse Resp BP Pulse Ox Pulse Ox 11/03/20 06:45 36.4 C 71 16 127/89 95 11/03/20 06:00 94 L 11/02/20 21:41 93 L 11/02/20 20:51 16 L 112/84 11/02/20 19:58 36.7 C 69 16 112/84 95 - Problem List Review Problem List Initiated/Reviewed/Updated: Yes - My Orders Last 24 Hours: My Active Orders 11/02/20 09:00 Cholecalciferol (Vitamin D3) [Vitamin D3] 10,000 unit PO DAILY Fluticasone Propionate [Flonase] 0 gm NASBOTH DAILY Multivitamins,Therapeutic [Thera] 1 each PO DAILY Non-Formulary Medication [NF Drug] 0 each INH BID Non-Formulary Medication [NF Drug] See Dose Instructions PO DAILY Spironolactone [Aldactone] 25 mg PO DAILY Venlafaxine [Effexor XR] 150 mg PO DAILY Venlafaxine [Effexor XR] 37.5 mg PO DAILY 11/04/20 05:11 CBC WITH AUTO DIFF [HEME] AM CMP [COMPREHENSIVE METABOLIC PN,CMP] [CHEM] AM CRP [C-REACTIVE PROTEIN] [CHEM] AM MAGNESIUM [CHEM] AM 11/05/20 05:11 CBC WITH AUTO DIFF [HEME] AM CMP [COMPREHENSIVE METABOLIC PN,CMP] [CHEM] AM MAGNESIUM [CHEM] AM 11/06/20 05:11 CBC WITH AUTO DIFF [HEME] AM CMP [COMPREHENSIVE METABOLIC PN,CMP] [CHEM] AM MAGNESIUM [CHEM] AM 11/07/20 05:11 CBC WITH AUTO DIFF [HEME] AM CMP [COMPREHENSIVE METABOLIC PN,CMP] [CHEM] AM MAGNESIUM [CHEM] AM - Plan Plan:: This is a 55 yo white female with past medical hx/o HTN, Iatrogenic 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 Assessment: Acute: Covid-19 Infection with respiratory symptoms Acute respiratory failure on 3L NC; now off of oxygen Hypoxia with O2 sat in the low 80s on RA in ED Elevated D-dimer 1.36 Elevated CRP of 4.3, POA-->now 1.1 -Symptom started this weekend -Covid positive -Chest x-ray shows no acute abnormal findings -Chest CTA negative for PE -Plan: Inflammatory markers. Dexamethasone 6 mg po daily for 3/10 days and Veklury for 4/5 days. No need for Actemra Therapy. No indication for IV anti biotics. Vit D wnl. Thyroid Panel: Elevated TSH with normal FT4 level. Oral zinc supplement. IS/FV as directed. H2B for GI prophylaxis. DVT prophylaxis: Lovenox 40 mg sub BID. RT to assess and treat. Hyperglycemia with DM2; mostly controlled -Last A1C 6.4 10/2019 -BS of 138; now 153 -Expect to get worse with steroid -Hold oral agents if she is on any -Accu-check TID Lantus 10 units BID and high intensity ISS Generalized Weakness, improved Diffuse Aches and Pain, improved Elevated AST, resolved Nontraumatic Rhabdomyolysis with CK of 449--> 342-->178, improved Muscular Dystrophy Class II Obese -She normally follows a specialist in [place] Q3 months -Monitor CK level -IV fluids for hydration; discontinued -BMI of 36.3 -Dietary Consult for weight management Hyperlipidemia -Has hx/o diabetes -LDL of 107 -She is intolerant to statin. 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 She is now on RA. Continue current treatment and Routine AM labs. Inflammatory markers. ADA diet. Additional orders as above. IS/acapella as directed. PT/OT for generalized weakness. Plan for pulmonary rehab after discharge. Code status is full. Prognosis is good at this pint. LOS >96 hrs due to need for continuing COVID-19 treatment.
[2020-11-03] MEDS: ADVAIR INH SCH ×2 (08:08→21:06)
[2020-11-03] MEDS: Enoxaparin 40 MG/0.4 ML Syringe SUBCUT SCH ×2 (09:08→20:43)
[2020-11-03] MEDS: Cholecalciferol (Vitamin D3) 5,000 UNIT Cap PO SCH (09:09)
[2020-11-03] MEDS: Venlafaxine 75 MG Cap.ER PO SCH (09:10)
[2020-11-03] MEDS: Dexamethasone 4 MG Tab PO SCH (09:11)
[2020-11-03] MEDS: lamoTRIgine 100 MG Tab PO SCH ×2 (09:11→20:41)
[2020-11-03] MEDS: Gabapentin 600 MG Tab PO SCH ×2 (09:11→20:42)
[2020-11-03] MEDS: Multivitamins,Therapeutic Tab PO SCH (09:11)
[2020-11-03] MEDS: Losartan 50 MG Tab PO SCH ×2 (09:12→20:41)
[2020-11-03] MEDS: Venlafaxine 37.5 MG Cap.ER PO SCH (09:12)
[2020-11-03] MEDS: Carvedilol 3.125 MG Tab PO SCH ×2 (09:12→20:42)
[2020-11-03] MEDS: Spironolactone 25 MG Tab PO SCH (09:12)
[2020-11-03] MEDS: Zinc Sulfate 220 MG Cap PO SCH (09:12)
[2020-11-03] MEDS: METHYLPHENIDATE 27 MG PO SCH (09:13)
[2020-11-03] MEDS: Fluticasone Propionate Nasal Spray 16 GM Bottle NASBOTH SCH (09:13)
[2020-11-03] MEDS: Ibuprofen 600 MG Tab PO PRN (10:06)
[2020-11-03] MEDS: Famotidine 20 MG Tab PO SCH ×2 (10:06→20:41)
[2020-11-03] MEDS: Acetaminophen/Codeine 300-30 MG Tab PO PRN ×2 (10:06→20:40)
[2020-11-03] MEDS: Sodium Chloride 0.9% 1,000 ML IV SCH (11:29)
[2020-11-03] MEDS: REMDESIVIR 100 MG in Sodium Chloride 0.9% 100 ML IV SCH (20:39)
[2020-11-03] MEDS: Acetaminophen 325 MG Tab PO PRN (20:39)
[2020-11-03] MEDS: traZODone 50 MG Tab PO SCH (20:40)
[2020-11-03] MEDS: Zolpidem 5 MG Tab PO PRN (20:42)
[2020-11-04] MEDS: Levothyroxine 25 MCG Tab PO SCH (05:27)
[2020-11-04] MEDS: Levothyroxine 112 MCG Tab PO SCH (05:27)
--- NOTE | 2020-11-04 06:42 | PCM.PN ---
- General Info Date of Service: 11/04/20 Admission Dx/Problem (Free Text): Admission Diagnosis/Problem Admission Diagnosis/Problem Hypoxia Subjective Update: No significant overnight. No new complaints except for sweating/diaphoresis. To note, her room temp is 68 F. Her labs are essentially unremarkable except for slightly increased in Cr level 1.1. Functional Status: Reports: Pain Controlled, Tolerating Diet, Ambulating, Urinating, Incentive Spirometry - Review of Systems General: Reports: Weakness, Malaise. Denies: Fever, Chills HEENT: Reports: No Symptoms Pulmonary: Denies: Shortness of Breath Cardiovascular: Denies: Chest Pain Gastrointestinal: Denies: Abdominal Pain, Nausea, Vomiting Genitourinary: Reports: No Symptoms Musculoskeletal: Reports: Neck Pain, Joint Pain, Other (muscle) Skin: Denies: Cyanosis, Jaundice, Mottled, Pallor Neurological: Reports: Difficulty Walking, Weakness. Denies: Confusion Psychiatric: Denies: Depression, Anxiety, Agitation, Hallucinations - Patient Data Vitals - Most Recent: Last Vital Signs Temp 36.8 C 11/03/20 15:47 Pulse 66 11/03/20 20:42 Resp 16 11/03/20 15:47 BP 130/84 11/03/20 20:42 Pulse Ox 98 11/03/20 21:08 Weight - Most Recent: 108.59 kg I&O - Last 24 Hours: Intake & Output 11/03/20 11/03/20 11/04/20 14:59 22:59 06:59 Intake Total 700 2906 1700 Output Total 1500 2500 Balance 700 1406 -800 Lab Results Last 24 Hours: Laboratory Results - last 24 hr 11/03/20 11/03/20 11/03/20 Range/Units 06:03 06:03 06:43 WBC 8.87 (3.98-10.04) K/mm3 RBC 4.06 (3.98-5.22) M/mm3 Hgb 12.2 (11.2-15.7) gm/dl Hct 39.7 (34.1-44.9) % MCV 97.8 H (79.4-94.8) fl MCH 30.0 (25.6-32.2) pg MCHC 30.7 L (32.2-35.5) g/dl RDW Std Deviation 50.1 H (36.4-46.3) fL Plt Count 327 (182-369) K/mm3 MPV 9.4 (9.4-12.3) fl Neut % (Auto) 57.3 (34.0-71.1) % Lymph % (Auto) 32.1 (19.3-51.7) % [place] % (Auto) 10.4 (4.7-12.5) % Eos % (Auto) 0.1 L (0.7-5.8) Baso % (Auto) 0.1 (0.1-1.2) % Neut # (Auto) 5.08 (1.56-6.13) K/mm3 Lymph # (Auto) 2.85 (1.18-3.74) K/mm3 [place] # (Auto) 0.92 H (0.24-0.36) K/mm3 Eos # (Auto) 0.01 L (0.04-0.36) K/mm3 Baso # (Auto) 0.01 (0.01-0.08) K/mm3 Manual Slide Review Sodium 142 (136-145) mEq/L Potassium 4.2 (3.5-5.1) mEq/L Chloride 107 (98-107) mEq/L Carbon Dioxide 27 (21-32) mEq/L Anion Gap 12.2 (5-15) BUN 15 (7-18) mg/dL Creatinine 1.0 (0.55-1.02) mg/dL Est Cr Clr Drug Dosing 66.43 mL/min Estimated GFR (MDRD) 58 (>60) mL/min BUN/Creatinine Ratio 15.0 (14-18) Glucose 143 H (74-106) mg/dL POC Glucose 153 H (70-105) mg/dL Calcium 8.5 (8.5-10.1) mg/dL Magnesium 2.3 (1.8-2.4) mg/dl Total Bilirubin 0.2 (0.2-1.0) mg/dL AST 18 (15-37) U/L ALT 37 (14-59) U/L Alkaline Phosphatase 71 (46-116) U/L C-Reactive Protein 1.1 H* (<1.0) mg/dL Total Protein 7.0 (6.4-8.2) g/dl Albumin 3.4 (3.4-5.0) g/dl Globulin 3.6 gm/dL Albumin/Globulin Ratio 0.9 L (1-2) 11/03/20 11/03/20 11/04/20 Range/Units 11:17 16:44 05:01 WBC (3.98-10.04) K/mm3 RBC (3.98-5.22) M/mm3 Hgb (11.2-15.7) gm/dl Hct (34.1-44.9) % MCV (79.4-94.8) fl MCH (25.6-32.2) pg MCHC (32.2-35.5) g/dl RDW Std Deviation (36.4-46.3) fL Plt Count (182-369) K/mm3 MPV (9.4-12.3) fl Neut % (Auto) (34.0-71.1) % Lymph % (Auto) (19.3-51.7) % [place] % (Auto) (4.7-12.5) % Eos % (Auto) (0.7-5.8) Baso % (Auto) (0.1-1.2) % Neut # (Auto) (1.56-6.13) K/mm3 Lymph # (Auto) (1.18-3.74) K/mm3 [place] # (Auto) (0.24-0.36) K/mm3 Eos # (Auto) (0.04-0.36) K/mm3 Baso # (Auto) (0.01-0.08) K/mm3 Manual Slide Review Sodium 142 (136-145) mEq/L Potassium 4.2 (3.5-5.1) mEq/L Chloride 105 (98-107) mEq/L Carbon Dioxide 28 (21-32) mEq/L Anion Gap 13.2 (5-15) BUN 19 H (7-18) mg/dL Creatinine 1.1 H (0.55-1.02) mg/dL Est Cr Clr Drug Dosing 60.39 mL/min Estimated GFR (MDRD) 52 (>60) mL/min BUN/Creatinine Ratio 17.3 (14-18) Glucose 138 H (74-106) mg/dL POC Glucose 161 H 249 H (70-105) mg/dL Calcium 8.6 (8.5-10.1) mg/dL Magnesium 2.4 (1.8-2.4) mg/dl Total Bilirubin 0.3 (0.2-1.0) mg/dL AST 19 (15-37) U/L ALT 43 (14-59) U/L Alkaline Phosphatase 76 (46-116) U/L C-Reactive Protein 0.7 (<1.0) mg/dL Total Protein 7.4 (6.4-8.2) g/dl Albumin 3.7 (3.4-5.0) g/dl Globulin 3.7 gm/dL Albumin/Globulin Ratio 1.0 (1-2) 11/04/20 Range/Units 05:01 WBC 10.01 (3.98-10.04) K/mm3 RBC 4.19 (3.98-5.22) M/mm3 Hgb 12.6 (11.2-15.7) gm/dl Hct 40.6 (34.1-44.9) % MCV 96.9 H (79.4-94.8) fl MCH 30.1 (25.6-32.2) pg MCHC 31.0 L (32.2-35.5) g/dl RDW Std Deviation 48.2 H (36.4-46.3) fL Plt Count 350 (182-369) K/mm3 MPV 9.0 L (9.4-12.3) fl Neut % (Auto) 59.7 (34.0-71.1) % Lymph % (Auto) 29.6 (19.3-51.7) % [place] % (Auto) 10.1 (4.7-12.5) % Eos % (Auto) 0 L (0.7-5.8) Baso % (Auto) 0.2 (0.1-1.2) % Neut # (Auto) 5.98 (1.56-6.13) K/mm3 Lymph # (Auto) 2.96 (1.18-3.74) K/mm3 [place] # (Auto) 1.01 H (0.24-0.36) K/mm3 Eos # (Auto) 0.00 L (0.04-0.36) K/mm3 Baso # (Auto) 0.02 (0.01-0.08) K/mm3 Manual Slide Review Not Reportable Sodium (136-145) mEq/L Potassium (3.5-5.1) mEq/L Chloride (98-107) mEq/L Carbon Dioxide (21-32) mEq/L Anion Gap (5-15) BUN (7-18) mg/dL Creatinine (0.55-1.02) mg/dL Est Cr Clr Drug Dosing mL/min Estimated GFR (MDRD) (>60) mL/min BUN/Creatinine Ratio (14-18) Glucose (74-106) mg/dL POC Glucose (70-105) mg/dL Calcium (8.5-10.1) mg/dL Magnesium (1.8-2.4) mg/dl Total Bilirubin (0.2-1.0) mg/dL AST (15-37) U/L ALT (14-59) U/L Alkaline Phosphatase (46-116) U/L C-Reactive Protein (<1.0) mg/dL Total Protein (6.4-8.2) g/dl Albumin (3.4-5.0) g/dl Globulin gm/dL Albumin/Globulin Ratio (1-2) Maximus Results Last 24 Hours: Microbiology 11/01/20 12:10 Gram Stain - Final Sputum - Expectorated Sputum Culture - Preliminary Gram Positive Cocci Med Orders - Current: Current Medications Acetaminophen (Tylenol) 650 mg PO Q4H PRN PRN Reason: Pain (Mild 1-3)/fever Last Admin: 11/03/20 20:39 Dose: 650 mg Documented by: Acetaminophen/Codeine Phosphate (Tylenol With Codeine No.3 300mg/30mg) 1 tab PO TID PRN PRN Reason: Pain Last Admin: 11/03/20 20:40 Dose: 1 tab Documented by: Albuterol/Ipratropium (Duoneb 3.0-0.5 Mg/3 Ml) 3 ml NEB Q4H PRN PRN Reason: Shortness Of Breath/wheezing Alprazolam (Xanax) 0.5 mg PO TID PRN PRN Reason: Anxiety Last Admin: 11/02/20 08:55 Dose: 0.5 mg Documented by: Bisacodyl (Dulcolax) 5 mg PO DAILY PRN PRN Reason: Constipation Carvedilol (Coreg) 3.125 mg PO BID JUSTIN Last Admin: 11/03/20 20:42 Dose: 3.125 mg Documented by: Cholecalciferol (Vitamin D3) 10,000 unit PO DAILY [facility] Last Admin: 11/03/20 09:09 Dose: 10,000 unit Documented by: Dexamethasone (Dexamethasone) 6 mg PO DAILY [facility] Stop: 11/10/20 09:01 Last Admin: 11/03/20 09:11 Dose: 6 mg Documented by: Enoxaparin Sodium (Lovenox) 40 mg SUBCUT BID [facility] Last Admin: 11/03/20 20:43 Dose: 40 mg Documented by: Famotidine (Pepcid) 20 mg PO BID [facility] Last Admin: 11/03/20 20:41 Dose: 20 mg Documented by: Fluticasone Propionate (Flonase) 0 gm NASBOTH DAILY [facility] Last Admin: 11/03/20 09:13 Dose: 1 spray Documented by: Gabapentin (Neurontin) 1,800 mg PO BID [facility] Last Admin: 11/03/20 20:42 Dose: 1,800 mg Documented by: Hydromorphone HCl (Dilaudid) 0.5 mg IVPUSH Q2H PRN PRN Reason: Pain (severe 7-10) Promethazine HCl 12.5 mg/ (Sodium Chloride) 50.5 mls @ 100 mls/hr IV Q6H PRN PRN Reason: Nausea/Vomiting Remdesivir 100 mg/ Sodium (Chloride) 100 mls @ 100 mls/hr IV Q24H [facility] Stop: 11/04/20 21:59 Last Admin: 11/03/20 20:39 Dose: 100 mls/hr Documented by: Ibuprofen (Motrin) 600 mg PO Q6H PRN PRN Reason: Pain (moderate 4-6) Last Admin: 11/03/20 10:06 Dose: 600 mg Documented by: Insulin Glargine (Lantus) 10 unit SUBCUT BIDAC [facility] Last Admin: 11/03/20 17:52 Dose: 10 unit Documented by: Insulin Human Lispro (Humalog) 0 unit SUBCUT TIDAC [facility]; Protocol Last Admin: 11/03/20 17:53 Dose: 6 unit Documented by: Lamotrigine (Lamotrigine) 200 mg PO BID [facility] Last Admin: 11/03/20 20:41 Dose: 200 mg Documented by: Levothyroxine Sodium (Levothyroxine) 112 mcg PO ACBREAKFAST [facility] Last Admin: 11/04/20 05:27 Dose: 112 mcg Documented by: Levothyroxine Sodium (Levothyroxine) 25 mcg PO ACBREAKFAST [facility] Last Admin: 11/04/20 05:27 Dose: 25 mcg Documented by: Losartan Potassium (Cozaar) 50 mg PO BID [facility] Last Admin: 11/03/20 20:41 Dose: 50 mg Documented by: Multivitamins (Thera) 1 each PO DAILY [facility] Last Admin: 11/03/20 09:11 Dose: 1 each Documented by: Nitroglycerin (Nitrostat) 0.4 mg SL Q5M PRN PRN Reason: Chest Pain Methylphenidate Er (27 Mg Ptom) 0 each PO DAILY [facility] Last Admin: 11/03/20 09:13 Dose: 1 each Documented by: Advair 250/50 Mcg (Inhaler Ptom) 0 each INH BID [facility] Last Admin: 11/03/20 21:06 Dose: 1 each Documented by: Ondansetron HCl (Zofran) 4 mg IV Q6H PRN PRN Reason: Nausea/Vomiting Polyethylene Glycol (Miralax) 17 gm PO DAILY PRN PRN Reason: Constipation Senna/Docusate Sodium (Senna Plus) 1 tab PO BID PRN PRN Reason: Constipation Sodium Chloride (Saline Flush) 10 ml FLUSH ASDIRECTED PRN PRN Reason: Keep Vein Open Last Admin: 10/31/20 17:32 Dose: 10 ml Documented by: Spironolactone (Aldactone) 25 mg PO DAILY [facility] Last Admin: 11/03/20 09:12 Dose: 25 mg Documented by: Trazodone HCl (Trazodone) 225 mg PO BEDTIME [facility] Last Admin: 11/03/20 20:40 Dose: 225 mg Documented by: Venlafaxine HCl (Effexor Xr) 150 mg PO DAILY [facility] Last Admin: 11/03/20 09:10 Dose: 150 mg Documented by: Venlafaxine HCl (Effexor Xr) 37.5 mg PO DAILY [facility] Last Admin: 11/03/20 09:12 Dose: 37.5 mg Documented by: Zinc Sulfate (Zincate) 220 mg PO DAILY [facility] Last Admin: 11/03/20 09:12 Dose: 220 mg Documented by: Zolpidem Tartrate (Ambien) 5 mg PO BEDTIME PRN PRN Reason: Sleep Last Admin: 11/03/20 20:42 Dose: 5 mg Documented by: Discontinued Medications Albuterol/Ipratropium (Duoneb 3.0-0.5 Mg/3 Ml) 3 ml NEB ONETIME ONE Stop: 10/31/20 17:01 Last Admin: 10/31/20 17:15 Dose: 3 ml Documented by: Apixaban (Eliquis) 5 mg PO ONETIME ONE Stop: 10/31/20 21:20 Last Admin: 10/31/20 21:24 Dose: Not Given Documented by: Enoxaparin Sodium (Lovenox) 40 mg SUBCUT ONETIME ONE Stop: 11/01/20 00:34 Last Admin: 11/01/20 01:08 Dose: 40 mg Documented by: Hydromorphone HCl (Dilaudid) 1 mg IVPUSH ONETIME ONE Stop: 10/31/20 17:00 Last Admin: 10/31/20 17:31 Dose: 1 mg Documented by: Sodium Chloride (Normal Saline) 1,000 mls @ 1,000 mls/hr IV .BOLUS [facility] Last Infusion: 10/31/20 18:43 Dose: Infused Documented by: Remdesivir 200 mg/ Sodium (Chloride) 250 mls @ 250 mls/hr IV ONETIME ONE Stop: 11/01/20 00:29 Last Admin: 11/01/20 01:07 Dose: 250 mls/hr Documented by: Sodium Chloride (Normal Saline) 1,000 mls @ 75 mls/hr IV ASDIRECTED [facility] Last Admin: 11/03/20 11:29 Dose: 75 mls/hr Documented by: Methylprednisolone Sodium Succinate (Solu-Medrol) 125 mg IVPUSH ONETIME ONE Stop: 10/31/20 18:08 Last Admin: 10/31/20 18:44 Dose: 125 mg Documented by: Mometasone Furoate/Formoterol Fumar (Dulera 200-5 Mcg) 2 puff IH BID [facility] Last Admin: 11/02/20 09:53 Dose: Not Given Documented by: Morphine Sulfate (Morphine) 1 mg IVPUSH Q4H PRN PRN Reason: Pain (severe 7-10) Stop: 11/01/20 22:37 Non-Formulary Medication (Acetaminophen With Codeine [Acetaminophen-Cod #4]) 1 tab PO TID PRN PRN Reason: Pain Non-Formulary Medication (Methylphenidate Hcl [Methylphenidate Er]) 27 mg PO DAILY JUSTIN Regadenoson (Lexiscan) 0.4 mg IVPUSH ONETIME ONE Stop: 11/01/20 07:58 Last Admin: 11/01/20 08:05 Dose: 0.4 mg Documented by: Temazepam (Restoril) 45 mg PO BEDTIME PRN PRN Reason: Sleep - Exam General: Alert, Oriented, Cooperative, No Acute Distress, Other (obese) HEENT: Pupils Equal, Pupils Reactive, EOMI, Mucous Membr. Moist/[place] Neck: Supple Lungs: Clear to Auscultation, Normal Respiratory Effort Cardiovascular: Regular Rate, Regular Rhythm GI/Abdominal Exam: Normal Bowel Sounds, Soft, Non-Tender, No Organomegaly, No Distention, No Abnormal Bruit (Female) Exam: Deferred Back Exam: Normal Inspection, Decreased Range of Motion Extremities: Normal Inspection, Normal Range of Motion, Non-Tender, No Pedal Edema, Normal Capillary Refill Skin: Warm, Dry, Intact Wound/Incisions: Healing Well Neurological: No New Focal Deficit Psy/Mental Status: Alert, Normal Affect, Normal Mood - Patient Data Lab Results Last 24 hrs: Laboratory Results - last 24 hr 11/03/20 11/03/20 11/03/20 Range/Units 06:03 06:03 06:43 WBC 8.87 (3.98-10.04) K/mm3 RBC 4.06 (3.98-5.22) M/mm3 Hgb 12.2 (11.2-15.7) gm/dl Hct 39.7 (34.1-44.9) % MCV 97.8 H (79.4-94.8) fl MCH 30.0 (25.6-32.2) pg MCHC 30.7 L (32.2-35.5) g/dl RDW Std Deviation 50.1 H (36.4-46.3) fL Plt Count 327 (182-369) K/mm3 MPV 9.4 (9.4-12.3) fl Neut % (Auto) 57.3 (34.0-71.1) % Lymph % (Auto) 32.1 (19.3-51.7) % [place] % (Auto) 10.4 (4.7-12.5) % Eos % (Auto) 0.1 L (0.7-5.8) Baso % (Auto) 0.1 (0.1-1.2) % Neut # (Auto) 5.08 (1.56-6.13) K/mm3 Lymph # (Auto) 2.85 (1.18-3.74) K/mm3 [place] # (Auto) 0.92 H (0.24-0.36) K/mm3 Eos # (Auto) 0.01 L (0.04-0.36) K/mm3 Baso # (Auto) 0.01 (0.01-0.08) K/mm3 Manual Slide Review Sodium 142 (136-145) mEq/L Potassium 4.2 (3.5-5.1) mEq/L Chloride 107 (98-107) mEq/L Carbon Dioxide 27 (21-32) mEq/L Anion Gap 12.2 (5-15) BUN 15 (7-18) mg/dL Creatinine 1.0 (0.55-1.02) mg/dL Est Cr Clr Drug Dosing 66.43 mL/min Estimated GFR (MDRD) 58 (>60) mL/min BUN/Creatinine Ratio 15.0 (14-18) Glucose 143 H (74-106) mg/dL POC Glucose 153 H (70-105) mg/dL Calcium 8.5 (8.5-10.1) mg/dL Magnesium 2.3 (1.8-2.4) mg/dl Total Bilirubin 0.2 (0.2-1.0) mg/dL AST 18 (15-37) U/L ALT 37 (14-59) U/L Alkaline Phosphatase 71 (46-116) U/L C-Reactive Protein 1.1 H* (<1.0) mg/dL Total Protein 7.0 (6.4-8.2) g/dl Albumin 3.4 (3.4-5.0) g/dl Globulin 3.6 gm/dL Albumin/Globulin Ratio 0.9 L (1-2) 11/03/20 11/03/20 11/04/20 Range/Units 11:17 16:44 05:01 WBC (3.98-10.04) K/mm3 RBC (3.98-5.22) M/mm3 Hgb (11.2-15.7) gm/dl Hct (34.1-44.9) % MCV (79.4-94.8) fl MCH (25.6-32.2) pg MCHC (32.2-35.5) g/dl RDW Std Deviation (36.4-46.3) fL Plt Count (182-369) K/mm3 MPV (9.4-12.3) fl Neut % (Auto) (34.0-71.1) % Lymph % (Auto) (19.3-51.7) % [place] % (Auto) (4.7-12.5) % Eos % (Auto) (0.7-5.8) Baso % (Auto) (0.1-1.2) % Neut # (Auto) (1.56-6.13) K/mm3 Lymph # (Auto) (1.18-3.74) K/mm3 [place] # (Auto) (0.24-0.36) K/mm3 Eos # (Auto) (0.04-0.36) K/mm3 Baso # (Auto) (0.01-0.08) K/mm3 Manual Slide Review Sodium 142 (136-145) mEq/L Potassium 4.2 (3.5-5.1) mEq/L Chloride 105 (98-107) mEq/L Carbon Dioxide 28 (21-32) mEq/L Anion Gap 13.2 (5-15) BUN 19 H (7-18) mg/dL Creatinine 1.1 H (0.55-1.02) mg/dL Est Cr Clr Drug Dosing 60.39 mL/min Estimated GFR (MDRD) 52 (>60) mL/min BUN/Creatinine Ratio 17.3 (14-18) Glucose 138 H (74-106) mg/dL POC Glucose 161 H 249 H (70-105) mg/dL Calcium 8.6 (8.5-10.1) mg/dL Magnesium 2.4 (1.8-2.4) mg/dl Total Bilirubin 0.3 (0.2-1.0) mg/dL AST 19 (15-37) U/L ALT 43 (14-59) U/L Alkaline Phosphatase 76 (46-116) U/L C-Reactive Protein 0.7 (<1.0) mg/dL Total Protein 7.4 (6.4-8.2) g/dl Albumin 3.7 (3.4-5.0) g/dl Globulin 3.7 gm/dL Albumin/Globulin Ratio 1.0 (1-2) 11/04/20 Range/Units 05:01 WBC 10.01 (3.98-10.04) K/mm3 RBC 4.19 (3.98-5.22) M/mm3 Hgb 12.6 (11.2-15.7) gm/dl Hct 40.6 (34.1-44.9) % MCV 96.9 H (79.4-94.8) fl MCH 30.1 (25.6-32.2) pg MCHC 31.0 L (32.2-35.5) g/dl RDW Std Deviation 48.2 H (36.4-46.3) fL Plt Count 350 (182-369) K/mm3 MPV 9.0 L (9.4-12.3) fl Neut % (Auto) 59.7 (34.0-71.1) % Lymph % (Auto) 29.6 (19.3-51.7) % [place] % (Auto) 10.1 (4.7-12.5) % Eos % (Auto) 0 L (0.7-5.8) Baso % (Auto) 0.2 (0.1-1.2) % Neut # (Auto) 5.98 (1.56-6.13) K/mm3 Lymph # (Auto) 2.96 (1.18-3.74) K/mm3 [place] # (Auto) 1.01 H (0.24-0.36) K/mm3 Eos # (Auto) 0.00 L (0.04-0.36) K/mm3 Baso # (Auto) 0.02 (0.01-0.08) K/mm3 Manual Slide Review Not Reportable Sodium (136-145) mEq/L Potassium (3.5-5.1) mEq/L Chloride (98-107) mEq/L Carbon Dioxide (21-32) mEq/L Anion Gap (5-15) BUN (7-18) mg/dL Creatinine (0.55-1.02) mg/dL Est Cr Clr Drug Dosing mL/min Estimated GFR (MDRD) (>60) mL/min BUN/Creatinine Ratio (14-18) Glucose (74-106) mg/dL POC Glucose (70-105) mg/dL Calcium (8.5-10.1) mg/dL Magnesium (1.8-2.4) mg/dl Total Bilirubin (0.2-1.0) mg/dL AST (15-37) U/L ALT (14-59) U/L Alkaline Phosphatase (46-116) U/L C-Reactive Protein (<1.0) mg/dL Total Protein (6.4-8.2) g/dl Albumin (3.4-5.0) g/dl Globulin gm/dL Albumin/Globulin Ratio (1-2) Result Diagrams: 11/04/20 05:01 11/04/20 05:01 Maximus Results Last 24 hrs: Microbiology 11/01/20 12:10 Gram Stain - Final Sputum - Expectorated Sputum Culture - Preliminary Gram Positive Cocci Sepsis Event Note - Evaluation Sepsis Screening Result: No Definite Risk - Focused Exam Vital Signs: Vital Signs Pulse BP Pulse Ox 11/03/20 21:08 98 11/03/20 20:42 66 130/84 11/03/20 20:41 130/84 - Problem List Review Problem List Initiated/Reviewed/Updated: Yes - My Orders Last 24 Hours: My Active Orders 11/05/20 05:11 CBC WITH AUTO DIFF [HEME] AM CMP [COMPREHENSIVE METABOLIC PN,CMP] [CHEM] AM MAGNESIUM [CHEM] AM 11/06/20 05:11 CBC WITH AUTO DIFF [HEME] AM CMP [COMPREHENSIVE METABOLIC PN,CMP] [CHEM] AM MAGNESIUM [CHEM] AM 11/07/20 05:11 CBC WITH AUTO DIFF [HEME] AM CMP [COMPREHENSIVE METABOLIC PN,CMP] [CHEM] AM MAGNESIUM [CHEM] AM - Plan Plan:: This is a 55 yo white female with past medical hx/o HTN, Iatrogenic Hypothyroidism due to Thyroid Surgery, Chronic Neck Pain, DM2, Urinary Retention, Vit D Deficiency, Muscle Spasms, Muscular Dystrophy, Peripheral Neuro shalom, Anxiety, Depression, Insomnia, and Obesity who comes to us for evaluation of generalized weakness as well as diffuse aches and pains. Assessment: Acute: Covid-19 Infection with respiratory symptoms Acute respiratory failure on 3L NC; now on RA Hypoxia with O2 sat in the low 80s on RA in ED Elevated D-dimer 1.36 Elevated CRP of 4.3, POA-->now 0.7 -Symptom started this weekend -Covid positive -Chest x-ray shows no acute abnormal findings -Chest CTA negative for PE -Plan: Inflammatory markers. Dexamethasone 6 mg po daily for 4/10 days and Veklury for 4/5 days. No need for Actemra Therapy. No indication for IV antibiotics. Vit D wnl. Thyroid Panel: Elevated TSH with normal FT4 level. Oral zinc supplement. IS/FV as directed. H2B for GI prophylaxis. DVT prophylaxis: Lovenox 40 mg sub BID. RT to assess and treat. Hyperglycemia with DM2; mostly controlled -Last A1C 6.4 10/2019 -BS of 138; now 153 -Expect to get worse with steroid -Hold oral agents if she is on any -Accu-check TID Lantus 10 units BID and high intensity ISS Generalized Weakness, improved Diffuse Aches and Pain, improved Elevated AST, resolved Nontraumatic Rhabdomyolysis with CK of 449--> 342-->178, improved Muscular Dystrophy Class II Obese -She normally follows a specialist in [place] Q3 months -Monitor CK level -IV fluids for hydration; discontinued -BMI of 36.3 -Dietary Consult for weight management Hyperlipidemia -Has hx/o diabetes -LDL of 107 -She is intolerant to statin. Also has chronic generalized body aches and pain -Diet controlled -May benefit with at least with fish oil Chest Pain r/o ACS, resolved -Troponin x 2 slightly elevated but decreasing -EKGs show no acute ST-T wave changes -No abnormal rhythm on telemetry -Lexiscan test is negative; nuclear scan is negative Resolved: Acute Kidney Injury vs CKD Stage 2-3, Resolved Chronic: HTN, Iatrogenic Hypothyroidism due to Thyroid Surgery, Chronic Neck Pain, DM2, Urinary Retention, Vit D Deficiency, Muscle Spasms, Muscular Dystrophy, Peripheral Neuropathy, Anxiety, Depression, Insomnia, and Obesity Plan: Remains clinically stable. She remains on RA. Continue current treatment and Routine AM labs. Inflammatory markers. ADA diet. Additional orders as above. IS/acapella as directed. PT/OT for generalized weakness. Plan for pulmonary rehab after discharge. Code status is full. Prognosis is good at this pint. LOS >96 hrs due to need for continuing COVID-19 treatment.
[2020-11-04] MEDS: Insulin Glarg,Human.Rec.Analog 100 Unit/ML SUBCUT SCH ×2 (06:46→17:31)
[2020-11-04] MEDS: ADVAIR INH SCH ×2 (08:12→21:10)
[2020-11-04] MEDS: Fluticasone Propionate Nasal Spray 16 GM Bottle NASBOTH SCH (08:37)
[2020-11-04] MEDS: Famotidine 20 MG Tab PO SCH ×2 (08:37→21:01)
[2020-11-04] MEDS: Losartan 50 MG Tab PO SCH ×2 (08:37→21:02)
[2020-11-04] MEDS: Enoxaparin 40 MG/0.4 ML Syringe SUBCUT SCH ×2 (08:37→21:03)
[2020-11-04] MEDS: lamoTRIgine 100 MG Tab PO SCH ×2 (08:38→21:01)
[2020-11-04] MEDS: Dexamethasone 4 MG Tab PO SCH (08:38)
[2020-11-04] MEDS: Cholecalciferol (Vitamin D3) 5,000 UNIT Cap PO SCH (08:38)
[2020-11-04] MEDS: Multivitamins,Therapeutic Tab PO SCH (08:39)
[2020-11-04] MEDS: Zinc Sulfate 220 MG Cap PO SCH (08:39)
[2020-11-04] MEDS: Venlafaxine 37.5 MG Cap.ER PO SCH (08:39)
[2020-11-04] MEDS: Venlafaxine 75 MG Cap.ER PO SCH (08:39)
[2020-11-04] MEDS: Spironolactone 25 MG Tab PO SCH (08:39)
[2020-11-04] MEDS: Gabapentin 600 MG Tab PO SCH ×2 (08:39→21:01)
[2020-11-04] MEDS: Carvedilol 3.125 MG Tab PO SCH ×2 (08:39→21:02)
[2020-11-04] MEDS: METHYLPHENIDATE 27 MG PO SCH (08:40)
[2020-11-04] MEDS: ALPRAZolam 1 MG Tab PO PRN ×2 (08:54→17:38)
[2020-11-04] MEDS: Ibuprofen 600 MG Tab PO PRN ×2 (08:54→15:24)
[2020-11-04] MEDS: Acetaminophen/Codeine 300-30 MG Tab PO PRN ×2 (15:25→21:05)
[2020-11-04] MEDS: traZODone 50 MG Tab PO SCH (21:03)
[2020-11-04] MEDS: Zolpidem 5 MG Tab PO PRN (21:03)
[2020-11-04] MEDS: REMDESIVIR 100 MG in Sodium Chloride 0.9% 100 ML IV SCH (21:04)
[2020-11-04] MEDS: Acetaminophen 325 MG Tab PO PRN (21:04)
[2020-11-05] MEDS: Levothyroxine 112 MCG Tab PO SCH (06:27)
[2020-11-05] MEDS: Levothyroxine 25 MCG Tab PO SCH (06:27)
[2020-11-05] MEDS: Insulin Glarg,Human.Rec.Analog 100 Unit/ML SUBCUT SCH (06:28)
[2020-11-05] MEDS: ALPRAZolam 1 MG Tab PO PRN (06:38)
[2020-11-05] MEDS: ADVAIR INH SCH (08:19)
[2020-11-05] MEDS: Enoxaparin 40 MG/0.4 ML Syringe SUBCUT SCH ×2 (09:06→09:56)
[2020-11-05] MEDS: Multivitamins,Therapeutic Tab PO SCH (09:54)
[2020-11-05] MEDS: Famotidine 20 MG Tab PO SCH (09:54)
[2020-11-05] MEDS: Losartan 50 MG Tab PO SCH (09:55)
[2020-11-05] MEDS: Gabapentin 600 MG Tab PO SCH (09:55)
[2020-11-05] MEDS: Venlafaxine 75 MG Cap.ER PO SCH (09:55)
[2020-11-05] MEDS: Cholecalciferol (Vitamin D3) 5,000 UNIT Cap PO SCH (09:55)
[2020-11-05] MEDS: Zinc Sulfate 220 MG Cap PO SCH (09:55)
[2020-11-05] MEDS: Spironolactone 25 MG Tab PO SCH (09:55)
[2020-11-05] MEDS: Venlafaxine 37.5 MG Cap.ER PO SCH (09:55)
[2020-11-05] MEDS: Carvedilol 3.125 MG Tab PO SCH (09:56)
[2020-11-05] MEDS: Dexamethasone 4 MG Tab PO SCH (09:56)
[2020-11-05] MEDS: lamoTRIgine 100 MG Tab PO SCH (09:56)
[2020-11-05] MEDS: Fluticasone Propionate Nasal Spray 16 GM Bottle NASBOTH SCH (09:57)
[2020-11-05] MEDS: METHYLPHENIDATE 27 MG PO SCH (09:58)
--- NOTE | 2020-11-05 10:43 | PCM.PN ---
- General Info Date of Service: 11/05/20 Admission Dx/Problem (Free Text): Admission Diagnosis/Problem Admission Diagnosis/Problem Hypoxia - Patient Data Vitals - Most Recent: Last Vital Signs Temp 98.1 F 11/05/20 07:43 Pulse 65 11/05/20 09:56 Resp 16 11/05/20 07:43 BP 108/62 11/05/20 09:56 Pulse Ox 94 L 11/05/20 07:43 Weight - Most Recent: 239 lb I&O - Last 24 Hours: Intake & Output 11/04/20 11/05/20 11/05/20 22:59 06:59 14:59 Intake Total 1920 1300 Output Total 1500 2000 Balance 420 -700 Lab Results Last 24 Hours: Laboratory Results - last 24 hr 11/04/20 11/04/20 11/05/20 Range/Units 11:27 17:06 06:18 WBC 10.83 H (3.98-10.04) K/mm3 RBC 4.46 (3.98-5.22) M/mm3 Hgb 13.4 (11.2-15.7) gm/dl Hct 42.9 (34.1-44.9) % MCV 96.2 H (79.4-94.8) fl MCH 30.0 (25.6-32.2) pg MCHC 31.2 L (32.2-35.5) g/dl RDW Std Deviation 48.2 H (36.4-46.3) fL Plt Count 358 (182-369) K/mm3 MPV 9.1 L (9.4-12.3) fl Neut % (Auto) 56.1 (34.0-71.1) % Lymph % (Auto) 31.5 (19.3-51.7) % Early % (Auto) 11.1 (4.7-12.5) % Eos % (Auto) 0.4 L (0.7-5.8) Baso % (Auto) 0.2 (0.1-1.2) % Neut # (Auto) 6.08 (1.56-6.13) K/mm3 Lymph # (Auto) 3.41 (1.18-3.74) K/mm3 Early # (Auto) 1.20 H (0.24-0.36) K/mm3 Eos # (Auto) 0.04 (0.04-0.36) K/mm3 Baso # (Auto) 0.02 (0.01-0.08) K/mm3 Sodium (136-145) mEq/L Potassium (3.5-5.1) mEq/L Chloride (98-107) mEq/L Carbon Dioxide (21-32) mEq/L Anion Gap (5-15) BUN (7-18) mg/dL Creatinine (0.55-1.02) mg/dL Est Cr Clr Drug Dosing mL/min Estimated GFR (MDRD) (>60) mL/min BUN/Creatinine Ratio (14-18) Glucose (74-106) mg/dL POC Glucose 205 H 205 H (70-105) mg/dL Calcium (8.5-10.1) mg/dL Magnesium (1.8-2.4) mg/dl Total Bilirubin (0.2-1.0) mg/dL AST (15-37) U/L ALT (14-59) U/L Alkaline Phosphatase (46-116) U/L Total Protein (6.4-8.2) g/dl Albumin (3.4-5.0) g/dl Globulin gm/dL Albumin/Globulin Ratio (1-2) 11/05/20 11/05/20 Range/Units 06:18 06:38 WBC (3.98-10.04) K/mm3 RBC (3.98-5.22) M/mm3 Hgb (11.2-15.7) gm/dl Hct (34.1-44.9) % MCV (79.4-94.8) fl MCH (25.6-32.2) pg MCHC (32.2-35.5) g/dl RDW Std Deviation (36.4-46.3) fL Plt Count (182-369) K/mm3 MPV (9.4-12.3) fl Neut % (Auto) (34.0-71.1) % Lymph % (Auto) (19.3-51.7) % Early % (Auto) (4.7-12.5) % Eos % (Auto) (0.7-5.8) Baso % (Auto) (0.1-1.2) % Neut # (Auto) (1.56-6.13) K/mm3 Lymph # (Auto) (1.18-3.74) K/mm3 Early # (Auto) (0.24-0.36) K/mm3 Eos # (Auto) (0.04-0.36) K/mm3 Baso # (Auto) (0.01-0.08) K/mm3 Sodium 143 (136-145) mEq/L Potassium 4.8 (3.5-5.1) mEq/L Chloride 104 (98-107) mEq/L Carbon Dioxide 25 (21-32) mEq/L Anion Gap 18.8 H (5-15) BUN 19 H (7-18) mg/dL Creatinine 1.1 H (0.55-1.02) mg/dL Est Cr Clr Drug Dosing 60.39 mL/min Estimated GFR (MDRD) 52 (>60) mL/min BUN/Creatinine Ratio 17.3 (14-18) Glucose 122 H (74-106) mg/dL POC Glucose 128 H (70-105) mg/dL Calcium 8.8 (8.5-10.1) mg/dL Magnesium 2.6 H (1.8-2.4) mg/dl Total Bilirubin 0.3 (0.2-1.0) mg/dL AST 15 (15-37) U/L ALT 42 (14-59) U/L Alkaline Phosphatase 76 (46-116) U/L Total Protein 7.6 (6.4-8.2) g/dl Albumin 3.8 (3.4-5.0) g/dl Globulin 3.8 gm/dL Albumin/Globulin Ratio 1.0 (1-2) Maximus Results Last 24 Hours: Microbiology 11/01/20 12:10 Gram Stain - Final Sputum - Expectorated Sputum Culture - Final Staphylococcus Aureus Haemophilus Parainfluenzae Ii Med Orders - Current: Current Medications Acetaminophen (Tylenol) 650 mg PO Q4H PRN PRN Reason: Pain (Mild 1-3)/fever Last Admin: 11/04/20 21:04 Dose: 650 mg Documented by: Acetaminophen/Codeine Phosphate (Tylenol With Codeine No.3 300mg/30mg) 1 tab PO TID PRN PRN Reason: Pain Last Admin: 11/04/20 21:05 Dose: 1 tab Documented by: Albuterol/Ipratropium (Duoneb 3.0-0.5 Mg/3 Ml) 3 ml NEB Q4H PRN PRN Reason: Shortness Of Breath/wheezing Alprazolam (Xanax) 0.5 mg PO TID PRN PRN Reason: Anxiety Last Admin: 11/05/20 06:38 Dose: 0.5 mg Documented by: Bisacodyl (Dulcolax) 5 mg PO DAILY PRN PRN Reason: Constipation Carvedilol (Coreg) 3.125 mg PO BID [facility] Last Admin: 11/05/20 09:56 Dose: 3.125 mg Documented by: Cholecalciferol (Vitamin D3) 10,000 unit PO DAILY [facility] Last Admin: 11/05/20 09:55 Dose: 10,000 unit Documented by: Dexamethasone (Dexamethasone) 6 mg PO DAILY [facility] Stop: 11/10/20 09:01 Last Admin: 11/05/20 09:56 Dose: 6 mg Documented by: Enoxaparin Sodium (Lovenox) 40 mg SUBCUT BID [facility] Last Admin: 11/04/20 21:03 Dose: 40 mg Documented by: Famotidine (Pepcid) 20 mg PO BID [facility] Last Admin: 11/05/20 09:54 Dose: 20 mg Documented by: Fluticasone Propionate (Flonase) 0 gm NASBOTH DAILY [facility] Last Admin: 11/05/20 09:57 Dose: 2 spray Documented by: Gabapentin (Neurontin) 1,800 mg PO BID [facility] Last Admin: 11/05/20 09:55 Dose: 1,800 mg Documented by: Hydromorphone HCl (Dilaudid) 0.5 mg IVPUSH Q2H PRN PRN Reason: Pain (severe 7-10) Promethazine HCl 12.5 mg/ (Sodium Chloride) 50.5 mls @ 100 mls/hr IV Q6H PRN PRN Reason: Nausea/Vomiting Ibuprofen (Motrin) 600 mg PO Q6H PRN PRN Reason: Pain (moderate 4-6) Last Admin: 11/04/20 15:24 Dose: 600 mg Documented by: [facility]ulin [facility] Last Admin: 11/05/20 06:28 Dose: 10 unit Documented by: Insulin Human Lispro (Humalog) 0 unit SUBCUT TIDAC [facility]; Protocol Last Admin: 11/05/20 08:06 Dose: Not Given Documented by: Lamotrigine (Lamotrigine) 200 mg PO BID [facility] Last Admin: 11/05/20 09:56 Dose: 200 mg Documented by: Levothyroxine Sodium (Levothyroxine) 112 mcg PO ACBREAKFAST [facility] Last Admin: 11/05/20 06:27 Dose: 112 mcg Documented by: Levothyroxine Sodium (Levothyroxine) 25 mcg PO ACBREAKFAST [facility] Last Admin: 11/05/20 06:27 Dose: 25 mcg Documented by: Losartan Potassium (Cozaar) 50 mg PO BID [facility] Last Admin: 11/05/20 09:55 Dose: 50 mg Documented by: Multivitamins (Thera) 1 each PO DAILY [facility] Last Admin: 11/05/20 09:54 Dose: 1 each Documented by: Nitroglycerin (Nitrostat) 0.4 mg SL Q5M PRN PRN Reason: Chest Pain Methylphenidate Er (27 Mg Ptom) 0 each PO DAILY [facility] Last Admin: 11/05/20 09:58 Dose: 1 each Documented by: Advair 250/50 Mcg (Inhaler Ptom) 0 each INH BID [facility] Last Admin: 11/05/20 08:19 Dose: 1 each Documented by: Ondansetron HCl (Zofran) 4 mg IV Q6H PRN PRN Reason: Nausea/Vomiting Polyethylene Glycol (Miralax) 17 gm PO DAILY PRN PRN Reason: Constipation Senna/Docusate Sodium (Senna Plus) 1 tab PO BID PRN PRN Reason: Constipation Sodium Chloride (Saline Flush) 10 ml FLUSH ASDIRECTED PRN PRN Reason: Keep Vein Open Last Admin: 10/31/20 17:32 Dose: 10 ml Documented by: Spironolactone (Aldactone) 25 mg PO DAILY [facility] Last Admin: 11/05/20 09:55 Dose: 25 mg Documented by: Trazodone HCl (Trazodone) 225 mg PO BEDTIME [facility] Last Admin: 11/04/20 21:03 Dose: 225 mg Documented by: Venlafaxine HCl (Effexor Xr) 150 mg PO DAILY [facility] Last Admin: 11/05/20 09:55 Dose: 150 mg Documented by: Venlafaxine HCl (Effexor Xr) 37.5 mg PO DAILY [facility] Last Admin: 11/05/20 09:55 Dose: 37.5 mg Documented by: Zinc Sulfate (Zincate) 220 mg PO DAILY [facility] Last Admin: 11/05/20 09:55 Dose: 220 mg Documented by: Zolpidem Tartrate (Ambien) 5 mg PO BEDTIME PRN PRN Reason: Sleep Last Admin: 11/04/20 21:03 Dose: 5 mg Documented by: Discontinued Medications Albuterol/Ipratropium (Duoneb 3.0-0.5 Mg/3 Ml) 3 ml NEB ONETIME ONE Stop: 10/31/20 17:01 Last Admin: 10/31/20 17:15 Dose: 3 ml Documented by: Apixaban (Eliquis) 5 mg PO ONETIME ONE Stop: 10/31/20 21:20 Last Admin: 10/31/20 21:24 Dose: Not Given Documented by: Enoxaparin Sodium (Lovenox) 40 mg SUBCUT ONETIME ONE Stop: 11/01/20 00:34 Last Admin: 11/01/20 01:08 Dose: 40 mg Documented by: Hydromorphone HCl (Dilaudid) 1 mg IVPUSH ONETIME ONE Stop: 10/31/20 17:00 Last Admin: 10/31/20 17:31 Dose: 1 mg Documented by: Sodium Chloride (Normal Saline) 1,000 mls @ 1,000 mls/hr IV .BOLUS [facility] Last Infusion: 10/31/20 18:43 Dose: Infused Documented by: Remdesivir 200 mg/ Sodium (Chloride) 250 mls @ 250 mls/hr IV ONETIME ONE Stop: 11/01/20 00:29 Last Admin: 11/01/20 01:07 Dose: 250 mls/hr Documented by: Remdesivir 100 mg/ Sodium (Chloride) 100 mls @ 100 mls/hr IV Q24H JUSTIN Stop: 11/04/20 21:59 Last Admin: 11/04/20 21:04 Dose: 100 mls/hr Documented by: Sodium Chloride (Normal Saline) 1,000 mls @ 75 mls/hr IV ASDIRECTED [facility] Last Admin: 11/03/20 11:29 Dose: 75 mls/hr Documented by: Methylprednisolone Sodium Succinate (Solu-Medrol) 125 mg IVPUSH ONETIME ONE Stop: 10/31/20 18:08 Last Admin: 10/31/20 18:44 Dose: 125 mg Documented by: Mometasone Furoate/Formoterol Fumar (Dulera 200-5 Mcg) 2 puff IH BID [facility] Last Admin: 11/02/20 09:53 Dose: Not Given Documented by: Morphine Sulfate (Morphine) 1 mg IVPUSH Q4H PRN PRN Reason: Pain (severe 7-10) Stop: 11/01/20 22:37 Non-Formulary Medication (Acetaminophen With Codeine [Acetaminophen-Cod #4]) 1 tab PO TID PRN PRN Reason: Pain Non-Formulary Medication (Methylphenidate Hcl [Methylphenidate Er]) 27 mg PO DAILY [facility] Regadenoson (Lexiscan) 0.4 mg IVPUSH ONETIME ONE Stop: 11/01/20 07:58 Last Admin: 11/01/20 08:05 Dose: 0.4 mg Documented by: Temazepam (Restoril) 45 mg PO BEDTIME PRN PRN Reason: Sleep - Patient Data Lab Results Last 24 hrs: Laboratory Results - last 24 hr 11/04/20 11/04/20 11/05/20 Range/Units 11:27 17:06 06:18 WBC 10.83 H (3.98-10.04) K/mm3 RBC 4.46 (3.98-5.22) M/mm3 Hgb 13.4 (11.2-15.7) gm/dl Hct 42.9 (34.1-44.9) % MCV 96.2 H (79.4-94.8) fl MCH 30.0 (25.6-32.2) pg MCHC 31.2 L (32.2-35.5) g/dl RDW Std Deviation 48.2 H (36.4-46.3) fL Plt Count 358 (182-369) K/mm3 MPV 9.1 L (9.4-12.3) fl Neut % (Auto) 56.1 (34.0-71.1) % Lymph % (Auto) 31.5 (19.3-51.7) % Early % (Auto) 11.1 (4.7-12.5) % Eos % (Auto) 0.4 L (0.7-5.8) Baso % (Auto) 0.2 (0.1-1.2) % Neut # (Auto) 6.08 (1.56-6.13) K/mm3 Lymph # (Auto) 3.41 (1.18-3.74) K/mm3 Early # (Auto) 1.20 H (0.24-0.36) K/mm3 Eos # (Auto) 0.04 (0.04-0.36) K/mm3 Baso # (Auto) 0.02 (0.01-0.08) K/mm3 Sodium (136-145) mEq/L Potassium (3.5-5.1) mEq/L Chloride (98-107) mEq/L Carbon Dioxide (21-32) mEq/L Anion Gap (5-15) BUN (7-18) mg/dL Creatinine (0.55-1.02) mg/dL Est Cr Clr Drug Dosing mL/min Estimated GFR (MDRD) (>60) mL/min BUN/Creatinine Ratio (14-18) Glucose (74-106) mg/dL POC Glucose 205 H 205 H (70-105) mg/dL Calcium (8.5-10.1) mg/dL Magnesium (1.8-2.4) mg/dl Total Bilirubin (0.2-1.0) mg/dL AST (15-37) U/L ALT (14-59) U/L Alkaline Phosphatase (46-116) U/L Total Protein (6.4-8.2) g/dl Albumin (3.4-5.0) g/dl Globulin gm/dL Albumin/Globulin Ratio (1-2) 11/05/20 11/05/20 Range/Units 06:18 06:38 WBC (3.98-10.04) K/mm3 RBC (3.98-5.22) M/mm3 Hgb (11.2-15.7) gm/dl Hct (34.1-44.9) % MCV (79.4-94.8) fl MCH (25.6-32.2) pg MCHC (32.2-35.5) g/dl RDW Std Deviation (36.4-46.3) fL Plt Count (182-369) K/mm3 MPV (9.4-12.3) fl Neut % (Auto) (34.0-71.1) % Lymph % (Auto) (19.3-51.7) % Early % (Auto) (4.7-12.5) % Eos % (Auto) (0.7-5.8) Baso % (Auto) (0.1-1.2) % Neut # (Auto) (1.56-6.13) K/mm3 Lymph # (Auto) (1.18-3.74) K/mm3 Early # (Auto) (0.24-0.36) K/mm3 Eos # (Auto) (0.04-0.36) K/mm3 Baso # (Auto) (0.01-0.08) K/mm3 Sodium 143 (136-145) mEq/L Potassium 4.8 (3.5-5.1) mEq/L Chloride 104 (98-107) mEq/L Carbon Dioxide 25 (21-32) mEq/L Anion Gap 18.8 H (5-15) BUN 19 H (7-18) mg/dL Creatinine 1.1 H (0.55-1.02) mg/dL Est Cr Clr Drug Dosing 60.39 mL/min Estimated GFR (MDRD) 52 (>60) mL/min BUN/Creatinine Ratio 17.3 (14-18) Glucose 122 H (74-106) mg/dL POC Glucose 128 H (70-105) mg/dL Calcium 8.8 (8.5-10.1) mg/dL Magnesium 2.6 H (1.8-2.4) mg/dl Total Bilirubin 0.3 (0.2-1.0) mg/dL AST 15 (15-37) U/L ALT 42 (14-59) U/L Alkaline Phosphatase 76 (46-116) U/L Total Protein 7.6 (6.4-8.2) g/dl Albumin 3.8 (3.4-5.0) g/dl Globulin 3.8 gm/dL Albumin/Globulin Ratio 1.0 (1-2) Result Diagrams: 11/05/20 06:18 11/05/20 06:18 Maximus Results Last 24 hrs: Microbiology 11/01/20 12:10 Gram Stain - Final Sputum - Expectorated Sputum Culture - Final Staphylococcus Aureus Haemophilus Parainfluenzae Ii Sepsis Event Note - Evaluation Sepsis Screening Result: No Definite Risk - Focused Exam Vital Signs: Vital Signs Temp Pulse Resp BP Pulse Ox 11/05/20 09:56 65 108/62 11/05/20 09:55 108/62 11/05/20 07:43 98.1 F 65 16 108/59 L 94 L 11/05/20 06:41 97.9 F 58 L 16 121/93 H 94 L - Plan Plan:: This is a 55 yo white female with past medical hx/o HTN, Iatrogenic H ypothyroidism due to Thyroid Surgery, Chronic Neck Pain, DM2, Urinary Retention, Vit D Deficiency, Muscle Spasms, Muscular Dystrophy, Peripheral Neuropathy, Anxiety, Depression, Insomnia, and Obesity who comes to us for evaluation of generalized weakness as well as diffuse aches and pains. Assessment: Acute: Covid-19 Infection with respiratory symptoms Acute respiratory failure on 3L NC; now on RA Hypoxia with O2 sat in the low 80s on RA in ED Elevated D-dimer 1.36 Elevated CRP of 4.3, POA-->now 0.7 -Symptom started this weekend -Covid positive -Chest x-ray shows no acute abnormal findings -Chest CTA negative for PE -Plan: Inflammatory markers. Dexamethasone 6 mg po daily for 4/10 days and Veklury for 4/5 days. No need for Actemra Therapy. No indication for IV antibiotics. Vit D wnl. Thyroid Panel: Elevated TSH with normal FT4 level. Oral zinc supplement. IS/FV as directed. H2B for GI prophylaxis. DVT prophylaxis: Lovenox 40 mg sub BID. RT to assess and treat. Hyperglycemia with DM2; mostly controlled -Last A1C 6.4 10/2019 -BS of 138; now 153 -Expect to get worse with steroid -Hold oral agents if she is on any -Accu-check TID Lantus 10 units BID and high intensity ISS Generalized Weakness, improved Diffuse Aches and Pain, improved Elevated AST, resolved Nontraumatic Rhabdomyolysis with CK of 449--> 342-->178, improved Muscular Dystrophy Class II Obese -She normally follows a specialist in [place] Q3 months -Monitor CK level -IV fluids for hydration; discontinued -BMI of 36.3 -Dietary Consult for weight management Hyperlipidemia -Has hx/o diabetes -LDL of 107 -She is intolerant to statin. Also has chronic generalized body aches and pain -Diet controlled -May benefit with at least with fish oil Chest Pain r/o ACS, resolved -Troponin x 2 slightly elevated but decreasing -EKGs show no acute ST-T wave changes -No abnormal rhythm on telemetry -Lexiscan test is negative; nuclear scan is negative Resolved: Acute Kidney Injury vs CKD Stage 2-3, Resolved Chronic: HTN, Iatrogenic Hypothyroidism due to Thyroid Surgery, Chronic Neck Pain, DM2, Urinary Retention, Vit D Deficiency, Muscle Spasms, Muscular Dystrophy, Peripheral Neuropathy, Anxiety, Depression, Insomnia, and Obesity Plan: Remains clinically stable. She remains on RA. Continue current treatment a nd Routine AM labs. Inflammatory markers. ADA diet. Additional orders as above. IS/acapella as directed. PT/OT for generalized weakness. Plan for pulmonary rehab after discharge. Code status is full. Prognosis is good at this pint. LOS >96 hrs due to need for continuing COVID-19 treatment.
--- NOTE | 2020-11-05 11:14 | PCM.DCSUM1 ---
Discharge Summary - Hospital Course HPI Initial Comments: This is a 55 yo white female with past medical hx/o HTN, Iatrogenic Hypothyroidism due to Thyroid Surgery, Chronic Neck Pain, DM2, Urinary Retention, Vit D Deficiency, Muscle Spasms, Muscular Dystrophy, Peripheral Neuropathy, Anxiety, Depression Insomnia and Obesity who comes to us for evaluation of generalized weakness as well as diffuse aches and pains. Her chief complaints were associated with chills, wet cough, some lightheadedness, shortness of breath, chest pain, mild lower abdominal pain, tired, fatigue and overall sense of not feeling well. Patient states she just moved back in area from [place]. She felt she may have over worked herself. Her symptoms started over the weekend. She denies having been exposed to covid + individuals but she felt maybe her . However he has not been tested. She is on BIPAP at night but usually not on supplemental O2. Upon arrival to ED she, found hypoxic with O2 sat in the low 80s. Her initial work up shows a CBC notable for RBC of 3.93, MCV of 98, MCHC of 30.6, RDW of 48.6, MPV of 9.3, and Monocytes of 14.7. Her coagulation is significant for d-dimer of 1.36. Her ABG shows a pH of 7.34, pCO2 of 50.8, pO2 of 61, HCO3 of 26.9, O2 sat of 89.4% on 2L NC. Her chemistry is significant for Cr of 1.3, BS of 138, AST of 43, and CK off 449. Her initial troponin is wnl. Her covid-test is positive. Her chest x-ray shows no acute abnormal findings. Patient is coming in for further management of generalized weakness and covid-19 infection. Diagnosis: Stroke: No - Discharge Data Discharge Date: 11/05/20 (Admit date: 10/31/20) Discharge Disposition: Home, Self-Care 01 Condition: Good - Referral to Home Health Primary Care Physician: Gina Welch MD - Discharge Diagnosis/Problem(s) (1) Acute respiratory failure SNOMED Code(s): 03455044 ICD Code: J96.00 - ACUTE RESPIRATORY FAILURE, UNSP W HYPOXIA OR HYPERCAPNIA Status: Resolved Priority: High Qualifiers: Respiratory failure complication: hypoxia Qualified Code(s): J96.01 - Acute respiratory failure with hypoxia (2) Elevated d-dimer SNOMED Code(s): 170785692 ICD Code: R79.89 - OTHER SPECIFIED ABNORMAL FINDINGS OF BLOOD CHEMISTRY Status: Ruled-out Priority: High (3) Elevated C-reactive protein (CRP) SNOMED Code(s): 432391500801811 ICD Code: R79.82 - ELEVATED C-REACTIVE PROTEIN (CRP) Status: Acute Priority: High (4) DYLAN (acute kidney injury) SNOMED Code(s): 64834603, 19979501 ICD Code: N17.9 - ACUTE KIDNEY FAILURE, UNSPECIFIED Status: Resolved Priority: High (5) Hyperglycemia due to type 2 diabetes mellitus SNOMED Code(s): 361088372537414, 961135441140870 ICD Code: E11.65 - TYPE 2 DIABETES MELLITUS WITH HYPERGLYCEMIA Status: Acute Priority: High Qualifiers: Diabetes mellitus fdc insulin use: without fdc use Qualified Code(s): E11.65 - Type 2 diabetes mellitus with hyperglycemia (6) Generalized weakness SNOMED Code(s): 34790222 ICD Code: R53.1 - WEAKNESS Status: Resolved Priority: High (7) Elevated AST (SGOT) SNOMED Code(s): 598108754 ICD Code: R74.01 - ELEVATION OF LEVELS OF LIVER TRANSAMINASE LEVELS Status: Resolved Priority: Medium (8) Muscular dystrophy SNOMED Code(s): 75094436 ICD Code: G71.00 - MUSCULAR DYSTROPHY, UNSPECIFIED Status: Chronic Priori ty: Medium (9) Obesity (BMI 30-39.9) SNOMED Code(s): 766472476, 640381263 ICD Code: E66.9 - OBESITY, UNSPECIFIED Status: Chronic Priority: Medium (10) HLD (hyperlipidemia) SNOMED Code(s): 70594123 ICD Code: E78.5 - HYPERLIPIDEMIA, UNSPECIFIED Status: Chronic Priority: Low Qualifiers: Hyperlipidemia type: unspecified Qualified Code(s): E78.5 - Hyperlipidemia, unspecified (11) Elevated troponin I level SNOMED Code(s): 015705910 ICD Code: R77.8 - OTHER SPECIFIED ABNORMALITIES OF PLASMA PROTEINS Status: Acute Priority: High (12) HTN (hypertension) SNOMED Code(s): 68570883 ICD Code: I10 - ESSENTIAL (PRIMARY) HYPERTENSION Status: Chronic Prior ity: Medium Qualifiers: Hypertension type: unspecified Qualified Code(s): I10 - Essential (primary) hypertension (13) Hypothyroidism SNOMED Code(s): 04382592 ICD Code: E03.9 - HYPOTHYROIDISM, UNSPECIFIED Status: Chronic Priority: Low Qualifiers: Hypothyroidism type: postoperative Qualified Code(s): E89.0 - Postprocedural hypothyroidism (14) Chronic neck pain SNOMED Code(s): 6809350093550 ICD Code: M54.2 - CERVICALGIA; G89.29 - OTHER CHRONIC PAIN Status: Chronic Priority: Low (15) Peripheral neuropathy SNOMED Code(s): 060258580 ICD Code: G62.9 - POLYNEUROPATHY, UNSPECIFIED Status: Chronic Priority: Medium Qualifiers: Peripheral neuropathy type: polyneuropathy, unspecified Qualified Code(s): G62.9 - Polyneuropathy, unspecified (16) Anxiety SNOMED Code(s): 10526697 ICD Code: F41.9 - ANXIETY DISORDER, UNSPECIFIED Status: Chronic Priority: Low (17) Depression SNOMED Code(s): 96761078 ICD Code: F32.9 - MAJOR DEPRESSIVE DISORDER, SINGLE EPISODE, UNSPECIFIED Status: Chronic Priority: Low Qualifiers: Depression Type: other depression Qualified Code(s): F32.89 - Other specified depressive episodes (18) Insomnia SNOMED Code(s): 089954556 ICD Code: G47.00 - INSOMNIA, UNSPECIFIED Status: Chronic Priority: Low Qualifiers: Insomnia type: unspecified Qualified Code(s): G47.00 - Insomnia, unspecified (19) Type II diabetes mellitus SNOMED Code(s): 97454873 ICD Code: E11.9 - TYPE 2 DIABETES MELLITUS WITHOUT COMPLICATIONS Status: Chronic Priority: Medium Qualifiers: Diabetes mellitus buttermaker continuous churn insulin use: unspecified buttermaker continuous churn insulin use status Diabetes mellitus complication status: with other specified complication Qualified Code(s): E11.69 - Type 2 diabetes mellitus with other specified complication (20) Urinary retention SNOMED Code(s): 485234219 ICD Code: R33.9 - RETENTION OF URINE, UNSPECIFIED Status: Chronic Priority: Low (21) Vitamin D deficiency SNOMED Code(s): 79094767 ICD Code: E55.9 - VITAMIN D DEFICIENCY, UNSPECIFIED Status: Chronic Priority: Low (22) Muscle spasm SNOMED Code(s): 46397880 ICD Code: M62.838 - OTHER MUSCLE SPASM Status: Chronic Priority: Low (23) COVID-19 SNOMED Code(s): 699417751 ICD Code: U07.1 - COVID-19 Status: Acute Priority: High (24) Elevated CK SNOMED Code(s): 460933963 ICD Code: R74.8 - ABNORMAL LEVELS OF OTHER SERUM ENZYMES Status: Resolved Priority: High (25) Hypoxia SNOMED Code(s): 868245051 ICD Code: R09.02 - HYPOXEMIA Status: Resolved Priority: High (26) Atypical chest pain SNOMED Code(s): 839681305 ICD Code: R07.89 - OTHER CHEST PAIN Status: Resolved Priority: High - Patient Summary/Data Consults: Consultations 10/31/20 22:35 Consult to Case Management/Cryptographic Vulnerability Analyst [CONS] Routine Consult to Head Start Teacher [CONS] Routine Consult to Spiritual Care [CONS] Routine OT Evaluation and Treatment [CONS] Routine PT Evaluation and Treatment [CONS] Routine Respiratory Care Assess and Treatment [CONS] Routine Labs Pending at D/C: None Recommended Follow-up Testing/Procedures: Follow-up with primary care provider within 7-10 days of discharge, sooner if needed. Hospital Course: This is a 55-year-old female who presents to ED on 10/31/2020 with worsening weakness and shortness of breath. She does have a history of muscular dystrophy and states that she has had elevated CK in the past. She states she starts to feel like this when her CK is elevated as she recently moved from [place] causing some physical exertion while moving. She feels she may have overdone it. She reports generalized aches and pains. In the ED CK is elevated at 449. She is noted to be hypoxic with saturations in the low 80s on room air and her Covid 19 screen returns positive. She started on 6 mg p.o. dexamethasone and remdesivir. She is given IV fluids. D-dimer is noted to be slightly elevated at 1.36 however CTA is negative for PE. She started on 40 mg subcutaneous Lovenox twice daily. She does have a history of diabetes her last A1c in October 2019 was 6.4. Blood sugars have been elevated which is expected with her steroid. Lantus was increased and she was started on sliding scale insulin. All oral agents were held. She did work with PT and OT who are recommending home. Lipid panel was obtained and shows LDL of 107. She states she has been managing this with diet and dietitian was consulted. She is also noted chest pain and her troponin was noted to increase to 0.064. Repeat was down to 0.060. And her pain ultimately did resolve. She was given a Lexiscan stress test which was negative. On admission she was also noted to have acute renal injury. This did improve with IV fluids. She completed 5 days of remdesivir and p.o. dexamethasone. She was weaned off oxygen and doing quite well ambulating around the room. She was utilizing her incentive spirometry and Acapella regularly. She was instructed to continue to utilize I-S and Acapella for the next 1 to 2 weeks or until symptoms resolve. She was wearing her CPAP at night and did have an oxygen bleed in, although this was not required at discharge. She was directed to continue utilizing her home CPAP as prior. She was instructed to continue to quarantine/isolate for total of 20 days from when her symptoms began. She was warned that she will likely be contacted by a correctional counselor/case manager from the [facility] and she should follow their directions. She was prescribed zinc supplementation at discharge. No steroid was prescribed at discharge. There were some recommendations for pulmonary rehab at discharge. Patient stated that she has [place] however prior PFT obtained at the [facility] was normal. She was working with our therapy department to set up some outpatient pulmonary rehabilitation. She discharged today. All home medications were continued. Instructed to follow-up with primary care provider within 7 to 10 days of discharge, sooner if needed. Recommend repeat CBC, CMP, and magnesium at that visit. Consider repeat chest x-ray at that time as well. She was instructed to contact her primary care provider or return the emergency room should symptoms return or worsen. Discharged home today. - Patient Instructions Diet: Heart Healthy Diet, Diabetic Diet Activity: As Tolerated Driving: Do Not Drive Showering/Bathing: May Shower Notify Provider of: Fever, Increased Pain, Nausea and/or Vomiting Other/Special Instructions: Follow-up with primary care provider within 7-10 days of discharge, sooner if needed. Take all medications as prescribed. Continue to wear your CPAP at night as before. Continue to utilize your incenitve spirometer (clear/blue device you inhale through) and acapella (green tube you blow through) for 1-2 weeks or until symptoms resolve. You should continue to quarantine/isolate for a total of 20 days from onset of symptoms. You will likely be contacted by a correctional counselor/case manager from the [facility]. Follow their drections. Should symtpoms return or worsen contact your primary care provider or return to the Emergency Department. - Discharge Plan *PRESCRIPTION DRUG MONITORING PROGRAM REVIEWED*: No *COPY OF PRESCRIPTION DRUG MONITORING REPORT IN PATIENT STIVEN: No Prescriptions/Med Rec: Zinc Sulfate [Zincate] 220 mg PO DAILY #20 cap Home Medications: Home Meds Gabapentin [Neurontin] 1,800 mg PO BID 10/09/15 [History] Losartan [Cozaar] 50 mg PO BID 10/09/15 [History] Spironolactone [Aldactone] 25 mg PO DAILY 10/09/15 [History] carvediloL [Coreg] 3.125 mg PO BID 10/09/15 [History] traZODone 225 mg PO BEDTIME 10/09/15 [History] ALPRAZolam [Xanax] 0.5 mg PO TID PRN 04/12/16 [History] Temazepam 45 mg PO BEDTIME PRN 04/16/18 [History] lamoTRIgine [Lamictal] 200 mg PO BID 04/16/18 [History] Cholecalciferol (Vitamin D3) [Vitamin D3] 10,000 unit PO DAILY 07/23/19 [History] Acetaminophen with Codeine [Acetaminophen-Cod #4] 1 tab PO TID PRN 11/01/20 [History] Albuterol Sulfate [Albuterol Sulfate HFA] 1 puff INH Q4H PRN 11/01/20 [History] Fluticasone Propion/Salmeterol [Advair 250-50 Diskus] 1 puff INH BID 11/01/20 [History] Levothyroxine Sodium [Levothyroxine] 137 mcg PO ACBREAKFAST 11/01/20 [History] Methylphenidate HCl [Methylphenidate ER] 27 mg PO DAILY 11/01/20 [History] Multivitamin [Multi-Day Vitamins] 1 tab PO DAILY 11/01/20 [History] Triamcinolone Acetonide [Nasacort AQ Nerinx] 2 sprays NASBOTH DAILY 11/01/20 [History] Venlafaxine HCl [Venlafaxine ER] 187.5 mg PO DAILY 11/01/20 [History] Zinc Sulfate [Zincate] 220 mg PO DAILY #20 cap 11/05/20 [Rx] Oxygen Therapy Mode: Room Air Patient Handouts: Prone Position Therapy, COVID-19, How to Use an Incentive Spirometer, Diabetes Mellitus and Sick Day Management, 10 Things You Can Do to Manage Your COVID-19 Symptoms at Home - CDC, Sepsis, Diagnosis, Adult, COVID-19: How to Protect Yourself and Others - [facility] Referrals: Gina Welch MD [Primary Care Provider] - 11/15/20 11:15 am (Hospital follow-up appointment.) - Discharge Summary/Plan Comment DC Time >30 min.: Yes (45 mins ) - General Info Date of Service: 11/05/20 Admission Dx/Problem (Free Text: Admission Diagnosis/Problem Admission Diagnosis/Problem Hypoxia Functional Status: Reports: Pain Controlled, Tolerating Diet, Ambulating, Urinating, Incentive Spirometry, Other (Acapella ). Denies: New Symptoms - Review of Systems General: Reports: No Symptoms. Denies: Fever, Weakness, Fatigue, Malaise, Chills HEENT: Reports: No Symptoms. Denies: Headaches, Sore Throat Pulmonary: Reports: No Symptoms. Denies: Shortness of Breath, Pleuritic Chest Pain, Cough, Sputum, Wheezing Cardiovascular: Reports: No Symptoms. Denies: Chest Pain, Palpitations, Dyspnea on Exertion, Edema Gastrointestinal: Reports: No Symptoms. Denies: Abdominal Pain, Constipation, Diarrhea, Nausea, Vomiting Genitourinary: Reports: No Symptoms. Denies: Pain Musculoskeletal: Reports: No Symptoms Skin: Reports: No Symptoms. Denies: Cyanosis Neurological: Reports: No Symptoms. Denies: Confusion, Numbness, Pre-Existing Deficit, Tingling, Difficulty Walking, Weakness, Gait Disturbance Psychiatric: Reports: No Symptoms - Patient Data Vitals - Most Recent: Last Vital Signs Temp 98.1 F 11/05/20 07:43 Pulse 65 11/05/20 09:56 Resp 16 11/05/20 07:43 BP 108/62 11/05/20 09:56 Pulse Ox 94 L 11/05/20 07:43 Weight - Most Recent: 239 lb I&O - Last 24 hours: Intake & Output 11/04/20 11/05/20 11/05/20 22:59 06:59 14:59 Intake Total 1920 1300 Output Total 1500 2000 Balance 420 -700 Lab Results - Last 24 hrs: Laboratory Results - last 24 hr 11/04/20 11/04/20 11/05/20 Range/Units 11:27 17:06 06:18 WBC 10.83 H (3.98-10.04) K/mm3 RBC 4.46 (3.98-5.22) M/mm3 Hgb 13.4 (11.2-15.7) gm/dl Hct 42.9 (34.1-44.9) % MCV 96.2 H (79.4-94.8) fl MCH 30.0 (25.6-32.2) pg MCHC 31.2 L (32.2-35.5) g/dl RDW Std Deviation 48.2 H (36.4-46.3) fL Plt Count 358 (182-369) K/mm3 MPV 9.1 L (9.4-12.3) fl Neut % (Auto) 56.1 (34.0-71.1) % Lymph % (Auto) 31.5 (19.3-51.7) % [place] % (Auto) 11.1 (4.7-12.5) % Eos % (Auto) 0.4 L (0.7-5.8) Baso % (Auto) 0.2 (0.1-1.2) % Neut # (Auto) 6.08 (1.56-6.13) K/mm3 Lymph # (Auto) 3.41 (1.18-3.74) K/mm3 [place] # (Auto) 1.20 H (0.24-0.36) K/mm3 Eos # (Auto) 0.04 (0.04-0.36) K/mm3 Baso # (Auto) 0.02 (0.01-0.08) K/mm3 Sodium (136-145) mEq/L Potassium (3.5-5.1) mEq/L Chloride (98-107) mEq/L Carbon Dioxide (21-32) mEq/L Anion Gap (5-15) BUN (7-18) mg/dL Creatinine (0.55-1.02) mg/dL Est Cr Clr Drug Dosing mL/min Estimated GFR (MDRD) (>60) mL/min BUN/Creatinine Ratio (14-18) Glucose (74-106) mg/dL POC Glucose 205 H 205 H (70-105) mg/dL Calcium (8.5-10.1) mg/dL Magnesium (1.8-2.4) mg/dl Total Bilirubin (0.2-1.0) mg/dL AST (15-37) U/L ALT (14-59) U/L Alkaline Phosphatase (46-116) U/L Total Protein (6.4-8.2) g/dl Albumin (3.4-5.0) g/dl Globulin gm/dL Albumin/Globulin Ratio (1-2) 11/05/20 11/05/20 Range/Units 06:18 06:38 WBC (3.98-10.04) K/mm3 RBC (3.98-5.22) M/mm3 Hgb (11.2-15.7) gm/dl Hct (34.1-44.9) % MCV (79.4-94.8) fl MCH (25.6-32.2) pg MCHC (32.2-35.5) g/dl RDW Std Deviation (36.4-46.3) fL Plt Count (182-369) K/mm3 MPV (9.4-12.3) fl Neut % (Auto) (34.0-71.1) % Lymph % (Auto) (19.3-51.7) % [place] % (Auto) (4.7-12.5) % Eos % (Auto) (0.7-5.8) Baso % (Auto) (0.1-1.2) % Neut # (Auto) (1.56-6.13) K/mm3 Lymph # (Auto) (1.18-3.74) K/mm3 [place] # (Auto) (0.24-0.36) K/mm3 Eos # (Auto) (0.04-0.36) K/mm3 Baso # (Auto) (0.01-0.08) K/mm3 Sodium 143 (136-145) mEq/L Potassium 4.8 (3.5-5.1) mEq/L Chloride 104 (98-107) mEq/L Carbon Dioxide 25 (21-32) mEq/L Anion Gap 18.8 H (5-15) BUN 19 H (7-18) mg/dL Creatinine 1.1 H (0.55-1.02) mg/dL Est Cr Clr Drug Dosing 60.39 mL/min Estimated GFR (MDRD) 52 (>60) mL/min BUN/Creatinine Ratio 17.3 (14-18) Glucose 122 H (74-106) mg/dL POC Glucose 128 H (70-105) mg/dL Calcium 8.8 (8.5-10.1) mg/dL Magnesium 2.6 H (1.8-2.4) mg/dl Total Bilirubin 0.3 (0.2-1.0) mg/dL AST 15 (15-37) U/L ALT 42 (14-59) U/L Alkaline Phosphatase 76 (46-116) U/L Total Protein 7.6 (6.4-8.2) g/dl Albumin 3.8 (3.4-5.0) g/dl Globulin 3.8 gm/dL Albumin/Globulin Ratio 1.0 (1-2) AMBER Results - Last 24 hrs: Microbiology 11/01/20 12:10 Gram Stain - Final Sputum - Expectorated Sputum Culture - Final Staphylococcus Aureus Haemophilus Parainfluenzae Ii Med Orders - Current: Current Medications Acetaminophen (Tylenol) 650 mg PO Q4H PRN PRN Reason: Pain (Mild 1-3)/fever Last Admin: 11/04/20 21:04 Dose: 650 mg Documented by: Acetaminophen/Codeine Phosphate (Tylenol With Codeine No.3 300mg/30mg) 1 tab PO TID PRN PRN Reason: Pain Last Admin: 11/04/20 21:05 Dose: 1 tab Documented by: Albuterol/Ipratropium (Duoneb 3.0-0.5 Mg/3 Ml) 3 ml NEB Q4H PRN PRN Reason: Shortness Of Breath/wheezing Alprazolam (Xanax) 0.5 mg PO TID PRN PRN Reason: Anxiety Last Admin: 11/05/20 06:38 Dose: 0.5 mg Documented by: Bisacodyl (Dulcolax) 5 mg PO DAILY PRN PRN Reason: Constipation Carvedilol (Coreg) 3.125 mg PO BID [facility] Last Admin: 11/05/20 09:56 Dose: 3.125 mg Documented by: Cholecalciferol (Vitamin D3) 10,000 unit PO DAILY [facility] Last Admin: 11/05/20 09:55 Dose: 10,000 unit Documented by: Dexamethasone (Dexamethasone) 6 mg PO DAILY [facility] Stop: 11/10/20 09:01 Last Admin: 11/05/20 09:56 Dose: 6 mg Documented by: Enoxaparin Sodium (Lovenox) 40 mg SUBCUT BID [facility] Last Admin: 11/04/20 21:03 Dose: 40 mg Documented by: Famotidine (Pepcid) 20 mg PO BID [facility] Last Admin: 11/05/20 09:54 Dose: 20 mg Documented by: Fluticasone Propionate (Flonase) 0 gm NASBOTH DAILY [facility] Last Admin: 11/05/20 09:57 Dose: 2 spray Documented by: Gabapentin (Neurontin) 1,800 mg PO BID [facility] Last Admin: 11/05/20 09:55 Dose: 1,800 mg Documented by: Hydromorphone HCl (Dilaudid) 0.5 mg IVPUSH Q2H PRN PRN Reason: Pain (severe 7-10) Promethazine HCl 12.5 mg/ (Sodium Chloride) 50.5 mls @ 100 mls/hr IV Q6H PRN PRN Reason: Nausea/Vomiting Ibuprofen (Motrin) 600 mg PO Q6H PRN PRN Reason: Pain (moderate 4-6) Last Admin: 11/04/20 15:24 Dose: 600 mg Documented by: Insulin Glargine (Lantus) 10 unit SUBCUT BIDAC [facility] Last Admin: 11/05/20 06:28 Dose: 10 unit Documented by: Insulin Human Lispro (Humalog) 0 unit SUBCUT TIDAC [facility]; Protocol Last Admin: 11/05/20 08:06 Dose: Not Given Documented by: Lamotrigine (Lamotrigine) 200 mg PO BID [facility] Last Admin: 11/05/20 09:56 Dose: 200 mg Documented by: Levothyroxine Sodium (Levothyroxine) 112 mcg PO ACBREAKFAST [facility] Last Admin: 11/05/20 06:27 Dose: 112 mcg Documented by: Levothyroxine Sodium (Levothyroxine) 25 mcg PO ACBREAKFAST [facility] Last Admin: 11/05/20 06:27 Dose: 25 mcg Documented by: Losartan Potassium (Cozaar) 50 mg PO BID [facility] Last Admin: 11/05/20 09:55 Dose: 50 mg Documented by: Multivitamins (Thera) 1 each PO DAILY [facility] Last Admin: 11/05/20 09:54 Dose: 1 each Documented by: Nitroglycerin (Nitrostat) 0.4 mg SL Q5M PRN PRN Reason: Chest Pain Methylphenidate Er (27 Mg Ptom) 0 each PO DAILY [facility] Last Admin: 11/05/20 09:58 Dose: 1 each Documented by: Advair 250/50 Mcg (Inhaler Ptom) 0 each INH BID [facility] Last Admin: 11/05/20 08:19 Dose: 1 each Documented by: Ondansetron HCl (Zofran) 4 mg IV Q6H PRN PRN Reason: Nausea/Vomiting Polyethylene Glycol (Miralax) 17 gm PO DAILY PRN PRN Reason: Constipation Senna/Docusate Sodium (Senna Plus) 1 tab PO BID PRN PRN Reason: Constipation Sodium Chloride (Saline Flush) 10 ml FLUSH ASDIRECTED PRN PRN Reason: Keep Vein Open Last Admin: 10/31/20 17:32 Dose: 10 ml Documented by: Spironolactone (Aldactone) 25 mg PO DAILY [facility] Last Admin: 11/05/20 09:55 Dose: 25 mg Documented by: Trazodone HCl (Trazodone) 225 mg PO BEDTIME [facility] Last Admin: 11/04/20 21:03 Dose: 225 mg Documented by: Venlafaxine HCl (Effexor Xr) 150 mg PO DAILY [facility] Last Admin: 11/05/20 09:55 Dose: 150 mg Documented by: Venlafaxine HCl (Effexor Xr) 37.5 mg PO DAILY [facility] Last Admin: 11/05/20 09:55 Dose: 37.5 mg Documented by: Zinc Sulfate (Zincate) 220 mg PO DAILY [facility] Last Admin: 11/05/20 09:55 Dose: 220 mg Documented by: Zolpidem Tartrate (Ambien) 5 mg PO BEDTIME PRN PRN Reason: Sleep Last Admin: 11/04/20 21:03 Dose: 5 mg Documented by: Discontinued Medications Albuterol/Ipratropium (Duoneb 3.0-0.5 Mg/3 Ml) 3 ml NEB ONETIME ONE Stop: 10/31/20 17:01 Last Admin: 10/31/20 17:15 Dose: 3 ml Documented by: Apixaban (Eliquis) 5 mg PO ONETIME ONE Stop: 10/31/20 21:20 Last Admin: 10/31/20 21:24 Dose: Not Given Documented by: Enoxaparin Sodium (Lovenox) 40 mg SUBCUT ONETIME ONE Stop: 11/01/20 00:34 Last Admin: 11/01/20 01:08 Dose: 40 mg Documented by: Hydromorphone HCl (Dilaudid) 1 mg IVPUSH ONETIME ONE Stop: 10/31/20 17:00 Last Admin: 10/31/20 17:31 Dose: 1 mg Documented by: Sodium Chloride (Normal Saline) 1,000 mls @ 1,000 mls/hr IV .BOLUS [facility] Last Infusion: 10/31/20 18:43 Dose: Infused Documented by: Remdesivir 200 mg/ Sodium (Chloride) 250 mls @ 250 mls/hr IV ONETIME ONE Stop: 11/01/20 00:29 Last Admin: 11/01/20 01:07 Dose: 250 mls/hr Documented by: Remdesivir 100 mg/ Sodium (Chloride) 100 mls @ 100 mls/hr IV Q24H [facility] Stop: 11/04/20 21:59 Last Admin: 11/04/20 21:04 Dose: 100 mls/hr Documented by: Sodium Chloride (Normal Saline) 1,000 mls @ 75 mls/hr IV ASDIRECTED [facility] Last Admin: 11/03/20 11:29 Dose: 75 mls/hr Documented by: Methylprednisolone Sodium Succinate (Solu-Medrol) 125 mg IVPUSH ONETIME ONE Stop: 10/31/20 18:08 Last Admin: 10/31/20 18:44 Dose: 125 mg Documented by: Mometasone Furoate/Formoterol Fumar (Dulera 200-5 Mcg) 2 puff IH BID [facility] Last Admin: 11/02/20 09:53 Dose: Not Given Documented by: Morphine Sulfate (Morphine) 1 mg IVPUSH Q4H PRN PRN Reason: Pain (severe 7-10) Stop: 11/01/20 22:37 Non-Formulary Medication (Acetaminophen With Codeine [Acetaminophen-Cod #4]) 1 tab PO TID PRN PRN Reason: Pain Non-Formulary Medication (Methylphenidate Hcl [Methylphenidate Er]) 27 mg PO DAILY JUSTIN Regadenoson (Lexiscan) 0.4 mg IVPUSH ONETIME ONE Stop: 11/01/20 07:58 Last Admin: 11/01/20 08:05 Dose: 0.4 mg Documented by: Temazepam (Restoril) 45 mg PO BEDTIME PRN PRN Reason: Sleep - Exam Quality Assessment: Reports: DVT Prophylaxis. Denies: Supplemental Oxygen General: Reports: Alert, Oriented, Cooperative, No Acute Distress HEENT: Reports: Pupils Equal, Pupils Reactive, Mucous Membr. Moist/[place] Neck: Reports: Supple, Trachea Midline Lungs: Reports: Clear to Auscultation, Normal Respiratory Effort Cardiovascular: Reports: Regular Rate, Regular Rhythm GI/Abdominal Exam: Normal Bowel Sounds, Soft, Non-Tender, No Organomegaly, No Distention (Female) Exam: Deferred Rectal (Female) Exam: Deferred Back Exam: Reports: Normal Inspection, Decreased Range of Motion Extremities: Normal Inspection, Normal Range of Motion, Non-Tender, No Pedal E dominique, Normal Capillary Refill Skin: Reports: Warm, Dry, Intact Neurological: Reports: No New Focal Deficit Psy/Mental Status: Reports: Alert, Normal Affect, Normal Mood
[2020-11-05 12:03] VITALS: BP 120/87; PULSE 70
== END 2020-11-05 13:59 | disposition home or self-care (01) | DRG 177 ==
LOC: JD.ED 16:30 → JD.MS 19:25
PROVIDERS: ADMIT Internal Medicine; ATTEND Internal Medicine
PROC: XW033E5 Introduction of Remdesivir Anti-infective into Peripheral Vein, Percutaneous Approach, New Technology Group 5 (ICD-10-PCS; principal; 2020-10-31)
DX: U07.1 COVID-19 (principal); R09.02 Hypoxemia; J96.01 Acute respiratory failure with hypoxia; N17.9 Acute kidney failure, unspecified; I20.1 Angina pectoris with documented spasm; I10 Essential (primary) hypertension; G47.30 Sleep apnea, unspecified; R32 Unspecified urinary incontinence; G71.09 Other specified muscular dystrophies; F32.9 Major depressive disorder, single episode, unspecified; I42.9 Cardiomyopathy, unspecified; E11.9 Type 2 diabetes mellitus without complications; Z88.1 Allergy status to other antibiotic agents; M62.82 Rhabdomyolysis; R79.89 Other specified abnormal findings of blood chemistry; R79.82 Elevated C-reactive protein (CRP); E11.65 Type 2 diabetes mellitus with hyperglycemia; R74.01 Elevation of levels of liver transaminase levels; E78.5 Hyperlipidemia, unspecified; R77.8 Other specified abnormalities of plasma proteins; E03.9 Hypothyroidism, unspecified; M54.2 Cervicalgia; G89.29 Other chronic pain; F41.9 Anxiety disorder, unspecified; F32.89 Other specified depressive episodes; G47.00 Insomnia, unspecified; E11.42 Type 2 diabetes mellitus with diabetic polyneuropathy; E55.9 Vitamin D deficiency, unspecified; R74.8 Abnormal levels of other serum enzymes; R07.89 Other chest pain; R33.9 Retention of urine, unspecified; H54.7 Unspecified visual loss; E66.9 Obesity, unspecified; N18.30 Chronic kidney disease, stage 3 unspecified; I12.9 Hypertensive chronic kidney disease with stage 1 through stage 4 chronic kidney disease, or unspecified chronic kidney disease; E11.22 Type 2 diabetes mellitus with diabetic chronic kidney disease; R53.1 Weakness; Z88.5 Allergy status to narcotic agent; Z88.8 Allergy status to other drugs, medicaments and biological substances; Z79.890 Hormone replacement therapy; Z79.899 Other long term (current) drug therapy; Z98.890 Other specified postprocedural states; Z90.49 Acquired absence of other specified parts of digestive tract; Z68.35 Body mass index [BMI] 35.0-35.9, adult
CPT/HCPCS: 36415; 36600; 71045; 80053; 82550; 82553; 82803; 84484; 85025; 85379; 93005; 94640; 96374; 96375; 99285; J1170; J2930; J7030; U0002; 71275; 71275-26; 78452; 78452-26; 80061; 82306; 82962; 83605; 83615; 83735; 84145; 84439; 84443; 85652; 86140; 87070; 87077; 87186; 87205; 93010; 93017; 94667; 94668; 94761; 97162-GP; 97166-GO; 99222; 99233; 99239; 99284; A9270-GY; A9500; J1650; J1815-GY; J2785; J7050; J7620-GY; J8540

== ENCOUNTER 2020-11-18 14:26 | Emergency (ER) | payer MEDICARE ==
[2020-11-18 14:46] VITALS: BP 146/97
--- NOTE | 2020-11-18 15:25 | EDM.PDOC ---
ED HPI GENERAL MEDICAL PROBLEM - General Chief Complaint: Respiratory Problem Stated Complaint: SOB AND LOW O2 Time Seen by Provider: 11/18/20 14:43 Source of Information: Reports: Patient History Limitations: Reports: No Limitations - History of Present Illness INITIAL COMMENTS - FREE TEXT/NARRATIVE: 55 year old female presents to the ED with complaints of shortness of breath and low O2 sats at home post covid. Patient states she has a pulse oximeter and her O2 saturations have been ranging from 87 to 88% with any and all activity. Pt states that she was diagnosed with covid and hospitalized on 11/02/20. Pt was discharged to home on 11/05/20. Pt continued to have shortness of breath and low O2 saturations at home and was seen in the clinic on 11/15/20 and a repeat chest x-ray was completed which was unremarkable. Patient states she does have a history of cardiomyopathy and COPD. She states she did receive remdesivir treatments, steroids, and Lovenox injections while in the hospital however was not discharged home on any new medications. - Related Data Allergies Allergy/AdvReac Type Severity Reaction Status Date / Time exenatide [From Bydureon] Allergy Intermediate Hives Verified 11/18/20 15:45 oxycodone Allergy Intermediate Itching Verified 11/18/20 15:45 quetiapine [From Seroquel] Allergy Mild Other Verified 11/18/20 15:45 metformin Allergy Unknown Other Verified 11/18/20 15:45 Sulfonylureas Allergy Unknown Other Verified 11/18/20 15:45 Bkhkmou-Poc-Yya Reductase AdvReac Mild Muscle Verified 11/18/20 15:45 Inhibitor Aches Home Meds: Home Meds Gabapentin [Neurontin] 1,800 mg PO BID 10/09/15 [History] Losartan [Cozaar] 50 mg PO BID 10/09/15 [History] Spironolactone [Aldactone] 25 mg PO DAILY 10/09/15 [History] carvediloL [Coreg] 3.125 mg PO BID 10/09/15 [History] traZODone 225 mg PO BEDTIME 10/09/15 [History] ALPRAZolam [Xanax] 0.5 mg PO TID PRN 04/12/16 [History] Temazepam 45 mg PO BEDTIME PRN 04/16/18 [History] lamoTRIgine [Lamictal] 200 mg PO BID 04/16/18 [History] Cholecalciferol (Vitamin D3) [Vitamin D3] 10,000 unit PO DAILY 07/23/19 [History] Acetaminophen with Codeine [Acetaminophen-Cod #4] 1 tab PO TID PRN 11/01/20 [History] Albuterol Sulfate [Albuterol Sulfate HFA] 1 puff INH Q4H PRN 11/01/20 [History] Fluticasone Propion/Salmeterol [Advair 250-50 Diskus] 1 puff INH BID 11/01/20 [History] Levothyroxine Sodium [Levothyroxine] 137 mcg PO ACBREAKFAST 11/01/20 [History] Methylphenidate HCl [Methylphenidate ER] 27 mg PO DAILY 11/01/20 [History] Multivitamin [Multi-Day Vitamins] 1 tab PO DAILY 11/01/20 [History] Triamcinolone Acetonide [Nasacort AQ [place]] 2 sprays NASBOTH DAILY 11/01/20 [History] Venlafaxine HCl [Venlafaxine ER] 187.5 mg PO DAILY 11/01/20 [History] Zinc Sulfate [Zincate] 220 mg PO DAILY #20 cap 11/05/20 [Rx] valACYclovir HCl [Valtrex] 500 mg PO BID 11/18/20 [History] Past Medical History HEENT History: Reports: Impaired Vision Other HEENT History: glasses Cardiovascular History: Reports: Angina, Blood Clots/VTE/DVT, Cardiomyopathy, Hypertension, SOB on Exertion Other Cardiovascular History: PSVT, 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." Respiratory History: Reports: COPD, Pneumonia, Recurrent, Sleep Apnea, SOB Other Respiratory History: "CO2 retention." Gastrointestinal History: Reports: Bowel Obstruction, Colon Polyp Other Gastrointestinal History: hernia Genitourinary History: Reports: Renal Calculus, Urinary Incontinence PEDIATRIC OCCUPATIONAL THERAPIST History: Reports: Endometriosis, , Spontaneous , Other (See Below) Other PEDIATRIC OCCUPATIONAL THERAPIST History: 5 "miscarriages" Musculoskeletal History: Reports: Fracture, Muscular Dystrophy Other Musculoskeletal History: T7 compression fx, 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 Hematologic History: Reports: Anemia Immunologic History: Reports: None Oncologic (Cancer) History: Reports: None Dermatologic History: Reports: Other (See Below) Other Dermatologic History: Keloids - Infectious Disease History Infectious Disease History: Reports: Influenza, Novel Coronavirus - Past Surgical History HEENT Surgical History: Reports: Adenoidectomy, Tonsillectomy Cardiovascular Surgical History: Reports: Other (See Below) Other Cardiovascular Surgeries/Procedures: Pt has had 7 cardiac catheterizations. GI Surgical History: Reports: Appendectomy, Cholecystectomy, Hernia Repair/Other, Other (See Below) Other GI Surgeries/Procedures: Bowel resection after bowel obstruction. Musculoskeletal Surgical History: Reports: Ganglion Cyst, Shoulder Surgery Other Musculoskeletal Surgeries/Procedures:: Carpal tunnel, trigger finger surgery Social & Family History - Family History Family Medical History: No Pertinent Family History - Tobacco Use Tobacco Use Status *Q: Never Tobacco User Second Hand Smoke Exposure: No - Caffeine Use Caffeine Use: Reports: Soda, Tea Other Caffeine Use: unknown - Recreational Drug Use Recreational Drug Use: Yes Drug Use in Last 12 Months: No Recreational Drug Type: Reports: Cocaine, Marijuana/Hashish Other Recreational Drug Type: not used in 32 years - Living Situation & Occupation Living situation: Reports: , with Spouse, with Family (Granddaughter) Occupation: Unemployed ED ROS GENERAL - Review of Systems Review Of Systems: See Below Constitutional: Reports: No Symptoms HEENT: Reports: No Symptoms Respiratory: Reports: Shortness of Breath, Cough. Denies: Wheezing, Pleuritic Chest Pain, Sputum Cardiovascular: Reports: Dyspnea on Exertion, Lightheadedness. Denies: Chest Pain, Edema, Palpitations Endocrine: Reports: No Symptoms GI/Abdominal: Reports: No Symptoms : Reports: No Symptoms Musculoskeletal: Reports: No Symptoms Skin: Reports: No Symptoms Neurological: Reports: No Symptoms Psychiatric: Reports: No Symptoms Hematologic/Lymphatic: Reports: No Symptoms Immunologic: Reports: No Symptoms ED EXAM, GENERAL - Physical Exam Exam: See Below Exam Limited By: No Limitations General Appearance: Alert, WD/WN, No Apparent Distress Ears: Normal External Exam, Hearing Grossly Normal Nose: Normal Inspection, Normal Mucosa Throat/Mouth: Normal Inspection, Normal Lips, Normal Voice, No Airway Compromise Head: Atraumatic, Normocephalic Neck: Normal Inspection, Supple, Non-Tender, Full Range of Motion Respiratory/Chest: No Respiratory Distress, Lungs Clear, Normal Breath Sounds, No Accessory Muscle Use, Chest Non-Tender Cardiovascular: Normal Peripheral Pulses, Regular Rate, Rhythm, No Edema, No Murmur Peripheral Pulses: 2+: Radial (L), Radial (R) GI/Abdominal: Normal Bowel Sounds, Soft, Non-Tender, No Distention (Female) Exam: Deferred Rectal (Female) Exam: Deferred Back Exam: Normal Inspection, Full Range of Motion Extremities: Normal Inspection, Normal Range of Motion, Non-Tender, No Pedal Edema, Normal Capillary Refill Neurological: Alert, Oriented, Normal Cognition Psychiatric: Normal Affect, Normal Mood Skin Exam: Warm, Dry, Intact, Normal Color, No Rash Lymphatic: No Adenopathy Course - Vital Signs Text/Narrative:: Patient's O2 saturations upon the time of my assessment are 99% her lungs are clear to all lobes., however there is a possibility that the patient could have a pulmonary embolus status post Covid. I have ordered a CTA of the chest. Last Recorded V/S: Last Vital Signs Temp 97.0 F 11/18/20 14:43 Pulse Resp 18 11/18/20 14:43 BP 146/97 H 11/18/20 14:43 Pulse Ox 90 L 11/18/20 14:43 - Orders/Labs/Meds Orders: Active Orders 24 hr Category Date Time Status CTA Chest W WO Contrast [Ang Chest] [CT] Stat Exams 11/18/20 15:17 Taken - Re-Assessments/Exams Free Text/Narrative Re-Assessment/Exam: 11/18/20 17:18 vRad radiologist impression: 1. No pulmonary embolism is present. 2. Persistent mild bronchial wall thickening. Question possible bronchitis or reactive airway disease. No evidence for pneumonia. Pt will be discharged to home. Departure - Departure Time of Disposition: 17:19 Disposition: Home, Self-Care 01 Condition: Good Clinical Impression: Persistent dyspnea after COVID-19, COVID-19 - Discharge Information Referrals: Gina Welch MD [Primary Care Provider] - Forms: ED Department Discharge Additional Instructions: You were seen in the emergency department today with complaints of persistent shortness of breath after having covid. O2 saturations while in the emergency department were 96-99% on room air. A CT scan of the lungs was completed and you do not have a blood clot in your lungs. You will likely be short of breath as a result of having covid and there is no definite time period as to when or if this will resolve. Should your condition worsen or change, do not hesitate returning to the ED. Sepsis Event Note (ED) - Evaluation Sepsis Screening Result: No Definite Risk - Focused Exam Vital Signs: Vital Signs Temp Resp BP Pulse Ox 11/18/20 14:43 97.0 F 18 146/97 H 90 L - My Orders Last 24 Hours: My Active Orders 11/18/20 15:17 CTA Chest W WO Contrast [Ang Chest] [CT] Stat - Assessment/Plan Last 24 Hours: My Active Orders 11/18/20 15:17 CTA Chest W WO Contrast [Ang Chest] [CT] Stat
--- NOTE | 2020-11-19 07:55 | CT ---
CT chest Technique: Multiple axial sections through the chest were obtained. Intravenous contrast was utilized. Study has been performed as a pulmonary angiogram protocol. Comparison: Prior chest CT study of 02/02/18. Findings: Pulmonary arteries are fairly well opacified. No filling defects are seen to indicate pulmonary embolism. Thoracic aorta shows mild atherosclerotic calcification with no aneurysm. Mediastinum and hilar regions show no adenopathy. No pericardial thickening is seen. Small portion of the visualized upper abdominal structures show prior cholecystectomy. Lungs show minimal atelectasis within the left base. No acute parenchymal change is appreciated. Minimal thickening of the peribronchial markings is noted. Lungs otherwise are clear. Bone window settings were reviewed which show no acute osseous finding. Impression: 1. No findings of pulmonary embolism. 2. Minimal thickening of the peribronchial markings which is similar to prior study, most likely chronic. 3. Nothing acute is otherwise seen. Diagnostic code #2 I agree with preliminary report from [facility], finalized on 11/18/20, 6:12 PM CDT
== END 2020-11-18 17:39 | disposition home or self-care (01) ==
LOC: JD.ED 14:26
DX: U07.1 COVID-19 (principal); I10 Essential (primary) hypertension; J44.9 Chronic obstructive pulmonary disease, unspecified; E11.9 Type 2 diabetes mellitus without complications; D64.9 Anemia, unspecified; E66.9 Obesity, unspecified; Z68.36 Body mass index [BMI] 36.0-36.9, adult; Z79.899 Other long term (current) drug therapy; Z88.8 Allergy status to other drugs, medicaments and biological substances; Z88.5 Allergy status to narcotic agent; Z88.2 Allergy status to sulfonamides
CPT/HCPCS: 71275; 71275-26; 99283; 99285-25

== ENCOUNTER 2021-04-14 18:52 | Inpatient (IN) | payer BC, MEDICARE ==
[2021-04-14] MEDS ORDERED: Albuterol/Ipratropium 3.0-0.5 MG/3 ML Neb Soln NEB PRN (19:35)
--- NOTE | 2021-04-14 19:39 | EDM.PDOC ---
ED HPI GENERAL MEDICAL PROBLEM - General Chief Complaint: Respiratory Problem Stated Complaint: SYNCOPE, STUMBLING WHEN WALKING Time Seen by Provider: 04/14/21 19:31 Source of Information: Reports: Patient History Limitations: Reports: No Limitations - History of Present Illness INITIAL COMMENTS - FREE TEXT/NARRATIVE: 55-year-old female presents to the ED with confusion and reported syncopal event at home approximately an hour and a half ago. She apparently is stumbling and is confused according to her family members. Patient has chronic problems with CHF due to a cardiomyopathy and COPD and has been struggling ever since diagnosis of COVID-19 illness in early part of October of this year. She reports she usually takes DuoNeb inhalational treatments 4 times daily but has only used it once today. She has been out in the hot sun most of the day as well and ambient temperature today was 101 degrees outside. She admits she has not taken much in the way of fluids or food today. She reports that she was hospitalized on 02 November of this year for 3 days and discharged home on the . In hospital she did receive remdesivir treatments, dexamethasone, and Lovenox in jections but was not discharged home on any medications. Due to continued shortness of breath and low oxygen saturations at home she was seen in the clinic on 15 November and a repeat chest x-ray was completed which was unremarkable. Patient does have BiPAP machine at home and apparently is set at 20 over 13 mmHg. Oxygen saturations in the ED repeat initially reported at 82%. Patient is currently on 6 L/min by nasal cannula with O2 sats of 94%. She denies cough or sputum production. She feels that she is wheezing at times. Onset: Today, Gradual Onset Date: 04/14/21 Onset Time: 13:00 (He feels she has gradually gotten worse over the last 7 hours prior to coming to the ED.) Duration: Hour(s):, Constant, Getting Worse Location: Reports: Chest (Short of breath at rest. Lightheaded and dizzy. Generalized weakness). Denies: Upper Extremity, Left, Upper Extremity, Right, Lower Extremity, Left, Lower Extremity, Right Quality: Reports: Same as Previous Episode (When she was sick with COVID-19 illness.), Other (She has a chronic cardiomyopathy diagnosed in 2019.) Severity: Severe (Feels lightheaded dizzy and weak. O2 sats on her monitor at home are quite low as well 82%.) Improves with: Reports: Rest Worsens with: Reports: Movement (Worse with trying to walk.) Context: Denies: Activity, Exercise, Lifting, Sick Contact, Trauma, Other Associated Symptoms: Reports: Confusion (Associated confusion this each evening.), Cough, Headaches, Loss of Appetite, Malaise, Shortness of Breath, Weakness. Denies: No Other Symptoms, Chest Pain, cough w sputum, Diaphoresis, Fever/Chills, Nausea/Vomiting, Rash, Seizure, Syncope Treatments [employer] REPA[employer]ER: Reports: Other (see below) - Related Data Allergies Allergy/AdvReac Type Severity Reaction Status Date / Time exenatide [From Bydureon] Allergy Intermediate Hives Verified 04/14/21 19:10 oxycodone Allergy Intermediate Itching Verified 04/14/21 19:10 quetiapine [From Seroquel] Allergy Mild Other Verified 04/14/21 19:10 metformin Allergy Unknown Other Verified 04/14/21 19:10 Sulfonylureas Allergy Unknown Other Verified 04/14/21 19:10 [id number] Reductase AdvReac Mild Muscle Verified 04/14/21 19:10 Inhibitor Aches Home Meds: Home Meds Gabapentin [Neurontin] 1,800 mg PO BID 10/09/15 [History] Losartan [Cozaar] 50 mg PO BID 10/09/15 [History] Spironolactone [Aldactone] 25 mg PO DAILY 10/09/15 [History] carvediloL [Coreg] 3.125 mg PO BID 10/09/15 [History] traZODone 225 mg PO BEDTIME 10/09/15 [History] ALPRAZolam [Xanax] 0.5 mg PO TID PRN 04/12/16 [History] lamoTRIgine [Lamictal] 200 mg PO BID 04/16/18 [History] Cholecalciferol (Vitamin D3) [Vitamin D3] 10,000 unit PO DAILY 07/23/19 [History] Acetaminophen with Codeine [Acetaminophen-Cod #4] 1 tab PO TID PRN 11/01/20 [History] Albuterol Sulfate [Albuterol Sulfate HFA] 1 puff INH Q4H PRN 11/01/20 [History] Levothyroxine Sodium [Levothyroxine] 137 mcg PO ACBREAKFAST 11/01/20 [History] Methylphenidate HCl [Methylphenidate ER] 27 mg PO DAILY 11/01/20 [History] Multivitamin [Multi-Day Vitamins] 1 tab PO DAILY 11/01/20 [History] Triamcinolone Acetonide [Nasacort AQ [place]] 2 sprays NASBOTH DAILY 11/01/20 [History] Venlafaxine HCl [Venlafaxine ER] 225 mg PO DAILY 11/01/20 [History] valACYclovir HCl [Valtrex] 500 mg PO BID PRN 11/18/20 [History] Benzonatate [Tessalon [place]] 200 mg PO DAILY PRN 03/19/21 [History] Cyclobenzaprine [Flexeril] 10 mg PO TID PRN 03/19/21 [History] Liraglutide [Victoza 2-Jim] 0.6 mg SQ BEDTIME 03/20/21 [History] Acetaminophen [Tylenol] 650 mg PO Q4H PRN tablet 03/22/21 [Rx] Fluticasone/Salmeterol [Advair 250-50] 1 puff INH BID 04/14/21 [History] Nystatin [Nyamyc] 1 gm TOP TID 04/14/21 [History] Temazepam 30 mg PO BEDTIME 04/14/21 [History] Past Medical History HEENT History: Reports: Impaired Vision Other HEENT History: glasses Cardiovascular History: Reports: Angina, Blood Clots/VTE/DVT, Cardiomyopathy (Diagnosed in 1999. 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." Respiratory History: Reports: COPD, Pneumonia, Recurrent, Sleep Apnea, SOB Other Respiratory History: "CO2 retention." Gastrointestinal History: Reports: Bowel Obstruction, Colon Polyp Other Gastrointestinal History: hernia Genitourinary History: Reports: Renal Calculus, Urinary Incontinence TABLET REPAIR History: Reports: Endometriosis, , Spontaneous , Other (See Below) Other TABLET REPAIR History: 5 "miscarriages" Musculoskeletal History: Reports: Fracture, Muscular Dystrophy Other Musculoskeletal History: T7 compression fx, 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 Hematologic History: Reports: Anemia Immunologic History: Reports: None Oncologic (Cancer) History: Reports: None Dermatologic History: Reports: Other (See Below) Other Dermatologic History: Keloids - Infectious Disease History Infectious Disease History: Reports: Influenza, Novel Coronavirus - Past Surgical History HEENT Surgical History: Reports: Adenoidectomy, Tonsillectomy Cardiovascular Surgical History: Reports: Other (See Below) Other Cardiovascular Surgeries/Procedures: Pt has had 7 cardiac catheterizations. GI Surgical History: Reports: Appendectomy, Cholecystectomy, Hernia Repair/Other, Other (See Below) Other GI Surgeries/Procedures: Bowel resection after bowel obstruction. Musculoskeletal Surgical History: Reports: Ganglion Cyst, Shoulder Surgery Other Musculoskeletal Surgeries/Procedures:: Carpal tunnel, trigger finger surgery Social & Family History - Family History Family Medical History: No Pertinent Family History - Tobacco Use Tobacco Use Status *Q: Never Tobacco User Second Hand Smoke Exposure: No - Caffeine Use Caffeine Use: Reports: Soda, Tea Other Caffeine Use: unknown - Recreational Drug Use Recreational Drug Use: No - Living Situation & Occupation Living situation: Reports: , with Spouse, with Family (Granddaughter) Occupation: Unemployed ED ROS GENERAL - Review of Systems Review Of Systems: See Below Constitutional: Reports: Malaise, Weakness, Fatigue, Decreased Appetite. Denies: Fever, Chills HEENT: Reports: Glasses Respiratory: Reports: Shortness of Breath, Cough. Denies: Wheezing, Pleuritic Chest Pain, Sputum, Hemoptysis Cardiovascular: Reports: Blood Pressure Problem, Dyspnea on Exertion (Occasional problems with edema lower extremities.), Edema, Lightheadedness. Denies: Chest Pain, Claudication, Orthopnea, Palpitations Endocrine: Reports: Fatigue GI/Abdominal: Reports: Decreased Appetite : Reports: Frequency. Denies: Dysuria, Urgency Musculoskeletal: Reports: Neck Pain, Back Pain, Joint Pain (Knees and hips at times.) Skin: Reports: Bruising (Bruises easily as she is on Plavix.) Neurological: Reports: Confusion, Dizziness, Headache, Difficulty Walking (Due to generalized weakness and dyspnea.), Weakness. Denies: Numbness, Syncope, Tingling, Tremors, Trouble Speaking, Change in Speech Psychiatric: Reports: Depression, Other (Chronic pain syndrome) Hematologic/Lymphatic: Reports: No Symptoms Immunologic: Reports: No Symptoms ED EXAM, GENERAL - Physical Exam Exam: See Below Exam Limited By: No Limitations General Appearance: Alert, WD/WN, Moderate Distress (Dyspneic and working hard to breathe.), Other (O2 sats register 82% on the monitor. She has been started on 6 L of oxygen per nasal cannula to achieve O2 sats of 94%.) Eye Exam: Bilateral Eye: Normal Inspection, PERRL Ears: Normal TMs Throat/Mouth: Normal Inspection, Normal Oropharynx, Other (Lips and tongue are both dry.) Head: Atraumatic, Normocephalic Neck: Normal Inspection, Tender Lateral. No: Carotid Bruit, Lymphadenopathy (L) (Mildly tender bilaterally she states no worse than normal.), Lymphadenopathy (R) Respiratory/Chest: Respiratory Distress (Mild tachypnea up to 20 bpm. O2 sats are 82% room air.), Decreased Breath Sounds (Creased air entry to the lower), Rales (Scattered rales both lung bases.). No: Lungs Clear, Normal Breath Sounds Cardiovascular: Regular Rate, Rhythm, No Edema, No Gallop, No Murmur, No Rub. No: Normal Peripheral Pulses Peripheral Pulses: 1+: Posterior Tibial (L) (Periphery I hands and feet are cool to touch.), Posterior Tibial (R), Dorsalis Pedis (L), Dorsalis Pedis (R), 2+: Carotid (L), Carotid (R) GI/Abdominal: Normal Bowel Sounds, Soft, Non-Tender, No Organomegaly, No Mass, Pelvis Stable, Distended (Mildly distended to be to percussion upper abdomen compatible with aerophagia.). No: Guarding, Rigid, Rebound, Tender Back Exam: Normal Inspection, Full Range of Motion. No: CVA Tenderness (L), CVA Tenderness (R) Extremities: Normal Inspection, Normal Range of Motion, Non-Tender, No Pedal Edema Neurological: Alert, Oriented, CN II-XII Intact, Normal Cognition Psychiatric: Normal Affect, Normal Mood Skin Exam: Warm, Dry, Intact, Normal Color, No Rash, Other (Cool hands and feet.) #1 Interpretation EKG Date: 04/14/21 Time: 19:44 Rhythm: NSR Rate (Beats/Min): 76 [place]: LAD-Left [place] Deviation (-36 degrees) P-Wave: Present QRS: Other (Q waves present in leads III and aVF compared with old inferior wall myocardial infarction. Decreased voltage throughout the precordial leads.) ST-T: Other (Repolarization abnormality noted V5 and V6 leads I and aVL.) QT: Normal EKG Interpretation Comments: Abnormal ECG Course - Vital Signs Last Recorded V/S: Last Vital Signs Temp 36.1 C 04/14/21 19:06 Pulse 80 04/14/21 19:06 Resp 18 04/14/21 19:06 BP 105/57 L 04/14/21 19:06 Pulse Ox 93 L 04/14/21 19:35 - Orders/Labs/Meds Orders: Active Orders 24 hr Category Date Time Status EKG Documentation Completion [RC] STAT Care 04/14/21 19:34 Active RT Aerosol Therapy [RC] ASDIRECTED Care 04/14/21 19:35 Active Chest 1V Frontal [CR] Stat Exams 04/14/21 19:33 Taken Chest PE [Ang Chest] [CT] Stat Exams 04/14/21 20:26 Taken BLOOD CULTURE [MREF] Stat Lab 04/14/21 19:56 Received BLOOD CULTURE [MREF] Stat Lab 04/14/21 20:10 Received BLOOD GAS ARTERIAL [BG] Stat Lab 04/14/21 19:22 Ordered CULTURE URINE [MREF] Stat Lab 04/14/21 21:03 Received Albuterol/Ipratropium [DuoNeb 3.0-0.5 MG/3 ML] Med 04/14/21 19:35 Active 3 ml NEB Q4H PRN Sodium Chloride 0.9% [Normal Saline] 1,000 ml Med 04/14/21 19:45 Active IV ASDIRECTED Blood Culture x2 Reflex Set [OM.PC] Stat Oth 04/14/21 19:34 Ordered Medication Orders Albuterol/Ipratropium (Albuterol/Ipratropium 3.0-0.5 Mg/3 Ml Neb Soln) 3 ml NEB Q4H PRN PRN Reason: Shortness Of Breath/wheezing Last Admin: 04/14/21 19:53 Dose: 3 ml Documented by: JUSTICE Sodium Chloride (Normal Saline) 1,000 mls @ 250 mls/hr IV ASDIRECTED JUSTIN Last Admin: 04/14/21 19:55 Dose: 250 mls/hr Documented by: HARDY Labs: Laboratory Tests 04/14/21 04/14/21 04/14/21 Range/Units 19:18 19:18 19:18 WBC 6.19 (3.98-10.04) K/mm3 RBC 3.75 L (3.98-5.22) M/mm3 Hgb 11.6 (11.2-15.7) gm/dl Hct 38.0 (34.1-44.9) % MCV 101.3 H D (79.4-94.8) fl MCH 30.9 (25.6-32.2) pg MCHC 30.5 L (32.2-35.5) g/dl RDW Std Deviation 52.1 H (36.4-46.3) fL Plt Count 287 (182-369) K/mm3 MPV 8.5 L (9.4-12.3) fl Neutrophils % (Manual) 43 (40-60) % Band Neutrophils % 2 (0-10) % Lymphocytes % (Manual) 40 (20-40) % Atypical Lymphs % 1 % Monocytes % (Manual) 5 (2-10) % Eosinophils % (Manual) 9 H (0.7-5.8) % Basophils % (Manual) 0 L (0.1-1.2) Platelet Estimate Adequate Hypochromasia Few Anisocytosis 1+ slight Macrocytosis 1+ slight RBC Morph Comment APTT (21.7-31.4) SECONDS D-Dimer, Quantitative 0.52 H (0.19-0.50) mg/L Puncture Site ABG pH (7.35-7.45) ABG pCO2 (35.0-45.0) mmHg ABG pO2 (80.0-100.0) mmHg ABG HCO3 (22.0-26.0) meq/L ABG O2 Saturation (96.0-97.0) % ABG Base Excess (-2-2.0) A-a Gradient mmHg O2 Delivery Device Oxygen Flow Rate FiO2 (21.00-100.00) % Sodium 146 H (136-145) mEq/L Potassium 4.0 (3.5-5.1) mEq/L Chloride 109 H (98-107) mEq/L Carbon Dioxide 26 (21-32) mEq/L Anion Gap 15.0 (5-15) BUN 8 (7-18) mg/dL Creatinine 1.2 H (0.55-1.02) mg/dL Est Cr Clr Drug Dosing 53.43 mL/min Estimated GFR (MDRD) 47 (>60) mL/min BUN/Creatinine Ratio 6.7 L (14-18) Glucose 165 H (70-99) mg/dL Lactic Acid (0.4-2.0) mmol/L Calcium 8.2 L (8.5-10.1) mg/dL Magnesium (1.8-2.4) mg/dL Total Bilirubin 0.2 (0.2-1.0) mg/dL AST 20 (15-37) U/L ALT 39 (14-59) U/L Alkaline Phosphatase 74 (46-116) U/L C-Reactive Protein (<1.0) mg/dL NT-Pro-B Natriuret Pep (0-125) pg/mL Total Protein 6.7 (6.4-8.2) g/dl Albumin 3.8 (3.4-5.0) g/dl Globulin 2.9 gm/dL Albumin/Globulin Ratio 1.3 (1-2) Urine Color (Yellow) Urine Appearance (Clear) Urine pH (5.0-8.0) Ur Specific Squire (1.005-1.030) Urine Protein (Negative) Urine Glucose (UA) (Negative) Urine Ketones (Negative) Urine Occult Blood (Negative) Urine Nitrite (Negative) Urine Bilirubin (Negative) Urine Urobilinogen (0.2-1.0) Ur Leukocyte Esterase (Negative) Urine RBC (0-5) /hpf Urine WBC (0-5) /hpf Ur Squamous Epith Cells (0-5) /hpf Urine Bacteria (FEW) /hpf Urine Mucus (FEW) /hpf SARS-CoV-2 RNA (MARY) (NEGATIVE) 04/14/21 04/14/21 04/14/21 Range/Units 19:18 19:28 19:28 WBC (3.98-10.04) K/mm3 RBC (3.98-5.22) M/mm3 Hgb (11.2-15.7) gm/dl Hct (34.1-44.9) % MCV (79.4-94.8) fl MCH (25.6-32.2) pg MCHC (32.2-35.5) g/dl RDW Std Deviation (36.4-46.3) fL Plt Count (182-369) K/mm3 MPV (9.4-12.3) fl Neutrophils % (Manual) (40-60) % Band Neutrophils % (0-10) % Lymphocytes % (Manual) (20-40) % Atypical Lymphs % % Monocytes % (Manual) (2-10) % Eosinophils % (Manual) (0.7-5.8) % Basophils % (Manual) (0.1-1.2) Platelet Estimate Hypochromasia Anisocytosis Macrocytosis RBC Morph Comment APTT 23.1 (21.7-31.4) SECONDS D-Dimer, Quantitative (0.19-0.50) mg/L Puncture Site ABG pH (7.35-7.45) ABG pCO2 (35.0-45.0) mmHg ABG pO2 (80.0-100.0) mmHg ABG HCO3 (22.0-26.0) meq/L ABG O2 Saturation (96.0-97.0) % ABG Base Excess (-2-2.0) A-a Gradient mmHg O2 Delivery Device Oxygen Flow Rate FiO2 (21.00-100.00) % Sodium (136-145) mEq/L Potassium (3.5-5.1) mEq/L Chloride (98-107) mEq/L Carbon Dioxide (21-32) mEq/L Anion Gap (5-15) BUN (7-18) mg/dL Creatinine (0.55-1.02) mg/dL Est Cr Clr Drug Dosing mL/min Estimated GFR (MDRD) (>60) mL/min BUN/Creatinine Ratio (14-18) Glucose (70-99) mg/dL Lactic Acid 2.0 (0.4-2.0) mmol/L Calcium (8.5-10.1) mg/dL Magnesium 2.2 (1.8-2.4) mg/dL Total Bilirubin (0.2-1.0) mg/dL AST (15-37) U/L ALT (14-59) U/L Alkaline Phosphatase (46-116) U/L C-Reactive Protein 0.3 (<1.0) mg/dL NT-Pro-B Natriuret Pep (0-125) pg/mL Total Protein (6.4-8.2) g/dl Albumin (3.4-5.0) g/dl Globulin gm/dL Albumin/Globulin Ratio (1-2) Urine Color (Yellow) Urine Appearance (Clear) Urine pH (5.0-8.0) Ur Specific [place] (1.005-1.030) Urine Protein (Negative) Urine Glucose (UA) (Negative) Urine Ketones (Negative) Urine Occult Blood (Negative) Urine Nitrite (Negative) Urine Bilirubin (Negative) Urine Urobilinogen (0.2-1.0) Ur Leukocyte Esterase (Negative) Urine RBC (0-5) /hpf Urine WBC (0-5) /hpf Ur Squamous Epith Cells (0-5) /hpf Urine Bacteria (FEW) /hpf Urine Mucus (FEW) /hpf SARS-CoV-2 RNA (MARY) (NEGATIVE) 04/14/21 04/14/21 04/14/21 Range/Units 19:28 19:40 20:32 WBC (3.98-10.04) K/mm3 RBC (3.98-5.22) M/mm3 Hgb (11.2-15.7) gm/dl Hct (34.1-44.9) % MCV (79.4-94.8) fl MCH (25.6-32.2) pg MCHC (32.2-35.5) g/dl RDW Std Deviation (36.4-46.3) fL Plt Count (182-369) K/mm3 MPV (9.4-12.3) fl Neutrophils % (Manual) (40-60) % Band Neutrophils % (0-10) % Lymphocytes % (Manual) (20-40) % Atypical Lymphs % % Monocytes % (Manual) (2-10) % Eosinophils % (Manual) (0.7-5.8) % Basophils % (Manual) (0.1-1.2) Platelet Estimate Hypochromasia Anisocytosis Macrocytosis RBC Morph Comment APTT (21.7-31.4) SECONDS D-Dimer, Quantitative (0.19-0.50) mg/L Puncture Site Lt radial ABG pH 7.26 L (7.35-7.45) ABG pCO2 55.6 H (35.0-45.0) mmHg ABG pO2 62.0 L (80.0-100.0) mmHg ABG HCO3 23.8 (22.0-26.0) meq/L ABG O2 Saturation 85.0 L (96.0-97.0) % ABG Base Excess -3.3 L (-2-2.0) A-a Gradient 154 mmHg O2 Delivery Device Nasal cannula Oxygen Flow Rate 5.0 FiO2 40.00 (21.00-100.00) % Sodium (136-145) mEq/L Potassium (3.5-5.1) mEq/L Chloride (98-107) mEq/L Carbon Dioxide (21-32) mEq/L Anion Gap (5-15) BUN (7-18) mg/dL Creatinine (0.55-1.02) mg/dL Est Cr Clr Drug Dosing mL/min Estimated GFR (MDRD) (>60) mL/min BUN/Creatinine Ratio (14-18) Glucose (70-99) mg/dL Lactic Acid (0.4-2.0) mmol/L Calcium (8.5-10.1) mg/dL Magnesium (1.8-2.4) mg/dL Total Bilirubin (0.2-1.0) mg/dL AST (15-37) U/L ALT (14-59) U/L Alkaline Phosphatase (46-116) U/L C-Reactive Protein (<1.0) mg/dL NT-Pro-B Natriuret Pep 59 (0-125) pg/mL Total Protein (6.4-8.2) g/dl Albumin (3.4-5.0) g/dl Globulin gm/dL Albumin/Globulin Ratio (1-2) Urine Color (Yellow) Urine Appearance (Clear) Urine pH (5.0-8.0) Ur Specific [place] (1.005-1.030) Urine Protein (Negative) Urine Glucose (UA) (Negative) Urine Ketones (Negative) Urine Occult Blood (Negative) Urine Nitrite (Negative) Urine Bilirubin (Negative) Urine Urobilinogen (0.2-1.0) Ur Leukocyte Esterase (Negative) Urine RBC (0-5) /hpf Urine WBC (0-5) /hpf Ur Squamous Epith Cells (0-5) /hpf Urine Bacteria (FEW) /hpf Urine Mucus (FEW) /hpf SARS-CoV-2 RNA (MARY) Negative (NEGATIVE) 04/14/21 Range/Units 21:03 WBC (3.98-10.04) K/mm3 RBC (3.98-5.22) M/mm3 Hgb (11.2-15.7) gm/dl Hct (34.1-44.9) % MCV (79.4-94.8) fl MCH (25.6-32.2) pg MCHC (32.2-35.5) g/dl RDW Std Deviation (36.4-46.3) fL Plt Count (182-369) K/mm3 MPV (9.4-12.3) fl Neutrophils % (Manual) (40-60) % Band Neutrophils % (0-10) % Lymphocytes % (Manual) (20-40) % Atypical Lymphs % % Monocytes % (Manual) (2-10) % Eosinophils % (Manual) (0.7-5.8) % Basophils % (Manual) (0.1-1.2) Platelet Estimate Hypochromasia Anisocytosis Macrocytosis RBC Morph Comment APTT (21.7-31.4) SECONDS D-Dimer, Quantitative (0.19-0.50) mg/L Puncture Site ABG pH (7.35-7.45) ABG pCO2 (35.0-45.0) mmHg ABG pO2 (80.0-100.0) mmHg ABG HCO3 (22.0-26.0) meq/L ABG O2 Saturation (96.0-97.0) % ABG Base Excess (-2-2.0) A-a Gradient mmHg O2 Delivery Device Oxygen Flow Rate FiO2 (21.00-100.00) % Sodium (136-145) mEq/L Potassium (3.5-5.1) mEq/L Chloride (98-107) mEq/L Carbon Dioxide (21-32) mEq/L Anion Gap (5-15) BUN (7-18) mg/dL Creatinine (0.55-1.02) mg/dL Est Cr Clr Drug Dosing mL/min Estimated GFR (MDRD) (>60) mL/min BUN/Creatinine Ratio (14-18) Glucose (70-99) mg/dL Lactic Acid (0.4-2.0) mmol/L Calcium (8.5-10.1) mg/dL Magnesium (1.8-2.4) mg/dL Total Bilirubin (0.2-1.0) mg/dL AST (15-37) U/L ALT (14-59) U/L Alkaline Phosphatase (46-116) U/L C-Reactive Protein (<1.0) mg/dL NT-Pro-B Natriuret Pep (0-125) pg/mL Total Protein (6.4-8.2) g/dl Albumin (3.4-5.0) g/dl Globulin gm/dL Albumin/Globulin Ratio (1-2) Urine Color Yellow (Yellow) Urine Appearance Slt cloudy H (Clear) Urine pH 5.5 (5.0-8.0) Ur Specific [place] > or = 1.030 (1.005-1.030) Urine Protein 2+ H (Negative) Urine Glucose (UA) Negative (Negative) Urine Ketones Negative (Negative) Urine Occult Blood Negative (Negative) Urine Nitrite Negative (Negative) Urine Bilirubin Negative (Negative) Urine Urobilinogen 0.2 (0.2-1.0) Ur Leukocyte Esterase 1+ H (Negative) Urine RBC 0-5 (0-5) /hpf Urine WBC 50-75 H (0-5) /hpf Ur Squamous Epith Cells 10-20 H (0-5) /hpf Urine Bacteria Many H (FEW) /hpf Urine Mucus Moderate H (FEW) /hpf SARS-CoV-2 RNA (MARY) (NEGATIVE) Meds: Medications Generic Name Dose Route Start Last Admin Trade Name Freq PRN Reason Stop Dose Admin Albuterol/Ipratropium 3 ml 04/14/21 19:35 04/14/21 19:53 Albuterol/Ipratropium 3.0-0.5 Mg/3 Ml Neb Soln NEB 3 ml Q4H PRN Administration Shortness Of Breath/wheezing Sodium Chloride 1,000 mls @ 250 mls/hr 04/14/21 19:45 04/14/21 19:55 Normal Saline IV 250 mls/hr ASDIRECTED JUSTIN Administration Discontinued Medications Generic Name Dose Route Start Last Admin Trade Name Freq PRN Reason Stop Dose Admin Gabapentin 1,800 mg 04/14/21 22:17 04/14/21 23:22 Gabapentin 600 Mg Tab PO 04/14/21 22:18 1,800 mg ONETIME ONE Administration Ceftriaxone Sodium 2 gm/ 100 mls @ 200 mls/hr 04/14/21 22:09 04/14/21 22:22 Sodium Chloride IV 04/14/21 22:38 200 mls/hr ONETIME ONE Administration Lamotrigine 200 mg 04/14/21 22:18 04/14/21 23:22 Lamotrigine 100 Mg Tab PO 04/14/21 22:19 200 mg ONETIME ONE Administration Lorazepam 0.5 mg 04/14/21 22:13 Lorazepam 2 Mg/Ml Sdv IV 04/14/21 22:14 ONETIME ONE Trazodone HCl 225 mg 04/14/21 22:21 04/14/21 23:22 Trazodone 50 Mg Tab PO 04/14/21 22:22 225 mg ONETIME ONE Administration - Re-Assessments/Exams Free Text/Narrative Re-Assessment/Exam: 04/14/21 20:20 chest x-ray reveals moderate cardiomegaly and diffuse vascular congestion pattern. No pleural effusion no pneumothorax. Lung parenchyma do not reveal any obvious infiltrates. 04/14/21 20:23 White count is 6.19. The differential reveals 43% neutrophils and 40% lymphocytes a mild right shift. Hemoglobin is 11.6 with hematocrit of 38.0. MCV is elevated at 101.3. Platelet count 287,000. The slide reveals 1+ anisocytosis and 1+ macrocytosis. PTT is 23.1 and D-dimer is 0.52. ABGs revealed a pH of 7.26 with a PCO2 of 55.6. PO2 is 62.0. Bicarb is 23.8. Oxygen saturations are 85%. These ABGs were performed on oxygen at 5 L per nasal cannula. Sodium 146 with a potassium of 4.0. Chloride 109 with a bicarb of 26. Anion gap is 15.0. BUN is 8 with a creatinine of 1.2 and a GFR of 47. Glucose elevated 165. Lactic acid is 2.0. Calcium 8.2. Magnesium 2.2. Liver function is normal. C-reactive protein 0.3 BNP is 59. Total protein is 6.7 with an albumin fraction of 3.8. Patient tentatively will require a CT pulmonary angiogram to rule out PE. 04/14/21 20:28 patient will phone her to bring up her BiPAP mask. 04/14/21 21:30 patient's BiPAP mask has arrived. I will have RT come and set it up for her. She is apparently on preasures of 20 over 13 mmHg. 04/14/21 22:09 Urinalysis reveals 1+ leukocyte esterase and 50-75 white blood cells per high-power field and 10-20 squamous epithelial cells concerning for possible pyelonephritis although the patient is afebrile. Urine bacteria many. Urine culture will be ordered. COVID-19 screen is negative. Patient will be given Rocephin 2 g IV. 04/14/21: Formal reading of her CT pulmonary angiogram reveals no evidence of pulmonary emboli. She does have moderate cardiomegaly with prominence of the p ericardial fat pad. Evidence of the vascularity particular of both pulmonary arteries appreciated. Bilateral basilar atelectasis. Stigmata of COPD bilaterally particular noted on the left lower lobe. Mild hiatal hernia. Patient will be admitted to the med surgery floor per Dr Curry. Bridge orders were written by me. Of note she was given medications that she usually takes at bedtime including Lamictal 200 mg p.o. Gabapentin 1800 mg at bedtime. Trazodone 225 mg. Ativan 0.5 mg p.o. as she usually takes Xanax 0.5 mg 3 times daily. Patient advised of the findings of negative CT scan for PE. She will be admitted to the med surgery floor as an observation patient is I think when she gets back on her medications and oxygen ended overnight she will improve. She is back on her BiPAP at this time at 20 over 13 mmHg. Departure - Departure Time of Disposition: 23:20 Disposition: Refer to Observation Condition: Fair Clinical Impression: Dyspnea Qualifiers: Dyspnea type: shortness of breath Qualified Code(s): R06.02 - Shortness of breath Cardiomyopathy Qualifiers: Cardiomyopathy type: unspecified Qualified Code(s): I42.9 - Cardiomyopathy, unspecified Respiratory failure with hypercapnia Qualifiers: Chronicity: acute on chronic Qualified Code(s): J96.22 - Acute and chronic respiratory failure with hypercapnia - Discharge Information *PRESCRIPTION DRUG MONITORING PROGRAM REVIEWED*: Not Applicable *COPY OF PRESCRIPTION DRUG MONITORING REPORT IN PATIENT STIVEN: Not Applicable Sepsis Event Note (ED) - Focused Exam Vital Signs: Vital Signs Temp Pulse Resp BP Pulse Ox Pulse Ox 04/14/21 19:35 93 L 04/14/21 19:06 36.1 C 80 18 105/57 L 82 L - My Orders Last 24 Hours: My Active Orders 04/14/21 19:22 BLOOD GAS ARTERIAL [BG] Stat 04/14/21 19:33 Chest 1V Frontal [CR] Stat 04/14/21 19:34 EKG Documentation Completion [RC] STAT Blood Culture x2 Reflex Set [OM.PC] Stat 04/14/21 19:35 RT Aerosol Therapy [RC] ASDIRECTED Albuterol/Ipratropium [DuoNeb 3.0-0.5 MG/3 ML] 3 ml NEB Q4H PRN 04/14/21 19:45 Sodium Chloride 0.9% [Normal Saline] 1,000 ml IV ASDIRECTED 04/14/21 19:56 BLOOD CULTURE [MREF] Stat 04/14/21 20:10 BLOOD CULTURE [MREF] Stat 04/14/21 20:26 Chest PE [Ang Chest] [CT] Stat 04/14/21 21:03 CULTURE URINE [MREF] Stat - Assessment/Plan Last 24 Hours: My Active Orders 04/14/21 19:22 BLOOD GAS ARTERIAL [BG] Stat 04/14/21 19:33 Chest 1V Frontal [CR] Stat 04/14/21 19:34 EKG Documentation Completion [RC] STAT Blood Culture x2 Reflex Set [OM.PC] Stat 04/14/21 19:35 RT Aerosol Therapy [RC] ASDIRECTED Albuterol/Ipratropium [DuoNeb 3.0-0.5 MG/3 ML] 3 ml NEB Q4H PRN 04/14/21 19:45 Sodium Chloride 0.9% [Normal Saline] 1,000 ml IV ASDIRECTED 04/14/21 19:56 BLOOD CULTURE [MREF] Stat 04/14/21 20:10 BLOOD CULTURE [MREF] Stat 04/14/21 20:26 Chest PE [Ang Chest] [CT] Stat 04/14/21 21:03 CULTURE URINE [MREF] Stat
[2021-04-14] MEDS ORDERED: Sodium Chloride 0.9% 1,000 ML IV SCH (19:45)
[2021-04-14] MEDS ORDERED: cefTRIAXone 2 GM in Sodium Chloride 0.9% 100 ML IV ONE (22:09)
[2021-04-14] MEDS ORDERED: LORazepam 2 MG/ML SDV IV ONE (22:13)
[2021-04-14] MEDS ORDERED: Gabapentin 600 MG Tab PO ONE (22:17)
[2021-04-14] MEDS ORDERED: lamoTRIgine 100 MG Tab PO ONE (22:18)
[2021-04-14] MEDS ORDERED: traZODone 50 MG Tab PO ONE (22:21)
[2021-04-15] MEDS ORDERED: Iopamidol 755 MG/ML 50 ML Bottle IVPUSH ONE (00:07)
[2021-04-15] MEDS ORDERED: Sodium Chloride 0.9% 10 ML Syringe FLUSH SCH (00:15)
[2021-04-15] MEDS ORDERED: Sodium Chloride 0.9% 100 ML IV SCH (00:15)
[2021-04-15] MEDS ORDERED: Acetaminophen/Codeine 300-30 MG Tab PO PRN ×2 (00:20→11:57)
[2021-04-15] MEDS ORDERED: Albuterol 6.7 GM Inhaler INH PRN (00:21)
[2021-04-15] MEDS: Sodium Chloride 0.9% 1,000 ML IV SCH ×3 (02:35→18:42)
[2021-04-15] MEDS: Albuterol/Ipratropium 3.0-0.5 MG/3 ML Neb Soln NEB SCH ×4 (02:50→20:44)
--- NOTE | 2021-04-15 07:40 | PCM.HP.2 ---
<Ashok Silva - Last Filed: 04/15/21 13:18> H&P History of Present Illness - General Date of Service: 04/15/21 Admit Problem/Dx: Admission Diagnosis/Problem Admission Diagnosis/Problem Hypoxia Source of Information: Patient, Old Records, Provider, RN, RN Notes Reviewed History Limitations: Reports: No Limitations - History of Present Illness Initial Comments - Free Text/Narative: This is a 55-year-old female who presents to ED on the evening of 04/14/2021 with confusion and reported syncopal event at home. She was reported to be stumbling and confused. She has had chronic problems with CHF due to cardiomyopathy and COPD. She reports she has been struggling since she was diagnosed with Covid this past October. She reports she usually takes DuoNeb's 4 times daily. She was also out in the sun for most of the day and it was noted to be 101 degrees outside. She admits to poor fluid intake. She was hospitalized on November 02 for 3 days and did receive remdesivir treatments, of Maxidone, and Lovenox injections but was not discharged home on any medications. She reports continued shortness of breath since that time. She does have a BiPAP machine with oxygen bleed in that she uses nocturnally. In the ED initially she was noted to have saturations of 82%. She was placed on 6 L by nasal cannula and her saturations improved 94%. She denies any cough or sputum production. States that she does feel like she wheezes at times. In the ED an EKG was obtained showing sinus rhythm at 76. Per minute with left axis deviation and Q waves present in leads III and aVF. There is also decreased voltage throughout the precordial leads. Repolarization abnormality was noted in V5 V6 along with leads I and aVL. Temp was 36.1 Celsius. Pulse 80. Respirations 18. Blood pressure 105/57. Labs are obtained with a WBC of 6.19. Hemoglobin 11.6. Hematocrit 38.0. Platelet 287,000. Neutrophils 43%. 2% band neutrophils. D-dimer was 0.52. Sodium 146. Potassium 4.0. Chloride 109. Carbon dioxide 26. Anion gap 15.0. BUN is 8. Creatinine 1.2. GFR 47. Glucose 165. Calcium 8.2. Total bilirubin 0.2. AST is 20, ALT 39, alkaline phosphatase 74. Albumin is 3.8. Protein 6.7. aPTT is 23.1. Lactic acid 2.0. Bilirubin 2.2. CRP 0.3. ABGs obtained in left radial showing a pH of 7.26. PCO2 55.6. PO2 of 62.0. HCO3 of 23.8. O2 saturation 85%. AA gradient 154. This is obtained while on 5 L via nasal cannula. proBNP is 59. UA is obtained it is concentrated with 2+ protein, 1+ leukocyte esterase, 50-75 WBCs, 10-20 sq uamous epithelial cells, many bacteria, moderate mucus. SARS-CoV-2 RNA is negative. She is given a DuoNeb and started on IV fluids. Her home medications are given. Chest x-ray is obtained and shows nothing acute. CTA of the chest is obtained and shows no findings of pulmonary embolism. There are mildly increased lung markings which are similar to prior CT study which are likely chronic. Nothing acute is definitely appreciated. She is subsequently admitted to the medical floor for hypoxia and respiratory failure with hypercapnia. UA is also suggestive of his UTI, although this may be contaminant. She carries a history of angina, prior VTE, cardiomyopathy, hypertension, Prinzmetal's angina, COPD, recurrent pneumonia, sleep apnea, CO2 retention, urinary incontinence, endometriosis, muscular dystrophy, migraines, anxiety, depression, prior suicidal ideation, type II DM, old obesity, anemia, PSVT, Covid infection in October of 2020. She is a full code. Her PCP is Dr. Welch. - Related Data Allergies/Adverse Reactions: Allergies Allergy/AdvReac Type Severity Reaction Status Date / Time exenatide [From Bydureon] Allergy Intermediate Hives Verified 04/14/21 19:10 oxycodone Allergy Intermediate Itching Verified 04/14/21 19:10 quetiapine [From Seroquel] Allergy Mild Other Verified 04/14/21 19:10 metformin Allergy Unknown Other Verified 04/14/21 19:10 Sulfonylureas Allergy Unknown Other Verified 04/14/21 19:10 [id number]-[id number]-Ufi Reductase AdvReac Mild Muscle Verified 04/14/21 19:10 Inhibitor Aches Home Medications: Home Meds Gabapentin [Neurontin] 1,800 mg PO BID 10/09/15 [History] Losartan [Cozaar] 50 mg PO BID 10/09/15 [History] Spironolactone [Aldactone] 25 mg PO DAILY 10/09/15 [History] carvediloL [Coreg] 3.125 mg PO BID 10/09/15 [History] traZODone 225 mg PO BEDTIME 10/09/15 [History] ALPRAZolam [Xanax] 0.5 mg PO TID PRN 04/12/16 [History] lamoTRIgine [Lamictal] 200 mg PO BID 04/16/18 [History] Cholecalciferol (Vitamin D3) [Vitamin D3] 10,000 unit PO DAILY 07/23/19 [History] Acetaminophen with Codeine [Acetaminophen-Cod #4] 1 tab PO TID PRN 11/01/20 [History] Albuterol Sulfate [Albuterol Sulfate HFA] 1 puff INH Q4H PRN 11/01/20 [History] Levothyroxine Sodium [Levothyroxine] 137 mcg PO ACBREAKFAST 11/01/20 [History] Methylphenidate HCl [Methylphenidate ER] 27 mg PO DAILY 11/01/20 [History] Multivitamin [Multi-Day Vitamins] 1 tab PO DAILY 11/01/20 [History] Triamcinolone Acetonide [Nasacort AQ [place]] 2 sprays NASBOTH DAILY 11/01/20 [History] Venlafaxine HCl [Venlafaxine ER] 225 mg PO DAILY 11/01/20 [History] valACYclovir HCl [Valtrex] 500 mg PO BID PRN 11/18/20 [History] Benzonatate [Tessalon Perle] 200 mg PO DAILY PRN 03/19/21 [History] Cyclobenzaprine [Flexeril] 10 mg PO TID PRN 03/19/21 [History] Liraglutide [Victoza 2-Jim] 0.6 mg SQ BEDTIME 03/20/21 [History] Acetaminophen [Tylenol] 650 mg PO Q4H PRN tablet 03/22/21 [Rx] Fluticasone/Salmeterol [Advair 250-50] 1 puff INH BID 04/14/21 [History] Nystatin [Nyamyc] 1 gm TOP TID 04/14/21 [History] Temazepam 45 mg PO BEDTIME PRN 04/14/21 [History] Past Medical History HEENT History: Reports: Impaired Vision Other HEENT History: glasses Cardiovascular History: Reports: Angina, Blood Clots/VTE/DVT, Cardiomyopathy, Hypertension, SOB on Exertion Other Cardiovascular History: PSVT, 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." Respiratory History: Reports: COPD, Pneumonia, Recurrent, Sleep Apnea, SOB Other Respiratory History: "CO2 retention." Gastrointestinal History: Reports: Bowel Obstruction, Colon Polyp Other Gastrointestinal History: hernia Genitourinary History: Reports: Renal Calculus, Urinary Incontinence 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, , Spontaneous , Other (See Below) Other OB/BYN History: 5 "miscarriages" Musculoskeletal History: Reports: Fracture, Muscular Dystrophy Other Musculoskeletal History: T7 compression fx, 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 Hematologic History: Reports: Anemia Immunologic History: Reports: None Oncologic (Cancer) History: Reports: None Dermatologic History: Reports: Other (See Below) Other Dermatologic History: Keloids - Infectious Disease History Infectious Disease History: Reports: Influenza, Novel Coronavirus - Past Surgical History HEENT Surgical History: Reports: Adenoidectomy, Tonsillectomy Cardiovascular Surgical History: Reports: Other (See Below) Other Cardiovascular Surgeries/Procedures: Pt has had 7 cardiac cat heterizations. GI Surgical History: Reports: Appendectomy, Cholecystectomy, Hernia Repair/Other, Other (See Below) Other GI Surgeries/Procedures: Bowel resection after bowel obstruction. Endocrine Surgical History: Reports: None Musculoskeletal Surgical History: Reports: Ganglion Cyst, Shoulder Surgery Other Musculoskeletal Surgeries/Procedures:: Carpal tunnel, trigger finger surgery Social & Family History - Family History Family Medical History: No Pertinent Family History - Tobacco Use Tobacco Use Status *Q: Never Tobacco User Second Hand Smoke Exposure: No - Caffeine Use Caffeine Use: Reports: Soda, Tea Other Caffeine Use: unknown - Recreational Drug Use Recreational Drug Use: No - Living Situation & Occupation Living situation: Reports: , with Spouse, with Family (Granddaughter) Occupation: Unemployed H&P Review of Systems - Review of Systems: Review Of Systems: See Below General: Reports: Malaise, Weakness, Fatigue. Denies: Fever, Chills HEENT: Reports: No Symptoms. Denies: Headaches, Sore Throat Pulmonary: Reports: Shortness of Breath, Cough. Denies: Wheezing, Pleuritic Chest Pain, Sputum Cardiovascular: Reports: Dyspnea on Exertion, Edema. Denies: Chest Pain, Palpitations, Orthopnea, Lightheadedness, Syncope Gastrointestinal: Reports: No Symptoms. Denies: Abdominal Pain, Constipation, Diarrhea, Nausea, Vomiting Genitourinary: Reports: Frequency, Incontinence Musculoskeletal: Reports: Neck Pain, Back Pain, Joint Pain (knees and hips ) Skin: Reports: No Symptoms. Denies: Cyanosis Psychiatric: Reports: Confusion (reports she still feels mildly ocnfused ). Denies: Depression, Mood Lability, Anxiety, Hallucinations Neurological: Reports: Difficulty Walking, Weakness, Gait Disturbance. Denies: Dizziness, Headache, Numbness, Pre-Existing Deficit, Syncope, Tingling, Tremors Hematologic/Lymphatic: Reports: Easy Bleeding, Easy Bruising Immunologic: Reports: No Symptoms Exam - Exam Exam: See Below - Vital Signs Vital Signs: Last Vital Signs Temp 97.9 F 04/15/21 04:43 Pulse 56 L 04/15/21 04:43 Resp 12 04/15/21 04:43 BP 102/57 L 04/15/21 04:43 Pulse Ox 92 L 04/15/21 04:43 Weight: 253 lb 4.8 oz - Exam Quality Assessment: Supplemental Oxygen (2L), DVT Prophylaxis. No: Urinary Catheter General: Alert, Oriented, Cooperative. No: Mild Distress HEENT: Conjunctiva Clear, EACs Clear, Posterior Pharynx Clear. No: Mucosa Moist & [place] (mildly dry) Neck: Supple, Trachea Midline Lungs: Normal Respiratory Effort, Decreased Breath Sounds, Wheezing. No: Crackles, Rhonchi Cardiovascular: Regular Rate, Regular Rhythm GI/Abdominal Exam: Normal Bowel Sounds, Soft, Non-Tender, No Distention (Female) Exam: Deferred Rectal (Female) Exam: Deferred Back Exam: Normal Inspection, Full Range of Motion Extremities: Normal Inspection, Normal Range of Motion, Non-Tender, No Pedal Edema Skin: Warm, Dry, Intact Neurological: Cranial Nerves Intact (Grossly ) Neuro Extensive - Mental Status: Alert, Oriented x3 Psychiatric: Alert, Normal Mood. No: Normal Affect (flat) - Patient Data Lab Results Last 24 hrs: Laboratory Results - last 24 hr 04/14/21 04/14/21 04/14/21 Range/Units 19:18 19:18 19:18 WBC 6.19 (3.98-10.04) K/mm3 RBC 3.75 L (3.98-5.22) M/mm3 Hgb 11.6 (11.2-15.7) gm/dl Hct 38.0 (34.1-44.9) % MCV 101.3 H D (79.4-94.8) fl MCH 30.9 (25.6-32.2) pg MCHC 30.5 L (32.2-35.5) g/dl RDW Std Deviation 52.1 H (36.4-46.3) fL Plt Count 287 (182-369) K/mm3 MPV 8.5 L (9.4-12.3) fl Neutrophils % (Manual) 43 (40-60) % Band Neutrophils % 2 (0-10) % Lymphocytes % (Manual) 40 (20-40) % Atypical Lymphs % 1 % Monocytes % (Manual) 5 (2-10) % Eosinophils % (Manual) 9 H (0.7-5.8) % Basophils % (Manual) 0 L (0.1-1.2) Platelet Estimate Adequate Hypochromasia Few Anisocytosis 1+ slight Macrocytosis 1+ slight RBC Morph Comment APTT (21.7-31.4) SECONDS D-Dimer, Quantitative 0.52 H (0.19-0.50) mg/L Puncture Site ABG pH (7.35-7.45) ABG pCO2 (35.0-45.0) mmHg ABG pO2 (80.0-100.0) mmHg ABG HCO3 (22.0-26.0) meq/L ABG O2 Saturation (96.0-97.0) % ABG Base Excess (-2-2.0) A-a Gradient mmHg O2 Delivery Device Oxygen Flow Rate FiO2 (21.00-100.00) % Blood Gas Comments Sodium 146 H (136-145) mEq/L Potassium 4.0 (3.5-5.1) mEq/L Chloride 109 H (98-107) mEq/L Carbon Dioxide 26 (21-32) mEq/L Anion Gap 15.0 (5-15) BUN 8 (7-18) mg/dL Creatinine 1.2 H (0.55-1.02) mg/dL Est Cr Clr Drug Dosing 53.43 mL/min Estimated GFR (MDRD) 47 (>60) mL/min BUN/Creatinine Ratio 6.7 L (14-18) Glucose 165 H (70-99) mg/dL Lactic Acid (0.4-2.0) mmol/L Calcium 8.2 L (8.5-10.1) mg/dL Magnesium (1.8-2.4) mg/dL Total Bilirubin 0.2 (0.2-1.0) mg/dL AST 20 (15-37) U/L ALT 39 (14-59) U/L Alkaline Phosphatase 74 (46-116) U/L C-Reactive Protein (<1.0) mg/dL NT-Pro-B Natriuret Pep (0-125) pg/mL Total Protein 6.7 (6.4-8.2) g/dl Albumin 3.8 (3.4-5.0) g/dl Globulin 2.9 gm/dL Albumin/Globulin Ratio 1.3 (1-2) Urine Color (Yellow) Urine Appearance (Clear) Urine pH (5.0-8.0) Ur Specific Traer (1.005-1.030) Urine Protein (Negative) Urine Glucose (UA) (Negative) Urine Ketones (Negative) Urine Occult Blood (Negative) Urine Nitrite (Negative) Urine Bilirubin (Negative) Urine Urobilinogen (0.2-1.0) Ur Leukocyte Esterase (Negative) Urine RBC (0-5) /hpf Urine WBC (0-5) /hpf Ur Squamous Epith Cells (0-5) /hpf Urine Bacteria (FEW) /hpf Urine Mucus (FEW) /hpf SARS-CoV-2 RNA (MARY) (NEGATIVE) 04/14/21 04/14/21 04/14/21 Range/Units 19:18 19:22 19:28 WBC (3.98-10.04) K/mm3 RBC (3.98-5.22) M/mm3 Hgb (11.2-15.7) gm/dl Hct (34.1-44.9) % MCV (79.4-94.8) fl MCH (25.6-32.2) pg MCHC (32.2-35.5) g/dl RDW Std Deviation (36.4-46.3) fL Plt Count (182-369) K/mm3 MPV (9.4-12.3) fl Neutrophils % (Manual) (40-60) % Band Neutrophils % (0-10) % Lymphocytes % (Manual) (20-40) % Atypical Lymphs % % Monocytes % (Manual) (2-10) % Eosinophils % (Manual) (0.7-5.8) % Basophils % (Manual) (0.1-1.2) Platelet Estimate Hypochromasia Anisocytosis Macrocytosis RBC Morph Comment APTT 23.1 (21.7-31.4) SECONDS D-Dimer, Quantitative (0.19-0.50) mg/L Puncture Site Rt radial ABG pH 7.26 L (7.35-7.45) ABG pCO2 55.6 H (35.0-45.0) mmHg ABG pO2 62.0 L (80.0-100.0) mmHg ABG HCO3 23.8 (22.0-26.0) meq/L ABG O2 Saturation 85.0 L (96.0-97.0) % ABG Base Excess -3.3 L (-2-2.0) A-a Gradient 154 mmHg O2 Delivery Device Nasal cannula Oxygen Flow Rate 5.0 FiO2 40.00 (21.00-100.00) % Blood Gas Comments Sodium (136-145) mEq/L Potassium (3.5-5.1) mEq/L Chloride (98-107) mEq/L Carbon Dioxide (21-32) mEq/L Anion Gap (5-15) BUN (7-18) mg/dL Creatinine (0.55-1.02) mg/dL Est Cr Clr Drug Dosing mL/min Estimated GFR (MDRD) (>60) mL/min BUN/Creatinine Ratio (14-18) Glucose (70-99) mg/dL Lactic Acid 2.0 (0.4-2.0) mmol/L Calcium (8.5-10.1) mg/dL Magnesium (1.8-2.4) mg/dL Total Bilirubin (0.2-1.0) mg/dL AST (15-37) U/L ALT (14-59) U/L Alkaline Phosphatase (46-116) U/L C-Reactive Protein (<1.0) mg/dL NT-Pro-B Natriuret Pep (0-125) pg/mL Total Protein (6.4-8.2) g/dl Albumin (3.4-5.0) g/dl Globulin gm/dL Albumin/Globulin Ratio (1-2) Urine Color (Yellow) Urine Appearance (Clear) Urine pH (5.0-8.0) Ur Specific Traer (1.005-1.030) Urine Protein (Negative) Urine Glucose (UA) (Negative) Urine Ketones (Negative) Urine Occult Blood (Negative) Urine Nitrite (Negative) Urine Bilirubin (Negative) Urine Urobilinogen (0.2-1.0) Ur Leukocyte Esterase (Negative) Urine RBC (0-5) /hpf Urine WBC (0-5) /hpf Ur Squamous Epith Cells (0-5) /hpf Urine Bacteria (FEW) /hpf Urine Mucus (FEW) /hpf SARS-CoV-2 RNA (MARY) (NEGATIVE) 04/14/21 04/14/21 04/14/21 Range/Units 19:28 19:28 19:40 WBC (3.98-10.04) K/mm3 RBC (3.98-5.22) M/mm3 Hgb (11.2-15.7) gm/dl Hct (34.1-44.9) % MCV (79.4-94.8) fl MCH (25.6-32.2) pg MCHC (32.2-35.5) g/dl RDW Std Deviation (36.4-46.3) fL Plt Count (182-369) K/mm3 MPV (9.4-12.3) fl Neutrophils % (Manual) (40-60) % Band Neutrophils % (0-10) % Lymphocytes % (Manual) (20-40) % Atypical Lymphs % % Monocytes % (Manual) (2-10) % Eosinophils % (Manual) (0.7-5.8) % Basophils % (Manual) (0.1-1.2) Platelet Estimate Hypochromasia Anisocytosis Macrocytosis RBC Morph Comment APTT (21.7-31.4) SECONDS D-Dimer, Quantitative (0.19-0.50) mg/L Puncture Site Lt radial ABG pH 7.26 L (7.35-7.45) ABG pCO2 55.6 H (35.0-45.0) mmHg ABG pO2 62.0 L (80.0-100.0) mmHg ABG HCO3 23.8 (22.0-26.0) meq/L ABG O2 Saturation 85.0 L (96.0-97.0) % ABG Base Excess -3.3 L (-2-2.0) A-a Gradient 154 mmHg O2 Delivery Device Nasal cannula Oxygen Flow Rate 5.0 FiO2 40.00 (21.00-100.00) % Blood Gas Comments Ordering doc for henry Sodium (136-145) mEq/L Potassium (3.5-5.1) mEq/L Chloride (98-107) mEq/L Carbon Dioxide (21-32) mEq/L Anion Gap (5-15) BUN (7-18) mg/dL Creatinine (0.55-1.02) mg/dL Est Cr Clr Drug Dosing mL/min Estimated GFR (MDRD) (>60) mL/min BUN/Creatinine Ratio (14-18) Glucose (70-99) mg/dL Lactic Acid (0.4-2.0) mmol/L Calcium (8.5-10.1) mg/dL Magnesium 2.2 (1.8-2.4) mg/dL Total Bilirubin (0.2-1.0) mg/dL AST (15-37) U/L ALT (14-59) U/L Alkaline Phosphatase (46-116) U/L C-Reactive Protein 0.3 (<1.0) mg/dL NT-Pro-B Natriuret Pep 59 (0-125) pg/mL Total Protein (6.4-8.2) g/dl Albumin (3.4-5.0) g/dl Globulin gm/dL Albumin/Globulin Ratio (1-2) Urine Color (Yellow) Urine Appearance (Clear) Urine pH (5.0-8.0) Ur Specific Traer (1.005-1.030) Urine Protein (Negative) Urine Glucose (UA) (Negative) Urine Ketones (Negative) Urine Occult Blood (Negative) Urine Nitrite (Negative) Urine Bilirubin (Negative) Urine Urobilinogen (0.2-1.0) Ur Leukocyte Esterase (Negative) Urine RBC (0-5) /hpf Urine WBC (0-5) /hpf Ur Squamous Epith Cells (0-5) /hpf Urine Bacteria (FEW) /hpf Urine Mucus (FEW) /hpf SARS-CoV-2 RNA (MARY) (NEGATIVE) 04/14/21 04/14/21 Range/Units 20:32 21:03 WBC (3.98-10.04) K/mm3 RBC (3.98-5.22) M/mm3 Hgb (11.2-15.7) gm/dl Hct (34.1-44.9) % MCV (79.4-94.8) fl MCH (25.6-32.2) pg MCHC (32.2-35.5) g/dl RDW Std Deviation (36.4-46.3) fL Plt Count (182-369) K/mm3 MPV (9.4-12.3) fl Neutrophils % (Manual) (40-60) % Band Neutrophils % (0-10) % Lymphocytes % (Manual) (20-40) % Atypical Lymphs % % Monocytes % (Manual) (2-10) % Eosinophils % (Manual) (0.7-5.8) % Basophils % (Manual) (0.1-1.2) Platelet Estimate Hypochromasia Anisocytosis Macrocytosis RBC Morph Comment APTT (21.7-31.4) SECONDS D-Dimer, Quantitative (0.19-0.50) mg/L Puncture Site ABG pH (7.35-7.45) ABG pCO2 (35.0-45.0) mmHg ABG pO2 (80.0-100.0) mmHg ABG HCO3 (22.0-26.0) meq/L ABG O2 Saturation (96.0-97.0) % ABG Base Excess (-2-2.0) A-a Gradient mmHg O2 Delivery Device Oxygen Flow Rate FiO2 (21.00-100.00) % Blood Gas Comments Sodium (136-145) mEq/L Potassium (3.5-5.1) mEq/L Chloride (98-107) mEq/L Carbon Dioxide (21-32) mEq/L Anion Gap (5-15) BUN (7-18) mg/dL Creatinine (0.55-1.02) mg/dL Est Cr Clr Drug Dosing mL/min Estimated GFR (MDRD) (>60) mL/min BUN/Creatinine Ratio (14-18) Glucose (70-99) mg/dL Lactic Acid (0.4-2.0) mmol/L Calcium (8.5-10.1) mg/dL Magnesium (1.8-2.4) mg/dL Total Bilirubin (0.2-1.0) mg/dL AST (15-37) U/L ALT (14-59) U/L Alkaline Phosphatase (46-116) U/L C-Reactive Protein (<1.0) mg/dL NT-Pro-B Natriuret Pep (0-125) pg/mL Total Protein (6.4-8.2) g/dl Albumin (3.4-5.0) g/dl Globulin gm/dL Albumin/Globulin Ratio (1-2) Urine Color Yellow (Yellow) Urine Appearance Slt cloudy H (Clear) Urine pH 5.5 (5.0-8.0) Ur Specific Traer > or = 1.030 (1.005-1.030) Urine Protein 2+ H (Negative) Urine Glucose (UA) Negative (Negative) Urine Ketones Negative (Negative) Urine Occult Blood Negative (Negative) Urine Nitrite Negative (Negative) Urine Bilirubin Negative (Negative) Urine Urobilinogen 0.2 (0.2-1.0) Ur Leukocyte Esterase 1+ H (Negative) Urine RBC 0-5 (0-5) /hpf Urine WBC 50-75 H (0-5) /hpf Ur Squamous Epith Cells 10-20 H (0-5) /hpf Urine Bacteria Many H (FEW) /hpf Urine Mucus Moderate H (FEW) /hpf SARS-CoV-2 RNA (MARY) Negative (NEGATIVE) Result Diagrams: 04/15/21 08:34 04/15/21 08:34 Sepsis Event Note - Focused Exam Vital Signs: Vital Signs Temp Pulse Resp BP BP Pulse Ox Pulse Ox 04/15/21 04:43 97.9 F 56 L 12 102/57 L 92 L 04/15/21 02:35 58 L 92 L 04/15/21 00:19 94 L 04/15/21 00:07 98.2 F 65 16 103/85 93 L Pulse Ox 04/15/21 04:43 04/15/21 02:35 04/15/21 00:19 94 L 04/15/21 00:07 - Problem List (1) Cardiomyopathy SNOMED Code(s): 02450524 ICD Code: I42.9 - CARDIOMYOPATHY, UNSPECIFIED Status: Chronic Priority: Low Current Visit: No Qualifiers: Cardiomyopathy type: unspecified Qualified Code(s): I42.9 - Cardiomyopathy, unspecified (2) Dyspnea SNOMED Code(s): 600342258 ICD Code: R06.00 - DYSPNEA, UNSPECIFIED Status: Acute Priority: High Current Visit: Yes Qualifiers: Dyspnea type: shortness of breath Qualified Code(s): R06.02 - Shortness of breath; R06.00 - Dyspnea, unspecified; R06.01 - Orthopnea (3) Respiratory failure with hypercapnia SNOMED Code(s): 940985025 ICD Code: J96.92 - RESPIRATORY FAILURE, UNSPECIFIED WITH HYPERCAPNIA Status: Acute Priority: High Current Visit: Yes Qualifiers: Chronicity: acute on chronic Qualified Code(s): J96.22 - Acute and chronic respiratory failure with hypercapnia (4) Persistent dyspnea after COVID-19 SNOMED Code(s): 751593869, [id number] ICD Code: R06.00 - DYSPNEA, UNSPECIFIED; B94.8 - SEQUELAE OF OTH INFECTIOUS AND PARASITIC DISEASES Status: Chronic Priority: High Current Visit: Yes (5) Anxiety SNOMED Code(s): 81822997 ICD Code: F41.9 - ANXIETY DISORDER, UNSPECIFIED Status: Chronic Priority: Low Current Visit: No (6) Depression SNOMED Code(s): 38324446 ICD Code: F32.9 - MAJOR DEPRESSIVE DISORDER, SINGLE EPISODE, UNSPECIFIED Status: Chronic Priority: Low Current Visit: No Qualifiers: Depression Type: other depression Qualified Code(s): F32.89 - Other specified depressive episodes (7) HLD (hyperlipidemia) SNOMED Code(s): 62466131 ICD Code: E78.5 - HYPERLIPIDEMIA, UNSPECIFIED Status: Chronic Priority: Low Current Visit: No Qualifiers: Hyperlipidemia type: unspecified Qualified Code(s): E78.5 - Hyperlipidemia, unspecified (8) HTN (hypertension) SNOMED Code(s): 03062139 ICD Code: I10 - ESSENTIAL (PRIMARY) HYPERTENSION Status: Chronic Priority: Medium Current Visit: No Qualifiers: Hypertension type: unspecified Qualified Code(s): I10 - Essential (primary) hypertension (9) Muscular dystrophy SNOMED Code(s): 80937479 ICD Code: G71.00 - MUSCULAR DYSTROPHY, UNSPECIFIED Status: Chronic Priority: Medium Current Visit: No (10) Type II diabetes mellitus SNOMED Code(s): 66351168 ICD Code: E11.9 - TYPE 2 DIABETES MELLITUS WITHOUT COMPLICATIONS Status: Chronic Priority: Medium Current Visit: No Qualifiers: 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: without fpc use Diabetes mellitus complication status: with other specified complication Qualified Code(s): E11.69 - Type 2 diabetes mellitus with other specified complication (11) DYLAN (acute kidney injury) SNOMED Code(s): 77735833, 35524133 ICD Code: N17.9 - ACUTE KIDNEY FAILURE, UNSPECIFIED Status: Resolved Priority: High Current Visit: No (12) Generalized weakness SNOMED Code(s): 35205857 ICD Code: R53.1 - WEAKNESS Status: Acute Priority: High Current Visit: No (13) Elevated d-dimer SNOMED Code(s): 903008114 ICD Code: R79.89 - OTHER SPECIFIED ABNORMAL FINDINGS OF BLOOD CHEMISTRY Status: Ruled-out Priority: High Current Visit: No (14) History of venous thromboembolism SNOMED Code(s): 139154407 ICD Code: Z86.718 - PERSONAL HISTORY OF OTHER VENOUS THROMBOSIS AND EMBOLISM Status: Acute Current Visit: Yes (15) History of PSVT (paroxysmal supraventricular tachycardia) SNOMED Code(s): 433407067566720 ICD Code: Z86.79 - PERSONAL HISTORY OF OTHER DISEASES OF THE CIRCULATORY SYSTEM Status: Acute Current Visit: Yes (16) History of Prinzmetal angina SNOMED Code(s): 494972784 ICD Code: Z86.79 - PERSONAL HISTORY OF OTHER DISEASES OF THE CIRCULATORY SYSTEM Status: Acute Current Visit: Yes (17) COPD (chronic obstructive pulmonary disease) SNOMED Code(s): 39286855 ICD Code: J44.9 - CHRONIC OBSTRUCTIVE PULMONARY DISEASE, UNSPECIFIED Status: Acute Current Visit: Yes (18) Recurrent pneumonia SNOMED Code(s): 230936973 ICD Code: J18.9 - PNEUMONIA, UNSPECIFIED ORGANISM Status: Acute Current Visit: Yes (19) Sleep apnea treated with nocturnal BiPAP SNOMED Code(s): 59520688 ICD Code: G47.30 - SLEEP APNEA, UNSPECIFIED Status: Acute Current Visit: Yes (20) Endometriosis SNOMED Code(s): 799955491 ICD Code: N80.9 - ENDOMETRIOSIS, UNSPECIFIED Status: Acute Current Visit: Yes (21) History of suicidal ideation SNOMED Code(s): 563407134 ICD Code: Z86.59 - PERSONAL HISTORY OF OTHER MENTAL AND BEHAVIORAL DISORDERS Status: Acute Current Visit: Yes (22) Anemia SNOMED Code(s): 566565082 ICD Code: D64.9 - ANEMIA, UNSPECIFIED Status: Acute Current Visit: Yes (23) UTI (urinary tract infection) SNOMED Code(s): 33880139 ICD Code: N39.0 - URINARY TRACT INFECTION, SITE NOT SPECIFIED Status: Acute Priority: High Current Visit: Yes Qualifiers: Urinary tract infection type: acute cystitis Hematuria presence: without hematuria Qualified Code(s): N30.00 - Acute cystitis without hematuria Problem List Initiated/Reviewed/Updated: Yes Orders Last 24hrs: Active Orders 24 hr Category Date Time Status Patient Status [ADT] Routine ADT 04/14/21 23:21 Active BIPAP Noctural Home [RT BiPAP/CPAP] [RC] ASDIRECTED Care 04/15/21 00:16 Active RT Aerosol Therapy [RC] ASDIRECTED Care 04/15/21 00:19 Active RT Post Treatment Assessment [RC] Click to Edit Care 04/15/21 00:23 Active RT Pre-Treatment Assessment [RC] Click to Edit Care 04/15/21 00:23 Active Up With Assistance [RC] ASDIRECTED Care 04/15/21 00:15 Active Up to Chair [RC] ASDIRECTED Care 04/15/21 00:15 Active Heart Healthy Diet [DIET] Diet 04/15/21 Breakfast Active Chest 1V Frontal [CR] Stat Exams 04/14/21 19:33 Taken Chest PE [Ang Chest] [CT] Stat Exams 04/14/21 20:26 Taken BLOOD CULTURE [MREF] Stat Lab 04/14/21 19:56 Received BLOOD CULTURE [MREF] Stat Lab 04/14/21 20:10 Received CULTURE URINE [MREF] Stat Lab 04/14/21 21:03 Received Acetaminophen/Codeine [Tylenol with Codeine No.3 300MG/ Med 04/15/21 00:20 Act todd 30MG] 1 tab PO Q6H PRN Albuterol [Proventil HFA] Med 04/15/21 00:21 Active See Dose Instructions INH Q4H PRN Albuterol/Ipratropium [DuoNeb 3.0-0.5 MG/3 ML] Med 04/15/21 03:00 Active 3 ml NEB Q6HRRT Sodium Chloride 0.9% [Normal Saline] 1,000 ml Med 04/15/21 00:30 Active IV ASDIRECTED Sodium Chloride 0.9% [Saline Flush] Med 04/15/21 00:15 Active 10 ml FLUSH BOLUS Blood Culture x2 Reflex Set [OM.PC] Stat Oth 04/14/21 19:34 Ordered Code Status [Resuscitation Status] Routine Resus Stat 04/15/21 00:13 Ordered Medication Orders Acetaminophen/Codeine Phosphate (Acetaminophen/Codeine 300-30 Mg Tab) 1 tab PO Q6H PRN PRN Reason: Pain Albuterol (Albuterol 6.7 Gm Inhaler) 0 gm INH Q4H PRN PRN Reason: wheezing Albuterol/Ipratropium (Albuterol/Ipratropium 3.0-0.5 Mg/3 Ml Neb Soln) 3 ml NEB Q6HRRT [facility] Last Admin: 04/15/21 02:50 Dose: 3 ml Documented by: JUSTICE Sodium Chloride (Normal Saline) 1,000 mls @ 125 mls/hr IV ASDIRECTED JUSTIN Last Admin: 04/15/21 02:35 Dose: 125 mls/hr Documented by: CLARICE Sodium Chloride (Sodium Chloride 0.9% 10 Ml Syringe) 10 ml FLUSH BOLUS [facility] Assessment/Plan Comment:: Assessment - 04/15/2021 (admitted late 04/14/2021) * 55-year-old female who presents to ED with confusion and reported syncopal event at home. She was reported to be stumbling and confused. * History of angina, prior VTE, cardiomyopathy, hypertension, Prinzmetal's angina, COPD, recurrent pneumonia, sleep apnea, CO2 retention, urinary incontinence, endometriosis, muscular dystrophy, migraines, anxiety, depression, prior suicidal ideation, type II DM, old obesity, anemia, PSVT, Covid infection in October of 2020 * She has had chronic problems with CHF due to cardiomyopathy and COPD * Reports she has been struggling since she was diagnosed with Covid this past October. * Was also out in the sun for most of the day and it was noted to be 101 degrees outside. She admits to poor fluid intake. * She was hospitalized on November 02 for 3 days and did receive remdesivir treatments, dexamethasone, and Lovenox injections but was not discharged home on any medications. * Reports continued shortness of breath since that time. She does have a BiPAP machine with oxygen bleed in that she uses nocturnally. * In the ED initially she was noted to have saturations of 82%. She was placed on 6 L by nasal cannula and her saturations improved 94%. * Denies any cough or sputum production. States that she does feel like she wheezes at times. * 12-lead EKG was obtained showing sinus rhythm at 76. Per minute with left axis deviation and Q waves present in leads III and aVF. There is also decreased voltage throughout the precordial leads. Repolarization abnormality was noted in V5 V6 along with leads I and aVL. * Labs are obtained in ED and on floor: * WBC of 6.19-->4.46 * Hemoglobin 11.6-->10.7 * Hematocrit 38.0-->35.4 * Platelet 287,000-->252,000 * Neutrophils 43% with 2% band neutrophils-->34.1% * D-dimer was 0.52 * Sodium 146-->147 * Potassium 4.0-->4.0 * Chloride 109-->111 * Carbon dioxide 26-->28 * Anion gap 15.0-->12.0 * BUN is 8-->9. Creatinine 1.2-->0.9. GFR 47--greater than 60 * Glucose 165-->132 * Calcium 8.2-->7.6 * Total bilirubin 0.2 * AST is 20, ALT 39, alkaline phosphatase 74 * Albumin is 3.8 * Protein 6.7 * Magnesium 2.2 * aPTT is 23.1 * Lactic acid 2.0 * Bilirubin 2.2 * CRP 0.3. * ABGs obtained in left radial showing a pH of 7.26. PCO2 55.6. PO2 of 62.0. HCO3 of 23.8. O2 saturation 85%. A-A gradient 154. This is obtained while on 5 L via nasal cannula. * proBNP is 59. * UA is obtained it is concentrated with 2+ protein, 1+ leukocyte esterase, 50-75 WBCs, 10-20 squamous epithelial cells, many bacteria, moderate mucus. * SARS-CoV-2 RNA is negative. * She is given a DuoNeb and started on IV fluids. Her home medications are given. * Chest x-ray is obtained and shows nothing acute. * CTA of the chest is obtained and shows: * 1. No findings of pulmonary embolism. * 2. There are mildly increased lung markings which are similar to prior CT study which are likely chronic. Nothing acute is definitely appreciated. * She is subsequently admitted to the medical floor for hypoxia and respiratory failure with hypercapnia. UA is also suggestive of his UTI, although this may be contaminant. PLAN: Dyspnea Respiratory failure with hypercapnia Persistent dyspnea after COVID-19 Sleep apnea treated with nocturnal BiPAP COPD (chronic obstructive pulmonary disease) Generalized weakness Recurrent pneumonia * Scheduled Duonebs * PRN albuterol MDI * IS * RT consultation * O2 as needed to keep saturations >90% * PT/OT * CM/SW * Suspect psychiatric medications play a role in weakness * Continue home respiratory meds * Solumedrol 40mg daily UTI * 1gm Rocephin daily * Urine cultures pending * Blood cultures pending History of PSVT (paroxysmal supraventricular tachycardia) History of Prinzmetal angina Cardiomyopathy * Telemetry * Home medications as ordered * No acute concerns Anxiety Depression History of suicidal ideation * Home medications as ordered * No acute concerns HLD (hyperlipidemia) * No acute concerns HTN (hypertension) * No acute concerns * Home medications as ordered * Monitor vital signs Muscular dystrophy * No acute concerns * Monitor Type II diabetes mellitus * Hold home Victoza * SS low intensity insulin * QID AC and Bedtime glucose checks DYLAN (acute kidney injury), Resolved * Monitor labs * Avoid nephrotoxic meds if able Elevated d-dimer History of venous thromboembolism * No acute concerns * Negative CTA Endometriosis * No acute concerns Anemia * No acute concerns * Monitor daily labs Code status: Full code PCP: Dr. Welch DVT prophylaxis: Lovenox Disposition: Patient admitted observation status for management of hypoxia and suspected UTI. Length of stay likely 2 to 3 days pending improvement and urine cultures. - Mortality Measure Prognosis:: Good <Dionicio Eldridge Jr - Last Filed: 04/15/21 16:50> H&P History of Present Illness - General Admit Problem/Dx: Admission Diagnosis/Problem Admission Diagnosis/Problem Hypoxia Exam - Vital Signs Vital Signs: Last Vital Signs Temp 97.7 F 04/15/21 15:03 Pulse 62 04/15/21 15:03 Resp 20 04/15/21 15:03 BP 111/73 04/15/21 15:03 Pulse Ox 97 04/15/21 15:03 - Patient Data Lab Results Last 24 hrs: Laboratory Results - last 24 hr 04/14/21 04/14/21 04/14/21 Range/Units 19:18 19:18 19:18 WBC 6.19 (3.98-10.04) K/mm3 RBC 3.75 L (3.98-5.22) M/mm3 Hgb 11.6 (11.2-15.7) gm/dl Hct 38.0 (34.1-44.9) % MCV 101.3 H D (79.4-94.8) fl MCH 30.9 (25.6-32.2) pg MCHC 30.5 L (32.2-35.5) g/dl RDW Std Deviation 52.1 H (36.4-46.3) fL Plt Count 287 (182-369) K/mm3 MPV 8.5 L (9.4-12.3) fl Neut % (Auto) (34.0-71.1) % Lymph % (Auto) (19.3-51.7) % Steele % (Auto) (4.7-12.5) % Eos % (Auto) (0.7-5.8) Baso % (Auto) (0.1-1.2) % Neut # (Auto) (1.56-6.13) K/mm3 Lymph # (Auto) (1.18-3.74) K/mm3 Steele # (Auto) (0.24-0.36) K/mm3 Eos # (Auto) (0.04-0.36) K/mm3 Baso # (Auto) (0.01-0.08) K/mm3 Neutrophils % (Manual) 43 (40-60) % Band Neutrophils % 2 (0-10) % Lymphocytes % (Manual) 40 (20-40) % Atypical Lymphs % 1 % Monocytes % (Manual) 5 (2-10) % Eosinophils % (Manual) 9 H (0.7-5.8) % Basophils % (Manual) 0 L (0.1-1.2) Platelet Estimate Adequate Hypochromasia Few Anisocytosis 1+ slight Macrocytosis 1+ slight RBC Morph Comment APTT (21.7-31.4) SECONDS D-Dimer, Quantitative 0.52 H (0.19-0.50) mg/L Puncture Site ABG pH (7.35-7.45) ABG pCO2 (35.0-45.0) mmHg ABG pO2 (80.0-100.0) mmHg ABG HCO3 (22.0-26.0) meq/L ABG O2 Saturation (96.0-97.0) % ABG Base Excess (-2-2.0) A-a Gradient mmHg O2 Delivery Device Oxygen Flow Rate FiO2 (21.00-100.00) % Blood Gas Comments Sodium 146 H (136-145) mEq/L Potassium 4.0 (3.5-5.1) mEq/L Chloride 109 H (98-107) mEq/L Carbon Dioxide 26 (21-32) mEq/L Anion Gap 15.0 (5-15) BUN 8 (7-18) mg/dL Creatinine 1.2 H (0.55-1.02) mg/dL Est Cr Clr Drug Dosing 53.43 mL/min Estimated GFR (MDRD) 47 (>60) mL/min BUN/Creatinine Ratio 6.7 L (14-18) Glucose 165 H (70-99) mg/dL POC Glucose (70-99) mg/dL Lactic Acid (0.4-2.0) mmol/L Calcium 8.2 L (8.5-10.1) mg/dL Magnesium (1.8-2.4) mg/dL Total Bilirubin 0.2 (0.2-1.0) mg/dL AST 20 (15-37) U/L ALT 39 (14-59) U/L Alkaline Phosphatase 74 (46-116) U/L C-Reactive Protein (<1.0) mg/dL NT-Pro-B Natriuret Pep (0-125) pg/mL Total Protein 6.7 (6.4-8.2) g/dl Albumin 3.8 (3.4-5.0) g/dl Globulin 2.9 gm/dL Albumin/Globulin Ratio 1.3 (1-2) Urine Color (Yellow) Urine Appearance (Clear) Urine pH (5.0-8.0) Ur Specific Traer (1.005-1.030) Urine Protein (Negative) Urine Glucose (UA) (Negative) Urine Ketones (Negative) Urine Occult Blood (Negative) Urine Nitrite (Negative) Urine Bilirubin (Negative) Urine Urobilinogen (0.2-1.0) Ur Leukocyte Esterase (Negative) Urine RBC (0-5) /hpf Urine WBC (0-5) /hpf Ur Squamous Epith Cells (0-5) /hpf Urine Bacteria (FEW) /hpf Urine Mucus (FEW) /hpf SARS-CoV-2 RNA (MARY) (NEGATIVE) 04/14/21 04/14/21 04/14/21 Range/Units 19:18 19:22 19:28 WBC (3.98-10.04) K/mm3 RBC (3.98-5.22) M/mm3 Hgb (11.2-15.7) gm/dl Hct (34.1-44.9) % MCV (79.4-94.8) fl MCH (25.6-32.2) pg MCHC (32.2-35.5) g/dl RDW Std Deviation (36.4-46.3) fL Plt Count (182-369) K/mm3 MPV (9.4-12.3) fl Neut % (Auto) (34.0-71.1) % Lymph % (Auto) (19.3-51.7) % Steele % (Auto) (4.7-12.5) % Eos % (Auto) (0.7-5.8) Baso % (Auto) (0.1-1.2) % Neut # (Auto) (1.56-6.13) K/mm3 Lymph # (Auto) (1.18-3.74) K/mm3 Steele # (Auto) (0.24-0.36) K/mm3 Eos # (Auto) (0.04-0.36) K/mm3 Baso # (Auto) (0.01-0.08) K/mm3 Neutrophils % (Manual) (40-60) % Band Neutrophils % (0-10) % Lymphocytes % (Manual) (20-40) % Atypical Lymphs % % Monocytes % (Manual) (2-10) % Eosinophils % (Manual) (0.7-5.8) % Basophils % (Manual) (0.1-1.2) Platelet Estimate Hypochromasia Anisocytosis Macrocytosis RBC Morph Comment APTT 23.1 (21.7-31.4) SECONDS D-Dimer, Quantitative (0.19-0.50) mg/L Puncture Site Rt radial ABG pH 7.26 L (7.35-7.45) ABG pCO2 55.6 H (35.0-45.0) mmHg ABG pO2 62.0 L (80.0-100.0) mmHg ABG HCO3 23.8 (22.0-26.0) meq/L ABG O2 Saturation 85.0 L (96.0-97.0) % ABG Base Excess -3.3 L (-2-2.0) A-a Gradient 154 mmHg O2 Delivery Device Nasal cannula Oxygen Flow Rate 5.0 FiO2 40.00 (21.00-100.00) % Blood Gas Comments Sodium (136-145) mEq/L Potassium (3.5-5.1) mEq/L Chloride (98-107) mEq/L Carbon Dioxide (21-32) mEq/L Anion Gap (5-15) BUN (7-18) mg/dL Creatinine (0.55-1.02) mg/dL Est Cr Clr Drug Dosing mL/min Estimated GFR (MDRD) (>60) mL/min BUN/Creatinine Ratio (14-18) Glucose (70-99) mg/dL POC Glucose (70-99) mg/dL Lactic Acid 2.0 (0.4-2.0) mmol/L Calcium (8.5-10.1) mg/dL Magnesium (1.8-2.4) mg/dL Total Bilirubin (0.2-1.0) mg/dL AST (15-37) U/L ALT (14-59) U/L Alkaline Phosphatase (46-116) U/L C-Reactive Protein (<1.0) mg/dL NT-Pro-B Natriuret Pep (0-125) pg/mL Total Protein (6.4-8.2) g/dl Albumin (3.4-5.0) g/dl Globulin gm/dL Albumin/Globulin Ratio (1-2) Urine Color (Yellow) Urine Appearance (Clear) Urine pH (5.0-8.0) Ur Specific Traer (1.005-1.030) Urine Protein (Negative) Urine Glucose (UA) (Negative) Urine Ketones (Negative) Urine Occult Blood (Negative) Urine Nitrite (Negative) Urine Bilirubin (Negative) Urine Urobilinogen (0.2-1.0) Ur Leukocyte Esterase (Negative) Urine RBC (0-5) /hpf Urine WBC (0-5) /hpf Ur Squamous Epith Cells (0-5) /hpf Urine Bacteria (FEW) /hpf Urine Mucus (FEW) /hpf SARS-CoV-2 RNA (MARY) (NEGATIVE) 04/14/21 04/14/21 04/14/21 Range/Units 19:28 19:28 19:40 WBC (3.98-10.04) K/mm3 RBC (3.98-5.22) M/mm3 Hgb (11.2-15.7) gm/dl Hct (34.1-44.9) % MCV (79.4-94.8) fl MCH (25.6-32.2) pg MCHC (32.2-35.5) g/dl RDW Std Deviation (36.4-46.3) fL Plt Count (182-369) K/mm3 MPV (9.4-12.3) fl Neut % (Auto) (34.0-71.1) % Lymph % (Auto) (19.3-51.7) % Steele % (Auto) (4.7-12.5) % Eos % (Auto) (0.7-5.8) Baso % (Auto) (0.1-1.2) % Neut # (Auto) (1.56-6.13) K/mm3 Lymph # (Auto) (1.18-3.74) K/mm3 Steele # (Auto) (0.24-0.36) K/mm3 Eos # (Auto) (0.04-0.36) K/mm3 Baso # (Auto) (0.01-0.08) K/mm3 Neutrophils % (Manual) (40-60) % Band Neutrophils % (0-10) % Lymphocytes % (Manual) (20-40) % Atypical Lymphs % % Monocytes % (Manual) (2-10) % Eosinophils % (Manual) (0.7-5.8) % Basophils % (Manual) (0.1-1.2) Platelet Estimate Hypochromasia Anisocytosis Macrocytosis RBC Morph Comment APTT (21.7-31.4) SECONDS D-Dimer, Quantitative (0.19-0.50) mg/L Puncture Site Lt radial ABG pH 7.26 L (7.35-7.45) ABG pCO2 55.6 H (35.0-45.0) mmHg ABG pO2 62.0 L (80.0-100.0) mmHg ABG HCO3 23.8 (22.0-26.0) meq/L ABG O2 Saturation 85.0 L (96.0-97.0) % ABG Base Excess -3.3 L (-2-2.0) A-a Gradient 154 mmHg O2 Delivery Device Nasal cannula Oxygen Flow Rate 5.0 FiO2 40.00 (21.00-100.00) % Blood Gas Comments Ordering doc for henry Sodium (136-145) mEq/L Potassium (3.5-5.1) mEq/L Chloride (98-107) mEq/L Carbon Dioxide (21-32) mEq/L Anion Gap (5-15) BUN (7-18) mg/dL Creatinine (0.55-1.02) mg/dL Est Cr Clr Drug Dosing mL/min Estimated GFR (MDRD) (>60) mL/min BUN/Creatinine Ratio (14-18) Glucose (70-99) mg/dL POC Glucose (70-99) mg/dL Lactic Acid (0.4-2.0) mmol/L Calcium (8.5-10.1) mg/dL Magnesium 2.2 (1.8-2.4) mg/dL Total Bilirubin (0.2-1.0) mg/dL AST (15-37) U/L ALT (14-59) U/L Alkaline Phosphatase (46-116) U/L C-Reactive Protein 0.3 (<1.0) mg/dL NT-Pro-B Natriuret Pep 59 (0-125) pg/mL Total Protein (6.4-8.2) g/dl Albumin (3.4-5.0) g/dl Globulin gm/dL Albumin/Globulin Ratio (1-2) Urine Color (Yellow) Urine Appearance (Clear) Urine pH (5.0-8.0) Ur Specific Traer (1.005-1.030) Urine Protein (Negative) Urine Glucose (UA) (Negative) Urine Ketones (Negative) Urine Occult Blood (Negative) Urine Nitrite (Negative) Urine Bilirubin (Negative) Urine Urobilinogen (0.2-1.0) Ur Leukocyte Esterase (Negative) Urine RBC (0-5) /hpf Urine WBC (0-5) /hpf Ur Squamous Epith Cells (0-5) /hpf Urine Bacteria (FEW) /hpf Urine Mucus (FEW) /hpf SARS-CoV-2 RNA (MARY) (NEGATIVE) 04/14/21 04/14/21 04/15/21 Range/Units 20:32 21:03 08:34 WBC 4.46 (3.98-10.04) K/mm3 RBC 3.49 L (3.98-5.22) M/mm3 Hgb 10.7 L (11.2-15.7) gm/dl Hct 35.4 (34.1-44.9) % MCV 101.4 H (79.4-94.8) fl MCH 30.7 (25.6-32.2) pg MCHC 30.2 L (32.2-35.5) g/dl RDW Std Deviation 52.0 H (36.4-46.3) fL Plt Count 252 (182-369) K/mm3 MPV 8.5 L (9.4-12.3) fl Neut % (Auto) 34.1 (34.0-71.1) % Lymph % (Auto) 44.2 (19.3-51.7) % Steele % (Auto) 10.8 (4.7-12.5) % Eos % (Auto) 10.3 H (0.7-5.8) Baso % (Auto) 0.4 (0.1-1.2) % Neut # (Auto) 1.52 L (1.56-6.13) K/mm3 Lymph # (Auto) 1.97 (1.18-3.74) K/mm3 Steele # (Auto) 0.48 H (0.24-0.36) K/mm3 Eos # (Auto) 0.46 H (0.04-0.36) K/mm3 Baso # (Auto) 0.02 (0.01-0.08) K/mm3 Neutrophils % (Manual) (40-60) % Band Neutrophils % (0-10) % Lymphocytes % (Manual) (20-40) % Atypical Lymphs % % Monocytes % (Manual) (2-10) % Eosinophils % (Manual) (0.7-5.8) % Basophils % (Manual) (0.1-1.2) Platelet Estimate Hypochromasia Anisocytosis Macrocytosis RBC Morph Comment APTT (21.7-31.4) SECONDS D-Dimer, Quantitative (0.19-0.50) mg/L Puncture Site ABG pH (7.35-7.45) ABG pCO2 (35.0-45.0) mmHg ABG pO2 (80.0-100.0) mmHg ABG HCO3 (22.0-26.0) meq/L ABG O2 Saturation (96.0-97.0) % ABG Base Excess (-2-2.0) A-a Gradient mmHg O2 Delivery Device Oxygen Flow Rate FiO2 (21.00-100.00) % Blood Gas Comments Sodium (136-145) mEq/L Potassium (3.5-5.1) mEq/L Chloride (98-107) mEq/L Carbon Dioxide (21-32) mEq/L Anion Gap (5-15) BUN (7-18) mg/dL Creatinine (0.55-1.02) mg/dL Est Cr Clr Drug Dosing mL/min Estimated GFR (MDRD) (>60) mL/min BUN/Creatinine Ratio (14-18) Glucose (70-99) mg/dL POC Glucose (70-99) mg/dL Lactic Acid (0.4-2.0) mmol/L Calcium (8.5-10.1) mg/dL Magnesium (1.8-2.4) mg/dL Total Bilirubin (0.2-1.0) mg/dL AST (15-37) U/L ALT (14-59) U/L Alkaline Phosphatase (46-116) U/L C-Reactive Protein (<1.0) mg/dL NT-Pro-B Natriuret Pep (0-125) pg/mL Total Protein (6.4-8.2) g/dl Albumin (3.4-5.0) g/dl Globulin gm/dL Albumin/Globulin Ratio (1-2) Urine Color Yellow (Yellow) Urine Appearance Slt cloudy H (Clear) Urine pH 5.5 (5.0-8.0) Ur Specific Traer > or = 1.030 (1.005-1.030) Urine Protein 2+ H (Negative) Urine Glucose (UA) Negative (Negative) Urine Ketones Negative (Negative) Urine Occult Blood Negative (Negative) Urine Nitrite Negative (Negative) Urine Bilirubin Negative (Negative) Urine Urobilinogen 0.2 (0.2-1.0) Ur Leukocyte Esterase 1+ H (Negative) Urine RBC 0-5 (0-5) /hpf Urine WBC 50-75 H (0-5) /hpf Ur Squamous Epith Cells 10-20 H (0-5) /hpf Urine Bacteria Many H (FEW) /hpf Urine Mucus Moderate H (FEW) /hpf SARS-CoV-2 RNA (MARY) Negative (NEGATIVE) 04/15/21 04/15/21 04/15/21 Range/Units 08:34 11:12 16:36 WBC (3.98-10.04) K/mm3 RBC (3.98-5.22) M/mm3 Hgb (11.2-15.7) gm/dl Hct (34.1-44.9) % MCV (79.4-94.8) fl MCH (25.6-32.2) pg MCHC (32.2-35.5) g/dl RDW Std Deviation (36.4-46.3) fL Plt Count (182-369) K/mm3 MPV (9.4-12.3) fl Neut % (Auto) (34.0-71.1) % Lymph % (Auto) (19.3-51.7) % Steele % (Auto) (4.7-12.5) % Eos % (Auto) (0.7-5.8) Baso % (Auto) (0.1-1.2) % Neut # (Auto) (1.56-6.13) K/mm3 Lymph # (Auto) (1.18-3.74) K/mm3 Steele # (Auto) (0.24-0.36) K/mm3 Eos # (Auto) (0.04-0.36) K/mm3 Baso # (Auto) (0.01-0.08) K/mm3 Neutrophils % (Manual) (40-60) % Band Neutrophils % (0-10) % Lymphocytes % (Manual) (20-40) % Atypical Lymphs % % Monocytes % (Manual) (2-10) % Eosinophils % (Manual) (0.7-5.8) % Basophils % (Manual) (0.1-1.2) Platelet Estimate Hypochromasia Anisocytosis Macrocytosis RBC Morph Comment APTT (21.7-31.4) SECONDS D-Dimer, Quantitative (0.19-0.50) mg/L Puncture Site ABG pH (7.35-7.45) ABG pCO2 (35.0-45.0) mmHg ABG pO2 (80.0-100.0) mmHg ABG HCO3 (22.0-26.0) meq/L ABG O2 Saturation (96.0-97.0) % ABG Base Excess (-2-2.0) A-a Gradient mmHg O2 Delivery Device Oxygen Flow Rate FiO2 (21.00-100.00) % Blood Gas Comments Sodium 147 H (136-145) mEq/L Potassium 4.0 (3.5-5.1) mEq/L Chloride 111 H (98-107) mEq/L Carbon Dioxide 28 (21-32) mEq/L Anion Gap 12.0 (5-15) BUN 9 (7-18) mg/dL Creatinine 0.9 (0.55-1.02) mg/dL Est Cr Clr Drug Dosing 71.25 mL/min Estimated GFR (MDRD) > 60 (>60) mL/min BUN/Creatinine Ratio 10.0 L (14-18) Glucose 132 H (70-99) mg/dL POC Glucose 151 H 144 H (70-99) mg/dL Lactic Acid (0.4-2.0) mmol/L Calcium 7.6 L (8.5-10.1) mg/dL Magnesium 2.2 (1.8-2.4) mg/dL Total Bilirubin (0.2-1.0) mg/dL AST (15-37) U/L ALT (14-59) U/L Alkaline Phosphatase (46-116) U/L C-Reactive Protein (<1.0) mg/dL NT-Pro-B Natriuret Pep (0-125) pg/mL Total Protein (6.4-8.2) g/dl Albumin (3.4-5.0) g/dl Globulin gm/dL Albumin/Globulin Ratio (1-2) Urine Color (Yellow) Urine Appearance (Clear) Urine pH (5.0-8.0) Ur Specific Traer (1.005-1.030) Urine Protein (Negative) Urine Glucose (UA) (Negative) Urine Ketones (Negative) Urine Occult Blood (Negative) Urine Nitrite (Negative) Urine Bilirubin (Negative) Urine Urobilinogen (0.2-1.0) Ur Leukocyte Esterase (Negative) Urine RBC (0-5) /hpf Urine WBC (0-5) /hpf Ur Squamous Epith Cells (0-5) /hpf Urine Bacteria (FEW) /hpf Urine Mucus (FEW) /hpf SARS-CoV-2 RNA (MARY) (NEGATIVE) Result Diagrams: 04/15/21 08:34 04/15/21 08:34 Sepsis Event Note - Focused Exam Vital Signs: Vital Signs Temp Pulse Resp BP Pulse Ox Pulse Ox Pulse Ox 04/15/21 15:03 97.7 F 62 20 111/73 97 04/15/21 14:05 91 L 04/15/21 13:05 97.9 F 70 16 114/74 91 L 04/15/21 09:12 88 L 04/15/21 09:00 97.7 F 75 16 110/93 H 97 Orders Last 24hrs: Active Orders 24 hr Category Date Time Status Patient Status [ADT] Routine ADT 04/15/21 13:17 Active BIPAP Noctural Home [RT BiPAP/CPAP] [RC] ASDIRECTED Care 04/15/21 00:16 Active Blood Glucose Check, Bedside [RC] QIDACANDBED Care 04/15/21 08:10 Active Cardiac Monitoring [RC] . DIRECTED Care 04/15/21 13:18 Active Height and Weight [RC] 06 Care 04/15/21 08:02 Active Intake and Output [RC] 04,16 Care 04/15/21 08:03 Active Oxygen Therapy [RC] ASDIRECTED Care 04/15/21 08:02 Active Pulse Oximetry [RC] PRN Care 04/15/21 08:03 Active RT Aerosol Therapy [RC] ASDIRECTED Care 04/15/21 00:19 Active RT Incentive Spirometry [RC] ASDIRECTED Care 04/15/21 08:02 Active RT Post Treatment Assessment [RC] Click to Edit Care 04/15/21 00:23 Active RT Pre-Treatment Assessment [RC] Click to Edit Care 04/15/21 00:23 Active Up With Assistance [RC] ASDIRECTED Care 04/15/21 00:15 Active Up to Chair [RC] ASDIRECTED Care 04/15/21 00:15 Active Vital Signs [RC] 04,10,16,22 Care 04/15/21 08:02 Active Consult to Case Management/Angular Js Developer [CONS] Cons 04/15/21 08:02 Active Routine Consult to Spiritual Care [CONS] Routine Cons 04/15/21 08:02 Active OT Evaluation and Treatment [CONS] Routine Cons 04/15/21 08:04 Active PT Evaluation and Treatment [CONS] Routine Cons 04/15/21 08:04 Active Respiratory Care Assess and Treatment [CONS] Routine Cons 04/15/21 08:04 Active Heart Healthy Diet [DIET] Diet 04/15/21 Breakfast Active Chest 1V Frontal [CR] Stat Exams 04/14/21 19:33 Taken BASIC METABOLIC PANEL,BMP [CHEM] AM Lab 04/16/21 05:11 Ordered BASIC METABOLIC PANEL,BMP [CHEM] AM Lab 04/17/21 05:11 Ordered BASIC METABOLIC PANEL,BMP [CHEM] AM Lab 04/18/21 05:11 Ordered BASIC METABOLIC PANEL,BMP [CHEM] AM Lab 04/19/21 05:11 Ordered BLOOD CULTURE [MREF] Stat Lab 04/14/21 19:56 Received BLOOD CULTURE [MREF] Stat Lab 04/14/21 20:10 Received C-REACTIVE PROTEIN [CHEM] AM Lab 04/16/21 05:11 Ordered C-REACTIVE PROTEIN [CHEM] AM Lab 04/17/21 05:11 Ordered C-REACTIVE PROTEIN [CHEM] AM Lab 04/18/21 05:11 Ordered C-REACTIVE PROTEIN [CHEM] AM Lab 04/19/21 05:11 Ordered CBC WITH AUTO DIFF [HEME] AM Lab 04/16/21 05:11 Ordered CBC WITH AUTO DIFF [HEME] AM Lab 04/17/21 05:11 Ordered CBC WITH AUTO DIFF [HEME] AM Lab 04/18/21 05:11 Ordered CBC WITH AUTO DIFF [HEME] AM Lab 04/19/21 05:11 Ordered CULTURE URINE [MREF] Stat Lab 04/14/21 21:03 Received MAGNESIUM [CHEM] AM Lab 04/16/21 05:11 Ordered MAGNESIUM [CHEM] AM Lab 04/17/21 05:11 Ordered MAGNESIUM [CHEM] AM Lab 04/18/21 05:11 Ordered MAGNESIUM [CHEM] AM Lab 04/19/21 05:11 Ordered ALPRAZolam [Xanax] Med 04/15/21 08:05 Active 0.5 mg PO TID PRN Acetaminophen [TylenoL] Med 04/15/21 08:02 Active 650 mg PO Q4H PRN Acetaminophen/Codeine [Tylenol with Codeine No.3 300MG/ Med 04/15/21 11:57 Active 30MG] 1 tab PO TID PRN Albuterol [Proventil HFA] Med 04/15/21 00:21 Active See Dose Instructions INH Q4H PRN Albuterol/Ipratropium [DuoNeb 3.0-0.5 MG/3 ML] Med 04/15/21 03:00 Active 3 ml NEB Q6HRRT Benzonatate [Tessalon Perles] Med 04/15/21 08:05 Active 200 mg PO DAILY PRN Cholecalciferol (Vitamin D3) [Vitamin D3] Med 04/16/21 09:00 Active 10,000 unit PO DAILY Cyclobenzaprine [Flexeril] Med 04/15/21 08:05 Active 10 mg PO TID PRN Enoxaparin [Lovenox] Med 04/15/21 11:15 Active 40 mg SUBCUT DAILY Fluticasone Propionate [Flonase] Med 04/16/21 09:00 Active 0 gm NASBOTH DAILY Gabapentin [Neurontin] Med 04/15/21 13:00 Active 1,800 mg PO BID Insulin Lispro [HumaLOG] Med 04/15/21 11:00 Active See Protocol SUBCUT QIDACANDBED Losartan [Cozaar] Med 04/15/21 13:00 Active 50 mg PO BID Mometasone/Formoterol [Dulera 200-5 MCG] Med 04/15/21 21:00 Active 2 puff IH BID Nystatin [Nystop] Med 04/15/21 09:00 Active 0 gm TOP TID Ondansetron [Zofran] Med 04/15/21 08:02 Active 4 mg IV Q6H PRN Patient's Own Medication [Ptom] Med 04/16/21 06:00 Active 0 each PO ACBREAKFAST Sodium Chloride 0.9% [Normal Saline] 1,000 ml Med 04/15/21 00:30 Active IV ASDIRECTED Sodium Chloride 0.9% [Saline Flush] Med 04/15/21 00:15 Active 10 ml FLUSH BOLUS Spironolactone [Aldactone] Med 04/15/21 13:00 Active 25 mg PO DAILY Temazepam [Restoril] Med 04/15/21 11:50 Active 45 mg PO BEDTIME PRN Venlafaxine [Effexor XR] Med 04/16/21 09:00 Active 225 mg PO DAILY carvediloL [Coreg] Med 04/15/21 13:00 Active 3.125 mg PO BID cefTRIAXone [Rocephin] 1 gm Med 04/15/21 22:00 Active Sodium Chloride 0.9% [Normal Saline] 100 ml IV Q24H lamoTRIgine Med 04/15/21 13:00 Active 200 mg PO BID methylPREDNISolone Sod Succ [Solu-MEDROL] Med 04/16/21 09:00 Active 40 mg IVPUSH DAILY traZODone Med 04/15/21 21:00 Active 225 mg PO BEDTIME Blood Culture x2 Reflex Set [OM.PC] Stat Oth 04/14/21 19:34 Ordered Code Status [Resuscitation Status] Routine Resus Stat 04/15/21 00:13 Ordered Medication Orders Acetaminophen (Acetaminophen 325 Mg Tab) 650 mg PO Q4H PRN PRN Reason: Pain (Mild 1-3)/fever Last Admin: 04/15/21 09:20 Dose: 650 mg Documented by: LORRIE Acetaminophen/Codeine Phosphate (Acetaminophen/Codeine 300-30 Mg Tab) 1 tab PO TID PRN PRN Reason: Pain Albuterol (Albuterol 6.7 Gm Inhaler) 0 gm INH Q4H PRN PRN Reason: wheezing Albuterol/Ipratropium (Albuterol/Ipratropium 3.0-0.5 Mg/3 Ml Neb Soln) 3 ml NEB Q6HRRT JUSTIN Last Admin: 04/15/21 14:05 Dose: 3 ml Documented by: Admin: 04/15/21 09:10 Dose: 3 ml Documented by: Admin: 04/15/21 02:50 Dose: 3 ml Documented by: JUSTICE Alprazolam (Alprazolam 0.5 Mg Tab) 0.5 mg PO TID PRN PRN Reason: Anxiety Benzonatate (Benzonatate 100 Mg Cap) 200 mg PO DAILY PRN PRN Reason: Cough Carvedilol (Carvedilol 3.125 Mg Tab) 3.125 mg PO BID [facility] Last Admin: 04/15/21 13:05 Dose: 3.125 mg Documented by: LORRIE Cholecalciferol (Cholecalciferol (Vitamin D3) 5,000 Unit Cap) 10,000 unit PO DAILY [facility] Cyclobenzaprine HCl (Cyclobenzaprine 10 Mg Tab) 10 mg PO TID PRN PRN Reason: Muscle Spasm - Painful Enoxaparin Sodium (Enoxaparin 40 Mg/0.4 Ml Syringe) 40 mg SUBCUT DAILY [facility] Last Admin: 04/15/21 12:55 Dose: 40 mg Documented by: LORRIE Fluticasone Propionate (Fluticasone Propionate Nasal [place] 16 Gm Bottle) 0 gm NASBOTH DAILY [facility] Gabapentin (Gabapentin 600 Mg Tab) 1,800 mg PO BID [facility] Last Admin: 04/15/21 13:03 Dose: 1,800 mg Documented by: LORRIE Sodium Chloride (Normal Saline) 1,000 mls @ 125 mls/hr IV ASDIRECTED [facility] Last Admin: 04/15/21 11:00 Dose: 125 mls/hr Documented by: Infusion: 04/15/21 10:35 Dose: 125 mls/hr Documented by: Admin: 04/15/21 02:35 Dose: 125 mls/hr Documented by: CLARICE Ceftriaxone Sodium 1 gm/ (Sodium Chloride) 100 mls @ 200 mls/hr IV Q24H [facility] Insulin Human Lispro (Insulin Lispro 100 Unit/Ml 10 Ml Vial) 0 unit SUBCUT QIDACANDBED [facility]; Protocol Last Admin: 04/15/21 12:56 Dose: 1 units Documented by: LORRIE Lamotrigine (Lamotrigine 100 Mg Tab) 200 mg PO BID [facility] Last Admin: 04/15/21 13:05 Dose: 200 mg Documented by: LORRIE Losartan Potassium (Losartan 50 Mg Tab) 50 mg PO BID [facility] Last Admin: 04/15/21 13:05 Dose: 50 mg Documented by: LORRIE Methylprednisolone Sodium Succinate (Methylprednisolone Sodium Succinate 40 Mg/1 Ml Sdv) 40 mg IVPUSH DAILY [facility] Mometasone Furoate/Formoterol Fumar (Formoterol/Mometasone 200-5 Mcg 8.8 Gm I nhaler) 2 puff IH BID [facility] Nystatin (Nystatin Topical Powder 15 Gm Bottle) 0 gm TOP TID [facility] Last Admin: 04/15/21 15:14 Dose: Not Given Documented by: Admin: 04/15/21 12:50 Dose: Not Given Documented by: LORRIE Ondansetron HCl (Ondansetron 4 Mg/2 Ml Sdv) 4 mg IV Q6H PRN PRN Reason: Nausea/Vomiting Levothyroxine Sodium [Levothyroxine] 137 Mcg Capsule 0 each PO ACBREAKFAST [facility] Sodium Chloride (Sodium Chloride 0.9% 10 Ml Syringe) 10 ml FLUSH BOLUS [facility] Spironolactone (Spironolactone 25 Mg Tab) 25 mg PO DAILY [facility] Last Admin: 04/15/21 13:04 Dose: 25 mg Documented by: LORRIE Temazepam (Temazepam 15 Mg Cap) 45 mg PO BEDTIME PRN PRN Reason: SLEEP Trazodone HCl (Trazodone 50 Mg Tab) 225 mg PO BEDTIME JUSTIN Venlafaxine HCl (Venlafaxine 75 Mg Cap.Er) 225 mg PO DAILY [facility] Assessment/Plan Comment:: Case reviewed and discussed in full. Agree with evaluation, assessment and plan.
[2021-04-15] MEDS ORDERED: Ondansetron 4 MG/2 ML SDV IV PRN (08:02)
[2021-04-15] MEDS ORDERED: Cyclobenzaprine 10 MG Tab PO PRN (08:05)
[2021-04-15] MEDS ORDERED: Benzonatate 100 MG Cap PO PRN (08:05)
[2021-04-15] MEDS ORDERED: ALPRAZolam 0.5 MG Tab PO PRN (08:05)
--- NOTE | 2021-04-15 08:28 | CT ---
CT chest Technique: Multiple axial sections were obtained from above the lung apices inferiorly through the lung bases. Intravenous contrast was utilized. Study has been performed as a pulmonary angiogram protocol. Comparison: Prior CT chest study of 03/19/21. Findings: Pulmonary arteries are fairly well opacified. No filling defects are seen to indicate discrete pulmonary embolism. Thoracic aorta shows no aneurysm. Small mediastinal lymph node is seen which is calcified. No mediastinal adenopathy is seen. Heart is minimally prominent. No pericardial effusion is seen. Prior cholecystectomy is noted. Nothing acute is otherwise seen within the upper visualized abdomen. Lung window settings were reviewed. Lung markings are mildly increased which appear stable from prior chest CT. No pleural effusions are noted. Bone window settings were reviewed which show no acute osseous abnormality. Mild degenerative change is scattered within the thoracic spine. Impression: 1. No findings of pulmonary embolism. 2. Mildly increased lung markings which are similar to prior CT study which are likely chronic. Nothing acute is definitely appreciated. Diagnostic code #2 I equivocally disagree with preliminary report from [facility], finalized on 04/15/21, 12:04 AM CDT, code 2
[2021-04-15] MEDS ORDERED: Spironolactone 25 MG Tab PO SCH (09:00)
[2021-04-15] MEDS ORDERED: Carvedilol 3.125 MG Tab PO SCH (09:00)
[2021-04-15] MEDS ORDERED: lamoTRIgine 100 MG Tab PO SCH (09:00)
[2021-04-15] MEDS ORDERED: Gabapentin 600 MG Tab PO SCH (09:00)
[2021-04-15] MEDS ORDERED: Losartan 50 MG Tab PO SCH (09:00)
[2021-04-15] MEDS ORDERED: METHYLPHENIDATE HCL 27 MG PO SCH (09:00)
[2021-04-15] MEDS: Acetaminophen 325 MG Tab PO PRN (09:20)
[2021-04-15] MEDS ORDERED: Temazepam 15 MG Cap PO PRN (11:50)
[2021-04-15] MEDS: Nystatin Topical Powder 15 GM Bottle TOP SCH ×3 (12:50→21:48)
[2021-04-15] MEDS: Enoxaparin 40 MG/0.4 ML Syringe SUBCUT SCH (12:55)
[2021-04-15] MEDS: Insulin Lispro 100 UNIT/ML 10 ML Vial SUBCUT SCH ×3 (12:56→21:48)
[2021-04-15] MEDS: Gabapentin 600 MG Tab PO SCH ×2 (13:03→21:47)
[2021-04-15] MEDS: Spironolactone 25 MG Tab PO SCH (13:04)
[2021-04-15] MEDS: lamoTRIgine 100 MG Tab PO SCH ×2 (13:05→21:47)
[2021-04-15] MEDS: Losartan 50 MG Tab PO SCH ×2 (13:05→21:46)
[2021-04-15] MEDS: Carvedilol 3.125 MG Tab PO SCH ×2 (13:05→21:46)
[2021-04-15] MEDS ORDERED: methylPREDNISolone Sodium Succinate 40 MG/1 ML SDV IVPUSH ONE (14:04)
[2021-04-15] MEDS: Formoterol/Mometasone 200-5 MCG 8.8 GM Inhaler IH SCH (20:44)
[2021-04-15] MEDS: traZODone 50 MG Tab PO SCH (21:59)
[2021-04-15] MEDS ORDERED: cefTRIAXone 1 GM in Sodium Chloride 0.9% 100 ML IV SCH (22:00)
[2021-04-16] MEDS: Sodium Chloride 0.9% 1,000 ML IV SCH (02:04)
[2021-04-16] MEDS: Albuterol/Ipratropium 3.0-0.5 MG/3 ML Neb Soln NEB SCH ×4 (03:19→21:27)
[2021-04-16] MEDS: LEVOTHYROXINE SODIUM 137 MCG PO SCH (06:36)
--- NOTE | 2021-04-16 07:44 | PCM.PN ---
<Ashok Silva - Last Filed: 04/16/21 11:17> - General Info Date of Service: 04/16/21 Admission Dx/Problem (Free Text): Admission Diagnosis/Problem Admission Diagnosis/Problem Hypoxia Functional Status: Reports: Pain Controlled, Tolerating Diet, Ambulating, Urinating, Incentive Spirometry, Other (Acapella ). Denies: New Symptoms - Review of Systems General: Reports: No Symptoms, Weakness (improving ). Denies: Fever, Fatigue, Malaise, Chills HEENT: Reports: No Symptoms. Denies: Headaches, Sore Throat Pulmonary: Reports: Shortness of Breath (improving ), Cough. Denies: Sputum, Wheezing Cardiovascular: Reports: No Symptoms. Denies: Chest Pain, Palpitations, Dyspnea on Exertion, Edema Gastrointestinal: Reports: No Symptoms. Denies: Abdominal Pain, Constipation, Diarrhea, Nausea, Vomiting Genitourinary: Reports: No Symptoms. Denies: Pain Musculoskeletal: Reports: No Symptoms Skin: Reports: No Symptoms. Denies: Cyanosis Neurological: Reports: No Symptoms. Denies: Confusion, Pre-Existing Deficit, Difficulty Walking, Gait Disturbance Psychiatric: Reports: No Symptoms - Patient Data Vitals - Most Recent: Last Vital Signs Temp 97.5 F 04/16/21 03:56 Pulse 72 04/16/21 03:56 Resp 16 04/16/21 03:56 BP 148/77 H 04/16/21 03:56 Pulse Ox 95 04/16/21 06:25 Weight - Most Recent: 256 lb 8 oz I&O - Last 24 Hours: Intake & Output 04/15/21 04/16/21 04/16/21 22:59 06:59 14:59 Intake Total 3520 2400 Output Total 1300 3750 Balance 2220 -1350 Lab Results Last 24 Hours: Laboratory Results - last 24 hr 04/15/21 04/15/21 04/15/21 Range/Units 08:34 08:34 11:12 WBC 4.46 (3.98-10.04) K/mm3 RBC 3.49 L (3.98-5.22) M/mm3 Hgb 10.7 L (11.2-15.7) gm/dl Hct 35.4 (34.1-44.9) % MCV 101.4 H (79.4-94.8) fl MCH 30.7 (25.6-32.2) pg MCHC 30.2 L (32.2-35.5) g/dl RDW Std Deviation 52.0 H (36.4-46.3) fL Plt Count 252 (182-369) K/mm3 MPV 8.5 L (9.4-12.3) fl Neut % (Auto) 34.1 (34.0-71.1) % Lymph % (Auto) 44.2 (19.3-51.7) % Leon % (Auto) 10.8 (4.7-12.5) % Eos % (Auto) 10.3 H (0.7-5.8) Baso % (Auto) 0.4 (0.1-1.2) % Neut # (Auto) 1.52 L (1.56-6.13) K/mm3 Lymph # (Auto) 1.97 (1.18-3.74) K/mm3 Leon # (Auto) 0.48 H (0.24-0.36) K/mm3 Eos # (Auto) 0.46 H (0.04-0.36) K/mm3 Baso # (Auto) 0.02 (0.01-0.08) K/mm3 Sodium 147 H (136-145) mEq/L Potassium 4.0 (3.5-5.1) mEq/L Chloride 111 H (98-107) mEq/L Carbon Dioxide 28 (21-32) mEq/L Anion Gap 12.0 (5-15) BUN 9 (7-18) mg/dL Creatinine 0.9 (0.55-1.02) mg/dL Est Cr Clr Drug Dosing 71.25 mL/min Estimated GFR (MDRD) > 60 (>60) mL/min BUN/Creatinine Ratio 10.0 L (14-18) Glucose 132 H (70-99) mg/dL POC Glucose 151 H (70-99) mg/dL Calcium 7.6 L (8.5-10.1) mg/dL Magnesium 2.2 (1.8-2.4) mg/dL C-Reactive Protein (<1.0) mg/dL 04/15/21 04/15/21 04/16/21 Range/Units 16:36 20:45 04:58 WBC 7.08 (3.98-10.04) K/mm3 RBC 3.61 L (3.98-5.22) M/mm3 Hgb 11.1 L (11.2-15.7) gm/dl Hct 35.8 (34.1-44.9) % MCV 99.2 H (79.4-94.8) fl MCH 30.7 (25.6-32.2) pg MCHC 31.0 L (32.2-35.5) g/dl RDW Std Deviation 48.3 H (36.4-46.3) fL Plt Count 287 (182-369) K/mm3 MPV 8.7 L (9.4-12.3) fl Neut % (Auto) 82.9 H (34.0-71.1) % Lymph % (Auto) 12.7 L (19.3-51.7) % Leon % (Auto) 4.0 L (4.7-12.5) % Eos % (Auto) 0 L (0.7-5.8) Baso % (Auto) 0.1 (0.1-1.2) % Neut # (Auto) 5.87 (1.56-6.13) K/mm3 Lymph # (Auto) 0.90 L (1.18-3.74) K/mm3 Leon # (Auto) 0.28 (0.24-0.36) K/mm3 Eos # (Auto) 0.00 L (0.04-0.36) K/mm3 Baso # (Auto) 0.01 (0.01-0.08) K/mm3 Sodium (136-145) mEq/L Potassium (3.5-5.1) mEq/L Chloride (98-107) mEq/L Carbon Dioxide (21-32) mEq/L Anion Gap (5-15) BUN (7-18) mg/dL Creatinine (0.55-1.02) mg/dL Est Cr Clr Drug Dosing mL/min Estimated GFR (MDRD) (>60) mL/min BUN/Creatinine Ratio (14-18) Glucose (70-99) mg/dL POC Glucose 144 H 221 H (70-99) mg/dL Calcium (8.5-10.1) mg/dL Magnesium (1.8-2.4) mg/dL C-Reactive Protein (<1.0) mg/dL 04/16/21 04/16/21 Range/Units 04:58 06:40 WBC (3.98-10.04) K/mm3 RBC (3.98-5.22) M/mm3 Hgb (11.2-15.7) gm/dl Hct (34.1-44.9) % MCV (79.4-94.8) fl MCH (25.6-32.2) pg MCHC (32.2-35.5) g/dl RDW Std Deviation (36.4-46.3) fL Plt Count (182-369) K/mm3 MPV (9.4-12.3) fl Neut % (Auto) (34.0-71.1) % Lymph % (Auto) (19.3-51.7) % Leon % (Auto) (4.7-12.5) % Eos % (Auto) (0.7-5.8) Baso % (Auto) (0.1-1.2) % Neut # (Auto) (1.56-6.13) K/mm3 Lymph # (Auto) (1.18-3.74) K/mm3 Leon # (Auto) (0.24-0.36) K/mm3 Eos # (Auto) (0.04-0.36) K/mm3 Baso # (Auto) (0.01-0.08) K/mm3 Sodium 145 (136-145) mEq/L Potassium 4.4 (3.5-5.1) mEq/L Chloride 108 H (98-107) mEq/L Carbon Dioxide 25 (21-32) mEq/L Anion Gap 16.4 H (5-15) BUN 8 (7-18) mg/dL Creatinine 1.1 H (0.55-1.02) mg/dL Est Cr Clr Drug Dosing 58.29 mL/min Estimated GFR (MDRD) 52 (>60) mL/min BUN/Creatinine Ratio 7.3 L (14-18) Glucose 263 H (70-99) mg/dL POC Glucose 213 H (70-99) mg/dL Calcium 8.3 L (8.5-10.1) mg/dL Magnesium 2.1 (1.8-2.4) mg/dL C-Reactive Protein 0.6 (<1.0) mg/dL Maximus Results Last 24 Hours: Microbiology 04/14/21 21:03 Urine Culture - Final Urine Med Orders - Current: Current Medications Acetaminophen (Acetaminophen 325 Mg Tab) 650 mg PO Q4H PRN PRN Reason: Pain (Mild 1-3)/fever Last Admin: 04/15/21 09:20 Dose: 650 mg Documented by: Acetaminophen/Codeine Phosphate (Acetaminophen/Codeine 300-30 Mg Tab) 1 tab PO TID PRN PRN Reason: Pain Albuterol (Albuterol 6.7 Gm Inhaler) 0 gm INH Q4H PRN PRN Reason: wheezing Albuterol/Ipratropium (Albuterol/Ipratropium 3.0-0.5 Mg/3 Ml Neb Soln) 3 ml NEB Q6HRRT [facility] Last Admin: 04/16/21 03:19 Dose: 3 ml Documented by: Alprazolam (Alprazolam 0.5 Mg Tab) 0.5 mg PO TID PRN PRN Reason: Anxiety Benzonatate (Benzonatate 100 Mg Cap) 200 mg PO DAILY PRN PRN Reason: Cough Carvedilol (Carvedilol 3.125 Mg Tab) 3.125 mg PO BID [facility] Last Admin: 04/15/21 21:46 Dose: 3.125 mg Documented by: Cholecalciferol (Cholecalciferol (Vitamin D3) 5,000 Unit Cap) 10,000 unit PO DAILY [facility] Cyclobenzaprine HCl (Cyclobenzaprine 10 Mg Tab) 10 mg PO TID PRN PRN Reason: Muscle Spasm - Painful Enoxaparin Sodium (Enoxaparin 40 Mg/0.4 Ml Syringe) 40 mg SUBCUT DAILY [facility] Last Admin: 04/15/21 12:55 Dose: 40 mg Documented by: Fluticasone Propionate (Fluticasone Propionate Nasal Dragoon 16 Gm Bottle) 0 gm NASBOTH DAILY [facility] Gabapentin (Gabapentin 600 Mg Tab) 1,800 mg PO BID [facility] Last Admin: 04/15/21 21:47 Dose: 1,800 mg Documented by: Ceftriaxone Sodium 1 gm/ (Sodium Chloride) 100 mls @ 200 mls/hr IV Q24H [facility] Last Admin: 04/15/21 21:54 Dose: 200 mls/hr Documented by: Insulin Human Lispro (Insulin Lispro 100 Unit/Ml 10 Ml Vial) 0 unit SUBCUT QIDACANDBED [facility]; Protocol Last Admin: 04/15/21 21:48 Dose: 23 units Documented by: Lamotrigine (Lamotrigine 100 Mg Tab) 200 mg PO BID [facility] Last Admin: 04/15/21 21:47 Dose: 200 mg Documented by: Losartan Potassium (Losartan 50 Mg Tab) 50 mg PO BID [facility] Last Admin: 04/15/21 21:46 Dose: 50 mg Documented by: Methylprednisolone Sodium Succinate (Methylprednisolone Sodium Succinate 40 Mg/1 Ml Sdv) 40 mg IVPUSH DAILY [facility] Mometasone Furoate/Formoterol Fumar (Formoterol/Mometasone 200-5 Mcg 8.8 Gm Inh aler) 2 puff IH BID [facility] Last Admin: 04/15/21 20:44 Dose: 2 inhalation Documented by: Nystatin (Nystatin Topical Powder 15 Gm Bottle) 0 gm TOP TID [facility] Last Admin: 04/15/21 21:48 Dose: 1 applic Documented by: Ondansetron HCl (Ondansetron 4 Mg/2 Ml Sdv) 4 mg IV Q6H PRN PRN Reason: Nausea/Vomiting Levothyroxine Sodium [Levothyroxine] 137 Mcg Capsule 0 each PO ACBREAKFAST [facility] Last Admin: 04/16/21 06:36 Dose: 1 each Documented by: Sodium Chloride (Sodium Chloride 0.9% 10 Ml Syringe) 10 ml FLUSH BOLUS [facility] Spironolactone (Spironolactone 25 Mg Tab) 25 mg PO DAILY [facility] Last Admin: 04/15/21 13:04 Dose: 25 mg Documented by: Temazepam (Temazepam 15 Mg Cap) 45 mg PO BEDTIME PRN PRN Reason: SLEEP Last Admin: 04/15/21 21:47 Dose: 45 mg Documented by: Trazodone HCl (Trazodone 50 Mg Tab) 225 mg PO BEDTIME [facility] Last Admin: 04/15/21 21:59 Dose: 225 mg Documented by: Venlafaxine HCl (Venlafaxine 75 Mg Cap.Er) 225 mg PO DAILY [facility] Discontinued Medications Acetaminophen/Codeine Phosphate (Acetaminophen/Codeine 300-30 Mg Tab) 1 tab PO Q6H PRN PRN Reason: Pain Albuterol/Ipratropium (Albuterol/Ipratropium 3.0-0.5 Mg/3 Ml Neb Soln) 3 ml NEB Q4H PRN PRN Reason: Shortness Of Breath/wheezing Last Admin: 04/14/21 19:53 Dose: 3 ml Documented by: Carvedilol (Carvedilol 3.125 Mg Tab) 3.125 mg PO BID [facility] Last Admin: 04/15/21 12:49 Dose: Not Given Documented by: Gabapentin (Gabapentin 600 Mg Tab) 1,800 mg PO ONETIME ONE Stop: 04/14/21 22:18 Last Admin: 04/14/21 23:22 Dose: 1,800 mg Documented by: Gabapentin (Gabapentin 600 Mg Tab) 1,800 mg PO BID [facility] Last Admin: 04/15/21 12:47 Dose: Not Given Documented by: Sodium Chloride (Normal Saline) 1,000 mls @ 250 [facility] Last Admin: 04/14/21 19:55 Dose: 250 mls/hr Documented by: Ceftriaxone Sodium 2 gm/ (Sodium Chloride) 100 mls @ 200 mls/hr IV ONETIME ONE Stop: 04/14/21 22:38 Last Admin: 04/14/21 22:22 Dose: 200 mls/hr Documented by: Sodium Chloride (Normal Saline) 100 mls @ 60 drops[facility] Last Admin: 04/15/21 00:09 Dose: 60 drops/min Documented by: Sodium Chloride (Normal Saline) 1,000 mls @ 125 mls[facility] Last Admin: 04/16/21 02:04 Dose: 125 mls/hr Documented by: Iopamidol (Iopamidol 755 Mg/Ml 50 Ml Bottle) 50 ml IVPUSH ONETIME ONE Stop: 04/15/21 00:08 Last Admin: 04/15/21 00:09 Dose: 50 ml Documented by: Lamotrigine (Lamotrigine 100 Mg Tab) 200 mg PO ONETIME ONE Stop: 04/14/21 22:19 Last Admin: 04/14/21 23:22 Dose: 200 mg Documented by: Lamotrigine (Lamotrigine 100 Mg Tab) 200 mg PO BID [facility] Last Admin: 04/15/21 12:48 Dose: Not Given Documented by: Lorazepam (Lorazepam 2 Mg/Ml Sdv) 0.5 mg IV ONETIME ONE Stop: 04/14/21 22:14 Last Admin: 04/15/21 01:00 Dose: Not Given Documented by: Losartan Potassium (Losartan 50 Mg Tab) 50 mg PO BID [facility] Last Admin: 04/15/21 12:48 Dose: Not Given Documented by: Methylprednisolone Sodium Succinate (Methylprednisolone Sodium Succinate 40 Mg/1 Ml Sdv) 40 mg IVPUSH ONETIME ONE Stop: 04/15/21 14:05 Last Admin: 04/15/21 14:55 Dose: 40 mg Documented by: Non-Formulary Medication (Methylphenidate Hcl [Methylphenidate Er]) 27 mg PO DAILY [facility] Last Admin: 04/15/21 11:57 Dose: Not Given Documented by: Spironolactone (Spironolactone 25 Mg Tab) 25 mg PO DAILY [facility] Last Admin: 04/15/21 12:49 Dose: Not Given Documented by: Trazodone HCl (Trazodone 50 Mg Tab) 225 mg PO ONETIME ONE Stop: 04/14/21 22:22 Last Admin: 04/14/21 23:22 Dose: 225 mg Documented by: - Exam Quality Assessment: DVT Prophylaxis. No: Supplemental Oxygen, Urine Catheter General: Alert, Oriented, Cooperative, No Acute Distress HEENT: Pupils Equal, Pupils Reactive, Mucous Membr. Moist/Tyro Neck: Supple, Trachea Midline Lungs: Clear to Auscultation, Normal Respiratory Effort, Decreased Breath Sounds Cardiovascular: Regular Rate, Regular Rhythm GI/Abdominal Exam: Normal Bowel Sounds, Soft, Non-Tender, No Distention (Female) Exam: Deferred Back Exam: Normal Inspection, Full Range of Motion Extremities: Normal Inspection, Normal Range of Motion, Non-Tender, No Pedal Edema, Normal Capillary Refill Skin: Warm, Dry, Intact Neurological: No New Focal Deficit Psy/Mental Status: Alert, Normal Affect, Normal Mood - Patient Data Lab Results Last 24 hrs: Laboratory Results - last 24 hr 04/15/21 04/15/21 04/15/21 Range/Units 08:34 08:34 11:12 WBC 4.46 (3.98-10.04) K/mm3 RBC 3.49 L (3.98-5.22) M/mm3 Hgb 10.7 L (11.2-15.7) gm/dl Hct 35.4 (34.1-44.9) % MCV 101.4 H (79.4-94.8) fl MCH 30.7 (25.6-32.2) pg MCHC 30.2 L (32.2-35.5) g/dl RDW Std Deviation 52.0 H (36.4-46.3) fL Plt Count 252 (182-369) K/mm3 MPV 8.5 L (9.4-12.3) fl Neut % (Auto) 34.1 (34.0-71.1) % Lymph % (Auto) 44.2 (19.3-51.7) % Leon % (Auto) 10.8 (4.7-12.5) % Eos % (Auto) 10.3 H (0.7-5.8) Baso % (Auto) 0.4 (0.1-1.2) % Neut # (Auto) 1.52 L (1.56-6.13) K/mm3 Lymph # (Auto) 1.97 (1.18-3.74) K/mm3 Leon # (Auto) 0.48 H (0.24-0.36) K/mm3 Eos # (Auto) 0.46 H (0.04-0.36) K/mm3 Baso # (Auto) 0.02 (0.01-0.08) K/mm3 Sodium 147 H (136-145) mEq/L Potassium 4.0 (3.5-5.1) mEq/L Chloride 111 H (98-107) mEq/L Carbon Dioxide 28 (21-32) mEq/L Anion Gap 12.0 (5-15) BUN 9 (7-18) mg/dL Creatinine 0.9 (0.55-1.02) mg/dL Est Cr Clr Drug Dosing 71.25 mL/min Estimated GFR (MDRD) > 60 (>60) mL/min BUN/Creatinine Ratio 10.0 L (14-18) Glucose 132 H (70-99) mg/dL POC Glucose 151 H (70-99) mg/dL Calcium 7.6 L (8.5-10.1) mg/dL Magnesium 2.2 (1.8-2.4) mg/dL C-Reactive Protein (<1.0) mg/dL 04/15/21 04/15/21 04/16/21 Range/Units 16:36 20:45 04:58 WBC 7.08 (3.98-10.04) K/mm3 RBC 3.61 L (3.98-5.22) M/mm3 Hgb 11.1 L (11.2-15.7) gm/dl Hct 35.8 (34.1-44.9) % MCV 99.2 H (79.4-94.8) fl MCH 30.7 (25.6-32.2) pg MCHC 31.0 L (32.2-35.5) g/dl RDW Std Deviation 48.3 H (36.4-46.3) fL Plt Count 287 (182-369) K/mm3 MPV 8.7 L (9.4-12.3) fl Neut % (Auto) 82.9 H (34.0-71.1) % Lymph % (Auto) 12.7 L (19.3-51.7) % Leon % (Auto) 4.0 L (4.7-12.5) % Eos % (Auto) 0 L (0.7-5.8) Baso % (Auto) 0.1 (0.1-1.2) % Neut # (Auto) 5.87 (1.56-6.13) K/mm3 Lymph # (Auto) 0.90 L (1.18-3.74) K/mm3 Leon # (Auto) 0.28 (0.24-0.36) K/mm3 Eos # (Auto) 0.00 L (0.04-0.36) K/mm3 Baso # (Auto) 0.01 (0.01-0.08) K/mm3 Sodium (136-145) mEq/L Potassium (3.5-5.1) mEq/L Chloride (98-107) mEq/L Carbon Dioxide (21-32) mEq/L Anion Gap (5-15) BUN (7-18) mg/dL Creatinine (0.55-1.02) mg/dL Est Cr Clr Drug Dosing mL/min Estimated GFR (MDRD) (>60) mL/min BUN/Creatinine Ratio (14-18) Glucose (70-99) mg/dL POC Glucose 144 H 221 H (70-99) mg/dL Calcium (8.5-10.1) mg/dL Magnesium (1.8-2.4) mg/dL C-Reactive Protein (<1.0) mg/dL 04/16/21 04/16/21 Range/Units 04:58 06:40 WBC (3.98-10.04) K/mm3 RBC (3.98-5.22) M/mm3 Hgb (11.2-15.7) gm/dl Hct (34.1-44.9) % MCV (79.4-94.8) fl MCH (25.6-32.2) pg MCHC (32.2-35.5) g/dl RDW Std Deviation (36.4-46.3) fL Plt Count (182-369) K/mm3 MPV (9.4-12.3) fl Neut % (Auto) (34.0-71.1) % Lymph % (Auto) (19.3-51.7) % Leon % (Auto) (4.7-12.5) % Eos % (Auto) (0.7-5.8) Baso % (Auto) (0.1-1.2) % Neut # (Auto) (1.56-6.13) K/mm3 Lymph # (Auto) (1.18-3.74) K/mm3 Leon # (Auto) (0.24-0.36) K/mm3 Eos # (Auto) (0.04-0.36) K/mm3 Baso # (Auto) (0.01-0.08) K/mm3 Sodium 145 (136-145) mEq/L Potassium 4.4 (3.5-5.1) mEq/L Chloride 108 H (98-107) mEq/L Carbon Dioxide 25 (21-32) mEq/L Anion Gap 16.4 H (5-15) BUN 8 (7-18) mg/dL Creatinine 1.1 H (0.55-1.02) mg/dL Est Cr Clr Drug Dosing 58.29 mL/min Estimated GFR (MDRD) 52 (>60) mL/min BUN/Creatinine Ratio 7.3 L (14-18) Glucose 263 H (70-99) mg/dL POC Glucose 213 H (70-99) mg/dL Calcium 8.3 L (8.5-10.1) mg/dL Magnesium 2.1 (1.8-2.4) mg/dL C-Reactive Protein 0.6 (<1.0) mg/dL Result Diagrams: 08/17/21 04:58 04/16/21 04:58 Maximus Results Last 24 hrs: Microbiology 04/14/21 21:03 Urine Culture - Final Urine Sepsis Event Note - Evaluation Sepsis Screening Result: No Definite Risk - Focused Exam Vital Signs: Vital Signs Temp Pulse Resp BP Pulse Ox Pulse Ox Pulse Ox 04/16/21 06:25 95 04/16/21 03:56 97.5 F 72 16 148/77 H 91 L 04/16/21 03:20 91 L 04/15/21 21:46 78 135/79 04/15/21 20:57 98.1 F 78 18 135/79 94 L 04/15/21 20:44 91 L - Problem List & Annotations (1) Cardiomyopathy SNOMED Code(s): 83630470 Code(s): I42.9 - CARDIOMYOPATHY, UNSPECIFIED Status: Chronic Priority: Low Current Visit: No Qualifiers: Cardiomyopathy type: unspecified Qualified Code(s): I42.9 - Cardiomyopathy, unspecified (2) Dyspnea SNOMED Code(s): 395799849 Code(s): R06.00 - DYSPNEA, UNSPECIFIED Status: Acute Priority: High Current Visit: Yes Qualifiers: Dyspnea type: shortness of breath Qualified Code(s): R06.02 - Shortness of breath; R06.00 - Dyspnea, unspecified; R06.01 - Orthopnea (3) Respiratory failure with hypercapnia SNOMED Code(s): 720971398 Code(s): J96.92 - RESPIRATORY FAILURE, UNSPECIFIED WITH HYPERCAPNIA Status: Acute Priority: High Current Visit: Yes Qualifiers: Chronicity: acute on chronic Qualified Code(s): J96.22 - Acute and chronic respiratory failure with hypercapnia (4) Persistent dyspnea after COVID-19 SNOMED Code(s): 421183911, [id number] Code(s): R06.00 - DYSPNEA, UNSPECIFIED; B94.8 - SEQUELAE OF OTH INFECTIOUS AND PARASITIC DISEASES Status: Chronic Priority: High Current Visit: Yes (5) Anxiety SNOMED Code(s): 81216279 Code(s): F41.9 - ANXIETY DISORDER, UNSPECIFIED Status: Chronic Priority: Low Current Visit: No (6) Depression SNOMED Code(s): 46221240 Code(s): F32.9 - MAJOR DEPRESSIVE DISORDER, SINGLE EPISODE, UNSPECIFIED Status: Chronic Priority: Low Current Visit: No Qualifiers: Depression Type: other depression Qualified Code(s): F32.89 - Other specified depressive episodes (7) HLD (hyperlipidemia) SNOMED Code(s): 90338609 Code(s): E78.5 - HYPERLIPIDEMIA, UNSPECIFIED Status: Chronic Priority: Low Current Visit: No Qualifiers: Hyperlipidemia type: unspecified Qualified Code(s): E78.5 - Hyperlipidemia, unspecified (8) HTN (hypertension) SNOMED Code(s): 95654837 Code(s): I10 - ESSENTIAL (PRIMARY) HYPERTENSION Status: Chronic Priority: Medium Current Visit: No Qualifiers: Hypertension type: unspecified Qualified Code(s): I10 - Essential (primary) hypertension (9) Muscular dystrophy SNOMED Code(s): 83547832 Code(s): G71.00 - MUSCULAR DYSTROPHY, UNSPECIFIED Status: Chronic Priority: Medium Current Visit: No (10) Type II diabetes mellitus SNOMED Code(s): 73266020 Code(s): E11.9 - TYPE 2 DIABETES MELLITUS WITHOUT COMPLICATIONS Status: Chronic Priority: Medium Current Visit: No Qualifiers: Diabetes mellitus retirement insulin use: without retirement use Diabetes mellitus complication status: with other specified complication Qualified Code (s): E11.69 - Type 2 diabetes mellitus with other specified complication (11) DYLAN (acute kidney injury) SNOMED Code(s): 93825274, 72952993 Code(s): N17.9 - ACUTE KIDNEY FAILURE, UNSPECIFIED Status: Resolved Priority: High Current Visit: No (12) Generalized weakness SNOMED Code(s): 25444990 Code(s): R53.1 - WEAKNESS Status: Resolved Priority: High Current Visit: Yes (13) Elevated d-dimer SNOMED Code(s): 881554460 Code(s): R79.89 - OTHER SPECIFIED ABNORMAL FINDINGS OF BLOOD CHEMISTRY Status: Ruled-out Priority: High Current Visit: No (14) History of venous thromboembolism SNOMED Code(s): 381866665 Code(s): Z86.718 - PERSONAL HISTORY OF OTHER VENOUS THROMBOSIS AND EMBOLISM Status: Chronic Priority: Medium Current Visit: Yes (15) History of PSVT (paroxysmal supraventricular tachycardia) SNOMED Code(s): 424390006685755 Code(s): Z86.79 - PERSONAL HISTORY OF OTHER DISEASES OF THE CIRCULATORY SYSTEM Status: Chronic Priority: Medium Current Visit: No (16) History of Prinzmetal angina SNOMED Code(s): 719659120 Code(s): Z86.79 - PERSONAL HISTORY OF OTHER DISEASES OF THE CIRCULATORY SYSTEM Status: Chronic Priority: Medium Current Visit: No (17) COPD (chronic obstructive pulmonary disease) SNOMED Code(s): 27311643 Code(s): J44.9 - CHRONIC OBSTRUCTIVE PULMONARY DISEASE, UNSPECIFIED Status: Chronic Priority: High Current Visit: Yes Qualifiers: COPD type: unspecified COPD Qualified Code(s): J44.9 - Chronic obstructive pulmonary disease, unspecified (18) Recurrent pneumonia SNOMED Code(s): 375032822 Code(s): J18.9 - PNEUMONIA, UNSPECIFIED ORGANISM Status: Chronic Priority: Low Current Visit: No (19) Sleep apnea treated with nocturnal BiPAP SNOMED Code(s): 63882420 Code(s): G47.30 - SLEEP APNEA, UNSPECIFIED Status: Chronic Priority: Medium Current Visit: Yes (20) Endometriosis SNOMED Code(s): 294768103 Code(s): N80.9 - ENDOMETRIOSIS, UNSPECIFIED Status: Chronic Priority: Low Current Visit: No (21) History of suicidal ideation SNOMED Code(s): 871713352 Code(s): Z86.59 - PERSONAL HISTORY OF OTHER MENTAL AND BEHAVIORAL DISORDERS Status: Chronic Priority: Low Current Visit: No (22) Anemia SNOMED Code(s): 753458284 Code(s): D64.9 - ANEMIA, UNSPECIFIED Status: Chronic Priority: Low Current Visit: No Qualifiers: Anemia type: unspecified type Qualified Code(s): D64.9 - Anemia, unspecified (23) UTI (urinary tract infection) SNOMED Code(s): 33967777 Code(s): N39.0 - URINARY TRACT INFECTION, SITE NOT SPECIFIED Status: Ruled- out Priority: High Current Visit: Yes Qualifiers: Urinary tract infection type: acute cystitis Hematuria presence: without hematuria Qualified Code(s): N30.00 - Acute cystitis without hematuria - Problem List Review Problem List Initiated/Reviewed/Updated: Yes - My Orders Last 24 Hours: My Active Orders 04/15/21 08:02 Height and Weight [RC] 06 Oxygen Therapy [RC] ASDIRECTED RT Incentive Spirometry [RC] ASDIRECTED Vital Signs [RC] 04,,, Consult to Case Management/Second Worker [CONS] Routine Consult to Spiritual Care [CONS] Routine Acetaminophen [TylenoL] 650 mg PO Q4H PRN Ondansetron [Zofran] 4 mg IV Q6H PRN 04/15/21 08:03 Intake and Output [RC] 04,16 Pulse Oximetry [RC] PRN 04/15/21 08:04 OT Evaluation and Treatment [CONS] Routine PT Evaluation and Treatment [CONS] Routine Respiratory Care Assess and Treatment [CONS] Routine 04/15/21 08:05 ALPRAZolam [Xanax] 0.5 mg PO TID PRN Benzonatate [Tessalon Perles] 200 mg PO DAILY PRN Cyclobenzaprine [Flexeril] 10 mg PO TID PRN 04/15/21 08:10 Blood Glucose Check, Bedside [RC] QIDACANDBED 04/15/21 09:00 Nystatin [Nystop] 0 gm TOP TID 04/15/21 11:00 Insulin Lispro [HumaLOG] See Protocol SUBCUT QIDACANDBED 04/15/21 11:15 Enoxaparin [Lovenox] 40 mg SUBCUT DAILY 04/15/21 11:50 Temazepam [Restoril] 45 mg PO BEDTIME PRN 04/15/21 11:57 Acetaminophen/Codeine [Tylenol with Codeine No.3 300MG/30MG] 1 tab PO TID PRN 04/15/21 13:00 Gabapentin [Neurontin] 1,800 mg PO BID Losartan [Cozaar] 50 mg PO BID Spironolactone [Aldactone] 25 mg PO DAILY carvediloL [Coreg] 3.125 mg PO BID lamoTRIgine 200 mg PO BID 04/15/21 13:17 Patient Status [ADT] Routine 04/15/21 13:18 Cardiac Monitoring [RC] . DIRECTED 04/15/21 21:00 Mometasone/Formoterol [Dulera 200-5 MCG] 2 puff IH BID traZODone 225 mg PO BEDTIME 04/15/21 22:00 cefTRIAXone [Rocephin] 1 gm Sodium Chloride 0.9% [Normal Saline] 100 ml IV Q24H 04/16/21 06:00 Patient's Own Medication [Ptom] 0 each PO ACBREAKFAST 04/16/21 09:00 Cholecalciferol (Vitamin D3) [Vitamin D3] 10,000 unit PO DAILY Fluticasone Propionate [Flonase] 0 gm NASBOTH DAILY Venlafaxine [Effexor XR] 225 mg PO DAILY methylPREDNISolone Sod Succ [Solu-MEDROL] 40 mg IVPUSH DAILY 04/17/21 05:11 BASIC METABOLIC PANEL,BMP [CHEM] AM C-REACTIVE PROTEIN [CHEM] AM CBC WITH AUTO DIFF [HEME] AM MAGNESIUM [CHEM] AM 04/18/21 05:11 BASIC METABOLIC PANEL,BMP [CHEM] AM C-REACTIVE PROTEIN [CHEM] AM CBC WITH AUTO DIFF [HEME] AM MAGNESIUM [CHEM] AM 04/19/21 05:11 BASIC METABOLIC PANEL,BMP [CHEM] AM C-REACTIVE PROTEIN [CHEM] AM CBC WITH AUTO DIFF [HEME] AM MAGNESIUM [CHEM] AM - Assessment Assessment:: Assessment - 04/15/2021 (admitted late 04/14/2021) * 55-year-old female who presents to ED with confusion and reported syncopal event at home. She was reported to be stumbling and confused. * History of angina, prior VTE, cardiomyopathy, hypertension, Prinzmetal's angina, COPD, recurrent pneumonia, sleep apnea, CO2 retention, urinary incontinence, endometriosis, muscular dystrophy, migraines, anxiety, depression, prior suicidal ideation, type II DM, old obesity, anemia, PSVT, Covid infection in October of 2020 * She has had chronic problems with CHF due to cardiomyopathy and COPD * Reports she has been struggling since she was diagnosed with Covid this past October. * Was also out in the sun for most of the day and it was noted to be 101 degrees outside. She admits to poor fluid intake. * She was hospitalized on November 02 for 3 days and did receive remdesivir treatmen ts, dexamethasone, and Lovenox injections but was not discharged home on any medications. * Reports continued shortness of breath since that time. She does have a BiPAP machine with oxygen bleed in that she uses nocturnally. * In the ED initially she was noted to have saturations of 82%. She was placed on 6 L by nasal cannula and her saturations improved 94%. * Denies any cough or sputum production. States that she does feel like she wheezes at times. * 12-lead EKG was obtained showing sinus rhythm at 76. Per minute with left axis deviation and Q waves present in leads III and aVF. There is also decreased voltage throughout the precordial leads. Repolarization abnormality was noted in V5 V6 along with leads I and aVL. * Labs are obtained in ED and on floor: * WBC of 6.19-->4.46 * Hemoglobin 11.6-->10.7 * Hematocrit 38.0-->35.4 * Platelet 287,000-->252,000 * Neutrophils 43% with 2% band neutrophils-->34.1% * D-dimer was 0.52 * Sodium 146-->147 * Potassium 4.0-->4.0 * Chloride 109-->111 * Carbon dioxide 26-->28 * Anion gap 15.0-->12.0 * BUN is 8-->9. Creatinine 1.2-->0.9. GFR 47--greater than 60 * Glucose 165-->132 * Calcium 8.2-->7.6 * Total bilirubin 0.2 * AST is 20, ALT 39, alkaline phosphatase 74 * Albumin is 3.8 * Protein 6.7 * Magnesium 2.2 * aPTT is 23.1 * Lactic acid 2.0 * Bilirubin 2.2 * CRP 0.3. * ABGs obtained in left radial showing a pH of 7.26. PCO2 55.6. PO2 of 62.0. HCO3 of 23.8. O2 saturation 85%. A-A gradient 154. This is obtained while on 5 L via nasal cannula. * proBNP is 59. * UA is obtained it is concentrated with 2+ protein, 1+ leukocyte esterase, 50-75 WBCs, 10-20 squamous epithelial cells, many bacteria, moderate mucus. * SARS-CoV-2 RNA is negative. * She is given a DuoNeb and started on IV fluids. Her home medications are given. * Chest x-ray is obtained and shows nothing acute. * CTA of the chest is obtained and shows: * 1. No findings of pulmonary embolism. * 2. There are mildly increased lung markings which are similar to prior CT study which are likely chronic. Nothing acute is definitely appreciated. * She is subsequently admitted to the medical floor for hypoxia and respiratory failure with hypercapnia. UA is also suggestive of his UTI, although this may be contaminant. 04/16/2021 This is a 55-year-old female admitted for hypoxia and UTI. Overall she is been doing quite well. She is weaned off oxygen. Urine culture shows no growth so we will discontinue IV antibiotics. She continues to receive DuoNebs and IV push steroids. Labs today show WBC of 7.08. Hemoglobin 11.1. Platelet 287,000. Neutrophils are elevated 82.9%. Sodium 145. Potassium 4.4. Chloride 108. Carbon dioxide 25. Anion gap is elevated at 16.4. BUN is 8. Creatinine 1.1. GFR 52. This appears to be near her baseline. Glucose has been 1 44-2 63. Calcium 8.3. Magnesium 2.1. CRP is 0.6. Blood cultures are still pending. We will continue current treatment plan with likely discharge tomorrow pending continued stability in respiratory status. - Plan Plan:: Dyspnea Respiratory failure with hypercapnia Persistent dyspnea after COVID-19 Sleep apnea treated with nocturnal BiPAP COPD (chronic obstructive pulmonary disease) Generalized weakness Recurrent pneumonia * Scheduled Duonebs * PRN albuterol MDI * IS * RT consultation * O2 as needed to keep saturations >90% * PT/OT * CM/SW * Suspect psychiatric medications play a role in weakness * Continue home respiratory meds * Solumedrol 40mg daily History of PSVT (paroxysmal supraventricular tachycardia) History of Prinzmetal angina Cardiomyopathy * Telemetry * Home medications as ordered * No acute concerns Anxiety Depression History of suicidal ideation * Home medications as ordered * No acute concerns HLD (hyperlipidemia) * No acute concerns HTN (hypertension) * No acute concerns * Home medications as ordered * Monitor vital signs Muscular dystrophy * No acute concerns * Monitor Type II diabetes mellitus * Hold home Victoza * SS medium intensity insulin * QID AC and Bedtime glucose checks DYLAN (acute kidney injury), Resolved * Monitor labs * Avoid nephrotoxic meds if able Elevated d-dimer History of venous thromboembolism * No acute concerns * Negative CTA Endometriosis * No acute concerns Anemia * No acute concerns * Monitor daily labs UTI, Ruled-out * Negative urine cultures * Discontinue IV Abx Code status: Full code PCP: Dr. Welch DVT prophylaxis: Lovenox Disposition: Patient admitted observation status for management of hypoxia and suspected UTI. Likely discharge tomorrow pending continued improvement. <Dionicio Eldridge Jr - Last Filed: 04/16/21 16:45> - Patient Data Vitals - Most Recent: Last Vital Signs Temp 97.5 F 04/16/21 16:29 Pulse 84 04/16/21 16:29 Resp 20 04/16/21 16:29 BP 155/86 H 04/16/21 16:29 Pulse Ox 98 04/16/21 16:29 I&O - Last 24 Hours: Intake & Output 04/16/21 04/16/21 04/16/21 06:59 14:59 22:59 Intake Total 2400 640 Output Total 3750 Balance -1350 640 Lab Results Last 24 Hours: Laboratory Results - last 24 hr 04/15/21 04/16/21 04/16/21 Range/Units 20:45 04:58 04:58 WBC 7.08 (3.98-10.04) K/mm3 RBC 3.61 L (3.98-5.22) M/mm3 Hgb 11.1 L (11.2-15.7) gm/dl Hct 35.8 (34.1-44.9) % MCV 99.2 H (79.4-94.8) fl MCH 30.7 (25.6-32.2) pg MCHC 31.0 L (32.2-35.5) g/dl RDW Std Deviation 48.3 H (36.4-46.3) fL Plt Count 287 (182-369) K/mm3 MPV 8.7 L (9.4-12.3) fl Neut % (Auto) 82.9 H (34.0-71.1) % Lymph % (Auto) 12.7 L (19.3-51.7) % Leon % (Auto) 4.0 L (4.7-12.5) % Eos % (Auto) 0 L (0.7-5.8) Baso % (Auto) 0.1 (0.1-1.2) % Neut # (Auto) 5.87 (1.56-6.13) K/mm3 Lymph # (Auto) 0.90 L (1.18-3.74) K/mm3 Leon # (Auto) 0.28 (0.24-0.36) K/mm3 Eos # (Auto) 0.00 L (0.04-0.36) K/mm3 Baso # (Auto) 0.01 (0.01-0.08) K/mm3 Sodium 145 (136-145) mEq/L Potassium 4.4 (3.5-5.1) mEq/L Chloride 108 H (98-107) mEq/L Carbon Dioxide 25 (21-32) mEq/L Anion Gap 16.4 H (5-15) BUN 8 (7-18) mg/dL Creatinine 1.1 H (0.55-1.02) mg/dL Est Cr Clr Drug Dosing 58.29 mL/min Estimated GFR (MDRD) 52 (>60) mL/min BUN/Creatinine Ratio 7.3 L (14-18) Glucose 263 H (70-99) mg/dL POC Glucose 221 H (70-99) mg/dL Calcium 8.3 L (8.5-10.1) mg/dL Magnesium 2.1 (1.8-2.4) mg/dL Creatine Kinase (26-192) U/L C-Reactive Protein 0.6 (<1.0) mg/dL 04/16/21 04/16/21 04/16/21 Range/Units 04:58 06:40 11:14 WBC (3.98-10.04) K/mm3 RBC (3.98-5.22) M/mm3 Hgb (11.2-15.7) gm/dl Hct (34.1-44.9) % MCV (79.4-94.8) fl MCH (25.6-32.2) pg MCHC (32.2-35.5) g/dl RDW Std Deviation (36.4-46.3) fL Plt Count (182-369) K/mm3 MPV (9.4-12.3) fl Neut % (Auto) (34.0-71.1) % Lymph % (Auto) (19.3-51.7) % Leon % (Auto) (4.7-12.5) % Eos % (Auto) (0.7-5.8) Baso % (Auto) (0.1-1.2) % Neut # (Auto) (1.56-6.13) K/mm3 Lymph # (Auto) (1.18-3.74) K/mm3 Leon # (Auto) (0.24-0.36) K/mm3 Eos # (Auto) (0.04-0.36) K/mm3 Baso # (Auto) (0.01-0.08) K/mm3 Sodium (136-145) mEq/L Potassium (3.5-5.1) mEq/L Chloride (98-107) mEq/L Carbon Dioxide (21-32) mEq/L Anion Gap (5-15) BUN (7-18) mg/dL Creatinine (0.55-1.02) mg/dL Est Cr Clr Drug Dosing mL/min Estimated GFR (MDRD) (>60) mL/min BUN/Creatinine Ratio (14-18) Glucose (70-99) mg/dL POC Glucose 213 H 216 H (70-99) mg/dL Calcium (8.5-10.1) mg/dL Magnesium (1.8-2.4) mg/dL Creatine Kinase 852 H (26-192) U/L C-Reactive Protein (<1.0) mg/dL [facility] Results Last 24 Hours: Microbiology 04/14/21 20:10 Blood Culture - Preliminary Blood - Venous - Lab Draw 04/14/21 19:56 Blood Culture - Preliminary Blood - Venous 04/14/21 21:03 Urine Culture - Final Urine Med Orders - Current: Current Medications Acetaminophen (Acetaminophen 325 Mg Tab) 650 mg PO Q4H PRN PRN Reason: Pain (Mild 1-3)/fever Last Admin: 04/16/21 10:57 Dose: 650 mg Documented by: Acetaminophen/Codeine Phosphate (Acetaminophen/Codeine 300-30 Mg Tab) 1 tab PO TID PRN PRN Reason: Pain Last Admin: 04/16/21 12:45 Dose: 1 tab Documented by: Albuterol (Albuterol 6.7 Gm Inhaler) 0 gm INH Q4H PRN PRN Reason: wheezing Albuterol/Ipratropium (Albuterol/Ipratropium 3.0-0.5 Mg/3 Ml Neb Soln) 3 ml NEB Q6HRRT JUSTIN Last Admin: 04/16/21 08:09 Dose: 3 ml Documented by: Alprazolam (Alprazolam 0.5 Mg Tab) 0.5 mg PO TID PRN PRN Reason: Anxiety Benzonatate (Benzonatate 100 Mg Cap) 200 mg PO DAILY PRN PRN Reason: Cough Carvedilol (Carvedilol 3.125 Mg Tab) 3.125 mg PO BID [facility] Last Admin: 04/16/21 08:39 Dose: 3.125 mg Documented by: Cholecalciferol (Cholecalciferol (Vitamin D3) 5,000 Unit Cap) 10,000 unit PO DAILY [facility] Last Admin: 04/16/21 08:39 Dose: 10,000 unit Documented by: Cyclobenzaprine HCl (Cyclobenzaprine 10 Mg Tab) 10 mg PO TID PRN PRN Reason: Muscle Spasm - Painful Enoxaparin Sodium (Enoxaparin 40 Mg/0.4 Ml Syringe) 40 mg SUBCUT DAILY [facility] Last Admin: 04/16/21 08:47 Dose: 40 mg Documented by: Fluticasone Propionate (Fluticasone Propionate Nasal Dragoon 16 Gm Bottle) 0 gm NASBOTH DAILY [facility] Last Admin: 04/16/21 09:02 Dose: 2 spray Documented by: Gabapentin (Gabapentin 600 Mg Tab) 1,800 mg PO BID [facility] Last Admin: 04/16/21 08:34 Dose: 1,800 mg Documented by: Insulin Human Lispro (Insulin Lispro 100 Unit/Ml 10 Ml Vial) 0 unit SUBCUT QIDACANDBED [facility]; Protocol Last Admin: 04/16/21 11:48 Dose: 4 units Documented by: Lamotrigine (Lamotrigine 100 Mg Tab) 200 mg PO BID [facility] Last Admin: 04/16/21 08:38 Dose: 200 mg Documented by: Losartan Potassium (Losartan 50 Mg Tab) 50 mg PO BID [facility] Last Admin: 04/16/21 08:35 Dose: 50 mg Documented by: Methylprednisolone Sodium Succinate (Methylprednisolone Sodium Succinate 40 Mg/1 Ml Sdv) 40 mg IVPUSH DAILY [facility] Last Admin: 04/16/21 08:40 Dose: 40 mg Documented by: Mometasone Furoate/Formoterol Fumar (Formoterol/Mometasone 200-5 Mcg 8.8 Gm Inhaler) 2 puff IH BID [facility] Last Admin: 04/16/21 08:09 Dose: 2 inhalation Documented by: Nystatin (Nystatin Topical Powder 15 Gm Bottle) 0 gm TOP TID [facility] Last Admin: 04/16/21 08:55 Dose: 1 applic Documented by: Ondansetron HCl (Ondansetron 4 Mg/2 Ml Sdv) 4 mg IV Q6H PRN PRN Reason: Nausea/Vomiting Levothyroxine Sodium [Levothyroxine] 137 Mcg Capsule 0 each PO ACBREAKFAST [facility] Last Admin: 04/16/21 06:36 Dose: 1 each Documented by: Sodium Chloride (Sodium Chloride 0.9% 10 Ml Syringe) 10 ml FLUSH BOLUS [facility] Spironolactone (Spironolactone 25 Mg Tab) 25 mg PO DAILY [facility] Last Admin: 04/16/21 08:39 Dose: 25 mg Documented by: Temazepam (Temazepam 15 Mg Cap) 45 mg PO BEDTIME PRN PRN Reason: SLEEP Last Admin: 04/15/21 21:47 Dose: 45 mg Documented by: Trazodone HCl (Trazodone 50 Mg Tab) 225 mg PO BEDTIME [facility] Last Admin: 04/15/21 21:59 Dose: 225 mg Documented by: Venlafaxine HCl (Venlafaxine 75 Mg Cap.Er) 225 mg PO DAILY [facility] Last Admin: 04/16/21 08:34 Dose: 225 mg Documented by: Discontinued Medications Acetaminophen/Codeine Phosphate (Acetaminophen/Codeine 300-30 Mg Tab) 1 tab PO Q6H PRN PRN Reason: Pain Albuterol/Ipratropium (Albuterol/Ipratropium 3.0-0.5 Mg/3 Ml Neb Soln) 3 ml NEB Q4H PRN PRN Reason: Shortness Of Breath/wheezing Last Admin: 04/14/21 19:53 Dose: 3 ml Documented by: Carvedilol (Carvedilol 3.125 Mg Tab) 3.125 mg PO BID [facility] Last Admin: 04/15/21 12:49 Dose: Not Given Documented by: Gabapentin (Gabapentin 600 Mg Tab) 1,800 mg PO ONETIME ONE Stop: 04/14/21 22:18 Last Admin: 04/14/21 23:22 Dose: 1,800 mg Documented by: Gabapentin (Gabapentin 600 Mg Tab) 1,800 mg PO BID [facility] Last Admin: 04/15/21 12:47 Dose: Not Given Documented by: Sodium Chloride (Normal Saline) 1,000 mls @ 250 mls/hr IV ASDIRECTED [facility] Last Admin: 04/14/21 19:55 Dose: 250 mls/hr Documented by: Ceftriaxone Sodium 2 gm/ (Sodium Chloride) 100 mls @ 200 mls/hr IV ONETIME ONE Stop: 04/14/21 22:38 Last Admin: 04/14/21 22:22 Dose: 200 mls/hr Documented by: Sodium Chloride (Normal Saline) 100 mls @ 60 drops/min IV ASDIRECTED [facility] Last Admin: 04/15/21 00:09 Dose: 60 drops/min Documented by: Sodium Chloride (Normal Saline) 1,000 mls @ 125 mls/hr IV ASDIRECTED [facility] Last Admin: 04/16/21 02:04 Dose: 125 mls/hr Documented by: Ceftriaxone Sodium 1 gm/ (Sodium Chloride) 100 mls @ 200 mls/hr IV Q24H [facility] Last Admin: 04/15/21 21:54 Dose: 200 mls/hr Documented by: Iopamidol (Iopamidol 755 Mg/Ml 50 Ml Bottle) 50 ml IVPUSH ONETIME ONE Stop: 04/15/21 00:08 Last Admin: 04/15/21 00:09 Dose: 50 ml Documented by: Lamotrigine (Lamotrigine 100 Mg Tab) 200 mg PO ONETIME ONE Stop: 04/14/21 22:19 Last Admin: 04/14/21 23:22 Dose: 200 mg Documented by: Lamotrigine (Lamotrigine 100 Mg Tab) 200 mg PO BID [facility] Last Admin: 04/15/21 12:48 Dose: Not Given Documented by: Lorazepam (Lorazepam 2 Mg/Ml Sdv) 0.5 mg IV ONETIME ONE Stop: 04/14/21 22:14 Last Admin: 04/15/21 01:00 Dose: Not Given Documented by: Losartan Potassium (Losartan 50 Mg Tab) 50 mg PO BID [facility] Last Admin: 04/15/21 12:48 Dose: Not Given Documented by: Methylprednisolone Sodium Succinate (Methylprednisolone Sodium Succinate 40 Mg/1 Ml Sdv) 40 mg IVPUSH ONETIME ONE Stop: 04/15/21 14:05 Last Admin: 04/15/21 14:55 Dose: 40 mg Documented by: Non-Formulary Medication (Methylphenidate Hcl [Methylphenidate Er]) 27 mg PO DAILY [facility] Last Admin: 04/15/21 11:57 Dose: Not Given Documented by: Spironolactone (Spironolactone 25 Mg Tab) 25 mg PO DAILY [facility] Last Admin: 04/15/21 12:49 Dose: Not Given Documented by: Trazodone HCl (Trazodone 50 Mg Tab) 225 mg PO ONETIME ONE Stop: 04/14/21 22:22 Last Admin: 04/14/21 23:22 Dose: 225 mg Documented by: - Patient Data Lab Results Last 24 hrs: Laboratory Results - last 24 hr 04/15/21 04/16/21 04/16/21 Range/Units 20:45 04:58 04:58 WBC 7.08 (3.98-10.04) K/mm3 RBC 3.61 L (3.98-5.22) M/mm3 Hgb 11.1 L (11.2-15.7) gm/dl Hct 35.8 (34.1-44.9) % MCV 99.2 H (79.4-94.8) fl MCH 30.7 (25.6-32.2) pg MCHC 31.0 L (32.2-35.5) g/dl RDW Std Deviation 48.3 H (36.4-46.3) fL Plt Count 287 (182-369) K/mm3 MPV 8.7 L (9.4-12.3) fl Neut % (Auto) 82.9 H (34.0-71.1) % Lymph % (Auto) 12.7 L (19.3-51.7) % Leon % (Auto) 4.0 L (4.7-12.5) % Eos % (Auto) 0 L (0.7-5.8) Baso % (Auto) 0.1 (0.1-1.2) % Neut # (Auto) 5.87 (1.56-6.13) K/mm3 Lymph # (Auto) 0.90 L (1.18-3.74) K/mm3 Leon # (Auto) 0.28 (0.24-0.36) K/mm3 Eos # (Auto) 0.00 L (0.04-0.36) K/mm3 Baso # (Auto) 0.01 (0.01-0.08) K/mm3 Sodium 145 (136-145) mEq/L Potassium 4.4 (3.5-5.1) mEq/L Chloride 108 H (98-107) mEq/L Carbon Dioxide 25 (21-32) mEq/L Anion Gap 16.4 H (5-15) BUN 8 (7-18) mg/dL Creatinine 1.1 H (0.55-1.02) mg/dL Est Cr Clr Drug Dosing 58.29 mL/min Estimated GFR (MDRD) 52 (>60) mL/min BUN/Creatinine Ratio 7.3 L (14-18) Glucose 263 H (70-99) mg/dL POC Glucose 221 H (70-99) mg/dL Calcium 8.3 L (8.5-10.1) mg/dL Magnesium 2.1 (1.8-2.4) mg/dL Creatine Kinase (26-192) U/L C-Reactive Protein 0.6 (<1.0) mg/dL 04/16/21 04/16/21 04/16/21 Range/Units 04:58 06:40 11:14 WBC (3.98-10.04) K/mm3 RBC (3.98-5.22) M/mm3 Hgb (11.2-15.7) gm/dl Hct (34.1-44.9) % MCV (79.4-94.8) fl MCH (25.6-32.2) pg MCHC (32.2-35.5) g/dl RDW Std Deviation (36.4-46.3) fL Plt Count (182-369) K/mm3 MPV (9.4-12.3) fl Neut % (Auto) (34.0-71.1) % Lymph % (Auto) (19.3-51.7) % Leon % (Auto) (4.7-12.5) % Eos % (Auto) (0.7-5.8) Baso % (Auto) (0.1-1.2) % Neut # (Auto) (1.56-6.13) K/mm3 Lymph # (Auto) (1.18-3.74) K/mm3 Leon # (Auto) (0.24-0.36) K/mm3 Eos # (Auto) (0.04-0.36) K/mm3 Baso # (Auto) (0.01-0.08) K/mm3 Sodium (136-145) mEq/L Potassium (3.5-5.1) mEq/L Chloride (98-107) mEq/L Carbon Dioxide (21-32) mEq/L Anion Gap (5-15) BUN (7-18) mg/dL Creatinine (0.55-1.02) mg/dL Est Cr Clr Drug Dosing mL/min Estimated GFR (MDRD) (>60) mL/min BUN/Creatinine Ratio (14-18) Glucose (70-99) mg/dL POC Glucose 213 H 216 H (70-99) mg/dL Calcium (8.5-10.1) mg/dL Magnesium (1.8-2.4) mg/dL Creatine Kinase 852 H (26-192) U/L C-Reactive Protein (<1.0) mg/dL Result Diagrams: 04/16/21 04:58 04/16/21 04:58 [facility] Results Last 24 hrs: Microbiology 04/14/21 20:10 Blood Culture - Preliminary Blood - Venous - Lab Draw 04/14/21 19:56 Blood Culture - Preliminary Blood - Venous 04/14/21 21:03 Urine Culture - Final Urine Sepsis Event Note - Focused Exam Vital Signs: Vital Signs Temp Pulse Resp BP Pulse Ox Pulse Ox Pulse Ox 04/16/21 16:29 97.5 F 84 20 155/86 H 98 04/16/21 08:39 91 137/72 04/16/21 08:36 97.9 F 97 18 137/72 91 L 04/16/21 08:35 137/72 04/16/21 08:11 98 04/16/21 08:03 97 04/16/21 06:25 95 - Plan Plan:: Case discussed in full. Agree with evaluation, assessment and plan.
[2021-04-16] MEDS: Formoterol/Mometasone 200-5 MCG 8.8 GM Inhaler IH SCH ×2 (08:09→21:35)
[2021-04-16] MEDS: Gabapentin 600 MG Tab PO SCH ×2 (08:34→21:06)
[2021-04-16] MEDS: Venlafaxine 75 MG Cap.ER PO SCH (08:34)
[2021-04-16] MEDS: Losartan 50 MG Tab PO SCH ×2 (08:35→21:13)
[2021-04-16] MEDS: lamoTRIgine 100 MG Tab PO SCH ×2 (08:38→21:07)
[2021-04-16] MEDS: Carvedilol 3.125 MG Tab PO SCH ×2 (08:39→21:13)
[2021-04-16] MEDS: Cholecalciferol (Vitamin D3) 5,000 UNIT Cap PO SCH (08:39)
[2021-04-16] MEDS: Spironolactone 25 MG Tab PO SCH (08:39)
[2021-04-16] MEDS: Insulin Lispro 100 UNIT/ML 10 ML Vial SUBCUT SCH ×4 (08:40→21:33)
[2021-04-16] MEDS: Enoxaparin 40 MG/0.4 ML Syringe SUBCUT SCH (08:47)
[2021-04-16] MEDS: Nystatin Topical Powder 15 GM Bottle TOP SCH ×3 (08:55→22:28)
[2021-04-16] MEDS ORDERED: methylPREDNISolone Sodium Succinate 40 MG/1 ML SDV IVPUSH SCH (09:00)
[2021-04-16] MEDS: Fluticasone Propionate Nasal Spray 16 GM Bottle NASBOTH SCH (09:02)
[2021-04-16] MEDS: Acetaminophen 325 MG Tab PO PRN (10:57)
--- NOTE | 2021-04-16 15:58 | CR ---
Chest: Portable view of the chest was obtained. Comparison: Prior chest x-ray of 03/19/21. Heart size and mediastinum are within normal limits for portable technique. Lungs show no definite acute parenchymal change. No acute osseous abnormality is appreciated. Widening of the right acromioclavicular joint is seen which is stable. Impression: 1. Nothing acute is seen on portable chest x-ray. Diagnostic code #2
[2021-04-16] MEDS: traZODone 50 MG Tab PO SCH (21:07)
[2021-04-17] MEDS: Albuterol/Ipratropium 3.0-0.5 MG/3 ML Neb Soln NEB SCH ×2 (03:24→10:25)
[2021-04-17] MEDS ORDERED: predniSONE 20 MG Tab PO SCH (07:00)
[2021-04-17] MEDS: Insulin Lispro 100 UNIT/ML 10 ML Vial SUBCUT SCH (08:12)
--- NOTE | 2021-04-17 08:19 | PCM.DCSUM1 ---
<Ashok Silva - Last Filed: 04/17/21 09:57> Discharge Summary - Hospital Course HPI Initial Comments: This is a 55-year-old female who presents to ED on the evening of 04/14/2021 with confusion and reported syncopal event at home. She was reported to be stumbling and confused. She has had chronic problems with CHF due to cardiomyopathy and COPD. She reports she has been struggling since she was diagnosed with Covid this past October. She reports she usually takes DuoNeb's 4 times daily. She was also out in the sun for most of the day and it was noted to be 101 degrees outside. She admits to poor fluid intake. She was hospitalized on November 02 for 3 days and did receive remdesivir treatments, of Maxidone, and Lovenox injections but was not discharged home on any medications. She reports continued shortness of breath since that time. She does have a BiPAP machine with oxygen bleed in that she uses nocturnally. In the ED initially she was noted to have saturations of 82%. She was placed on 6 L by nasal cannula and her saturations improved 94%. She denies any cough or sputum production. States that she does feel like she wheezes at times. In the ED an EKG was obtained showing sinus rhythm at 76. Per minute with left axis deviation and Q waves present in leads III and aVF. There is also decreased voltage throughout the precordial leads. Repolarization abnormality was noted in V5 V6 along with leads I and aVL. Temp was 36.1 Celsius. Pulse 80. Respirations 18. Blood pressure 105/57. Labs are obtained with a WBC of 6.19. Hemoglobin 11.6. Hematocrit 38.0. Platelet 287,000. Neutrophils 43%. 2% band neutrophils. D-dimer was 0.52. Sodium 146. Potassium 4.0. Chloride 109. Carbon dioxide 26. Anion gap 15.0. BUN is 8. Creatinine 1.2. GFR 47. Glucose 165. Calcium 8.2. Total bilirubin 0.2. AST is 20, ALT 39, alkaline phosphatase 74. Albumin is 3.8. Protein 6.7. aPTT is 23.1. Lactic acid 2.0. Bilirubin 2.2. CRP 0.3. ABGs obtained in left radial showing a pH of 7.26. PCO2 55.6. PO2 of 62.0. HCO3 of 23.8. O2 saturation 85%. AA gradient 154. This is obtained while on 5 L via nasal cannula. proBNP is 59. UA is obtained it is concentrated with 2+ protein, 1+ leukocyte esterase, 50-75 WBCs, 10-20 squamous epithelial cells, many bacteria, moderate mucus. SARS-CoV-2 RNA is negative. She is given a DuoNeb and started on IV fluids. Her home medications are given. Chest x-ray is obtained and shows nothing acute. CTA of the chest is obtained and shows no findings of pulmonary embolism. There are mildly increased lung markings which are similar to prior CT study which are likely chronic. Nothing acute is definitely appreciated. She is subsequently admitted to the medical floor for hypoxia and respiratory failure with hypercapnia. UA is also suggestive of his UTI, although this may be contaminant. She carries a history of angina, prior VTE, cardiomyopathy, hypertension, Prinzmetal's angina, COPD, recurrent pneumonia, sleep apnea, CO2 retention, urinary incontinence, endometriosis, muscular dystrophy, migraines, anxiety, depression, prior suicidal ideation, type II DM, old obesity, anemia, PSVT, Covid infection in October of 2020. She is a full code. Her PCP is Dr. Welch. Diagnosis: Stroke: No - Discharge Data Discharge Date: 04/17/21 (Admit date: 04/15/2021) Discharge Disposition: Home, Self-Care 01 Condition: Good - Referral to Home Health Primary Care Physician: Gina Welch MD - Discharge Diagnosis/Problem(s) (1) Cardiomyopathy SNOMED Code(s): 04605783 ICD Code: I42.9 - CARDIOMYOPATHY, UNSPECIFIED Status: Chronic Priority: Low Current Visit: No Qualifiers: Cardiomyopathy type: unspecified Qualified Code(s): I42.9 - Cardiomyopathy, unspecified (2) Dyspnea SNOMED Code(s): 201911916 ICD Code: R06.00 - DYSPNEA, UNSPECIFIED Status: Chronic Priority: High Current Visit: Yes Qualifiers: Dyspnea type: shortness of breath Qualified Code(s): R06.02 - Shortness of breath; R06.00 - Dyspnea, unspecified; R06.01 - Orthopnea (3) Respiratory failure with hypercapnia SNOMED Code(s): 029123743 ICD Code: J96.92 - RESPIRATORY FAILURE, UNSPECIFIED WITH HYPERCAPNIA Status: Chronic Priority: High Current Visit: Yes Qualifiers: Chronicity: acute on chronic Qualified Code(s): J96.22 - Acute and chronic respiratory failure with hypercapnia (4) Persistent dyspnea after COVID-19 SNOMED Code(s): 885309756, 688724808617265322 ICD Code: R06.00 - DYSPNEA, UNSPECIFIED; B94.8 - SEQUELAE OF OTH INFECTIOUS AND PARASITIC DISEASES Status: Chronic Priority: High Current Visit: Yes (5) Anxiety SNOMED Code(s): 00508869 ICD Code: F41.9 - ANXIETY DISORDER, UNSPECIFIED Status: Chronic Priority: Low Current Visit: No (6) Depression SNOMED Code(s): 09213766 ICD Code: F32.9 - MAJOR DEPRESSIVE DISORDER, SINGLE EPISODE, UNSPECIFIED Status: Chronic Priority: Low Current Visit: No Qualifiers: Depression Type: other depression Qualified Code(s): F32.89 - Other specified depressive episodes (7) HLD (hyperlipidemia) SNOMED Code(s): 61157762 ICD Code: E78.5 - HYPERLIPIDEMIA, UNSPECIFIED Status: Chronic Priority: Low Current Visit: No Qualifiers: Hyperlipidemia type: unspecified Qualified Code(s): E78.5 - Hyperlipidemia, unspecified (8) HTN (hypertension) SNOMED Code(s): 41282345 ICD Code: I10 - ESSENTIAL (PRIMARY) HYPERTENSION Status: Chronic Priority: Medium Current Visit: No Qualifiers: Hypertension type: unspecified Qualified Code(s): I10 - Essential (primary) hypertension (9) Muscular dystrophy SNOMED Code(s): 23780272 ICD Code: G71.00 - MUSCULAR DYSTROPHY, UNSPECIFIED Status: Chronic Priority: Medium Current Visit: No (10) Type II diabetes mellitus SNOMED Code(s): 92621796 ICD Code: E11.9 - TYPE 2 DIABETES MELLITUS WITHOUT COMPLICATIONS Status: Chronic Priority: Medium Current Visit: No Qualifiers: Diabetes mellitus skilled nursing insulin use: without marine oil terminal superintendent use Diabetes mellitus complication status: with other specified complication Qualified Code(s): E11.69 - Type 2 diabetes mellitus with other specified complication (11) Generalized weakness SNOMED Code(s): 51360055 ICD Code: R53.1 - WEAKNESS Status: Resolved Priority: High Current Visit: Yes (12) History of venous thromboembolism SNOMED Code(s): 721382658 ICD Code: Z86.718 - PERSONAL HISTORY OF OTHER VENOUS THROMBOSIS AND EMBOLISM Status: Chronic Priority: Medium Current Visit: Yes (13) History of PSVT (paroxysmal supraventricular tachycardia) SNOMED Code(s): 385693593054918 ICD Code: Z86.79 - PERSONAL HISTORY OF OTHER DISEASES OF THE CIRCULATORY SYSTEM Status: Chronic Priority: Medium Current Visit: No (14) History of Prinzmetal angina SNOMED Code(s): 988112033 ICD Code: Z86.79 - PERSONAL HISTORY OF OTHER DISEASES OF THE CIRCULATORY SYSTEM Status: Chronic Priority: Medium Current Visit: No (15) COPD (chronic obstructive pulmonary disease) SNOMED Code(s): 50100420 ICD Code: J44.9 - CHRONIC OBSTRUCTIVE PULMONARY DISEASE, UNSPECIFIED Status: Chronic Priority: High Current Visit: Yes Qualifiers: COPD type: unspecified COPD Qualified Code(s): J44.9 - Chronic obstructive pulmonary disease, unspecified (16) Recurrent pneumonia SNOMED Code(s): 573363647 ICD Code: J18.9 - PNEUMONIA, UNSPECIFIED ORGANISM Status: Chronic Priority: Low Current Visit: No (17) Sleep apnea treated with nocturnal BiPAP SNOMED Code(s): 59562480 ICD Code: G47.30 - SLEEP APNEA, UNSPECIFIED Status: Chronic Priority: Medium Current Visit: Yes (18) Endometriosis SNOMED Code(s): 684853003 ICD Code: N80.9 - ENDOMETRIOSIS, UNSPECIFIED Status: Chronic Priority: Low Current Visit: No (19) History of suicidal ideation SNOMED Code(s): 441798788 ICD Code: Z86.59 - PERSONAL HISTORY OF OTHER MENTAL AND BEHAVIORAL DISORDERS Status: Chronic Priority: Low Current Visit: No (20) Anemia SNOMED Code(s): 878513874 ICD Code: D64.9 - ANEMIA, UNSPECIFIED Status: Chronic Priority: Low Current Visit: No Qualifiers: Anemia type: unspecified type Qualified Code(s): D64.9 - Anemia, unspecified (21) UTI (urinary tract infection) SNOMED Code(s): 03678892 ICD Code: N39.0 - URINARY TRACT INFECTION, SITE NOT SPECIFIED Status: R uled-out Priority: High Current Visit: Yes Qualifiers: Urinary tract infection type: acute cystitis Hematuria presence: without hematuria Qualified Code(s): N30.00 - Acute cystitis without hematuria - Patient Summary/Data Consults: Consultations 04/15/21 08:02 Consult to Case Management/Customer Quality Engineer [CONS] Routine Consult to Spiritual Care [CONS] Routine 04/15/21 08:04 OT Evaluation and Treatment [CONS] Routine PT Evaluation and Treatment [CONS] Routine Respiratory Care Assess and Treatment [CONS] Routine Labs Pending at D/C: None Recommended Follow-up Testing/Procedures: Primary care provider within 5 to 7 days of discharge, sooner if needed. * Recommend recheck CBC, CMP, magnesium, and creatinine kinase. * Patient discharged on a short 2-day steroid course * Consider repeat chest x-ray. Follow-up with pulmonology as scheduled as we discussed. Hospital Course: This is a 55-year-old female who presented to our ED on 04/14/2021 with confusion and reportable syncopal event at home. History of angina, prior VTE, cardiomyopathy, hypertension, Prinzmetal's angina, COPD, recurrent pneumonia, sleep apnea, CO2 retention, urinary incontinence, endometriosis, muscular dystrophy, migraines, anxiety, depression, prior suicidal ideation, type II DM, old obesity, anemia, PSVT, Covid infection in October of 2020. She reports she has been having difficulties with respiratory status since her Covid infection. She was noted to be outside in the sun for most of the day and did admit to poor fluid intake as well. CT of the chest was obtained showing no findings of pulmonary embolism but chronic increased lung markings. UA was obtained and was weakly positive. She is admitted to the floor for hypoxia and respiratory failure as she was requiring 6 L to improve her saturation from 82 to 94%. She was started on scheduled DuoNebs and given IV fluids. She is also started on Rocephin. Urine cultures and blood cultures did return negative so antibiotics were stopped. She was given an incentive spirometer and Acapella which she was using regularly. She was started on steroids which improved her respiratory st atus and she was ultimately weaned off of oxygen. She does carry history of muscular dystrophy and her CK was elevated at 852. She had been receiving IV fluids and was encouraged to increase her p.o. intake. She has had multiple providers that she sees including a muscular dystrophy specialist and pulmonology. She is on telemetry with no concerns noted. Renal function did return to normal and overall she was feeling very good. She was discharged home today. She was instructed to continue to utilize her I-S and Acapella for 1 to 2 weeks or until symptoms resolve. Home medications were continued at discharge. She was prescribed 2 days of 20 mg prednisone at discharge. She was instructed to follow-up with her hand screen printer, which she states she has an appointment for in the future. She was advised to keep this appointment. Recommend follow-up with primary care provider within 5 to 7 days of discharge. Recommend repeat CBC, CMP, magnesium, and CK at that appointment. Consider repeat chest x-ray. Patient instructed to contact her primary care provider return the emergency room should symptoms return or worsen. - Patient Instructions Diet: Diabetic Diet Activity: As Tolerated Showering/Bathing: May Shower Notify Provider of: Fever, Increased Pain, Nausea and/or Vomiting Other/Special Instructions: Follow-up with primary care provider within 5 to 7 days of discharge, sooner if needed. Follow-up with pulmonology as scheduled. You are prescribed a short 2-day course of prednisone (steroid). Take this daily with breakfast and then stop. You will not require a taper dosing as we discussed. Continue to utilize your incentive spirometer (clear/blue device you inhale through) and Acapella (green tube you blow through) for the next 1 to 2 weeks or until symptoms resolve. Resume all home medications as directed. As we discussed your's creatinine kinase was a bit elevated while you were here. Be sure to stay hydrated and drink plenty of water. Should symptoms return or worsen contact primary care provider return to the emergency room. - Discharge Plan *PRESCRIPTION DRUG MONITORING PROGRAM REVIEWED*: Not Applicable *COPY OF PRESCRIPTION DRUG MONITORING REPORT IN PATIENT STIVEN: Not Applicable Prescriptions/Med Rec: predniSONE 20 mg PO WITHBREAKFAST #2 tablet Home Medications: Home Meds Gabapentin [Neurontin] 1,800 mg PO BID 10/09/15 [History] Losartan [Cozaar] 50 mg PO BID 10/09/15 [History] Spironolactone [Aldactone] 25 mg PO DAILY 10/09/15 [History] carvediloL [Coreg] 3.125 mg PO BID 10/09/15 [History] traZODone 225 mg PO BEDTIME 10/09/15 [History] ALPRAZolam [Xanax] 0.5 mg PO TID PRN 04/12/16 [History] lamoTRIgine [Lamictal] 200 mg PO BID 04/16/18 [History] Cholecalciferol (Vitamin D3) [Vitamin D3] 10,000 unit PO DAILY 07/23/19 [History] Acetaminophen with Codeine [Acetaminophen-Cod #4] 1 tab PO TID PRN 11/01/20 [History] Albuterol Sulfate [Albuterol Sulfate HFA] 1 puff INH Q4H PRN 11/01/20 [History] Levothyroxine Sodium [Levothyroxine] 137 mcg PO ACBREAKFAST 11/01/20 [History] Methylphenidate HCl [Methylphenidate ER] 27 mg PO DAILY 11/01/20 [History] Multivitamin [Multi-Day Vitamins] 1 tab PO DAILY 11/01/20 [History] Triamcinolone Acetonide [Nasacort AQ [place]] 2 sprays NASBOTH DAILY 11/01/20 [History] Venlafaxine HCl [Venlafaxine ER] 225 mg PO DAILY 11/01/20 [History] valACYclovir HCl [Valtrex] 500 mg PO BID PRN 11/18/20 [History] Benzonatate [Tessalon Perle] 200 mg PO DAILY PRN 03/19/21 [History] Cyclobenzaprine [Flexeril] 10 mg PO TID PRN 03/19/21 [History] Liraglutide [Victoza 2-Jim] 0.6 mg SQ BEDTIME 03/20/21 [History] Acetaminophen [Tylenol] 650 mg PO Q4H PRN tablet 03/22/21 [Rx] Fluticasone/Salmeterol [Advair 250-50] 1 puff INH BID 04/14/21 [History] Nystatin [Nyamyc] 1 gm TOP TID 04/14/21 [History] Temazepam 45 mg PO BEDTIME PRN 04/14/21 [History] predniSONE 20 mg PO WITHBREAKFAST #2 tablet 04/17/21 [Rx] Oxygen Therapy Mode: Room Air Patient Handouts: Chronic Obstructive Pulmonary Disease, [id number], Home Oxygen Use, Adult, CPAP and BPAP Information, COPD and Physical Activity Forms: ED Department Discharge Referrals: Gina Welch MD [Primary Care Provider] - - Discharge Summary/Plan Comment DC Time >30 min.: No Total # of Minutes for Discharge Time: 29 - General Info Date of Service: 04/17/21 Admission Dx/Problem (Free Text: Admission Diagnosis/Problem Admission Diagnosis/Problem Hypoxia Functional Status: Reports: Pain Controlled, Tolerating Diet, Ambulating, Urinating, Incentive Spirometry, Other (Acapella ). Denies: New Symptoms - Review of Systems General: Reports: Weakness (improved ). Denies: Fever, Fatigue, Malaise, Chills HEENT: Reports: No Symptoms. Denies: Headaches, Sore Throat Pulmonary: Reports: Shortness of Breath (chronic and nothing worse than her baseline ). Denies: Cough, Sputum Cardiovascular: Reports: Dyspnea on Exertion (Chronic and nothing worse than her baseline ). Denies: Chest Pain, Palpitations, Edema Gastrointestinal: Reports: No Symptoms. Denies: Abdominal Pain, Constipation, Diarrhea, Nausea, Vomiting Genitourinary: Reports: No Symptoms. Denies: Pain Musculoskeletal: Reports: No Symptoms Skin: Reports: No Symptoms. Denies: Cyanosis Neurological: Reports: No Symptoms. Denies: Confusion, Pre-Existing Deficit, Difficulty Walking, Gait Disturbance Psychiatric: Reports: No Symptoms - Patient Data Vitals - Most Recent: Last Vital Signs Temp 97.5 F 04/17/21 04:56 Pulse 74 04/17/21 04:56 Resp 16 04/17/21 04:56 BP 99/68 04/17/21 04:56 Pulse Ox 97 04/17/21 04:56 Weight - Most Recent: 249 lb I&O - Last 24 hours: Intake & Output 04/16/21 04/17/21 04/17/21 22:59 06:59 14:59 Intake Total 640 1000 Output Total 500 1400 Balance 140 -400 Lab Results - Last 24 hrs: Laboratory Results - last 24 hr 04/16/21 04/16/21 04/16/21 Range/Units 04:58 11:14 16:59 WBC (3.98-10.04) K/mm3 RBC (3.98-5.22) M/mm3 Hgb (11.2-15.7) gm/dl Hct (34.1-44.9) % MCV (79.4-94.8) fl MCH (25.6-32.2) pg MCHC (32.2-35.5) g/dl RDW Std Deviation (36.4-46.3) fL Plt Count (182-369) K/mm3 MPV (9.4-12.3) fl Neut % (Auto) (34.0-71.1) % Lymph % (Auto) (19.3-51.7) % Centre % (Auto) (4.7-12.5) % Eos % (Auto) (0.7-5.8) Baso % (Auto) (0.1-1.2) % Neut # (Auto) (1.56-6.13) K/mm3 Lymph # (Auto) (1.18-3.74) K/mm3 Centre # (Auto) (0.24-0.36) K/mm3 Eos # (Auto) (0.04-0.36) K/mm3 Baso # (Auto) (0.01-0.08) K/mm3 Sodium (136-145) mEq/L Potassium (3.5-5.1) mEq/L Chloride (98-107) mEq/L Carbon Dioxide (21-32) mEq/L Anion Gap (5-15) BUN (7-18) mg/dL Creatinine (0.55-1.02) mg/dL Est Cr Clr Drug Dosing mL/min Estimated GFR (MDRD) (>60) mL/min BUN/Creatinine Ratio (14-18) Glucose (70-99) mg/dL POC Glucose 216 H 250 H (70-99) mg/dL Calcium (8.5-10.1) mg/dL Magnesium (1.8-2.4) mg/dL Creatine Kinase 852 H (26-192) U/L 04/16/21 04/17/21 04/17/21 Range/Units 21:17 04:29 04:29 WBC 9.51 (3.98-10.04) K/mm3 RBC 3.46 L (3.98-5.22) M/mm3 Hgb 10.7 L (11.2-15.7) gm/dl Hct 34.3 (34.1-44.9) % MCV 99.1 H (79.4-94.8) fl MCH 30.9 (25.6-32.2) pg MCHC 31.2 L (32.2-35.5) g/dl RDW Std Deviation 50.1 H (36.4-46.3) fL Plt Count 303 (182-369) K/mm3 MPV 9.0 L (9.4-12.3) fl Neut % (Auto) 69.0 (34.0-71.1) % Lymph % (Auto) 20.5 (19.3-51.7) % Centre % (Auto) 9.8 (4.7-12.5) % Eos % (Auto) 0.2 L (0.7-5.8) Baso % (Auto) 0.1 (0.1-1.2) % Neut # (Auto) 6.56 H (1.56-6.13) K/mm3 Lymph # (Auto) 1.95 (1.18-3.74) K/mm3 Centre # (Auto) 0.93 H (0.24-0.36) K/mm3 Eos # (Auto) 0.02 L (0.04-0.36) K/mm3 Baso # (Auto) 0.01 (0.01-0.08) K/mm3 Sodium 145 (136-145) mEq/L Potassium 4.4 (3.5-5.1) mEq/L Chloride 109 H (98-107) mEq/L Carbon Dioxide 28 (21-32) mEq/L Anion Gap 12.4 (5-15) BUN 11 (7-18) mg/dL Creatinine 0.9 (0.55-1.02) mg/dL Est Cr Clr Drug Dosing 71.25 mL/min Estimated GFR (MDRD) > 60 (>60) mL/min BUN/Creatinine Ratio 12.2 L (14-18) Glucose 190 H (70-99) mg/dL POC Glucose 240 H (70-99) mg/dL Calcium 8.9 (8.5-10.1) mg/dL Magnesium 2.4 (1.8-2.4) mg/dL Creatine Kinase (26-192) U/L AMBER Results - Last 24 hrs: Microbiology 04/14/21 20:10 Blood Culture - Preliminary Blood - Venous - Lab Draw 04/14/21 19:56 Blood Culture - Preliminary Blood - Venous 04/14/21 21:03 Urine Culture - Final Urine Med Orders - Current: Current Medications Acetaminophen (Acetaminophen 325 Mg Tab) 650 mg PO Q4H PRN PRN Reason: Pain (Mild 1-3)/fever Last Admin: 04/16/21 10:57 Dose: 650 mg Documented by: Acetaminophen/Codeine Phosphate (Acetaminophen/Codeine 300-30 Mg Tab) 1 tab PO TID PRN PRN Reason: Pain Last Admin: 04/16/21 12:45 Dose: 1 tab Documented by: Albuterol (Albuterol 6.7 Gm Inhaler) 0 gm INH Q4H PRN PRN Reason: wheezing Albuterol/Ipratropium (Albuterol/Ipratropium 3.0-0.5 Mg/3 Ml Neb Soln) 3 ml NEB Q6HRRT [facility] Last Admin: 04/17/21 03:24 Dose: 3 ml Documented by: Alprazolam (Alprazolam 0.5 Mg Tab) 0.5 mg PO TID PRN PRN Reason: Anxiety Benzonatate (Benzonatate 100 Mg Cap) 200 mg PO DAILY PRN PRN Reason: Cough Carvedilol (Carvedilol 3.125 Mg Tab) 3.125 mg PO BID [facility] Last Admin: 04/16/21 21:13 Dose: 3.125 mg Documented by: Cholecalciferol (Cholecalciferol (Vitamin D3) 5,000 Unit Cap) 10,000 unit PO DAILY [facility] Last Admin: 04/16/21 08:39 Dose: 10,000 unit Documented by: Cyclobenzaprine HCl (Cyclobenzaprine 10 Mg Tab) 10 mg PO TID PRN PRN Reason: Muscle Spasm - Painful Enoxaparin Sodium (Enoxaparin 40 Mg/0.4 Ml Syringe) 40 mg SUBCUT DAILY [facility] Last Admin: 04/16/21 08:47 Dose: 40 mg Documented by: Fluticasone Propionate (Fluticasone Propionate Nasal [place] 16 Gm Bottle) 0 gm NASBOTH DAILY [facility] Last Admin: 04/16/21 09:02 Dose: 2 spray Documented by: Gabapentin (Gabapentin 600 Mg Tab) 1,800 mg PO BID [facility] Last Admin: 04/16/21 21:06 Dose: 1,800 mg Documented by: Insulin Human Lispro (Insulin Lispro 100 Unit/Ml 10 Ml Vial) 0 unit SUBCUT QIDACANDBED [facility]; Protocol Last Admin: 04/17/21 08:12 Dose: Not Given Documented by: Lamotrigine (Lamotrigine 100 Mg Tab) 200 mg PO BID [facility] Last Admin: 04/16/21 21:07 Dose: 200 mg Documented by: Losartan Potassium (Losartan 50 Mg Tab) 50 mg PO BID [facility] Last Admin: 04/16/21 21:13 Dose: 50 mg Documented by: Mometasone Furoate/Formoterol Fumar (Formoterol/Mometasone 200-5 Mcg 8.8 Gm Inhaler) 2 puff IH BID [facility] Last Admin: 04/16/21 21:35 Dose: 2 inhalation Documented by: Nystatin (Nystatin Topical Powder 15 Gm Bottle) 0 gm TOP TID [facility] Last Admin: 04/16/21 22:28 Dose: Not Given Documented by: Ondansetron HCl (Ondansetron 4 Mg/2 Ml Sdv) 4 mg IV Q6H PRN PRN Reason: Nausea/Vomiting Levothyroxine Sodium [Levothyroxine] 137 Mcg Capsule 0 each PO ACBREAKFAST [facility] Last Admin: 04/16/21 06:36 Dose: 1 each Documented by: Prednisone (Prednisone 20 Mg Tab) 20 mg PO WITHBREAKFAST [facility] Sodium Chloride (Sodium Chloride 0.9% 10 Ml Syringe) 10 ml FLUSH BOLUS [facility] Spironolactone (Spironolactone 25 Mg Tab) 25 mg PO DAILY [facility] Last Admin: 04/16/21 08:39 Dose: 25 mg Documented by: Temazepam (Temazepam 15 Mg Cap) 45 mg PO BEDTIME PRN PRN Reason: SLEEP Last Admin: 04/15/21 21:47 Dose: 45 mg Documented by: Trazodone HCl (Trazodone 50 Mg Tab) 225 mg PO BEDTIME [facility] Last Admin: 04/16/21 21:07 Dose: 225 mg Documented by: Venlafaxine HCl (Venlafaxine 75 Mg Cap.Er) 225 mg PO DAILY [facility] Last Admin: 04/16/21 08:34 Dose: 225 mg Documented by: Discontinued Medications Acetaminophen/Codeine Phosphate (Acetaminophen/Codeine 300-30 Mg Tab) 1 tab PO Q6H PRN PRN Reason: Pain Albuterol/Ipratropium (Albuterol/Ipratropium 3.0-0.5 Mg/3 Ml Neb Soln) 3 ml NEB Q4H PRN PRN Reason: Shortness Of Breath/wheezing Last Admin: 04/14/21 19:53 Dose: 3 ml Documented by: Carvedilol (Carvedilol 3.125 Mg Tab) 3.125 mg PO BID [facility] Last Admin: 04/15/21 12:49 Dose: Not Given Documented by: Gabapentin (Gabapentin 600 Mg Tab) 1,800 mg PO ONETIME ONE Stop: 04/14/21 22:18 Last Admin: 04/14/21 23:22 Dose: 1,800 mg Documented by: Gabapentin (Gabapentin 600 Mg Tab) 1,800 mg PO BID [facility] Last Admin: 04/15/21 12:47 Dose: Not Given Documented by: Sodium Chloride (Normal Saline) 1,000 mls @ 250 mls/hr IV ASDIRECTED [facility] Last Admin: 04/14/21 19:55 Dose: 250 mls/hr Documented by: Ceftriaxone Sodium 2 gm/ (Sodium Chloride) 100 mls @ 200 mls/hr IV ONETIME ONE Stop: 04/14/21 22:38 Last Admin: 04/14/21 22:22 Dose: 200 mls/hr Documented by: Sodium Chloride (Normal Saline) 100 mls @ 60 drops/min IV ASDIRECTED [facility] Last Admin: 04/15/21 00:09 Dose: 60 drops/min Documented by: Sodium Chloride (Normal Saline) 1,000 mls @ 125 mls/hr IV ASDIRECTED [facility] Last Admin: 04/16/21 02:04 Dose: 125 mls/hr Documented by: Ceftriaxone Sodium 1 gm/ (Sodium Chloride) 100 mls @ 200 mls/hr IV Q24H [facility] Last Admin: 04/15/21 21:54 Dose: 200 mls/hr Documented by: Iopamidol (Iopamidol 755 Mg/Ml 50 Ml Bottle) 50 ml IVPUSH ONETIME ONE Stop: 04/15/21 00:08 Last Admin: 04/15/21 00:09 Dose: 50 ml Documented by: Lamotrigine (Lamotrigine 100 Mg Tab) 200 mg PO ONETIME ONE Stop: 04/14/21 22:19 Last Admin: 04/14/21 23:22 Dose: 200 mg Documented by: Lamotrigine (Lamotrigine 100 Mg Tab) 200 mg PO BID [facility] Last Admin: 04/15/21 12:48 Dose: Not Given Documented by: Lorazepam (Lorazepam 2 Mg/Ml Sdv) 0.5 mg IV ONETIME ONE Stop: 04/14/21 22:14 Last Admin: 04/15/21 01:00 Dose: Not Given Documented by: Losartan Potassium (Losartan 50 Mg Tab) 50 mg PO BID [facility] Last Admin: 04/15/21 12:48 Dose: Not Given Documented by: Methylprednisolone Sodium Succinate (Methylprednisolone Sodium Succinate 40 Mg/1 Ml Sdv) 40 mg IVPUSH ONETIME ONE Stop: 04/15/21 14:05 Last Admin: 04/15/21 14:55 Dose: 40 mg Documented by: Methylprednisolone Sodium Succinate (Methylprednisolone Sodium Succinate 40 Mg/1 Ml Sdv) 40 mg IVPUSH DAILY [facility] Last Admin: 04/16/21 08:40 Dose: 40 mg Documented by: Non-Formulary Medication (Methylphenidate Hcl [Methylphenidate Er]) 27 mg PO DAILY [facility] Last Admin: 04/15/21 11:57 Dose: Not Given Documented by: Spironolactone (Spironolactone 25 Mg Tab) 25 mg PO DAILY [facility] Last Admin: 04/15/21 12:49 Dose: Not Given Documented by: Trazodone HCl (Trazodone 50 Mg Tab) 225 mg PO ONETIME ONE Stop: 04/14/21 22:22 Last Admin: 04/14/21 23:22 Dose: 225 mg Documented by: - Exam Quality Assessment: Reports: DVT Prophylaxis. Denies: Supplemental Oxygen, Urine Catheter General: Reports: Alert, No Acute Distress HEENT: Reports: Pupils Equal, Pupils Reactive, Mucous Membr. Moist/[place] Neck: Reports: Supple, Trachea Midline Lungs: Reports: Clear to Auscultation, Normal Respiratory Effort Cardiovascular: Reports: Regular Rate, Regular Rhythm GI/Abdominal Exam: Normal Bowel Sounds, Soft, Non-Tender, No Distention (Female) Exam: Deferred Rectal (Female) Exam: Deferred Back Exam: Reports: Normal Inspection, Full Range of Motion Extremities: Normal Inspection, Normal Range of Motion, Non-Tender, No Pedal Edema, Normal Capillary Refill Skin: Reports: Warm, Dry, Intact Neurological: Reports: No New Focal Deficit Psy/Mental Status: Reports: Alert, Normal Affect, Normal Mood <Dionicio Eldridge - Last Filed: 04/17/21 10:21> Discharge Summary - Referral to Home Health Primary Care Physician: Gina Welch MD - Patient Summary/Data Consults: Consultations 04/15/21 08:02 Consult to Case Management/Customer Quality Engineer [CONS] Routine Consult to Spiritual Care [CONS] Routine 04/15/21 08:04 OT Evaluation and Treatment [CONS] Routine PT Evaluation and Treatment [CONS] Routine Respiratory Care Assess and Treatment [CONS] Routine - Discharge Summary/Plan Comment Discharge Summary/Plan Comment: Case discussed in full. Agree with evaluation, assessment and plan. - Patient Data Vitals - Most Recent: Last Vital Signs Temp 97.5 F 04/17/21 04:56 Pulse 75 04/17/21 08:33 Resp 16 04/17/21 08:33 BP 137/89 04/17/21 08:34 Pulse Ox 94 L 04/17/21 08:33 I&O - Last 24 hours: Intake & Output 04/16/21 04/17/21 04/17/21 22:59 06:59 14:59 Intake Total 640 1000 1240 Output Total 500 1400 Balance 140 -400 1240 Lab Results - Last 24 hrs: Laboratory Results - last 24 hr 04/16/21 04/16/21 04/16/21 Range/Units 04:58 11:14 16:59 WBC (3.98-10.04) K/mm3 RBC (3.98-5.22) M/mm3 Hgb (11.2-15.7) gm/dl Hct (34.1-44.9) % MCV (79.4-94.8) fl MCH (25.6-32.2) pg MCHC (32.2-35.5) g/dl RDW Std Deviation (36.4-46.3) fL Plt Count (182-369) K/mm3 MPV (9.4-12.3) fl Neut % (Auto) (34.0-71.1) % Lymph % (Auto) (19.3-51.7) % Centre % (Auto) (4.7-12.5) % Eos % (Auto) (0.7-5.8) Baso % (Auto) (0.1-1.2) % Neut # (Auto) (1.56-6.13) K/mm3 Lymph # (Auto) (1.18-3.74) K/mm3 Centre # (Auto) (0.24-0.36) K/mm3 Eos # (Auto) (0.04-0.36) K/mm3 Baso # (Auto) (0.01-0.08) K/mm3 Sodium (136-145) mEq/L Potassium (3.5-5.1) mEq/L Chloride (98-107) mEq/L Carbon Dioxide (21-32) mEq/L Anion Gap (5-15) BUN (7-18) mg/dL Creatinine (0.55-1.02) mg/dL Est Cr Clr Drug Dosing mL/min Estimated GFR (MDRD) (>60) mL/min BUN/Creatinine Ratio (14-18) Glucose (70-99) mg/dL POC Glucose 216 H 250 H (70-99) mg/dL Calcium (8.5-10.1) mg/dL Magnesium (1.8-2.4) mg/dL Creatine Kinase 852 H (26-192) U/L 04/16/21 04/17/21 04/17/21 Range/Units 21:17 04:29 04:29 WBC 9.51 (3.98-10.04) K/mm3 RBC 3.46 L (3.98-5.22) M/mm3 Hgb 10.7 L (11.2-15.7) gm/dl Hct 34.3 (34.1-44.9) % MCV 99.1 H (79.4-94.8) fl MCH 30.9 (25.6-32.2) pg MCHC 31.2 L (32.2-35.5) g/dl RDW Std Deviation 50.1 H (36.4-46.3) fL Plt Count 303 (182-369) K/mm3 MPV 9.0 L (9.4-12.3) fl Neut % (Auto) 69.0 (34.0-71.1) % Lymph % (Auto) 20.5 (19.3-51.7) % Centre % (Auto) 9.8 (4.7-12.5) % Eos % (Auto) 0.2 L (0.7-5.8) Baso % (Auto) 0.1 (0.1-1.2) % Neut # (Auto) 6.56 H (1.56-6.13) K/mm3 Lymph # (Auto) 1.95 (1.18-3.74) K/mm3 Centre # (Auto) 0.93 H (0.24-0.36) K/mm3 Eos # (Auto) 0.02 L (0.04-0.36) K/mm3 Baso # (Auto) 0.01 (0.01-0.08) K/mm3 Sodium 145 (136-145) mEq/L Potassium 4.4 (3.5-5.1) mEq/L Chloride 109 H (98-107) mEq/L Carbon Dioxide 28 (21-32) mEq/L Anion Gap 12.4 (5-15) BUN 11 (7-18) mg/dL Creatinine 0.9 (0.55-1.02) mg/dL Est Cr Clr Drug Dosing 71.25 mL/min Estimated GFR (MDRD) > 60 (>60) mL/min BUN/Creatinine Ratio 12.2 L (14-18) Glucose 190 H (70-99) mg/dL POC Glucose 240 H (70-99) mg/dL Calcium 8.9 (8.5-10.1) mg/dL Magnesium 2.4 (1.8-2.4) mg/dL Creatine Kinase (26-192) U/L 04/17/21 Range/Units 08:09 WBC (3.98-10.04) K/mm3 RBC (3.98-5.22) M/mm3 Hgb (11.2-15.7) gm/dl Hct (34.1-44.9) % MCV (79.4-94.8) fl MCH (25.6-32.2) pg MCHC (32.2-35.5) g/dl RDW Std Deviation (36.4-46.3) fL Plt Count (182-369) K/mm3 MPV (9.4-12.3) fl Neut % (Auto) (34.0-71.1) % Lymph % (Auto) (19.3-51.7) % Centre % (Auto) (4.7-12.5) % Eos % (Auto) (0.7-5.8) Baso % (Auto) (0.1-1.2) % Neut # (Auto) (1.56-6.13) K/mm3 Lymph # (Auto) (1.18-3.74) K/mm3 Centre # (Auto) (0.24-0.36) K/mm3 Eos # (Auto) (0.04-0.36) K/mm3 Baso # (Auto) (0.01-0.08) K/mm3 Sodium (136-145) mEq/L Potassium (3.5-5.1) mEq/L Chloride (98-107) mEq/L Carbon Dioxide (21-32) mEq/L Anion Gap (5-15) BUN (7-18) mg/dL Creatinine (0.55-1.02) mg/dL Est Cr Clr Drug Dosing mL/min Estimated GFR (MDRD) (>60) mL/min BUN/Creatinine Ratio (14-18) Glucose (70-99) mg/dL POC Glucose 130 H (70-99) mg/dL Calcium (8.5-10.1) mg/dL Magnesium (1.8-2.4) mg/dL Creatine Kinase (26-192) U/L AMBER Results - Last 24 hrs: Microbiology 04/14/21 20:10 Blood Culture - Preliminary Blood - Venous - Lab Draw 04/14/21 19:56 Blood Culture - Preliminary Blood - Venous 04/14/21 21:03 Urine Culture - Final Urine Med Orders - Current: Current Medications Acetaminophen (Acetaminophen 325 Mg Tab) 650 mg PO Q4H PRN PRN Reason: Pain (Mild 1-3)/fever Last Admin: 04/16/21 10:57 Dose: 650 mg Documented by: Acetaminophen/Codeine Phosphate (Acetaminophen/Codeine 300-30 Mg Tab) 1 tab PO TID PRN PRN Reason: Pain Last Admin: 04/16/21 12:45 Dose: 1 tab Documented by: Albuterol (Albuterol 6.7 Gm Inhaler) 0 gm INH Q4H PRN PRN Reason: wheezing Albuterol/Ipratropium (Albuterol/Ipratropium 3.0-0.5 Mg/3 Ml Neb Soln) 3 ml NEB Q6HRRT JUSTIN Last Admin: 04/17/21 03:24 Dose: 3 ml Documented by: Alprazolam (Alprazolam 0.5 Mg Tab) 0.5 mg PO TID PRN PRN Reason: Anxiety Benzonatate (Benzonatate 100 Mg Cap) 200 mg PO DAILY PRN PRN Reason: Cough Carvedilol (Carvedilol 3.125 Mg Tab) 3.125 mg PO BID [facility] Last Admin: 04/17/21 08:31 Dose: 3.125 mg Documented by: Cholecalciferol (Cholecalciferol (Vitamin D3) 5,000 Unit Cap) 10,000 unit PO DAILY [facility] Last Admin: 04/17/21 08:30 Dose: 10,000 unit Documented by: Cyclobenzaprine HCl (Cyclobenzaprine 10 Mg Tab) 10 mg PO TID PRN PRN Reason: Muscle Spasm - Painful Enoxaparin Sodium (Enoxaparin 40 Mg/0.4 Ml Syringe) 40 mg SUBCUT DAILY [facility] Last Admin: 04/17/21 08:35 Dose: 40 mg Documented by: Fluticasone Propionate (Fluticasone Propionate Nasal [place] 16 Gm Bottle) 0 gm NASBOTH DAILY [facility] Last Admin: 04/17/21 08:46 Dose: 2 spray Documented by: Gabapentin (Gabapentin 600 Mg Tab) 1,800 mg PO BID [facility] Last Admin: 04/17/21 08:35 Dose: 1,800 mg Documented by: Insulin Human Lispro (Insulin Lispro 100 Unit/Ml 10 Ml Vial) 0 unit SUBCUT QIDACANDBED [facility]; Protocol Last Admin: 04/17/21 08:12 Dose: Not Given Documented by: Lamotrigine (Lamotrigine 100 Mg Tab) 200 mg PO BID [facility] Last Admin: 04/17/21 08:31 Dose: 200 mg Documented by: Losartan Potassium (Losartan 50 Mg Tab) 50 mg PO BID [facility] Last Admin: 04/17/21 08:34 Dose: 50 mg Documented by: Mometasone Furoate/Formoterol Fumar (Formoterol/Mometasone 200-5 Mcg 8.8 Gm Inhaler) 2 puff IH BID [facility] Last Admin: 04/16/21 21:35 Dose: 2 inhalation Documented by: Nystatin (Nystatin Topical Powder 15 Gm Bottle) 0 gm TOP TID [facility] Last Admin: 04/17/21 08:48 Dose: Not Given Documented by: Ondansetron HCl (Ondansetron 4 Mg/2 Ml Sdv) 4 mg IV Q6H PRN PRN Reason: Nausea/Vomiting Levothyroxine Sodium [Levothyroxine] 137 Mcg Capsule 0 each PO ACBREAKFAST [facility] Last Admin: 04/17/21 08:45 Dose: 1 each Documented by: Prednisone (Prednisone 20 Mg Tab) 20 mg PO WITHBREAKFAST [facility] Last Admin: 04/17/21 08:35 Dose: 20 mg Documented by: Sodium Chloride (Sodium Chloride 0.9% 10 Ml Syringe) 10 ml FLUSH BOLUS [facility] Spironolactone (Spironolactone 25 Mg Tab) 25 mg PO DAILY [facility] Last Admin: 04/17/21 08:35 Dose: 25 mg Documented by: Temazepam (Temazepam 15 Mg Cap) 45 mg PO BEDTIME PRN PRN Reason: SLEEP Last Admin: 04/15/21 21:47 Dose: 45 mg Documented by: Trazodone HCl (Trazodone 50 Mg Tab) 225 mg PO BEDTIME [facility] Last Admin: 04/16/21 21:07 Dose: 225 mg Documented by: Venlafaxine HCl (Venlafaxine 75 Mg Cap.Er) 225 mg PO DAILY [facility] Last Admin: 04/17/21 08:30 Dose: 225 mg Documented by: Discontinued Medications Acetaminophen/Codeine Phosphate (Acetaminophen/Codeine 300-30 Mg Tab) 1 tab PO Q6H PRN PRN Reason: Pain Albuterol/Ipratropium (Albuterol/Ipratropium 3.0-0.5 Mg/3 Ml Neb Soln) 3 ml NEB Q4H PRN PRN Reason: Shortness Of Breath/wheezing Last Admin: 04/14/21 19:53 Dose: 3 ml Documented by: Carvedilol (Carvedilol 3.125 Mg Tab) 3.125 mg PO BID [facility] Last Admin: 04/15/21 12:49 Dose: Not Given Documented by: Gabapentin (Gabapentin 600 Mg Tab) 1,800 mg PO ONETIME ONE Stop: 04/14/21 22:18 Last Admin: 04/14/21 23:22 Dose: 1,800 mg Documented by: Gabapentin (Gabapentin 600 Mg Tab) 1,800 mg PO BID [facility] Last Admin: 04/15/21 12:47 Dose: Not Given Documented by: Sodium Chloride (Normal Saline) 1,000 mls @ 250 mls/hr IV ASDIRECTED [facility] Last Admin: 04/14/21 19:55 Dose: 250 mls/hr Documented by: Ceftriaxone Sodium 2 gm/ (Sodium Chloride) 100 mls @ 200 mls/hr IV ONETIME ONE Stop: 04/14/21 22:38 Last Admin: 04/14/21 22:22 Dose: 200 mls/hr Documented by: Sodium Chloride (Normal Saline) 100 mls @ 60 drops/min IV ASDIRECTED [facility] Last Admin: 04/15/21 00:09 Dose: 60 drops/min Documented by: Sodium Chloride (Normal Saline) 1,000 mls @ 125 mls/hr IV ASDIRECTED [facility] Last Admin: 04/16/21 02:04 Dose: 125 mls/hr Documented by: Ceftriaxone Sodium 1 gm/ (Sodium Chloride) 100 mls @ 200 mls/hr IV Q24H [facility] Last Admin: 04/15/21 21:54 Dose: 200 mls/hr Documented by: Iopamidol (Iopamidol 755 Mg/Ml 50 Ml Bottle) 50 ml IVPUSH ONETIME ONE Stop: 04/15/21 00:08 Last Admin: 04/15/21 00:09 Dose: 50 ml Documented by: Lamotrigine (Lamotrigine 100 Mg Tab) 200 mg PO ONETIME ONE Stop: 04/14/21 22:19 Last Admin: 04/14/21 23:22 Dose: 200 mg Documented by: Lamotrigine (Lamotrigine 100 Mg Tab) 200 mg PO BID [facility] Last Admin: 04/15/21 12:48 Dose: Not Given Documented by: Lorazepam (Lorazepam 2 Mg/Ml Sdv) 0.5 mg IV ONETIME ONE Stop: 04/14/21 22:14 Last Admin: 04/15/21 01:00 Dose: Not Given Documented by: Losartan Potassium (Losartan 50 Mg Tab) 50 mg PO BID [facility] Last Admin: 04/15/21 12:48 Dose: Not Given Documented by: Methylprednisolone Sodium Succinate (Methylprednisolone Sodium Succinate 40 Mg/1 Ml Sdv) 40 mg IVPUSH ONETIME ONE Stop: 04/15/21 14:05 Last Admin: 04/15/21 14:55 Dose: 40 mg Documented by: Methylprednisolone Sodium Succinate (Methylprednisolone Sodium Succinate 40 Mg/1 Ml Sdv) 40 mg IVPUSH DAILY [facility] Last Admin: 04/16/21 08:40 Dose: 40 mg Documented by: Non-Formulary Medication (Methylphenidate Hcl [Methylphenidate Er]) 27 mg PO DAILY [facility] Last Admin: 04/15/21 11:57 Dose: Not Given Documented by: Spironolactone (Spironolactone 25 Mg Tab) 25 mg PO DAILY [facility] Last Admin: 04/15/21 12:49 Dose: Not Given Documented by: Trazodone HCl (Trazodone 50 Mg Tab) 225 mg PO ONETIME ONE Stop: 04/14/21 22:22 Last Admin: 04/14/21 23:22 Dose: 225 mg Documented by:
[2021-04-17] MEDS: Cholecalciferol (Vitamin D3) 5,000 UNIT Cap PO SCH (08:30)
[2021-04-17] MEDS: Venlafaxine 75 MG Cap.ER PO SCH (08:30)
[2021-04-17] MEDS: lamoTRIgine 100 MG Tab PO SCH (08:31)
[2021-04-17] MEDS: Carvedilol 3.125 MG Tab PO SCH (08:31)
[2021-04-17] MEDS: Losartan 50 MG Tab PO SCH (08:34)
[2021-04-17] MEDS: Spironolactone 25 MG Tab PO SCH (08:35)
[2021-04-17] MEDS: Gabapentin 600 MG Tab PO SCH (08:35)
[2021-04-17] MEDS: Enoxaparin 40 MG/0.4 ML Syringe SUBCUT SCH (08:35)
[2021-04-17 08:36] VITALS: BP 137/89
[2021-04-17] MEDS: LEVOTHYROXINE SODIUM 137 MCG PO SCH (08:45)
[2021-04-17] MEDS: Fluticasone Propionate Nasal Spray 16 GM Bottle NASBOTH SCH (08:46)
[2021-04-17] MEDS: Nystatin Topical Powder 15 GM Bottle TOP SCH (08:48)
[2021-04-17 09:23] VITALS: PULSE 75
[2021-04-17] MEDS: Formoterol/Mometasone 200-5 MCG 8.8 GM Inhaler IH SCH (10:24)
== END 2021-04-17 10:42 | disposition home or self-care (01) | DRG 189 ==
LOC: JD.ED 18:52 → UNDOADMOB 23:21 → JD.MS 23:21 → INTOOBSV 04-15 10:55 → OBSVTOIN 04-15 10:55 → JD.OB 04-15 13:17 → JD.MS 04-15 13:17 → JD.OB 04-16 16:25 → JD.MS 04-16 16:26 → UNDODISIN 04-17 10:42
PROVIDERS: ADMIT Hospitalist; ATTEND Hospitalist
DX: J96.22 Acute and chronic respiratory failure with hypercapnia (principal); J18.9 Pneumonia, unspecified organism; I42.9 Cardiomyopathy, unspecified; N30.00 Acute cystitis without hematuria; N17.9 Acute kidney failure, unspecified; J44.0 Chronic obstructive pulmonary disease with (acute) lower respiratory infection; B94.8 Sequelae of other specified infectious and parasitic diseases; H54.7 Unspecified visual loss; Z86.718 Personal history of other venous thrombosis and embolism; F32.89 Other specified depressive episodes; E78.5 Hyperlipidemia, unspecified; G71.00 Muscular dystrophy, unspecified; N80.9 Endometriosis, unspecified; I10 Essential (primary) hypertension; D64.9 Anemia, unspecified; E66.9 Obesity, unspecified; J44.9 Chronic obstructive pulmonary disease, unspecified; G47.30 Sleep apnea, unspecified; I11.0 Hypertensive heart disease with heart failure; I50.9 Heart failure, unspecified; R79.89 Other specified abnormal findings of blood chemistry; Z86.79 Personal history of other diseases of the circulatory system; F32.9 Major depressive disorder, single episode, unspecified; Z86.59 Personal history of other mental and behavioral disorders; Z88.5 Allergy status to narcotic agent; Z88.2 Allergy status to sulfonamides; F41.9 Anxiety disorder, unspecified; E11.9 Type 2 diabetes mellitus without complications; Z98.890 Other specified postprocedural states; Z88.8 Allergy status to other drugs, medicaments and biological substances; Z86.16 Personal history of COVID-19; Z79.890 Hormone replacement therapy; Z79.899 Other long term (current) drug therapy; Z20.822 Contact with and (suspected) exposure to COVID-19
CPT/HCPCS: 36415 ×2; 36600 ×2; 71045; 71275; 80048; 80053; 81001; 82803 ×2; 83605; 83735 ×2; 83880; 85007; 85025; 85027; 85379; 85730; 86140; 87040 ×2; 87086; 93005; 94640 ×3; 94660; 94667; 96365; 99285; A9270 ×4; G0378 ×2; J0696; J7030 ×2; Q9967; U0002; 82550; 82947; 93010; 94668; 94761; 97110-GP; 97116-GP; 97162-GP; 99223; 99233; 99238; J1650; J1815-GY; J2920; J7512; J7620-GY

== ENCOUNTER 2021-06-29 10:24 | Emergency (ER) | payer MEDICARE ==
[2021-06-29 11:06] VITALS: BP 136/81; PULSE 79
[2021-06-29] MEDS ORDERED: Sodium Chloride 0.9% 10 ML Syringe FLUSH PRN (11:30)
[2021-06-29] MEDS ORDERED: Albuterol 0.083% 2.5 MG/3 ML Neb Soln NEB ONE (11:32)
[2021-06-29 11:48] LABS: CORONAVIRUS COVID-19 NAA NEGATIVE (NEGATIVE)
--- NOTE | 2021-06-29 12:01 | EDM.PDOC ---
ED HPI GENERAL MEDICAL PROBLEM - General Chief Complaint: Respiratory Problem Stated Complaint: SOB X 4 DAYS Time Seen by Provider: 06/29/21 11:07 Source of Information: Reports: Patient History Limitations: Reports: No Limitations - History of Present Illness INITIAL COMMENTS - FREE TEXT/NARRATIVE: 56-year-old female presents the emergency department with complaints of worsenin g shortness of breath over the past 4 days. This patient is well-known to me as I have taken care of her on the inpatient side in the past. She does have a history of AV shunting per her surveyor helper rod so her O2 saturations do go up and down. She does wear O2 at 2 L per nasal cannula continuously. She states she has been febrile off and on for the past 4 days. She has had increased shortness of breath and cough productive of green sputum. She states she has had increased wheezing. Last used her albuterol nebulizer treatment last evening before bed. Denies any nausea, vomiting or diarrhea. Denies any headache. She denies any urinary symptoms. Patient also has a history of muscular dystrophy and primarily uses a wheelchair. She does use a CPAP and states she has been using this religiously. She does have a history of having Covid October 2020. She states that she has not had her Covid vaccines as of yet and she was supposed to have them on July 08, 2021. Generalized Pain Score (Numeric/FACES): 4 - Related Data Allergies Allergy/AdvReac Type Severity Reaction Status Date / Time exenatide [From Bydureon] Allergy Intermediate Hives Verified 06/29/21 11:06 oxycodone Allergy Intermediate Itching Verified 06/29/21 11:06 quetiapine [From Seroquel] Allergy Mild Other Verified 06/29/21 11:06 metformin Allergy Unknown Other Verified 06/29/21 11:06 Sulfonylureas Allergy Unknown Other Verified 06/29/21 11:06 Wcekzit-HRR-AeT Reductase AdvReac Mild Muscle Verified 06/29/21 11:06 Inhibitor Aches [Mszkape-Uxf-Luo Reductase Inhibitor] Home Meds: Home Meds Gabapentin [Neurontin] 1,800 mg PO BID 10/09/15 [History] Losartan [Cozaar] 50 mg PO BID 10/09/15 [History] Spironolactone [Aldactone] 25 mg PO DAILY 10/09/15 [History] carvediloL [Coreg] 3.125 mg PO BID 10/09/15 [History] traZODone 225 mg PO BEDTIME 10/09/15 [History] ALPRAZolam [Xanax] 0.5 mg PO TID PRN 04/12/16 [History] lamoTRIgine [Lamictal] 200 mg PO BID 04/16/18 [History] Cholecalciferol (Vitamin D3) [Vitamin D3] 10,000 unit PO DAILY 07/23/19 [History] Acetaminophen with Codeine [Acetaminophen-Cod #4] 1 tab PO TID PRN 11/01/20 [History] Albuterol Sulfate [Albuterol Sulfate HFA] 1 puff INH Q4H PRN 11/01/20 [History] Levothyroxine Sodium [Levothyroxine] 137 mcg PO ACBREAKFAST 11/01/20 [History] Methylphenidate HCl [Methylphenidate ER] 27 mg PO DAILY 11/01/20 [History] Multivitamin [Multi-Day Vitamins] 1 tab PO DAILY 11/01/20 [History] Triamcinolone Acetonide [Nasacort AQ Riga] 2 sprays NASBOTH DAILY 11/01/20 [History] Venlafaxine HCl [Venlafaxine ER] 225 mg PO DAILY 11/01/20 [History] valACYclovir HCl [Valtrex] 500 mg PO BID PRN 11/18/20 [History] Benzonatate [Tessalon Perle] 200 mg PO DAILY PRN 03/19/21 [History] Cyclobenzaprine [Flexeril] 10 mg PO TID PRN 03/19/21 [History] Liraglutide [Victoza 2-Jim] 0.6 mg SQ BEDTIME 03/20/21 [History] Acetaminophen [Tylenol] 650 mg PO Q4H PRN tablet 03/22/21 [Rx] Fluticasone/Salmeterol [Advair 250-50] 1 puff INH BID 04/14/21 [History] Nystatin [Nyamyc] 1 gm TOP TID 04/14/21 [History] Temazepam 45 mg PO BEDTIME PRN 04/14/21 [History] predniSONE 20 mg PO WITHBREAKFAST #2 tablet 04/17/21 [Rx] Past Medical History HEENT History: Reports: Impaired Vision Other HEENT History: glasses Cardiovascular History: Reports: Angina, Blood Clots/VTE/DVT, Cardiomyopathy, Hypertension, SOB on Exertion Other Cardiovascular History: PSVT, 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." Respiratory History: Reports: COPD, Pneumonia, Recurrent, Sleep Apnea, SOB Other Respiratory History: "CO2 retention." Gastrointestinal History: Reports: Bowel Obstruction, Colon Polyp Other Gastrointestinal History: hernia Genitourinary History: Reports: Renal Calculus, Urinary Incontinence MANAGER OF FINANCE History: Reports: Endometriosis, , Spontaneous , Other (See Below) Other MANAGER OF FINANCE History: 5 "miscarriages" Musculoskeletal History: Reports: Fracture, Muscular Dystrophy Other Musculoskeletal History: T7 compression fx, 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 Hematologic History: Reports: Anemia Immunologic History: Reports: None Oncologic (Cancer) History: Reports: None Dermatologic History: Reports: Other (See Below) Other Dermatologic History: Keloids - Infectious Disease History Infectious Disease History: Reports: Influenza, Novel Coronavirus - Past Surgical History HEENT Surgical History: Reports: Adenoidectomy, Tonsillectomy Cardiovascular Surgical History: Reports: Other (See Below) Other Cardiovascular Surgeries/Procedures: Pt has had 7 cardiac catheterizations. GI Surgical History: Reports: Appendectomy, Cholecystectomy, Hernia Repair/Other, Other (See Below) Other GI Surgeries/Procedures: Bowel resection after bowel obstruction. Endocrine Surgical History: Reports: None Musculoskeletal Surgical History: Reports: Ganglion Cyst, Shoulder Surgery Other Musculoskeletal Surgeries/Procedures:: Carpal tunnel, trigger finger surgery Social & Family History - Family History Family Medical History: No Pertinent Family History - Tobacco Use Tobacco Use Status *Q: Never Tobacco User Second Hand Smoke Exposure: No - Caffeine Use Caffeine Use: Reports: Soda Other Caffeine Use: unknown - Recreational Drug Use Recreational Drug Use: Yes Recreational Drug Type: Reports: Marijuana/Hashish - Living Situation & Occupation Living situation: Reports: , with Spouse, with Family (Granddaughter) Occupation: Unemployed ED ROS GENERAL - Review of Systems Review Of Systems: Comprehensive ROS is negative, except as noted in HPI. ED EXAM, GENERAL - Physical Exam Exam: See Below Exam Limited By: No Limitations General Appearance: Alert, WD/WN, No Apparent Distress Ears: Normal External Exam, Hearing Grossly Normal Nose: Normal Inspection Throat/Mouth: Normal Inspection, Normal Lips, Normal Voice, No Airway Compromise Head: Atraumatic Neck: Normal Inspection, Supple Respiratory/Chest: No Respiratory Distress, No Accessory Muscle Use, Chest Non- Tender, Wheezing (Fine expiratory wheeze noted posteriorly) Cardiovascular: Normal Peripheral Pulses, Regular Rate, Rhythm, No Edema, No Murmur Peripheral Pulses: 2+: Radial (L), Radial (R) GI/Abdominal: Normal Bowel Sounds, Soft, Non-Tender, No Distention (Female) Exam: Deferred Rectal (Female) Exam: Deferred Back Exam: Normal Inspection Extremities: Normal Inspection Neurological: Alert, Oriented, Normal Cognition Psychiatric: Normal Affect, Normal Mood Skin Exam: Warm, Dry, Intact, Normal Color, No Rash Lymphatic: No Adenopathy Course - Vital Signs Text/Narrative:: As stated above, patient presents with worsening shortness of breath, wheezing, fever and cough productive of green sputum. Patient states this started about 4 days ago. She is on oxygen chronically at 2 L per nasal cannula. She states she has not had to increase her oxygen levels. The time of my exam her O2 saturations are 98% and is otherwise hemodynamically stable. She does have some fine wheezing noted posteriorly lungs are otherwise clear. I do not appreciate any lower extremity edema and physical exam is otherwise unremarkable. Will obtain a CBC, CMP, C-reactive protein, magnesium level as well as a D-dimer. Patient will have a Covid swab. Last Recorded V/S: Last Vital Signs Temp 97.9 F 06/29/21 11:05 Pulse 79 06/29/21 11:05 Resp 20 06/29/21 11:05 BP 136/81 06/29/21 11:05 Pulse Ox 96 06/29/21 11:32 - Orders/Labs/Meds Orders: Active Orders 24 hr Category Date Time Status RT Aerosol Therapy [RC] ASDIRECTED Care 06/29/21 11:32 Active Chest 1V Frontal [CR] Stat Exams 06/29/21 11:30 Taken Sodium Chloride 0.9% [Saline Flush] Med 06/29/21 11:30 Active 10 ml FLUSH ASDIRECTED PRN Isolation [COMM] Routine Oth 06/29/21 12:07 Ordered Saline Lock Insert [OM.PC] Stat Oth 06/29/21 11:30 Ordered Medication Orders Sodium Chloride (Sodium Chloride 0.9% 10 Ml Syringe) 10 ml FLUSH ASDIRECTED PRN PRN Reason: Keep Vein Open Labs: Laboratory Tests 06/29/21 06/29/21 06/29/21 Range/Units 11:08 11:46 11:46 WBC 7.13 (3.98-10.04) K/mm3 RBC 4.21 (3.98-5.22) M/mm3 Hgb 12.7 (11.2-15.7) gm/dl Hct 42.1 (34.1-44.9) % MCV 100.0 H (79.4-94.8) fl MCH 30.2 (25.6-32.2) pg MCHC 30.2 L (32.2-35.5) g/dl RDW Std Deviation 48.2 H (36.4-46.3) fL Plt Count 308 (182-369) K/mm3 MPV 8.5 L (9.4-12.3) fl Neut % (Auto) 57.4 (34.0-71.1) % Lymph % (Auto) 25.1 (19.3-51.7) % [place] % (Auto) 10.8 (4.7-12.5) % Eos % (Auto) 6.3 H (0.7-5.8) Baso % (Auto) 0.4 (0.1-1.2) % Neut # (Auto) 4.09 (1.56-6.13) K/mm3 Lymph # (Auto) 1.79 (1.18-3.74) K/mm3 [place] # (Auto) 0.77 H (0.24-0.36) K/mm3 Eos # (Auto) 0.45 H (0.04-0.36) K/mm3 Baso # (Auto) 0.03 (0.01-0.08) K/mm3 D-Dimer, Quantitative 0.47 (0.19-0.50) mg/L Sodium (136-145) mEq/L Potassium (3.5-5.1) mEq/L Chloride (98-107) mEq/L Carbon Dioxide (21-32) mEq/L Anion Gap (5-15) BUN (7-18) mg/dL Creatinine (0.55-1.02) mg/dL Est Cr Clr Drug Dosing mL/min Estimated GFR (MDRD) (>60) mL/min BUN/Creatinine Ratio (14-18) Glucose (70-99) mg/dL Calcium (8.5-10.1) mg/dL Magnesium (1.8-2.4) mg/dL Total Bilirubin (0.2-1.0) mg/dL AST (15-37) U/L ALT (14-59) U/L Alkaline Phosphatase (46-116) U/L C-Reactive Protein (<1.0) mg/dL Total Protein (6.4-8.2) g/dl Albumin (3.4-5.0) g/dl Globulin gm/dL Albumin/Globulin Ratio (1-2) Influenza Type A RNA Negative (NEGATIVE) RSV RNA (INAAT) Positive H (NEGATIVE) Influenza Type B RNA Negative (NEGATIVE) SARS-CoV-2 RNA (MARY) Negative (NEGATIVE) 06/29/21 Range/Units 11:46 WBC (3.98-10.04) K/mm3 RBC (3.98-5.22) M/mm3 Hgb (11.2-15.7) gm/dl Hct (34.1-44.9) % MCV (79.4-94.8) fl MCH (25.6-32.2) pg MCHC (32.2-35.5) g/dl RDW Std Deviation (36.4-46.3) fL Plt Count (182-369) K/mm3 MPV (9.4-12.3) fl Neut % (Auto) (34.0-71.1) % Lymph % (Auto) (19.3-51.7) % [place] % (Auto) (4.7-12.5) % Eos % (Auto) (0.7-5.8) Baso % (Auto) (0.1-1.2) % Neut # (Auto) (1.56-6.13) K/mm3 Lymph # (Auto) (1.18-3.74) K/mm3 [place] # (Auto) (0.24-0.36) K/mm3 Eos # (Auto) (0.04-0.36) K/mm3 Baso # (Auto) (0.01-0.08) K/mm3 D-Dimer, Quantitative (0.19-0.50) mg/L Sodium 140 (136-145) mEq/L Potassium 4.3 (3.5-5.1) mEq/L Chloride 101 (98-107) mEq/L Carbon Dioxide 34 H (21-32) mEq/L Anion Gap 9.3 (5-15) BUN 10 (7-18) mg/dL Creatinine 1.1 H (0.55-1.02) mg/dL Est Cr Clr Drug Dosing 59.68 mL/min Estimated GFR (MDRD) 51 (>60) mL/min BUN/Creatinine Ratio 9.1 L (14-18) Glucose 87 (70-99) mg/dL Calcium 9.2 (8.5-10.1) mg/dL Magnesium 2.4 (1.8-2.4) mg/dL Total Bilirubin 0.2 (0.2-1.0) mg/dL AST 40 H (15-37) U/L ALT 59 (14-59) U/L Alkaline Phosphatase 99 (46-116) U/L C-Reactive Protein 0.5 (<1.0) mg/dL Total Protein 7.4 (6.4-8.2) g/dl Albumin 3.9 (3.4-5.0) g/dl Globulin 3.5 gm/dL Albumin/Globulin Ratio 1.1 (1-2) Influenza Type A RNA (NEGATIVE) RSV RNA (INAAT) (NEGATIVE) Influenza Type B RNA (NEGATIVE) SARS-CoV-2 RNA (MARY) (NEGATIVE) Meds: Medications Generic Name Dose Route Start Last Admin Trade Name Freq PRN Reason Stop Dose Admin Sodium Chloride 10 ml 06/29/21 11:30 Sodium Chloride 0.9% 10 Ml Syringe FLUSH ASDIRECTED PRN Keep Vein Open Discontinued Medications Generic Name Dose Route Start Last Admin Trade Name Freq PRN Reason Stop Dose Admin Albuterol 2.5 mg 06/29/21 11:32 06/29/21 11:55 Albuterol 0.083% 2.5 Mg/3 Ml Neb Soln NEB 06/29/21 11:33 2.5 mg ONETIME ONE Administration - Re-Assessments/Exams Free Text/Narrative Re-Assessment/Exam: 06/29/21 12:22 Hematology reveals a WBC of 7.13, hemoglobin 12.7, hematocrit 42.1, platelet count 308, D-dimer 0.47, chemistry reveals a sodium of 140, potassium 4.3, carbon dioxide 34, anion gap 9.3, BUN 10, creatinine 1.1, glucose 87, magnesium 2.4, C-reactive protein 0.5 Influenza a and B are negative, Covid is negative, RSV is positive Portable chest x-ray shows no acute processes. Formal radiologist report is pending Patient will be discharged home with recommendations that she get plenty of rest. Take Tylenol or ibuprofen for fever or discomfort. She states she does have albuterol nebs at home that she can use every 2-4 hours as needed. She also has Tessalon Perles at home which she can use 3 times daily. Departure - Departure Time of Disposition: 12:22 Disposition: Home, Self-Care 01 Condition: Good Clinical Impression: Respiratory syncytial virus (RSV) infection - Discharge Information Instructions: Upper Respiratory Infection, Adult, [id number] Referrals: Gina Welch MD [Primary Care Provider] - Forms: ED Department Discharge Additional Instructions: You were seen in the emergency department with 4-day history of increasing shortness of breath, wheezing, intermittent fever and fatigue. Chest x-ray does not show any sign of pneumonia or infection. Lab studies were unremarkable and do not show any sign of infection. Covid swab was negative however RSV swab was positive. As discussed treatment of this is supportive measures. Recommend you go home and get plenty of rest, drink plenty of fluids and take Tylenol or ibuprofen for fever or discomfort. Use your home nebulizer as needed. Take your Tessalon Perles 1-2 tabs up to 3 times daily for cough. If you are still n ot feeling better by the middle of this next week, recommend you follow-up with Dr. Welch. Sepsis Event Note (ED) - Focused Exam Vital Signs: Vital Signs Temp Pulse Resp BP Pulse Ox Pulse Ox 06/29/21 11:32 96 06/29/21 11:05 97.9 F 79 20 136/81 92 L - My Orders Last 24 Hours: My Active Orders 06/29/21 11:30 Chest 1V Frontal [CR] Stat Sodium Chloride 0.9% [Saline Flush] 10 ml FLUSH ASDIRECTED PRN Saline Lock Insert [OM.PC] Stat 06/29/21 11:32 RT Aerosol Therapy [RC] ASDIRECTED 06/29/21 12:07 Isolation [COMM] Routine - Assessment/Plan Last 24 Hours: My Active Orders 06/29/21 11:30 Chest 1V Frontal [CR] Stat Sodium Chloride 0.9% [Saline Flush] 10 ml FLUSH ASDIRECTED PRN Saline Lock Insert [OM.PC] Stat 06/29/21 11:32 RT Aerosol Therapy [RC] ASDIRECTED 06/29/21 12:07 Isolation [COMM] Routine
--- NOTE | 2021-06-30 08:10 | CR ---
Chest: Portable view of the chest was obtained. Comparison: Prior chest CT study of 04/14/21 and chest x-ray of 04/14/21. Heart size and mediastinum are within normal limits for portable technique. Lungs are clear with no acute parenchymal change. No discrete osseous abnormality is appreciated. Impression: 1. Nothing acute is seen on portable chest x-ray. Diagnostic code #1
== END 2021-06-29 12:48 | disposition home or self-care (01) ==
LOC: JD.ED 10:24
DX: R06.02 Shortness of breath (principal); R06.2 Wheezing; B97.4 Respiratory syncytial virus as the cause of diseases classified elsewhere; I10 Essential (primary) hypertension; J44.9 Chronic obstructive pulmonary disease, unspecified; E11.9 Type 2 diabetes mellitus without complications; E66.9 Obesity, unspecified; Z68.35 Body mass index [BMI] 35.0-35.9, adult; Z88.8 Allergy status to other drugs, medicaments and biological substances; Z88.5 Allergy status to narcotic agent; Z88.2 Allergy status to sulfonamides; Z79.84 Long term (current) use of oral hypoglycemic drugs; Z79.899 Other long term (current) drug therapy; Z20.822 Contact with and (suspected) exposure to COVID-19
CPT/HCPCS: 0241U; 36415; 71045; 80053; 83735; 85025; 85379; 86140; 94640; 99285

== ENCOUNTER 2021-07-02 15:24 | Inpatient (IN) | payer MEDICARE ==
[2021-07-02] MEDS ORDERED: Albuterol 0.083% 2.5 MG/3 ML Neb Soln NEB ONE (15:52)
--- NOTE | 2021-07-02 16:13 | EDM.PDOC ---
ED HPI GENERAL MEDICAL PROBLEM - General Chief Complaint: Respiratory Problem Stated Complaint: INFECTION Time Seen by Provider: 07/02/21 15:32 Source of Information: Reports: Patient History Limitations: Reports: No Limitations, Other (ED vital signs reveal a temp of 97.3, pulse 72, respiratory rate 18, blood pressure 120/80, pulse ox 94% on 3 L per nasal cannula) - History of Present Illness INITIAL COMMENTS - FREE TEXT/NARRATIVE: 56-year-old female presents the emergency department from the clinic side with complaints of increasing generalized weakness, shortness of breath, body aches, sinus pressure, wheezing and cough. The patient was seen in this emergency department over the weekend and diagnosed with RSV and sent home. Patient states that throughout the weekend she progressively got weaker and developed a low-grade temp of 100. She states she does have nebulizer treatments at home however has been too weak to administer those to herself. Of note, patient does have a history of muscular dystrophy and is chronically oxygen dependent on 2 L per nasal cannula. She does have a history of AV shunting so her oxygen saturations are variable at times. Patient was seen at the clinic today and a chest x-ray was completed which did show slight density within the left lung base suspicious for pneumonia which is an interval change from prior exam. Patient was progressively getting weaker over at the clinics the provider elected to send her to the emergency department for further evaluation. She did have an IV started while in the clinic and normal saline was running upon arrival to the emergency department. She also did receive a dose of IV Solu- Medrol while in the clinic. Patient has not yet had her Covid vaccine and she is slated to get it in the next week or 2. She does have a history of having Covid back in October 2020. Abdominal Pain Score (Numeric/FACES): 2 Bilateral Upper Shoulder Pain Score (Numeric/FACES): 1 - Related Data Allergies Allergy/AdvReac Type Severity Reaction Status Date / Time exenatide [From Bydureon] Allergy Intermediate Hives Verified 06/29/21 11:06 oxycodone Allergy Intermediate Itching Verified 06/29/21 11:06 quetiapine [From Seroquel] Allergy Mild Other Verified 06/29/21 11:06 metformin Allergy Unknown Other Verified 06/29/21 11:06 Sulfonylureas Allergy Unknown Other Verified 06/29/21 11:06 Hjiirdg-SDL-OwQ Reductase AdvReac Mild Muscle Verified 06/29/21 11:06 Inhibitor Aches [Oaidmcl-Caf-Hfw Reductase Inhibitor] Home Meds: Home Meds Gabapentin [Neurontin] 1,800 mg PO BID 10/09/15 [History] Losartan [Cozaar] 50 mg PO BID 10/09/15 [History] Spironolactone [Aldactone] 25 mg PO DAILY 10/09/15 [History] carvediloL [Coreg] 3.125 mg PO BID 10/09/15 [History] traZODone 225 mg PO BEDTIME 10/09/15 [History] ALPRAZolam [Xanax] 0.5 mg PO TID PRN 04/12/16 [History] lamoTRIgine [Lamictal] 200 mg PO BID 04/16/18 [History] Cholecalciferol (Vitamin D3) [Vitamin D3] 10,000 unit PO DAILY 07/23/19 [History] Acetaminophen with Codeine [Acetaminophen-Cod #4] 1 - 2 tab PO TID PRN 11/01/20 [History] Albuterol Sulfate [Albuterol Sulfate HFA] 1 puff INH Q4H PRN 11/01/20 [History] Levothyroxine Sodium [Levothyroxine] 137 mcg PO ACBREAKFAST 11/01/20 [History] Methylphenidate HCl [Methylphenidate ER] 27 mg PO DAILY 11/01/20 [History] Multivitamin [Multi-Day Vitamins] 1 tab PO BEDTIME 11/01/20 [History] Triamcinolone Acetonide [Nasacort AQ [place]] 2 sprays NASBOTH DAILY 11/01/20 [History] Venlafaxine HCl [Venlafaxine ER] 225 mg PO DAILY 11/01/20 [History] valACYclovir HCl [Valtrex] 500 mg PO BID PRN 11/18/20 [History] Benzonatate [Tessalon [place]] 200 mg PO DAILY PRN 03/19/21 [History] Acetaminophen [Tylenol] 650 mg PO Q4H PRN tablet 03/22/21 [Rx] Nystatin [Nyamyc] 1 gm TOP TID PRN 04/14/21 [History] Temazepam 45 mg PO BEDTIME 04/14/21 [History] Albuterol/Ipratropium [DuoNeb 3.0-0.5 MG/3 ML] 3 ml .XX TID PRN 07/02/21 [History] Dulaglutide [Trulicity] 1.5 mg SQ WEEKLY 07/02/21 [History] Mometasone/Formoterol [Dulera 200-5 MCG] 1 puff INH DAILY 07/02/21 [History] tiZANidine [Zanaflex] 2 - 4 mg PO TID PRN 07/02/21 [History] Past Medical History HEENT History: Reports: Impaired Vision Other HEENT History: glasses Cardiovascular History: Reports: Angina, Blood Clots/VTE/DVT, Cardiomyopathy, Hypertension, SOB on Exertion Other Cardiovascular History: PSVT, 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." Respiratory History: Reports: COPD, Pneumonia, Recurrent, Sleep Apnea, SOB Other Respiratory History: "CO2 retention." Gastrointestinal History: Reports: Bowel Obstruction, Colon Polyp Other Gastrointestinal History: hernia Genitourinary History: Reports: Renal Calculus, Urinary Incontinence [employer] History: Reports: Endometriosis, , Spontaneous , Other (See Below) Other [employer] History: 5 "miscarriages" Musculoskeletal History: Reports: Fracture, Muscular Dystrophy Other Musculoskeletal History: T7 compression fx, 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 Hematologic History: Reports: Anemia Immunologic History: Reports: None Oncologic (Cancer) History: Reports: None Dermatologic History: Reports: Other (See Below) Other Dermatologic History: Keloids - Infectious Disease History Infectious Disease History: Reports: Influenza, Novel Coronavirus - Past Surgical History HEENT Surgical History: Reports: Adenoidectomy, Tonsillectomy Cardiovascular Surgical History: Reports: Other (See Below) Other Cardiovascular Surgeries/Procedures: Pt has had 7 cardiac catheterizations. GI Surgical History: Reports: Appendectomy, Cholecystectomy, Hernia Repair/Other, Other (See Below) Other GI Surgeries/Procedures: Bowel resection after bowel obstruction. Endocrine Surgical History: Reports: None Musculoskeletal Surgical History: Reports: Ganglion Cyst, Shoulder Surgery Other Musculoskeletal Surgeries/Procedures:: Carpal tunnel, trigger finger surgery Social & Family History - Family History Family Medical History: No Pertinent Family History - Caffeine Use Caffeine Use: Reports: Soda Other Caffeine Use: unknown - Living Situation & Occupation Living situation: Reports: , with Spouse, with Family (Granddaughter) Occupation: Unemployed ED ROS GENERAL - Review of Systems Review Of Systems: Comprehensive ROS is negative, except as noted in HPI. ED EXAM, GENERAL - Physical Exam Exam: See Below Exam Limited By: No Limitations General Appearance: Alert, WD/WN, Mild Distress Ears: Normal External Exam, Hearing Grossly Normal Nose: Normal Inspection Throat/Mouth: Normal Inspection, Normal Lips, Normal Voice, No Airway Compromise Head: Atraumatic Neck: Normal Inspection, Supple Respiratory/Chest: No Respiratory Distress, Chest Non-Tender, Crackles (Coarse crackles noted bilaterally), Wheezing (Expiratory wheezing noted). No: Lungs Clear Cardiovascular: Normal Peripheral Pulses, Regular Rate, Rhythm, No Edema, No Murmur Peripheral Pulses: 2+: Radial (L), Radial (R) GI/Abdominal: Normal Bowel Sounds, Soft, Non-Tender, No Distention (Female) Exam: Deferred Rectal (Female) Exam: Deferred Back Exam: Normal Inspection Extremities: Normal Inspection Neurological: Alert, Oriented, Normal Cognition Psychiatric: Normal Affect, Normal Mood Skin Exam: Warm, Dry, Intact, Normal Color, No Rash Lymphatic: No Adenopathy #1 Interpretation EKG Date: 07/02/21 Time: 14:24 Rhythm: NSR Rate (Beats/Min): 72 [place]: Normal P-Wave: Present QRS: Normal ST-T: Normal QT: Normal EKG Interpretation Comments: Per Dr. Mars interpretation: Sinus rhythm at 72 bpm; inferior infarct, old; consider anterior infarct Course - Vital Signs Text/Narrative:: As stated above patient presents with increased weakness, shortness of breath, cough, body aches over the past couple of days. She was seen at the clinic and directly sent to the ER from there. Upon exam, patient does have coarse lung sounds throughout with expiratory wheezes. She is otherwise hemodynamically stable. O2 saturations are 98% on 3 L per nasal cannula. I have ordered lab studies to include a CBC, CMP, C-reactive protein, magnesium and a set of blood cultures. Patient will receive an albuterol nebulizer breathing treatment. Last Recorded V/S: Last Vital Signs Temp 96.8 F L 07/03/21 20:43 Pulse 72 07/03/21 20:45 Resp 16 07/03/21 20:43 BP 111/84 07/03/21 20:45 Pulse Ox 91 L 07/03/21 20:43 - Orders/Labs/Meds Orders: Medication Orders Acetaminophen (Acetaminophen 325 Mg Tab) 650 mg PO Q4H PRN PRN Reason: Pain (Mild 1-3)/fever Albuterol/Ipratropium (Albuterol/Ipratropium 3.0-0.5 Mg/3 Ml Neb Soln) 3 ml NEB Q4H PRN PRN Reason: Shortness Of Breath/wheezing Last Admin: 07/03/21 20:27 Dose: 3 ml Documented by: Admin: 07/03/21 10:14 Dose: 3 ml Documented by: Admin: 07/03/21 05:57 Dose: 3 ml Documented by: Admin: 07/02/21 21:48 Dose: 3 ml Documented by: AURORA Alprazolam (Alprazolam 0.5 Mg Tab) 0.5 mg PO TID PRN PRN Reason: Anxiety Last Admin: 07/03/21 12:24 Dose: 0.5 mg Documented by: LORRIE Azithromycin (Azithromycin 250 Mg Tab) 500 mg PO Q24H [facility] Stop: 07/04/21 22:01 Last Admin: 07/03/21 22:14 Dose: Not Given Documented by: Admin: 07/03/21 20:48 Dose: 500 mg Documented by: Admin: 07/02/21 21:41 Dose: 500 mg Documented by: SANTIAGO Benzonatate (Benzonatate 100 Mg Cap) 200 mg PO DAILY PRN PRN Reason: Cough Carvedilol (Carvedilol 3.125 Mg Tab) 3.125 mg PO BID [facility] Last Admin: 07/03/21 20:45 Dose: 3.125 mg Documented by: Admin: 07/03/21 08:46 Dose: 3.125 mg Documented by: Admin: 07/02/21 21:40 Dose: 3.125 mg Documented by: SANTIAGO Enoxaparin Sodium (Enoxaparin 40 Mg/0.4 Ml Syringe) 40 mg SUBCUT DAILY [facility] Last Admin: 07/03/21 08:47 Dose: 40 mg Documented by: LORRIE Gabapentin (Gabapentin 600 Mg Tab) 1,800 mg PO BID [facility] Last Admin: 07/03/21 20:46 Dose: 1,800 mg Documented by: Admin: 07/03/21 08:47 Dose: 1,800 mg Documented by: LORRIE Hydromorphone HCl (Hydromorphone 0.5 Mg/0.5 Ml Syringe) 0.5 mg IVPUSH Q2H PRN PRN Reason: Pain (severe 7-10) Last Admin: 07/02/21 22:40 Dose: 0.5 mg Documented by: SANTIAGO Ceftriaxone Sodium 2 gm/ (Sodium Chloride) 100 mls @ 200 mls/hr IV Q24H [facility] Last Admin: 07/03/21 20:47 Dose: 200 mls/hr Documented by: MERLINE Insulin Human Lispro (Insulin Lispro 100 Unit/Ml 3 Ml Kwikpen) 0 unit SUBCUT QIDACANDBED [facility]; Protocol Last Admin: 07/03/21 22:14 Dose: Not Given Documented by: Admin: 07/03/21 20:49 Dose: 2 units Documented by: Admin: 07/03/21 16:53 Dose: 4 units Documented by: LORRIE Lamotrigine (Lamotrigine 100 Mg Tab) 200 mg PO BID [facility] Last Admin: 07/03/21 20:47 Dose: 200 mg Documented by: Admin: 07/03/21 08:45 Dose: 200 mg Documented by: Admin: 07/02/21 21:42 Dose: 200 mg Documented by: SANTIAGO Levothyroxine Sodium (Levothyroxine 112 Mcg Tab) 112 mcg PO ACBREAKFAST [facility] Last Admin: 07/03/21 06:52 Dose: 112 mcg Documented by: SANTIAGO Levothyroxine Sodium (Levothyroxine 25 Mcg Tab) 25 mcg PO ACBREAKFAST [facility] Last Admin: 07/03/21 06:52 Dose: 25 mcg Documented by: SANTIAGO Losartan Potassium (Losartan 50 Mg Tab) 50 mg PO BID [facility] Last Admin: 07/03/21 20:45 Dose: 50 mg Documented by: Admin: 07/03/21 08:46 Dose: 50 mg Documented by: Admin: 07/02/21 21:41 Dose: 50 mg Documented by: SANTIAGO Methylprednisolone Sodium Succinate (Methylprednisolone Sodium Succinate 40 Mg/1 Ml Sdv) 60 mg IVPUSH Q12H [facility] Last Admin: 07/03/21 22:23 Dose: 60 mg Documented by: Admin: 07/03/21 11:36 Dose: 60 mg Documented by: LORRIE Mometasone Furoate/Formoterol Fumar (Formoterol/Mometasone 200-5 Mcg 8.8 Gm Inhaler) 1 puff IH DAILY [facility] Nystatin (Nystatin Topical Powder 15 Gm Bottle) 0 gm TOP TID PRN PRN Reason: Rash Spironolactone (Spironolactone 25 Mg Tab) 25 mg PO DAILY [facility] Last Admin: 07/03/21 08:47 Dose: 25 mg Documented by: LORRIE Temazepam (Temazepam 30 Mg Cap) 30 mg PO BEDTIME [facility] Last Admin: 07/03/21 20:46 Dose: 30 mg Documented by: MERLINE Temazepam (Temazepam 15 Mg Cap) 15 mg PO BEDTIME [facility] Last Admin: 07/03/21 20:47 Dose: 15 mg Documented by: MERLINE Tramadol HCl (Tramadol 50 Mg Tab) 100 mg PO Q6H PRN PRN Reason: Pain Last Admin: 07/03/21 09:31 Dose: 100 mg Documented by: BURTON Trazodone HCl (Trazodone 50 Mg Tab) 225 mg PO BEDTIME [facility] Last Admin: 07/03/21 20:47 Dose: 225 mg Documented by: Admin: 07/02/21 21:42 Dose: 225 mg Documented by: SANTIAGO Venlafaxine HCl (Venlafaxine 75 Mg Cap.Er) 225 mg PO DAILY [facility] Last Admin: 07/03/21 08:46 Dose: 225 mg Documented by: LORRIE Labs: Laboratory Tests 07/02/21 07/02/21 07/02/21 Range/Units 16:18 16:18 16:18 WBC 7.02 (3.98-10.04) K/mm3 RBC 4.14 (3.98-5.22) M/mm3 Hgb 12.5 (11.2-15.7) gm/dl Hct 41.2 (34.1-44.9) % MCV 99.5 H (79.4-94.8) fl MCH 30.2 (25.6-32.2) pg MCHC 30.3 L (32.2-35.5) g/dl RDW Std Deviation 48.7 H (36.4-46.3) fL Plt Count 286 (182-369) K/mm3 MPV 8.6 L (9.4-12.3) fl Neut % (Auto) 82.6 H (34.0-71.1) % Lymph % (Auto) 13.0 L (19.3-51.7) % Stokes % (Auto) 2.8 L (4.7-12.5) % Eos % (Auto) 1.1 (0.7-5.8) Baso % (Auto) 0.4 (0.1-1.2) % Neut # (Auto) 5.79 (1.56-6.13) K/mm3 Lymph # (Auto) 0.91 L (1.18-3.74) K/mm3 Stokes # (Auto) 0.20 L (0.24-0.36) K/mm3 Eos # (Auto) 0.08 (0.04-0.36) K/mm3 Baso # (Auto) 0.03 (0.01-0.08) K/mm3 Sodium 140 (136-145) mEq/L Potassium 4.3 (3.5-5.1) mEq/L Chloride 102 (98-107) mEq/L Carbon Dioxide 31 (21-32) mEq/L Anion Gap 11.3 (5-15) BUN 9 (7-18) mg/dL Creatinine 1.1 H (0.55-1.02) mg/dL Est Cr Clr Drug Dosing 59.68 mL/min Estimated GFR (MDRD) 51 (>60) mL/min BUN/Creatinine Ratio 8.2 L (14-18) Glucose 154 H (70-99) mg/dL Calcium 8.8 (8.5-10.1) mg/dL Magnesium 2.3 (1.8-2.4) mg/dL Total Bilirubin 0.4 (0.2-1.0) mg/dL AST 36 (15-37) U/L ALT 50 (14-59) U/L Alkaline Phosphatase 102 (46-116) U/L C-Reactive Protein 2.1 H* (<1.0) mg/dL Total Protein 7.2 (6.4-8.2) g/dl Albumin 3.8 (3.4-5.0) g/dl Globulin 3.4 gm/dL Albumin/Globulin Ratio 1.1 (1-2) Procalcitonin <0.05 ng/mL SARS-CoV-2 RNA (MARY) (NEGATIVE) 07/02/21 Range/Units 16:21 WBC (3.98-10.04) K/mm3 RBC (3.98-5.22) M/mm3 Hgb (11.2-15.7) gm/dl Hct (34.1-44.9) % MCV (79.4-94.8) fl MCH (25.6-32.2) pg MCHC (32.2-35.5) g/dl RDW Std Deviation (36.4-46.3) fL Plt Count (182-369) K/mm3 MPV (9.4-12.3) fl Neut % (Auto) (34.0-71.1) % Lymph % (Auto) (19.3-51.7) % [place] % (Auto) (4.7-12.5) % Eos % (Auto) (0.7-5.8) Baso % (Auto) (0.1-1.2) % Neut # (Auto) (1.56-6.13) K/mm3 Lymph # (Auto) (1.18-3.74) K/mm3 [place] # (Auto) (0.24-0.36) K/mm3 Eos # (Auto) (0.04-0.36) K/mm3 Baso # (Auto) (0.01-0.08) K/mm3 Sodium (136-145) mEq/L Potassium (3.5-5.1) mEq/L Chloride (98-107) mEq/L Carbon Dioxide (21-32) mEq/L Anion Gap (5-15) BUN (7-18) mg/dL Creatinine (0.55-1.02) mg/dL Est Cr Clr Drug Dosing mL/min Estimated GFR (MDRD) (>60) mL/min BUN/Creatinine Ratio (14-18) Glucose (70-99) mg/dL Calcium (8.5-10.1) mg/dL Magnesium (1.8-2.4) mg/dL Total Bilirubin (0.2-1.0) mg/dL AST (15-37) U/L ALT (14-59) U/L Alkaline Phosphatase (46-116) U/L C-Reactive Protein (<1.0) mg/dL Total Protein (6.4-8.2) g/dl Albumin (3.4-5.0) g/dl Globulin gm/dL Albumin/Globulin Ratio (1-2) Procalcitonin ng/mL SARS-CoV-2 RNA (MARY) Negative (NEGATIVE) Meds: Medications Generic Name Dose Route Start Last Admin Trade Name Freq PRN Reason Stop Dose Admin Acetaminophen 650 mg 07/02/21 20:57 Acetaminophen 325 Mg Tab PO Q4H PRN Pain (Mild 1-3)/fever Albuterol/Ipratropium 3 ml 07/02/21 20:57 07/03/21 20:27 Albuterol/Ipratropium 3.0-0.5 Mg/3 Ml Neb Soln NEB 3 ml Q4H PRN Administration Shortness Of Breath/wheezing Alprazolam 0.5 mg 07/02/21 20:50 07/03/21 12:24 Alprazolam 0.5 Mg Tab PO 0.5 mg TID PRN Administration Anxiety Azithromycin 500 mg 07/02/21 22:00 07/03/21 22:14 Azithromycin 250 Mg Tab PO 07/04/21 22:01 Not Given Q24H JUSTIN Benzonatate 200 mg 07/02/21 20:50 Benzonatate 100 Mg Cap PO DAILY PRN Cough Carvedilol 3.125 mg 07/02/21 21:00 07/03/21 20:45 Carvedilol 3.125 Mg Tab PO 3.125 mg BID JUSTIN Administration Enoxaparin Sodium 40 mg 07/03/21 09:00 07/03/21 08:47 Enoxaparin 40 Mg/0.4 Ml Syringe SUBCUT 40 mg DAILY JUSTIN Administration Gabapentin 1,800 mg 07/03/21 09:00 07/03/21 20:46 Gabapentin 600 Mg Tab PO 1,800 mg BID JUSTIN Administration Hydromorphone HCl 0.5 mg 07/02/21 20:57 07/02/21 22:40 Hydromorphone 0.5 Mg/0.5 Ml Syringe IVPUSH 0.5 mg Q2H PRN Administration Pain (severe 7-10) Ceftriaxone Sodium 2 gm/ 100 mls @ 200 mls/hr 07/03/21 21:00 07/03/21 20:47 Sodium Chloride IV 200 mls/hr Q24H [facility] Administration Insulin Human Lispro 0 unit 07/03/21 17:00 07/03/21 22:14 Insulin Lispro 100 Unit/Ml 3 Ml Kwikpen SUBCUT Not Given QIDACANDBED [facility] Protocol Lamotrigine 200 mg 07/02/21 21:00 07/03/21 20:47 Lamotrigine 100 Mg Tab PO 200 mg BID [facility] Administration Levothyroxine Sodium 112 mcg 07/03/21 06:00 07/03/21 06:52 Levothyroxine 112 Mcg Tab PO 112 mcg ACBREAKFAST [facility] Administration Levothyroxine Sodium 25 mcg 07/03/21 06:00 07/03/21 06:52 Levothyroxine 25 Mcg Tab PO 25 mcg ACBREAKFAST [facility] Administration Losartan Potassium 50 mg 07/02/21 21:00 07/03/21 20:45 Losartan 50 Mg Tab PO 50 mg BID JUSTIN Administration Methylprednisolone Sodium Succinate 60 mg 07/03/21 10:45 07/03/21 22:23 Methylprednisolone Sodium Succinate 40 Mg/1 Ml Sdv IVPUSH 60 mg Q12H [facility] Administration Mometasone Furoate/Formoterol Fumar 1 puff 07/04/21 09:00 Formoterol/Mometasone 200-5 Mcg 8.8 Gm Inhaler IH DAILY [facility] Nystatin 0 gm 07/02/21 20:50 Nystatin Topical Powder 15 Gm Bottle TOP TID PRN Rash Spironolactone 25 mg 07/03/21 09:00 07/03/21 08:47 Spironolactone 25 Mg Tab PO 25 mg DAILY [facility] Administration Temazepam 30 mg 07/03/21 21:00 07/03/21 20:46 Temazepam 30 Mg Cap PO 30 mg BEDTIME [facility] Administration Temazepam 15 mg 07/03/21 21:00 07/03/21 20:47 Temazepam 15 Mg Cap PO 15 mg BEDTIME [facility] Administration Tramadol HCl 100 mg 07/02/21 21:00 07/03/21 09:31 Tramadol 50 Mg Tab PO 100 mg Q6H PRN Administration Pain Trazodone HCl 225 mg 07/02/21 21:00 07/03/21 20:47 Trazodone 50 Mg Tab PO 225 mg BEDTIME [facility] Administration Venlafaxine HCl 225 mg 07/03/21 09:00 07/03/21 08:46 Venlafaxine 75 Mg Cap.Er PO 225 mg DAILY [facility] Administration Discontinued Medications Generic Name Dose Route Start Last Admin Trade Name Freq PRN Reason Stop Dose Admin Albuterol 2.5 mg 07/02/21 15:52 07/02/21 16:21 Albuterol 0.083% 2.5 Mg/3 Ml Neb Soln NEB 07/02/21 15:53 2.5 mg ONETIME ONE Administration Gabapentin 1,800 mg 07/02/21 21:00 07/02/21 21:43 Gabapentin 300 Mg Cap PO 1,800 mg BID JUSTIN Administration Ceftriaxone Sodium 1 gm/ 100 mls @ 200 mls/hr 07/02/21 16:42 07/02/21 17:30 Sodium Chloride IV 07/02/21 17:11 200 mls/hr ONETIME ONE Administration Ceftriaxone Sodium 1 gm/ 100 mls @ 200 mls/hr 07/02/21 21:15 07/02/21 21:57 Sodium Chloride IV 07/02/21 21:44 200 mls/hr ONETIME ONE Administration Insulin Human Lispro 0 unit 07/02/21 21:08 07/02/21 21:56 Insulin Lispro 100 Unit/Ml 3 Ml Kwikpen SUBCUT 10 units QIDACANDBED PRN Administration Hyperglycemia Protocol Ketorolac Tromethamine 30 mg 07/02/21 16:58 07/02/21 17:30 Ketorolac 30 Mg/Ml Sdv IVPUSH 07/02/21 16:59 30 mg ONETIME ONE Administration Temazepam 45 mg 07/02/21 21:00 07/02/21 21:41 Temazepam 15 Mg Cap PO 45 mg BEDTIME [facility] Administration - Re-Assessments/Exams Free Text/Narrative Re-Assessment/Exam: 07/02/21 17:32 Hematology reveals a WBC of 7.02, hemoglobin 12.5, hematocrit 41.2, platelet count 286 Chemistry reveals a sodium of 140, potassium 4.3, chloride 102, anion gap 11.3, BUN 9, creatinine 1.1, GFR 51, glucose 154, magnesium 2.3, C-reactive protein 2 .1 I do feel this patient needs to be admitted to the hospital due to pneumonia and inability to care for herself at home. I did speak with , the hospitalist, and he agrees to admit her into his service. Patient is agreeable to this. Departure - Departure Time of Disposition: 19:29 Disposition: Admitted As Inpatient 66 Condition: Good Clinical Impression: Pneumonia Qualifiers: Pneumonia type: due to unspecified organism Laterality: left Lung location: lower lobe of lung Qualified Code(s): J18.9 - Pneumonia, unspecified organism - Discharge Information
[2021-07-02] MEDS ORDERED: cefTRIAXone 1 GM in Sodium Chloride 0.9% 100 ML IV ONE ×2 (16:42→21:15)
[2021-07-02] MEDS ORDERED: Ketorolac 30 MG/ML SDV IVPUSH ONE (16:58)
[2021-07-02] MEDS ORDERED: Benzonatate 100 MG Cap PO PRN (20:50)
[2021-07-02] MEDS ORDERED: Nystatin Topical Powder 15 GM Bottle TOP PRN (20:50)
[2021-07-02] MEDS ORDERED: Acetaminophen 325 MG Tab PO PRN (20:57)
[2021-07-02] MEDS ORDERED: Gabapentin 300 MG Cap PO SCH (21:00)
[2021-07-02] MEDS ORDERED: Temazepam 15 MG Cap PO SCH (21:00)
[2021-07-02] MEDS ORDERED: Insulin Lispro 100 Unit/ML 3 ML KwikPen SUBCUT PRN (21:08)
[2021-07-02] MEDS: Carvedilol 3.125 MG Tab PO SCH (21:40)
[2021-07-02] MEDS: Losartan 50 MG Tab PO SCH (21:41)
[2021-07-02] MEDS: Azithromycin 250 MG Tab PO SCH (21:41)
[2021-07-02] MEDS: lamoTRIgine 100 MG Tab PO SCH (21:42)
[2021-07-02] MEDS: traZODone 50 MG Tab PO SCH (21:42)
[2021-07-02] MEDS: Albuterol/Ipratropium 3.0-0.5 MG/3 ML Neb Soln NEB PRN (21:48)
[2021-07-02] MEDS: HYDROmorphone 0.5 MG/0.5 ML Syringe IVPUSH PRN (22:40)
[2021-07-03] MEDS: Albuterol/Ipratropium 3.0-0.5 MG/3 ML Neb Soln NEB PRN ×3 (05:57→20:27)
[2021-07-03] MEDS: Levothyroxine 25 MCG Tab PO SCH (06:52)
[2021-07-03] MEDS: Levothyroxine 112 MCG Tab PO SCH (06:52)
--- NOTE | 2021-07-03 08:36 | PCM.HP.2 ---
H&P History of Present Illness - General Date of Service: 07/03/21 Admit Problem/Dx: Admission Diagnosis/Problem Admission Diagnosis/Problem Pneumonia Source of Information: Patient, Old Records, Provider, RN, RN Notes Reviewed History Limitations: Reports: No Limitations - History of Present Illness Initial Comments - Free Text/Narative: This is a 56-year-old female who presents to our emergency department on 07/02/2021 with generalized weakness, shortness of breath, body aches, sinus pressure, wheezing, and cough. She was seen in our ED on 06/29/2021 for similar symptoms and was found to be RSV positive. She was sent home but states that she has gotten weaker and developed a low-grade temp of 100 F. She has home nebulizer treatments but is been too weak to administer them. She does have a history of muscular dystrophy and is chronically oxygen dependent on 2 L via nasal cannula. She also has a history of AV shunting so oxygen saturations are variable. Prior to presenting to the ED she was seen at the clinic and a chest x-ray showed a slight density within the left lung base suspicious for pneumonia. At that visit IV was started and she does have normal saline running. She was also given a dose of IV Solu-Medrol. She has not had her Covid vaccination but states that she is planning on getting it in the next few weeks. She does have history of Covid infection back in October 2020. In the ED twelve-lead EKG is obtained showing a sinus rhythm at 72 bpm with an old inferior infarct. Also consider anterior infarct. She is noted to have coarse lung sounds and expiratory wheezes. Temp is 97.3. Pulse 72. Respirations 18. Blood pressure 120/80. Pulse ox is 90% on 3 L. Labs are obtained showing a normal WBC at 7.02. Hemoglobin is 12.5. Platelet 286,000. Neutrophils are 82.6. Sodium is 140. Potassium 4.3. Chloride 102. Carbon dioxide 31. Anion gap is 11.3. BUN is 9. Creatinine is 1.1. GFR is 51. Glucose is elevated at 154. Magnesium is 2.3. Total bilirubin 0.4. AST is 36, ALT 50, alkaline phosphatase 102. CRP is 2.1. Protein 7.2. Albumin is 3.8. SARS-CoV-2 RNA screen is negative. She started on 1 g of Rocephin and given an albuterol nebulizer. She is also given Toradol for pain. UA is obtained and is grossly negative however 1+ leukocyte esterase, 5-10 WBCs and moderate bacteria are noted. Both blood and urine cultures are obtained and are pending. She is subsequently admitted to the medical floor for further work-up and treatment of her apparent pneumonia. She is a full code. Her PCP is Dr. Welch. She carries a history of angina, prior VTE, cardiomyopathy, hypertension, PSVT, Prinzmetal's angina, COPD, recurrent pneumonia, sleep apnea, chronic CO2 retention, urinary incontinence, endometriosis, muscular dystrophy, migraines, anxiety, depression, suicidal ideation, type II DM, obesity, anemia, COVID-19 infection. Abdominal Pain Score (Numeric/FACES): 2 Bilateral Upper Shoulder Pain Score (Numeric/FACES): 1 - Related Data Allergies/Adverse Reactions: Allergies Allergy/AdvReac Type Severity Reaction Status Date / Time exenatide [From Bydureon] Allergy Intermediate Hives Verified 06/29/21 11:06 oxycodone Allergy Intermediate Itching Verified 06/29/21 11:06 quetiapine [From Seroquel] Allergy Mild Other Verified 06/29/21 11:06 metformin Allergy Unknown Other Verified 06/29/21 11:06 Sulfonylureas Allergy Unknown Other Verified 06/29/21 11:06 Yyjclwu-SJR-SyH Reductase AdvReac Mild Muscle Verified 06/29/21 11:06 Inhibitor Aches [Fadbtoc-Jtj-Fmc Reductase Inhibitor] Home Medications: Home Meds Gabapentin [Neurontin] 1,800 mg PO BID 10/09/15 [History] Losartan [Cozaar] 50 mg PO BID 10/09/15 [History] Spironolactone [Aldactone] 25 mg PO DAILY 10/09/15 [History] carvediloL [Coreg] 3.125 mg PO BID 10/09/15 [History] traZODone 225 mg PO BEDTIME 10/09/15 [History] ALPRAZolam [Xanax] 0.5 mg PO TID PRN 04/12/16 [History] lamoTRIgine [Lamictal] 200 mg PO BID 04/16/18 [History] Cholecalciferol (Vitamin D3) [Vitamin D3] 10,000 unit PO DAILY 07/23/19 [History] Acetaminophen with Codeine [Acetaminophen-Cod #4] 1 - 2 tab PO TID PRN 11/01/20 [History] Albuterol Sulfate [Albuterol Sulfate HFA] 1 puff INH Q4H PRN 11/01/20 [History] Levothyroxine Sodium [Levothyroxine] 137 mcg PO ACBREAKFAST 11/01/20 [History] Methylphenidate HCl [Methylphenidate ER] 27 mg PO DAILY 11/01/20 [History] Multivitamin [Multi-Day Vitamins] 1 tab PO BEDTIME 11/01/20 [History] Triamcinolone Acetonide [Nasacort AQ [place]] 2 sprays NASBOTH DAILY 11/01/20 [History] Venlafaxine HCl [Venlafaxine ER] 225 mg PO DAILY 11/01/20 [History] valACYclovir HCl [Valtrex] 500 mg PO BID PRN 11/18/20 [History] Benzonatate [Tessalon Perle] 200 mg PO DAILY PRN 03/19/21 [History] Acetaminophen [Tylenol] 650 mg PO Q4H PRN tablet 03/22/21 [Rx] Nystatin [Nyamyc] 1 gm TOP TID PRN 04/14/21 [History] Temazepam 45 mg PO BEDTIME 04/14/21 [History] Albuterol/Ipratropium [DuoNeb 3.0-0.5 MG/3 ML] 3 ml .XX TID PRN 07/02/21 [History] Dulaglutide [Trulicity] 1.5 mg SQ WEEKLY 07/02/21 [History] Mometasone/Formoterol [Dulera 200-5 MCG] 1 puff INH DAILY 07/02/21 [History] tiZANidine [Zanaflex] 2 - 4 mg PO TID PRN 07/02/21 [History] Past Medical History HEENT History: Reports: Impaired Vision Other HEENT History: glasses Cardiovascular History: Reports: Angina, Blood Clots/VTE/DVT, Cardiomyopathy, Hypertension, SOB on Exertion Other Cardiovascular History: PSVT, 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." Respiratory History: Reports: COPD, Pneumonia, Recurrent, Sleep Apnea, SOB Other Respiratory History: "CO2 retention." Gastrointestinal History: Reports: Bowel Obstruction, Colon Polyp Other Gastrointestinal History: hernia Genitourinary History: Reports: Renal Calculus, Urinary Incontinence ASSOCIATE FINANCIAL REPRESENTATIVE History: Reports: Endometriosis, , Spontaneous , Other (See Below) Other OB/BYN History: 5 "miscarriages" Musculoskeletal History: Reports: Fracture, Muscular Dystrophy Other Musculoskeletal History: T7 compression fx, 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 Hematologic History: Reports: Anemia Immunologic History: Reports: None Oncologic (Cancer) History: Reports: None Dermatologic History: Reports: Other (See Below) Other Dermatologic History: Keloids - Infectious Disease History Infectious Disease History: Reports: Influenza, Novel Coronavirus - Past Surgical History HEENT Surgical History: Reports: Adenoidectomy, Tonsillectomy Cardiovascular Surgical History: Reports: Other (See Below) Other Cardiovascular Surgeries/Procedures: Pt has had 7 cardiac catheterizations. Respiratory Surgical History: Reports: None GI Surgical History: Reports: Appendectomy, Cholecystectomy, Hernia Rep air/Other, Other (See Below) Other GI Surgeries/Procedures: Bowel resection after bowel obstruction. Female Surgical History: Reports: None Endocrine Surgical History: Reports: None Musculoskeletal Surgical History: Reports: Ganglion Cyst, Shoulder Surgery Other Musculoskeletal Surgeries/Procedures:: Carpal tunnel, trigger finger surgery Social & Family History - Family History Family Medical History: No Pertinent Family History - Tobacco Use Tobacco Use Status *Q: Never Tobacco User Second Hand Smoke Exposure: No - Caffeine Use Caffeine Use: Reports: None Other Caffeine Use: unknown - Recreational Drug Use Recreational Drug Use: No Recreational Drug Type: Reports: Marijuana/Hashish - Living Situation & Occupation Living situation: Reports: , with Spouse, with Family (Granddaughter) Occupation: Unemployed H&P Review of Systems - Review of Systems: Review Of Systems: See Below General: Reports: Malaise, Weakness, Fatigue. Denies: Fever, Chills HEENT: Reports: No Symptoms. Denies: Headaches, Sore Throat Pulmonary: Reports: Shortness of Breath, Wheezing, Pleuritic Chest Pain, Cough. Denies: Sputum Cardiovascular: Reports: Dyspnea on Exertion. Denies: Chest Pain, Palpitations, Edema Gastrointestinal: Reports: No Symptoms. Denies: Abdominal Pain, Constipation, Diarrhea, Nausea, Vomiting Genitourinary: Reports: No Symptoms. Denies: Pain Musculoskeletal: Reports: Muscle Pain (Generalized), Muscle Stiffness Skin: Reports: No Symptoms Psychiatric: Reports: No Symptoms Neurological: Reports: Pre-Existing Deficit (Muscular dystrophy), Difficulty Walking (wheelchair bound ), Weakness, Gait Disturbance. Denies: Confusion, Dizziness, Headache, Numbness, Seizure, Tingling Hematologic/Lymphatic: Reports: No Symptoms Immunologic: Reports: No Symptoms Exam - Exam Exam: See Below - Vital Signs Vital Signs: Last Vital Signs Temp 97.5 F 07/03/21 04:24 Pulse 59 L 07/03/21 04:30 Resp 20 07/03/21 04:24 BP 92/69 07/03/21 04:24 Pulse Ox 91 L 07/03/21 05:57 Weight: 246 lb 8 oz - Exam Quality Assessment: Supplemental Oxygen (2L), DVT Prophylaxis General: Alert, Oriented, Cooperative. No: Mild Distress HEENT: Conjunctiva Clear, EACs Clear, Mucosa Moist & [place], Posterior Pharynx Clear Neck: Supple, Trachea Midline Lungs: Normal Respiratory Effort, Decreased Breath Sounds, Crackles, Wheezing Cardiovascular: Regular Rate, Regular Rhythm GI/Abdominal Exam: Normal Bowel Sounds, Soft, Non-Tender, No Distention (Female) Exam: Deferred Rectal (Female) Exam: Deferred Back Exam: Normal Inspection, Full Range of Motion Extremities: Normal Inspection, Normal Range of Motion, Non-Tender, No Pedal Edema, Normal Capillary Refill Peripheral Pulses: 2+: Radial (L), Radial (R), Dorsalis Pedis (L), Dorsalis Pedis (R) Skin: Warm, Dry, Intact Neurological: Cranial Nerves Intact (Grossly) Neuro Extensive - Mental Status: Alert, Oriented x3, Normal Mood/Affect Psychiatric: Alert, Normal Affect, Normal Mood - Patient Data Lab Results Last 24 hrs: Laboratory Results - last 24 hr 07/02/21 07/02/21 07/02/21 Range/Units 16:18 16:18 16:21 WBC 7.02 (3.98-10.04) K/mm3 RBC 4.14 (3.98-5.22) M/mm3 Hgb 12.5 (11.2-15.7) gm/dl Hct 41.2 (34.1-44.9) % MCV 99.5 H (79.4-94.8) fl MCH 30.2 (25.6-32.2) pg MCHC 30.3 L (32.2-35.5) g/dl RDW Std Deviation 48.7 H (36.4-46.3) fL Plt Count 286 (182-369) K/mm3 MPV 8.6 L (9.4-12.3) fl Neut % (Auto) 82.6 H (34.0-71.1) % Lymph % (Auto) 13.0 L (19.3-51.7) % Hood % (Auto) 2.8 L (4.7-12.5) % Eos % (Auto) 1.1 (0.7-5.8) Baso % (Auto) 0.4 (0.1-1.2) % Neut # (Auto) 5.79 (1.56-6.13) K/mm3 Lymph # (Auto) 0.91 L (1.18-3.74) K/mm3 Hood # (Auto) 0.20 L (0.24-0.36) K/mm3 Eos # (Auto) 0.08 (0.04-0.36) K/mm3 Baso # (Auto) 0.03 (0.01-0.08) K/mm3 Sodium 140 (136-145) mEq/L Potassium 4.3 (3.5-5.1) mEq/L Chloride 102 (98-107) mEq/L Carbon Dioxide 31 (21-32) mEq/L Anion Gap 11.3 (5-15) BUN 9 (7-18) mg/dL Creatinine 1.1 H (0.55-1.02) mg/dL Est Cr Clr Drug Dosing 59.68 mL/min Estimated GFR (MDRD) 51 (>60) mL/min BUN/Creatinine Ratio 8.2 L (14-18) Glucose 154 H (70-99) mg/dL POC Glucose (70-99) mg/dL Calcium 8.8 (8.5-10.1) mg/dL Magnesium 2.3 (1.8-2.4) mg/dL Total Bilirubin 0.4 (0.2-1.0) mg/dL AST 36 (15-37) U/L ALT 50 (14-59) U/L Alkaline Phosphatase 102 (46-116) U/L C-Reactive Protein 2.1 H* (<1.0) mg/dL Total Protein 7.2 (6.4-8.2) g/dl Albumin 3.8 (3.4-5.0) g/dl Globulin 3.4 gm/dL Albumin/Globulin Ratio 1.1 (1-2) Urine Color (Yellow) Urine Appearance (Clear) Urine pH (5.0-8.0) Ur Specific [place] (1.005-1.030) Urine Protein (Negative) Urine Glucose (UA) (Negative) Urine Ketones (Negative) Urine Occult Blood (Negative) Urine Nitrite (Negative) Urine Bilirubin (Negative) Urine Urobilinogen (0.2-1.0) Ur Leukocyte Esterase (Negative) Urine RBC (0-5) /hpf Urine WBC (0-5) /hpf Ur Squamous Epith Cells (0-5) /hpf Urine Bacteria (FEW) /hpf Urine Mucus (FEW) /hpf SARS-CoV-2 RNA (MARY) Negative (NEGATIVE) 07/02/21 07/02/21 07/03/21 Range/Units 17:30 21:54 05:57 WBC 5.76 (3.98-10.04) K/mm3 RBC 3.91 L (3.98-5.22) M/mm3 Hgb 11.6 (11.2-15.7) gm/dl Hct 38.6 (34.1-44.9) % MCV 98.7 H (79.4-94.8) fl MCH 29.7 (25.6-32.2) pg MCHC 30.1 L (32.2-35.5) g/dl RDW Std Deviation 48.3 H (36.4-46.3) fL Plt Count 296 (182-369) K/mm3 MPV 8.8 L (9.4-12.3) fl Neut % (Auto) 77.9 H (34.0-71.1) % Lymph % (Auto) 17.7 L (19.3-51.7) % Hood % (Auto) 4.2 L (4.7-12.5) % Eos % (Auto) 0 L (0.7-5.8) Baso % (Auto) 0.2 (0.1-1.2) % Neut # (Auto) 4.49 (1.56-6.13) K/mm3 Lymph # (Auto) 1.02 L (1.18-3.74) K/mm3 Hood # (Auto) 0.24 (0.24-0.36) K/mm3 Eos # (Auto) 0.00 L (0.04-0.36) K/mm3 Baso # (Auto) 0.01 (0.01-0.08) K/mm3 Sodium (136-145) mEq/L Potassium (3.5-5.1) mEq/L Chloride (98-107) mEq/L Carbon Dioxide (21-32) mEq/L Anion Gap (5-15) BUN (7-18) mg/dL Creatinine (0.55-1.02) mg/dL Est Cr Clr Drug Dosing mL/min Estimated GFR (MDRD) (>60) mL/min BUN/Creatinine Ratio (14-18) Glucose (70-99) mg/dL POC Glucose 364 H (70-99) mg/dL Calcium (8.5-10.1) mg/dL Magnesium (1.8-2.4) mg/dL Total Bilirubin (0.2-1.0) mg/dL AST (15-37) U/L ALT (14-59) U/L Alkaline Phosphatase (46-116) U/L C-Reactive Protein (<1.0) mg/dL Total Protein (6.4-8.2) g/dl Albumin (3.4-5.0) g/dl Globulin gm/dL Albumin/Globulin Ratio (1-2) Urine Color Yellow (Yellow) Urine Appearance Clear (Clear) Urine pH 7.5 (5.0-8.0) Ur Specific [place] 1.020 (1.005-1.030) Urine Protein Negative (Negative) Urine Glucose (UA) Negative (Negative) Urine Ketones Negative (Negative) Urine Occult Blood Negative (Negative) Urine Nitrite Negative (Negative) Urine Bilirubin Negative (Negative) Urine Urobilinogen 0.2 (0.2-1.0) Ur Leukocyte Esterase 1+ H (Negative) Urine RBC 0-5 (0-5) /hpf Urine WBC 5-10 H (0-5) /hpf Ur Squamous Epith Cells 0-5 (0-5) /hpf Urine Bacteria Moderate H (FEW) /hpf Urine Mucus Not seen (FEW) /hpf SARS-CoV-2 RNA (MARY) (NEGATIVE) 07/03/21 07/03/21 Range/Units 05:57 06:06 WBC (3.98-10.04) K/mm3 RBC (3.98-5.22) M/mm3 Hgb (11.2-15.7) gm/dl Hct (34.1-44.9) % MCV (79.4-94.8) fl MCH (25.6-32.2) pg MCHC (32.2-35.5) g/dl RDW Std Deviation (36.4-46.3) fL Plt Count (182-369) K/mm3 MPV (9.4-12.3) fl Neut % (Auto) (34.0-71.1) % Lymph % (Auto) (19.3-51.7) % [place] % (Auto) (4.7-12.5) % Eos % (Auto) (0.7-5.8) Baso % (Auto) (0.1-1.2) % Neut # (Auto) (1.56-6.13) K/mm3 Lymph # (Auto) (1.18-3.74) K/mm3 [place] # (Auto) (0.24-0.36) K/mm3 Eos # (Auto) (0.04-0.36) K/mm3 Baso # (Auto) (0.01-0.08) K/mm3 Sodium 142 (136-145) mEq/L Potassium 4.6 (3.5-5.1) mEq/L Chloride 103 (98-107) mEq/L Carbon Dioxide 27 (21-32) mEq/L Anion Gap 16.6 H (5-15) BUN 11 (7-18) mg/dL Creatinine 1.1 H (0.55-1.02) mg/dL Est Cr Clr Drug Dosing 59.68 mL/min Estimated GFR (MDRD) 51 (>60) mL/min BUN/Creatinine Ratio 10.0 L (14-18) Glucose 187 H (70-99) mg/dL POC Glucose 174 H (70-99) mg/dL Calcium 8.8 (8.5-10.1) mg/dL Magnesium 2.6 H (1.8-2.4) mg/dL Total Bilirubin (0.2-1.0) mg/dL AST (15-37) U/L ALT (14-59) U/L Alkaline Phosphatase (46-116) U/L C-Reactive Protein (<1.0) mg/dL Total Protein (6.4-8.2) g/dl Albumin (3.4-5.0) g/dl Globulin gm/dL Albumin/Globulin Ratio (1-2) Urine Color (Yellow) Urine Appearance (Clear) Urine pH (5.0-8.0) Ur Specific [place] (1.005-1.030) Urine Protein (Negative) Urine Glucose (UA) (Negative) Urine Ketones (Negative) Urine Occult Blood (Negative) Urine Nitrite (Negative) Urine Bilirubin (Negative) Urine Urobilinogen (0.2-1.0) Ur Leukocyte Esterase (Negative) Urine RBC (0-5) /hpf Urine WBC (0-5) /hpf Ur Squamous Epith Cells (0-5) /hpf Urine Bacteria (FEW) /hpf Urine Mucus (FEW) /hpf SARS-CoV-2 RNA (MARY) (NEGATIVE) Result Diagrams: 07/03/21 05:57 07/03/21 05:57 Maximus Results Last 24 hrs: Microbiology 07/02/21 16:40 Influenza Type A Antigen Screen - Final Nasal, Unspecified NEGATIVE INFLUENZA A VIRUS AG REFERENCE RANGE: NEGATIVE Influenza Type B Antigen Screen - Final NEGATIVE INFLUENZA B VIRUS AG REFERENCE RANGE: NEGATIVE Sepsis Event Note - Evaluation Sepsis Screening Result: No Definite Risk - Focused Exam Vital Signs: Vital Signs Temp Pulse Resp BP Pulse Ox Pulse Ox 07/03/21 05:57 91 L 07/03/21 04:30 59 L 92 L 07/03/21 04:24 97.5 F 59 L 20 92/69 94 L 07/02/21 23:15 97.5 F 07/02/21 23:12 77 16 110/66 91 L 07/02/21 21:51 98 07/02/21 21:41 114/88 07/02/21 21:40 77 114/88 - Problem List (1) CKD (chronic kidney disease) stage 3, GFR 30-59 ml/min SNOMED Code(s): 124925598 ICD Code: N18.30 - CHRONIC KIDNEY DISEASE, STAGE 3 UNSPECIFIED Status: Chronic Priority: Low Current Visit: No Qualifiers: Chronic kidney disease stage 3 subtype: stage 3a (GFR 45-59) Qualified C ode(s): N18.31 - Chronic kidney disease, stage 3a (2) Pneumonia SNOMED Code(s): 358656231 ICD Code: J18.9 - PNEUMONIA, UNSPECIFIED ORGANISM Status: Acute Priority: High Current Visit: Yes Qualifiers: Pneumonia type: due to unspecified organism Laterality: left Lung location: lower lobe of lung Qualified Code(s): J18.9 - Pneumonia, unspecified organism (3) Respiratory syncytial virus (RSV) infection Status: Acute Priority: High Current Visit: Yes (4) Anemia SNOMED Code(s): 302622611 ICD Code: D64.9 - ANEMIA, UNSPECIFIED Status: Chronic Priority: Low Current Visit: No Qualifiers: Anemia type: unspecified type Qualified Code(s): D64.9 - Anemia, unspecified (5) Anxiety SNOMED Code(s): 58638479 ICD Code: F41.9 - ANXIETY DISORDER, UNSPECIFIED Status: Chronic Priority: Low Current Visit: No (6) COPD (chronic obstructive pulmonary disease) SNOMED Code(s): 72625985 ICD Code: J44.9 - CHRONIC OBSTRUCTIVE PULMONARY DISEASE, UNSPECIFIED Status: Chronic Priority: High Current Visit: No Qualifiers: COPD type: unspecified COPD Qualified Code(s): J44.9 - Chronic obstructive pulmonary disease, unspecified (7) Cardiomyopathy SNOMED Code(s): 32597463 ICD Code: I42.9 - CARDIOMYOPATHY, UNSPECIFIED Status: Chronic Priority: Low Current Visit: No Qualifiers: Cardiomyopathy type: unspecified Qualified Code(s): I42.9 - Cardiomyopathy, unspecified (8) Chronic neck pain SNOMED Code(s): 9728328286215 ICD Code: M54.2 - CERVICALGIA; G89.29 - OTHER CHRONIC PAIN Status: Chronic Priority: Low Current Visit: No (9) Depression SNOMED Code(s): 90771012 ICD Code: F32.9 - MAJOR DEPRESSIVE DISORDER, SINGLE EPISODE, UNSPECIFIED Status: Chronic Priority: Low Current Visit: No Qualifiers: Depression Type: other depression Qualified Code(s): F32.89 - Other specified depressive episodes (10) Endometriosis SNOMED Code(s): 410822052 ICD Code: N80.9 - ENDOMETRIOSIS, UNSPECIFIED Status: Chronic Priority: Low Current Visit: No (11) HLD (hyperlipidemia) SNOMED Code(s): 93954312 ICD Code: E78.5 - HYPERLIPIDEMIA, UNSPECIFIED Status: Chronic Priority: Low Current Visit: No Qualifiers: Hyperlipidemia type: unspecified Qualified Code(s): E78.5 - Hyperlipidemia, unspecified (12) HTN (hypertension) SNOMED Code(s): 48788673 ICD Code: I10 - ESSENTIAL (PRIMARY) HYPERTENSION Status: Chronic Priority: Medium Current Visit: No Qualifiers: Hypertension type: unspecified Qualified Code(s): I10 - Essential (primary) hypertension (13) History of PSVT (paroxysmal supraventricular tachycardia) SNOMED Code(s): 034708956080986 ICD Code: Z86.79 - PERSONAL HISTORY OF OTHER DISEASES OF THE CIRCULATORY SYSTEM Status: Chronic Priority: Medium Current Visit: No (14) History of Prinzmetal angina SNOMED Code(s): 748894394 ICD Code: Z86.79 - PERSONAL HISTORY OF OTHER DISEASES OF THE CIRCULATORY SYSTEM Status: Chronic Priority: Medium Current Visit: No (15) History of suicidal ideation SNOMED Code(s): 021641365 ICD Code: Z86.59 - PERSONAL HISTORY OF OTHER MENTAL AND BEHAVIORAL DISORDERS Status: Chronic Priority: Low Current Visit: No (16) History of venous thromboembolism SNOMED Code(s): 867010068 ICD Code: Z86.718 - PERSONAL HISTORY OF OTHER VENOUS THROMBOSIS AND EMBOLISM Status: Chronic Priority: Medium Current Visit: No (17) Hypothyroidism SNOMED Code(s): 61408938 ICD Code: E03.9 - HYPOTHYROIDISM, UNSPECIFIED Status: Chronic Priority: Low Current Visit: No Qualifiers: Hypothyroidism type: postoperative Qualified Code(s): E89.0 - Postprocedural hypothyroidism (18) Muscular dystrophy SNOMED Code(s): 39855204 ICD Code: G71.00 - MUSCULAR DYSTROPHY, UNSPECIFIED Status: Chronic Priority: Medium Current Visit: No (19) Obesity (BMI 30-39.9) SNOMED Code(s): 859496570, 884071557 ICD Code: E66.9 - OBESITY, UNSPECIFIED Status: Chronic Priority: Medium Current Visit: No (20) Peripheral neuropathy SNOMED Code(s): 698994780 ICD Code: G62.9 - POLYNEUROPATHY, UNSPECIFIED Status: Chronic Priority: M edium Current Visit: No Qualifiers: Peripheral neuropathy type: polyneuropathy, unspecified Qualified Code(s): G62.9 - Polyneuropathy, unspecified (21) Persistent dyspnea after COVID-19 SNOMED Code(s): 216593910, [id number] ICD Code: R06.00 - DYSPNEA, UNSPECIFIED; B94.8 - SEQUELAE OF OTH INFECTIOUS AND PARASITIC DISEASES Status: Chronic Priority: High Current Visit: No (22) Recurrent pneumonia SNOMED Code(s): 372901933 ICD Code: J18.9 - PNEUMONIA, UNSPECIFIED ORGANISM Status: Chronic Priority: Low Current Visit: No (23) Respiratory failure with hypercapnia SNOMED Code(s): 713109987 ICD Code: J96.92 - RESPIRATORY FAILURE, UNSPECIFIED WITH HYPERCAPNIA Status: Chronic Priority: High Current Visit: No Qualifiers: Chronicity: acute on chronic Qualified Code(s): J96.22 - Acute and chronic respiratory failure with hypercapnia (24) Sleep apnea treated with nocturnal BiPAP SNOMED Code(s): 35382063 ICD Code: G47.30 - SLEEP APNEA, UNSPECIFIED Status: Chronic Priority: Medium Current Visit: No (25) Type II diabetes mellitus SNOMED Code(s): 03919972 ICD Code: E11.9 - TYPE 2 DIABETES MELLITUS WITHOUT COMPLICATIONS Status: Chronic Priority: Medium Current Visit: No Qualifiers: Diabetes mellitus skilled nursing insulin use: without skilled nursing use Diabetes mellitus complication status: with other specified complication Qualified Code(s): E11.69 - Type 2 diabetes mellitus with other specified complication (26) Generalized weakness SNOMED Code(s): 36263066 ICD Code: R53.1 - WEAKNESS Status: Acute Priority: High Current Visit: Yes (27) Hypoxia SNOMED Code(s): 257399565 ICD Code: R09.02 - HYPOXEMIA Status: Chronic Priority: High Current Visit: Yes (28) Bacteria in urine SNOMED Code(s): 34438600 ICD Code: R82.71 - BACTERIURIA Status: Acute Priority: Medium Current Visit: Yes Problem List Initiated/Reviewed/Updated: Yes Orders Last 24hrs: Active Orders 24 hr Category Date Time Status Admission Status [Patient Status] [ADT] Routine ADT 07/02/21 17:25 Active BIPAP [RT BiPAP/CPAP] [RC] ASDIRECTED Care 07/03/21 05:59 Active Blood Glucose Check, Bedside [RC] WITHMEALSANDBED Care 07/02/21 21:09 Active Oxygen Therapy [RC] ASDIRECTED Care 07/02/21 20:59 Active RT Aerosol Therapy [RC] ASDIRECTED Care 07/02/21 20:59 Active Up to Chair [RC] 09,15,20 Care 07/02/21 20:57 Active VTE/DVT Education [RC] DAILY Care 07/02/21 20:57 Active Vital Signs [RC] Q4HR Care 07/02/21 20:57 Active Consistent Carbohydrate Diet [DIET] Diet 07/03/21 Breakfast Active BLOOD CULTURE [MREF] Stat Lab 07/02/21 17:09 Received BLOOD CULTURE [MREF] Stat Lab 07/02/21 17:15 Received CULTURE URINE [MREF] Stat Lab 07/02/21 17:30 Received PROCALCITONIN [REF] Routine Lab 07/02/21 16:18 Received ALPRAZolam [Xanax] Med 07/02/21 20:50 Active 0.5 mg PO TID PRN Acetaminophen [TylenoL] Med 07/02/21 20:57 Active 650 mg PO Q4H PRN Albuterol/Ipratropium [DuoNeb 3.0-0.5 MG/3 ML] Med 07/02/21 20:57 Active 3 ml NEB Q4H PRN Azithromycin [Zithromax] Med 07/02/21 22:00 Active 500 mg PO Q24H Benzonatate [Tessalon Perles] Med 07/02/21 20:50 Active 200 mg PO DAILY PRN Enoxaparin [Lovenox] Med 07/03/21 09:00 Active 40 mg SUBCUT DAILY Gabapentin [Neurontin] Med 07/02/21 21:00 Active 1,800 mg PO BID HYDROmorphone [Dilaudid] Med 07/02/21 20:57 Active 0.5 mg IVPUSH Q2H PRN Insulin Lispro [HumaLOG] Med 07/02/21 21:08 Active See Protocol SUBCUT QIDACANDBED PRN Levothyroxine Med 07/03/21 06:00 Active 112 mcg PO ACBREAKFAST Levothyroxine Med 07/03/21 06:00 Active 25 mcg PO ACBREAKFAST Losartan [Cozaar] Med 07/02/21 21:00 Active 50 mg PO BID Nystatin [Nystop] Med 07/02/21 20:50 Active 0 gm TOP TID PRN Spironolactone [Aldactone] Med 07/03/21 09:00 Active 25 mg PO DAILY Temazepam [Restoril] Med 07/02/21 21:00 Active 45 mg PO BEDTIME Venlafaxine [Effexor XR] Med 07/03/21 09:00 Active 225 mg PO DAILY carvediloL [Coreg] Med 07/02/21 21:00 Active 3.125 mg PO BID cefTRIAXone [Rocephin] 2 gm Med 07/03/21 21:00 Active Sodium Chloride 0.9% [Normal Saline AdvBag] 100 ml IV Q24H lamoTRIgine Med 07/02/21 21:00 Active 200 mg PO BID traMADol [Ultram] Med 07/02/21 21:00 Active 100 mg PO Q6H PRN traZODone Med 07/02/21 21:00 Active 225 mg PO BEDTIME Blood Culture x2 Reflex Set [OM.PC] Stat Oth 07/02/21 16:15 Ordered Resuscitation Status Routine Resus Stat 07/02/21 20:57 Ordered Medication Orders Acetaminophen (Acetaminophen 325 Mg Tab) 650 mg PO Q4H PRN PRN Reason: Pain (Mild 1-3)/fever Albuterol/Ipratropium (Albuterol/Ipratropium 3.0-0.5 Mg/3 Ml Neb Soln) 3 ml NEB Q4H PRN PRN Reason: Shortness Of Breath/wheezing Last Admin: 07/03/21 05:57 Dose: 3 ml Documented by: Admin: 07/02/21 21:48 Dose: 3 ml Documented by: AURORA Alprazolam (Alprazolam 0.5 Mg Tab) 0.5 mg PO TID PRN PRN Reason: Anxiety Azithromycin (Azithromycin 250 Mg Tab) 500 mg PO Q24H JUSTIN Stop: 07/04/21 22:01 Last Admin: 07/02/21 21:41 Dose: 500 mg Documented by: SANTIAGO Benzonatate (Benzonatate 100 Mg Cap) 200 mg PO DAILY PRN PRN Reason: Cough Carvedilol (Carvedilol 3.125 Mg Tab) 3.125 mg PO BID [facility] Last Admin: 07/02/21 21:40 Dose: 3.125 mg Documented by: SANTIAGO Enoxaparin Sodium (Enoxaparin 40 Mg/0.4 Ml Syringe) 40 mg SUBCUT DAILY [facility] Gabapentin (Gabapentin 300 Mg Cap) 1,800 mg PO BID [facility] Last Admin: 07/02/21 21:43 Dose: 1,800 mg Documented by: SANTIAGO Hydromorphone HCl (Hydromorphone 0.5 Mg/0.5 Ml Syringe) 0.5 mg IVPUSH Q2H PRN PRN Reason: Pain (severe 7-10) Last Admin: 07/02/21 22:40 Dose: 0.5 mg Documented by: SANTIAGO Ceftriaxone Sodium 2 gm/ (Sodium Chloride) 100 mls @ 200 mls/hr IV Q24H [facility] Insulin Human Lispro (Insulin Lispro 100 Unit/Ml 3 Ml Kwikpen) 0 unit SUBCUT QIDACANDBED PRN; Protocol PRN Reason: Hyperglycemia Last Admin: 07/02/21 21:56 Dose: 10 units Documented by: SANTIAGO Lamotrigine (Lamotrigine 100 Mg Tab) 200 mg PO BID [facility] Last Admin: 07/02/21 21:42 Dose: 200 mg Documented by: SATNIAGO Levothyroxine Sodium (Levothyroxine 112 Mcg Tab) 112 mcg PO ACBREAKFAST [facility] Last Admin: 07/03/21 06:52 Dose: 112 mcg Documented by: SANTIAGO Levothyroxine Sodium (Levothyroxine 25 Mcg Tab) 25 mcg PO ACBREAKFAST [facility] Last Admin: 07/03/21 06:52 Dose: 25 mcg Documented by: SANTIAGO Losartan Potassium (Losartan 50 Mg Tab) 50 mg PO BID [facility] Last Admin: 07/02/21 21:41 Dose: 50 mg Documented by: SANTIAGO Nystatin (Nystatin Topical Powder 15 Gm Bottle) 0 gm TOP TID PRN PRN Reason: Rash Spironolactone (Spironolactone 25 Mg Tab) 25 mg PO DAILY [facility] Temazepam (Temazepam 15 Mg Cap) 45 mg PO BEDTIME [facility] Last Admin: 07/02/21 21:41 Dose: 45 mg Documented by: SANTIAGO Tramadol HCl (Tramadol 50 Mg Tab) 100 mg PO Q6H PRN PRN Reason: Pain Trazodone HCl (Trazodone 50 Mg Tab) 225 mg PO BEDTIME [facility] Last Admin: 07/02/21 21:42 Dose: 225 mg Documented by: MIREYAJUIrvin Venlafaxine HCl (Venlafaxine 75 Mg Cap.Er) 225 mg PO DAILY [facility] Assessment/Plan Comment:: Pneumonia Hypoxia Respiratory syncytial virus (RSV) infection Generalized weakness Recurrent pneumonia Respiratory failure with hypercapnia Sleep apnea treated with nocturnal BiPAP Persistent dyspnea after COVID-19 COPD (chronic obstructive pulmonary disease) * Oxygen as needed to keep saturations above 88% * As needed DuoNebs * Incentive spirometry * Consult RT * Continue Rocephin 2gm daily * Continue Azithromycin 500mg daily for 3 days * Home respiratory medications as noted * Steroid as ordered * Continue home BiPAP nocturnal * Procalcitonin pending * Blood cultures pending * Monitor daily labs * PT/OT * CM/SW consultation * Isolation Anemia * No acute concerns * Monitor labs CKD (chronic kidney disease) stage 3, GFR 30-59 ml/min * No acute concerns - appears to be at baseline from prior labs * Avoid nephrotoxic meds if able Depression Anxiety History of suicidal ideation * No acute concerns * Continue home medications as ordered Endometriosis * No acute concerns HLD (hyperlipidemia) * No acute concerns HTN (hypertension) * No acute concerns * Home medications as ordered * Monitor vital signs History of PSVT (paroxysmal supraventricular tachycardia) History of Prinzmetal angina Cardiomyopathy * No acute concerns * Telemetry * Continue home cardiac meds History of venous thromboembolism * No acute concerns * No home blood thinners * Daily Lovenox as ordered Hypothyroidism * No acute concerns * Continue home levothyroxine Muscular dystrophy Chronic neck pain * No acute concerns * Home medications as ordered * PRN pain medications as ordered * PT/OT Obesity (BMI 30-39.9) * No acute concerns * Consider motion picture camera operator consultation Type II diabetes mellitus Peripheral neuropathy * QID AC and Bedtime glucose checks * Consistent carbohydrate diet * Medium intensity sliding scale insulin * Hold home diabetic meds Bacteria in urine * Urine culture pending * Blood cultures pending * Likely asymptomatic bacteriuria * Receiving abx as above Code status: Full code PCP: Dr. Welch DVT prophylaxis: Lovenox Disposition: Patient admitted to the floor on telemetry for management of her pneumonia and RSV. Likely discharge in 1 to 2 days. - Mortality Measure Prognosis:: Good
[2021-07-03] MEDS: lamoTRIgine 100 MG Tab PO SCH ×2 (08:45→20:47)
[2021-07-03] MEDS: Losartan 50 MG Tab PO SCH ×2 (08:46→20:45)
[2021-07-03] MEDS: Venlafaxine 75 MG Cap.ER PO SCH (08:46)
[2021-07-03] MEDS: Carvedilol 3.125 MG Tab PO SCH ×2 (08:46→20:45)
[2021-07-03] MEDS: Enoxaparin 40 MG/0.4 ML Syringe SUBCUT SCH (08:47)
[2021-07-03] MEDS: Gabapentin 600 MG Tab PO SCH ×2 (08:47→20:46)
[2021-07-03] MEDS: Spironolactone 25 MG Tab PO SCH (08:47)
[2021-07-03] MEDS: traMADol 50 MG Tab PO PRN (09:31)
[2021-07-03] MEDS: methylPREDNISolone Sodium Succinate 40 MG/1 ML SDV IVPUSH SCH ×2 (11:36→22:23)
[2021-07-03] MEDS: ALPRAZolam 0.5 MG Tab PO PRN (12:24)
[2021-07-03] MEDS: Insulin Lispro 100 Unit/ML 3 ML KwikPen SUBCUT SCH ×3 (16:53→22:14)
[2021-07-03] MEDS: Temazepam 30 MG Cap PO SCH (20:46)
[2021-07-03] MEDS: Temazepam 15 MG Cap PO SCH (20:47)
[2021-07-03] MEDS: cefTRIAXone 2 GM in Sodium Chloride 0.9% 100 ML IV SCH (20:47)
[2021-07-03] MEDS: traZODone 50 MG Tab PO SCH (20:47)
[2021-07-03] MEDS: Azithromycin 250 MG Tab PO SCH ×2 (20:48→22:14)
[2021-07-04] MEDS: Levothyroxine 112 MCG Tab PO SCH (06:06)
[2021-07-04] MEDS: Levothyroxine 25 MCG Tab PO SCH (06:07)
--- NOTE | 2021-07-04 07:33 | PCM.PN ---
- General Info Date of Service: 07/04/21 Admission Dx/Problem (Free Text): Admission Diagnosis/Problem Admission Diagnosis/Problem Pneumonia Functional Status: Reports: Pain Controlled, Tolerating Diet, Ambulating, Urinating, Incentive Spirometry, Other (Acapella ). Denies: New Symptoms - Review of Systems General: Reports: Weakness. Denies: Fever, Fatigue, Malaise, Chills HEENT: Reports: Post Nasal Drip. Denies: Headaches, Sore Throat Pulmonary: Reports: Shortness of Breath, Pleuritic Chest Pain, Cough, Sputum, Wheezing. Denies: Hemoptysis, Other Cardiovascular: Reports: Dyspnea on Exertion. Denies: Chest Pain, Palpitations, Edema Gastrointestinal: Reports: No Symptoms. Denies: Abdominal Pain, Constipation, Diarrhea, Nausea, Vomiting Genitourinary: Reports: No Symptoms. Denies: Pain Musculoskeletal: Reports: No Symptoms Skin: Reports: No Symptoms. Denies: Cyanosis Neurological: Reports: Pre-Existing Deficit (Baseline muscular dystrophy). Denies: Confusion, Headache, Numbness, Syncope, Tingling, Difficulty Walking, Weakness, Gait Disturbance Psychiatric: Reports: No Symptoms - Patient Data Vitals - Most Recent: Last Vital Signs Temp 96.8 F L 07/03/21 20:43 Pulse 72 07/03/21 20:45 Resp 16 07/03/21 20:43 BP 111/84 07/03/21 20:45 Pulse Ox 91 L 07/03/21 20:43 Weight - Most Recent: 243 lb 4.8 oz I&O - Last 24 Hours: Intake & Output 07/03/21 07/04/21 07/04/21 22:59 06:59 14:59 Intake Total 2480 1300 Output Total 2500 900 Balance -20 400 Lab Results Last 24 Hours: Laboratory Results - last 24 hr 07/02/21 07/03/21 07/03/21 Range/Units 16:18 11:36 16:29 POC Glucose 157 H 204 H (70-99) mg/dL Procalcitonin <0.05 ng/mL 07/03/21 07/04/21 Range/Units 20:41 06:10 POC Glucose 163 H 227 H (70-99) mg/dL Procalcitonin ng/mL Med Orders - Current: Current Medications Acetaminophen (Acetaminophen 325 Mg Tab) 650 mg PO Q4H PRN PRN Reason: Pain (Mild 1-3)/fever Albuterol/Ipratropium (Albuterol/Ipratropium 3.0-0.5 Mg/3 Ml Neb Soln) 3 ml NEB Q4H PRN PRN Reason: Shortness Of Breath/wheezing Last Admin: 07/03/21 20:27 Dose: 3 ml Documented by: Alprazolam (Alprazolam 0.5 Mg Tab) 0.5 mg PO TID PRN PRN Reason: Anxiety Last Admin: 07/03/21 12:24 Dose: 0.5 mg Documented by: Azithromycin (Azithromycin 250 Mg Tab) 500 mg PO Q24H [facility] Stop: 07/04/21 22:01 Last Admin: 07/03/21 22:14 Dose: Not Given Documented by: Benzonatate (Benzonatate 100 Mg Cap) 200 mg PO DAILY PRN PRN Reason: Cough Carvedilol (Carvedilol 3.125 Mg Tab) 3.125 mg PO BID [facility] Last Admin: 07/03/21 20:45 Dose: 3.125 mg Documented by: Enoxaparin Sodium (Enoxaparin 40 Mg/0.4 Ml Syringe) 40 mg SUBCUT DAILY [facility] Last Admin: 07/03/21 08:47 Dose: 40 mg Documented by: Gabapentin (Gabapentin 600 Mg Tab) 1,800 mg PO BID [facility] Last Admin: 07/03/21 20:46 Dose: 1,800 mg Documented by: Hydromorphone HCl (Hydromorphone 0.5 Mg/0.5 Ml Syringe) 0.5 mg IVPUSH Q2H PRN PRN Reason: Pain (severe 7-10) Last Admin: 07/02/21 22:40 Dose: 0.5 mg Documented by: Ceftriaxone Sodium 2 gm/ (Sodium Chloride) 100 mls @ 200 mls/hr IV Q24H [facility] Last Admin: 07/03/21 20:47 Dose: 200 mls/hr Documented by: Insulin Human Lispro (Insulin Lispro 100 Unit/Ml 3 Ml Kwikpen) 0 unit SUBCUT QIDACANDBED [facility]; Protocol Last Admin: 07/03/21 22:14 Dose: Not Given Documented by: Lamotrigine (Lamotrigine 100 Mg Tab) 200 mg PO BID [facility] Last Admin: 07/03/21 20:47 Dose: 200 mg Documented by: Levothyroxine Sodium (Levothyroxine 112 Mcg Tab) 112 mcg PO ACBREAKFAST [facility] Last Admin: 07/04/21 06:06 Dose: 112 mcg Documented by: Levothyroxine Sodium (Levothyroxine 25 Mcg Tab) 25 mcg PO ACBREAKFAST [facility] Last Admin: 07/04/21 06:07 Dose: 25 mcg Documented by: Losartan Potassium (Losartan 50 Mg Tab) 50 mg PO BID [facility] Last Admin: 07/03/21 20:45 Dose: 50 mg Documented by: Methylprednisolone Sodium Succinate (Methylprednisolone Sodium Succinate 40 Mg/1 Ml Sdv) 60 mg IVPUSH Q12H [facility] Last Admin: 07/03/21 22:23 Dose: 60 mg Documented by: Mometasone Furoate/Formoterol Fumar (Formoterol/Mometasone 200-5 Mcg 8.8 Gm Inhaler) 1 puff IH DAILY [facility] Nystatin (Nystatin Topical Powder 15 Gm Bottle) 0 gm TOP TID PRN PRN Reason: Rash Spironolactone (Spironolactone 25 Mg Tab) 25 mg PO DAILY [facility] Last Admin: 07/03/21 08:47 Dose: 25 mg Documented by: Temazepam (Temazepam 30 Mg Cap) 30 mg PO BEDTIME [facility] Last Admin: 07/03/21 20:46 Dose: 30 mg Documented by: Temazepam (Temazepam 15 Mg Cap) 15 mg PO BEDTIME [facility] Last Admin: 07/03/21 20:47 Dose: 15 mg Documented by: Tramadol HCl (Tramadol 50 Mg Tab) 100 mg PO Q6H PRN PRN Reason: Pain Last Admin: 07/03/21 09:31 Dose: 100 mg Documented by: Trazodone HCl (Trazodone 50 Mg Tab) 225 mg PO BEDTIME [facility] Last Admin: 07/03/21 20:47 Dose: 225 mg Documented by: Venlafaxine HCl (Venlafaxine 75 Mg Cap.Er) 225 mg PO DAILY [facility] Last Admin: 07/03/21 08:46 Dose: 225 mg Documented by: Discontinued Medications Albuterol (Albuterol 0.083% 2.5 Mg/3 Ml Neb Soln) 2.5 mg NEB ONETIME ONE Stop: 07/02/21 15:53 Last Admin: 07/02/21 16:21 Dose: 2.5 mg Documented by: Gabapentin (Gabapentin 300 Mg Cap) 1,800 mg PO BID JUSTIN Last Admin: 07/02/21 21:43 Dose: 1,800 mg Documented by: Ceftriaxone Sodium 1 gm/ (Sodium Chloride) 100 mls @ 200 mls/hr IV ONETIME ONE Stop: 07/02/21 17:11 Last Admin: 07/02/21 17:30 Dose: 200 mls/hr Documented by: Ceftriaxone Sodium 1 gm/ (Sodium Chloride) 100 mls @ 200 mls/hr IV ONETIME ONE Stop: 07/02/21 21:44 Last Admin: 07/02/21 21:57 Dose: 200 mls/hr Documented by: Insulin Human Lispro (Insulin Lispro 100 Unit/Ml 3 Ml Kwikpen) 0 unit SUBCUT QIDACANDBED PRN; Protocol PRN Reason: Hyperglycemia Last Admin: 07/02/21 21:56 Dose: 10 units Documented by: Ketorolac Tromethamine (Ketorolac 30 Mg/Ml Sdv) 30 mg IVPUSH ONETIME ONE Stop: 07/02/21 16:59 Last Admin: 07/02/21 17:30 Dose: 30 mg Documented by: Temazepam (Temazepam 15 Mg Cap) 45 mg PO BEDTIME JUSTIN Last Admin: 07/02/21 21:41 Dose: 45 mg Documented by: - Exam Quality Assessment: Supplemental Oxygen (2L), DVT Prophylaxis. No: Urine Catheter General: Alert, Oriented, Cooperative, No Acute Distress HEENT: Pupils Equal, Pupils Reactive, Mucous Membr. Moist/[place] Lungs: Normal Respiratory Effort, Wheezing. No: Crackles, Rhonchi Cardiovascular: Regular Rate, Regular Rhythm GI/Abdominal Exam: Normal Bowel Sounds, Soft, Non-Tender, No Distention (Female) Exam: Deferred Back Exam: Normal Inspection, Full Range of Motion Extremities: Normal Inspection, Normal Range of Motion, Non-Tender, No Pedal Edema, Normal Capillary Refill Skin: Warm, Dry, Intact Neurological: No New Focal Deficit Psy/Mental Status: Alert, Normal Affect, Normal Mood - Patient Data Lab Results Last 24 hrs: Laboratory Results - last 24 hr 07/02/21 07/03/21 07/03/21 Range/Units 16:18 11:36 16:29 POC Glucose 157 H 204 H (70-99) mg/dL Procalcitonin <0.05 ng/mL 07/03/21 07/04/21 Range/Units 20:41 06:10 POC Glucose 163 H 227 H (70-99) mg/dL Procalcitonin ng/mL Result Diagrams: 07/04/21 07:05 07/04/21 07:05 Sepsis Event Note - Evaluation Sepsis Screening Result: No Definite Risk - Focused Exam Vital Signs: Vital Signs Temp Pulse Resp BP Pulse Ox Pulse Ox 07/03/21 20:45 72 111/84 07/03/21 20:43 96.8 F L 72 16 111/84 91 L 07/03/21 20:27 98 - Problem List & Annotations (1) CKD (chronic kidney disease) stage 3, GFR 30-59 ml/min SNOMED Code(s): 845059504 Code(s): N18.30 - CHRONIC KIDNEY DISEASE, STAGE 3 UNSPECIFIED Status: Chronic Priority: Low Current Visit: No Qualifiers: Chronic kidney disease stage 3 subtype: stage 3a (GFR 45-59) Qualified Code(s): N18.31 - Chronic kidney disease, stage 3a (2) Pneumonia SNOMED Code(s): 034965008 Code(s): J18.9 - PNEUMONIA, UNSPECIFIED ORGANISM Status: Acute Priority: High Current Visit: Yes Qualifiers: Pneumonia type: due to unspecified organism Laterality: left Lung location: lower lobe of lung Qualified Code(s): J18.9 - Pneumonia, unspecified organism (3) Respiratory syncytial virus (RSV) infection Status: Acute Priority: High Current Visit: Yes (4) Anemia SNOMED Code(s): 614231474 Code(s): D64.9 - ANEMIA, UNSPECIFIED Status: Chronic Priority: Low Current Visit: No Qualifiers: Anemia type: unspecified type Qualified Code(s): D64.9 - Anemia, unspecified (5) Anxiety SNOMED Code(s): 90738133 Code(s): F41.9 - ANXIETY DISORDER, UNSPECIFIED Status: Chronic Priority: Low Current Visit: No (6) COPD (chronic obstructive pulmonary disease) SNOMED Code(s): 70586953 Code(s): J44.9 - CHRONIC OBSTRUCTIVE PULMONARY DISEASE, UNSPECIFIED Status: Chronic Priority: High Current Visit: No Qualifiers: COPD type: unspecified COPD Qualified Code(s): J44.9 - Chronic obstructive pulmonary disease, unspecified (7) Cardiomyopathy SNOMED Code(s): 06109190 Code(s): I42.9 - CARDIOMYOPATHY, UNSPECIFIED Status: Chronic Priority: Low Current Visit: No Qualifiers: Cardiomyopathy type: unspecified Qualified Code(s): I42.9 - Cardiomyopathy, unspecified (8) Chronic neck pain SNOMED Code(s): 8492056467177 Code(s): M54.2 - CERVICALGIA; G89.29 - OTHER CHRONIC PAIN Status: Chronic Priority: Low Current Visit: No (9) Depression SNOMED Code(s): 24301133 Code(s): F32.9 - MAJOR DEPRESSIVE DISORDER, SINGLE EPISODE, UNSPECIFIED Status: Chronic Priority: Low Current Visit: No Qualifiers: Depression Type: other depression Qualified Code(s): F32.89 - Other specified depressive episodes (10) Endometriosis SNOMED Code(s): 830672590 Code(s): N80.9 - ENDOMETRIOSIS, UNSPECIFIED Status: Chronic Priority: Low Current Visit: No (11) HLD (hyperlipidemia) SNOMED Code(s): 09636688 Code(s): E78.5 - HYPERLIPIDEMIA, UNSPECIFIED Status: Chronic Priority: Low Current Visit: No Qualifiers: Hyperlipidemia type: unspecified Qualified Code(s): E78.5 - Hyperlipidemia, unspecified (12) HTN (hypertension) SNOMED Code(s): 80246559 Code(s): I10 - ESSENTIAL (PRIMARY) HYPERTENSION Status: Chronic Priority: Medium Current Visit: No Qualifiers: Hypertension type: unspecified Qualified Code(s): I10 - Essential (primary) hypertension (13) History of PSVT (paroxysmal supraventricular tachycardia) SNOMED Code(s): 180793242337808 Code(s): Z86.79 - PERSONAL HISTORY OF OTHER DISEASES OF THE CIRCULATORY SYSTEM Status: Chronic Priority: Medium Current Visit: No (14) History of Prinzmetal angina SNOMED Code(s): 569200389 Code(s): Z86.79 - PERSONAL HISTORY OF OTHER DISEASES OF THE CIRCULATORY SYST EM Status: Chronic Priority: Medium Current Visit: No (15) History of suicidal ideation SNOMED Code(s): 120599428 Code(s): Z86.59 - PERSONAL HISTORY OF OTHER MENTAL AND BEHAVIORAL DISORDERS Status: Chronic Priority: Low Current Visit: No (16) History of venous thromboembolism SNOMED Code(s): 531732960 Code(s): Z86.718 - PERSONAL HISTORY OF OTHER VENOUS THROMBOSIS AND EMBOLISM Status: Chronic Priority: Medium Current Visit: No (17) Hypothyroidism SNOMED Code(s): 90679908 Code(s): E03.9 - HYPOTHYROIDISM, UNSPECIFIED Status: Chronic Priority: Low Current Visit: No Qualifiers: Hypothyroidism type: postoperative Qualified Code(s): E89.0 - Postprocedural hypothyroidism (18) Muscular dystrophy SNOMED Code(s): 11523822 Code(s): G71.00 - MUSCULAR DYSTROPHY, UNSPECIFIED Status: Chronic Priority: Medium Current Visit: No (19) Obesity (BMI 30-39.9) SNOMED Code(s): 198843774, 147398751 Code(s): E66.9 - OBESITY, UNSPECIFIED Status: Chronic Priority: Medium Current Visit: No (20) Peripheral neuropathy SNOMED Code(s): 387558112 Code(s): G62.9 - POLYNEUROPATHY, UNSPECIFIED Status: Chronic Priority: Medium Current Visit: No Qualifiers: Peripheral neuropathy type: polyneuropathy, unspecified Qualified Code(s): G62.9 - Polyneuropathy, unspecified (21) Persistent dyspnea after COVID-19 SNOMED Code(s): 337227706, [id number] Code(s): R06.00 - DYSPNEA, UNSPECIFIED; B94.8 - SEQUELAE OF OTH INFECTIOUS AND PARASITIC DISEASES Status: Chronic Priority: High Current Visit: No (22) Recurrent pneumonia SNOMED Code(s): 974175696 Code(s): J18.9 - PNEUMONIA, UNSPECIFIED ORGANISM Status: Chronic Priority: Low Current Visit: No (23) Respiratory failure with hypercapnia SNOMED Code(s): 419102731 Code(s): J96.92 - RESPIRATORY FAILURE, UNSPECIFIED WITH HYPERCAPNIA Status: Chronic Priority: High Current Visit: No Qualifiers: Chronicity: acute on chronic Qualified Code(s): J96.22 - Acute and chronic respiratory failure with hypercapnia (24) Sleep apnea treated with nocturnal BiPAP SNOMED Code(s): 29477359 Code(s): G47.30 - SLEEP APNEA, UNSPECIFIED Status: Chronic Priority: Medium Current Visit: No (25) Type II diabetes mellitus SNOMED Code(s): 20730749 Code(s): E11.9 - TYPE 2 DIABETES MELLITUS WITHOUT COMPLICATIONS Status: Chronic Priority: Medium Current Visit: No Qualifiers: Diabetes mellitus watermelon harvesting supervisor insulin use: without watermelon harvesting supervisor use Diabetes mellitus complication status: with other specified complication Qualified Code(s): E11.69 - Type 2 diabetes mellitus with other specified complication (26) Generalized weakness SNOMED Code(s): 37045723 Code(s): R53.1 - WEAKNESS Status: Acute Priority: High Current Visit: Yes (27) Hypoxia SNOMED Code(s): 832312773 Code(s): R09.02 - HYPOXEMIA Status: Chronic Priority: High Current Visit: Yes (28) Bacteria in urine SNOMED Code(s): 65976426 Code(s): R82.71 - BACTERIURIA Status: Acute Priority: Low Current Visit: Yes - Problem List Review Problem List Initiated/Reviewed/Updated: Yes - My Orders Last 24 Hours: My Active Orders 07/03/21 08:55 Consult to Occupational Therapy [OT Evaluation and Treatment] [CONS] Routine PT Evaluation and Treatment [CONS] Routine 07/03/21 08:56 Consult to Case Management/Customer Operations Intern [CONS] Routine 07/03/21 09:18 RT Incentive Spirometry [RC] Q2HWA 07/03/21 09:19 Consult to Respiratory Therapy [Respiratory Care Assess and Treatment] [CONS] Routine 07/03/21 10:37 Patient Status [ADT] Routine 07/03/21 10:45 methylPREDNISolone Sod Succ [Solu-MEDROL] 60 mg IVPUSH Q12H 07/04/21 07:05 BASIC METABOLIC PANEL,BMP [CHEM] AM CBC WITH AUTO DIFF [HEME] AM CRP [C-REACTIVE PROTEIN] [CHEM] AM MAGNESIUM [CHEM] AM 07/04/21 09:00 Mometasone/Formoterol [Dulera 200-5 MCG] 1 puff IH DAILY 07/05/21 05:11 BASIC METABOLIC PANEL,BMP [CHEM] AM CBC WITH AUTO DIFF [HEME] AM CRP [C-REACTIVE PROTEIN] [CHEM] AM MAGNESIUM [CHEM] AM 07/06/21 05:11 BASIC METABOLIC PANEL,BMP [CHEM] AM CBC WITH AUTO DIFF [HEME] AM CRP [C-REACTIVE PROTEIN] [CHEM] AM MAGNESIUM [CHEM] AM 07/07/21 05:11 BASIC METABOLIC PANEL,BMP [CHEM] AM CBC WITH AUTO DIFF [HEME] AM CRP [C-REACTIVE PROTEIN] [CHEM] AM MAGNESIUM [CHEM] AM - Assessment Assessment:: 07/04/2021 56-year-old female with a history of recent RSV infection admitted to the floor for possible pneumonia. UA was obtained and urine culture is not growing anything. She reports a productive cough and pleuritic chest pain but states she is overall doing okay. She is on 2 L, which is her baseline, and has saturations in the upper 90s. Labs today show a mildly elevated WBC of 10.41 which is likely steroid related. Hemoglobin is 12.2. Platelet 235,000. Smear is normal. Sodium 141. Potassium 4.6. Chloride 103. Carbon dioxide 30. Anion gap is 12.6. BUN is 18. Creatinine 1.0. GFR is 57. Glucose has been between 227 and 163. Magnesium is elevated at 2.6. CRP is 0.9. We will continue current treatment plan with azithromycin, Rocephin, and methylprednisolone. We will continue to await blood cultures. Likely discharge tomorrow pending continued improvement and labs. - Plan Plan:: Pneumonia Hypoxia Respiratory syncytial virus (RSV) infection Generalized weakness Recurrent pneumonia Respiratory failure with hypercapnia Sleep apnea treated with nocturnal BiPAP Persistent dyspnea after COVID-19 COPD (chronic obstructive pulmonary disease) * Oxygen as needed to keep saturations above 88% * As needed DuoNebs * Incentive spirometry * Consult RT * Continue Rocephin 2gm daily * Continue Azithromycin 500mg daily for 3 days * Home respiratory medications as noted * Steroid as ordered * Continue home BiPAP nocturnal * Blood cultures pending * Monitor daily labs * PT/OT * CM/SW consultation * Isolation Anemia * No acute concerns * Monitor labs CKD (chronic kidney disease) stage 3, GFR 30-59 ml/min * No acute concerns - appears to be at baseline from prior labs * Avoid nephrotoxic meds if able Depression Anxiety History of suicidal ideation * No acute concerns * Continue home medications as ordered Endometriosis * No acute concerns HLD (hyperlipidemia) * No acute concerns HTN (hypertension) * No acute concerns * Home medications as ordered * Monitor vital signs History of PSVT (paroxysmal supraventricular tachycardia) History of Prinzmetal angina Cardiomyopathy * No acute concerns * Telemetry * Continue home cardiac meds History of venous thromboembolism * No acute concerns * No home blood thinners * Daily Lovenox as ordered Hypothyroidism * No acute concerns * Continue home levothyroxine Muscular dystrophy Chronic neck pain * No acute concerns * Home medications as ordered * PRN pain medications as ordered * PT/OT Obesity (BMI 30-39.9) * No acute concerns * Consider visitor services specialist consultation Type II diabetes mellitus Peripheral neuropathy * QID AC and Bedtime glucose checks * Consistent carbohydrate diet * Medium intensity sliding scale insulin * Hold home diabetic meds Bacteria in urine, Inactive * Urine culture - no growth * Blood cultures pending * Asymptomatic bacteriuria * Receiving abx as above Code status: Full code PCP: Dr. Welch DVT prophylaxis: Lovenox Disposition: Patient admitted to the floor on telemetry for management of her pneumonia and RSV. Likely discharge tomorrow.
[2021-07-04] MEDS: Gabapentin 600 MG Tab PO SCH ×2 (08:45→20:55)
[2021-07-04] MEDS: Spironolactone 25 MG Tab PO SCH (08:46)
[2021-07-04] MEDS: Venlafaxine 75 MG Cap.ER PO SCH (08:46)
[2021-07-04] MEDS: traMADol 50 MG Tab PO PRN (08:47)
[2021-07-04] MEDS: Enoxaparin 40 MG/0.4 ML Syringe SUBCUT SCH (08:48)
[2021-07-04] MEDS: lamoTRIgine 100 MG Tab PO SCH ×2 (08:48→20:56)
[2021-07-04] MEDS: Losartan 50 MG Tab PO SCH ×2 (08:49→20:55)
[2021-07-04] MEDS: Carvedilol 3.125 MG Tab PO SCH ×2 (08:49→20:56)
[2021-07-04] MEDS: Insulin Lispro 100 Unit/ML 3 ML KwikPen SUBCUT SCH ×4 (08:51→23:17)
[2021-07-04] MEDS ORDERED: Formoterol/Mometasone 200-5 MCG 8.8 GM Inhaler IH SCH (09:00)
[2021-07-04] MEDS: Formoterol/Mometasone 200-5 MCG 8.8 GM Inhaler IH SCH ×2 (09:29→21:17)
[2021-07-04] MEDS: Albuterol/Ipratropium 3.0-0.5 MG/3 ML Neb Soln NEB PRN ×3 (09:31→21:17)
[2021-07-04] MEDS: methylPREDNISolone Sodium Succinate 40 MG/1 ML SDV IVPUSH SCH ×2 (10:11→23:18)
[2021-07-04] MEDS: ALPRAZolam 0.5 MG Tab PO PRN (10:11)
[2021-07-04] MEDS: HYDROmorphone 0.5 MG/0.5 ML Syringe IVPUSH PRN (11:19)
[2021-07-04] MEDS: traZODone 50 MG Tab PO SCH (20:54)
[2021-07-04] MEDS: cefTRIAXone 2 GM in Sodium Chloride 0.9% 100 ML IV SCH (20:54)
[2021-07-04] MEDS: Temazepam 15 MG Cap PO SCH (20:56)
[2021-07-04] MEDS: Temazepam 30 MG Cap PO SCH (20:56)
[2021-07-04] MEDS: Azithromycin 250 MG Tab PO SCH (23:16)
[2021-07-05] MEDS: Levothyroxine 25 MCG Tab PO SCH (06:23)
[2021-07-05] MEDS: Levothyroxine 112 MCG Tab PO SCH (06:23)
[2021-07-05] MEDS: traMADol 50 MG Tab PO PRN (06:36)
[2021-07-05] MEDS: Gabapentin 600 MG Tab PO SCH (09:00)
[2021-07-05] MEDS: lamoTRIgine 100 MG Tab PO SCH (09:01)
[2021-07-05] MEDS: Venlafaxine 75 MG Cap.ER PO SCH (09:01)
[2021-07-05] MEDS: Spironolactone 25 MG Tab PO SCH (09:02)
[2021-07-05] MEDS: Losartan 50 MG Tab PO SCH (09:02)
[2021-07-05] MEDS: Carvedilol 3.125 MG Tab PO SCH (09:02)
[2021-07-05] MEDS: Enoxaparin 40 MG/0.4 ML Syringe SUBCUT SCH (09:03)
[2021-07-05] MEDS: Insulin Lispro 100 Unit/ML 3 ML KwikPen SUBCUT SCH ×2 (09:03→12:00)
[2021-07-05 09:04] VITALS: BP 131/83; PULSE 72
[2021-07-05] MEDS: Formoterol/Mometasone 200-5 MCG 8.8 GM Inhaler IH SCH (09:20)
[2021-07-05] MEDS: Albuterol/Ipratropium 3.0-0.5 MG/3 ML Neb Soln NEB PRN (09:20)
--- NOTE | 2021-07-05 09:22 | PCM.DCSUM1 ---
Discharge Summary - Hospital Course HPI Initial Comments: This is a 56-year-old female who presents to our emergency department on 07/02/2021 with generalized weakness, shortness of breath, body aches, sinus pressure, wheezing, and cough. She was seen in our ED on 06/29/2021 for similar symptoms and was found to be RSV positive. She was sent home but states that she has gotten weaker and developed a low-grade temp of 100 F. She has home nebulizer treatments but is been too weak to administer them. She does have a history of muscular dystrophy and is chronically oxygen dependent on 2 L via nasal cannula. She also has a history of AV shunting so oxygen saturations are variable. Prior to presenting to the ED she was seen at the clinic and a chest x-ray showed a slight density within the left lung base suspicious for pneumonia. At that visit IV was started and she does have normal saline running. She was also given a dose of IV Solu-Medrol. She has not had her Covid vaccination but states that she is planning on getting it in the next few weeks. She does have history of Covid infection back in October 2020. In the ED twelve-lead EKG is obtained showing a sinus rhythm at 72 bpm with an old inferior infarct. Also consider anterior infarct. She is noted to have coarse lung sounds and expiratory wheezes. Temp is 97.3. Pulse 72. Respirations 18. Blood pressure 120/80. Pulse ox is 90% on 3 L. Labs are obtained showing a normal WBC at 7.02. Hemoglobin is 12.5. Platelet 286,000. Neutrophils are 82.6. Sodium is 140. Potassium 4.3. Chloride 102. Carbon dioxide 31. Anion gap is 11.3. BUN is 9. Creatinine is 1.1. GFR is 51. Glucose is elevated at 154. Magnesium is 2.3. Total bilirubin 0.4. AST is 36, ALT 50, alkaline phosphatase 102. CRP is 2.1. Protein 7.2. Albumin is 3.8. SARS-CoV-2 RNA screen is negative. She started on 1 g of Rocephin and given an albuterol nebulizer. She is also given Toradol for pain. UA is obtained and is grossly negative however 1+ leukocyte esterase, 5-10 WBCs and moderate bacteria are noted. Both blood and urine cultures are obtained and are pending. She is subsequently admitted to the medical floor for further work-up and treatment of her apparent pneumonia. She is a full code. Her PCP is Dr. Welch. She carries a history of angina, prior VTE, cardiomyopathy, hypertension, PSVT, Prinzmetal's angina, COPD, recurrent pneumonia, sleep apnea, chronic CO2 retention, urinary incontinence, endometriosis, muscular dystrophy, migraines, anxiety, depression, suicidal ideation, type II DM, obesity, anemia, COVID-19 infection. Diagnosis: Stroke: No - Discharge Data Discharge Date: 07/05/21 (Admit date: ) Discharge Disposition: Home, Self-Care 01 Condition: Good - Referral to Home Health Primary Care Physician: Gina Welch MD - Discharge Diagnosis/Problem(s) (1) CKD (chronic kidney disease) stage 3, GFR 30-59 ml/min SNOMED Code(s): 085060081 ICD Code: N18.30 - CHRONIC KIDNEY DISEASE, STAGE 3 UNSPECIFIED Status: Chronic Priority: Low Current Visit: No Qualifiers: Chronic kidney disease stage 3 subtype: stage 3a (GFR 45-59) Qualified Code(s): N18.31 - Chronic kidney disease, stage 3a (2) Pneumonia SNOMED Code(s): 342217238 ICD Code: J18.9 - PNEUMONIA, UNSPECIFIED ORGANISM Status: Acute Priority: High Current Visit: Yes Qualifiers: Pneumonia type: due to unspecified organism Laterality: left Lung location: lower lobe of lung Qualified Code(s): J18.9 - Pneumonia, unspecified organism (3) Respiratory syncytial virus (RSV) infection Status: Acute Priority: High Current Visit: Yes (4) Anemia SNOMED Code(s): 783988821 ICD Code: D64.9 - ANEMIA, UNSPECIFIED Status: Chronic Priority: Low Current Visit: No Qualifiers: Anemia type: unspecified type Qualified Code(s): D64.9 - Anemia, unspecified (5) Anxiety SNOMED Code(s): 69681299 ICD Code: F41.9 - ANXIETY DISORDER, UNSPECIFIED Status: Chronic Priority: Low Current Visit: No (6) COPD (chronic obstructive pulmonary disease) SNOMED Code(s): 65539578 ICD Code: J44.9 - CHRONIC OBSTRUCTIVE PULMONARY DISEASE, UNSPECIFIED Status: Chronic Priority: High Current Visit: No Qualifiers: COPD type: unspecified COPD Qualified Code(s): J44.9 - Chronic obstructive pulmonary disease, unspecified (7) Cardiomyopathy SNOMED Code(s): 90018918 ICD Code: I42.9 - CARDIOMYOPATHY, UNSPECIFIED Status: Chronic Priority: Low Current Visit: No Qualifiers: Cardiomyopathy type: unspecified Qualified Code(s): I42.9 - Cardiomyopathy, unspecified (8) Chronic neck pain SNOMED Code(s): 9656941342163 ICD Code: M54.2 - CERVICALGIA; G89.29 - OTHER CHRONIC PAIN Status: Chronic Priority: Low Current Visit: No (9) Depression SNOMED Code(s): 39828452 ICD Code: F32.9 - MAJOR DEPRESSIVE DISORDER, SINGLE EPISODE, UNSPECIFIED Status: Chronic Priority: Low Current Visit: No Qualifiers: Depression Type: other depression Qualified Code(s): F32.89 - Other specified depressive episodes (10) Endometriosis SNOMED Code(s): 510622428 ICD Code: N80.9 - ENDOMETRIOSIS, UNSPECIFIED Status: Chronic Priority: Low Current Visit: No (11) HLD (hyperlipidemia) SNOMED Code(s): 78957857 ICD Code: E78.5 - HYPERLIPIDEMIA, UNSPECIFIED Status: Chronic Priority: Low Current Visit: No Qualifiers: Hyperlipidemia type: unspecified Qualified Code(s): E78.5 - Hyperlipidemia, unspecified (12) HTN (hypertension) SNOMED Code(s): 55825818 ICD Code: I10 - ESSENTIAL (PRIMARY) HYPERTENSION Status: Chronic Priority: Medium Current Visit: No Qualifiers: Hypertension type: unspecified Qualified Code(s): I10 - Essential (primary) hypertension (13) History of PSVT (paroxysmal supraventricular tachycardia) SNOMED Code(s): 839399623400874 ICD Code: Z86.79 - PERSONAL HISTORY OF OTHER DISEASES OF THE CIRCULATORY SYSTEM Status: Chronic Priority: Medium Current Visit: No (14) History of Prinzmetal angina SNOMED Code(s): 119120558 ICD Code: Z86.79 - PERSONAL HISTORY OF OTHER DISEASES OF THE CIRCULATORY SYSTEM Status: Chronic Priority: Medium Current Visit: No (15) History of suicidal ideation SNOMED Code(s): 029801917 ICD Code: Z86.59 - PERSONAL HISTORY OF OTHER MENTAL AND BEHAVIORAL DISORDERS Status: Chronic Priority: Low Current Visit: No (16) History of venous thromboembolism SNOMED Code(s): 694479597 ICD Code: Z86.718 - PERSONAL HISTORY OF OTHER VENOUS THROMBOSIS AND EMBOLISM Status: Chronic Priority: Medium Current Visit: No (17) Hypothyroidism SNOMED Code(s): 43875525 ICD Code: E03.9 - HYPOTHYROIDISM, UNSPECIFIED Status: Chronic Priority: Low Current Visit: No Qualifiers: Hypothyroidism type: postoperative Qualified Code(s): E89.0 - Postprocedural hypothyroidism (18) Muscular dystrophy SNOMED Code(s): 56886519 ICD Code: G71.00 - MUSCULAR DYSTROPHY, UNSPECIFIED Status: Chronic Priority: Medium Current Visit: No (19) Obesity (BMI 30-39.9) SNOMED Code(s): 714504346, 241033007 ICD Code: E66.9 - OBESITY, UNSPECIFIED Status: Chronic Priority: Medium Current Visit: No (20) Peripheral neuropathy SNOMED Code(s): 040860004 ICD Code: G62.9 - POLYNEUROPATHY, UNSPECIFIED Status: Chronic Priority: Medium Current Visit: No Qualifiers: Peripheral neuropathy type: polyneuropathy, unspecified Qualified Code(s): G62.9 - Polyneuropathy, unspecified (21) Persistent dyspnea after COVID-19 SNOMED Code(s): 303136505, [id number] ICD Code: R06.00 - DYSPNEA, UNSPECIFIED; B94.8 - SEQUELAE OF OTH INFECTIOUS AND PARASITIC DISEASES Status: Chronic Priority: High Current Visit: No (22) Recurrent pneumonia SNOMED Code(s): 664906665 ICD Code: J18.9 - PNEUMONIA, UNSPECIFIED ORGANISM Status: Chronic Priority: Low Current Visit: No (23) Respiratory failure with hypercapnia SNOMED Code(s): 104549801 ICD Code: J96.92 - RESPIRATORY FAILURE, UNSPECIFIED WITH HYPERCAPNIA Status: Chronic Priority: High Current Visit: No Qualifiers: Chronicity: acute on chronic Qualified Code(s): J96.22 - Acute and chronic respiratory failure with hypercapnia (24) Sleep apnea treated with nocturnal BiPAP SNOMED Code(s): 04193859 ICD Code: G47.30 - SLEEP APNEA, UNSPECIFIED Status: Chronic Priority: Medium Current Visit: No (25) Type II diabetes mellitus SNOMED Code(s): 80701618 ICD Code: E11.9 - TYPE 2 DIABETES MELLITUS WITHOUT COMPLICATIONS Status: Chronic Priority: Medium Current Visit: No Qualifiers: 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 use Diabetes mellitus complication status: with other specified complication Qualified Code(s): E11.69 - Type 2 diabetes mellitus with other specified complication (26) Generalized weakness SNOMED Code(s): 69719251 ICD Code: R53.1 - WEAKNESS Status: Acute Priority: High Current Visit: Yes (27) Hypoxia SNOMED Code(s): 798812046 ICD Code: R09.02 - HYPOXEMIA Status: Chronic Priority: High Current Visit: Yes (28) Bacteria in urine SNOMED Code(s): 07821593 ICD Code: R82.71 - BACTERIURIA Status: Ruled-out Priority: Low Current Visit: Yes (29) Pertussis SNOMED Code(s): 53822653 ICD Code: A37.90 - WHOOPING COUGH, UNSPECIFIED SPECIES WITHOUT PNEUMONIA Status: Acute Priority: High Current Visit: Yes - Patient Summary/Data Consults: Consultations 07/03/21 08:55 Consult to Occupational Therapy [OT Evaluation and Treatment] [CONS] Routine PT Evaluation and Treatment [CONS] Routine 07/03/21 08:56 Consult to Case Management/Database Technician [CONS] Routine 07/03/21 09:19 Consult to Respiratory Therapy [Respiratory Care Assess and Treatment] [CONS] Routine Labs Pending at D/C: None Recommended Follow-up Testing/Procedures: Follow-up with primary care provider within 5 to 7 days of discharge, sooner if needed. * Patient completed antibiotic treatment while here for pertussis and then will be prescribed at discharge. * Patient was complaining of rather significant pleuritic chest pain, well controlled with tramadol 100 mg as needed. Patient will be given a short course of tramadol as needed. She was instructed to stop taking her Tylenol No. 3 while on this. * Renewal sent for DuoNeb treatments * Recommend repeat CBC, CMP, magnesium in follow-up. Consider repeat chest x- ray. * Patient prescribed steroid taper at discharge. This will be a 12-day taper starting at 60 mg and decreasing every 2 days x 10 mg. * Discharged on home baseline 2 L of oxygen. * With the exception of Tylenol 3 all other home medications were continued. Follow-up with credit director in next 2 to 4 weeks. Hospital Course: This is a 56-year-old female with a history of recent RSV infection who was admitted to the floor for possible pneumonia found on x-ray. On admission UA was obtained and cultures continue to show no growth. At her worst she was requiring 3 L of oxygen via nasal cannula and this was weaned down to 2 L which is her baseline. She was noted to have rather significant wheezing and does have a history of COPD so she was started on a 60 mg twice daily steroid. She was also receiving 2 g Rocephin and 500 mg daily azithromycin. While hospitalized we are contacted by patient's primary care provider to notify us that the patient did return positive for pertussis from earlier screening. She completed 3 days of 500 mg azithromycin and her Rocephin was stopped prior to discharge. She states she was feeling much better. On admission there was no leukocytosis however this did increase throughout her stay, likely secondary to steroids. Renal function remained steady with a GFR in the mid to upper 50s. CRP did trend downward. Procalcitonin on admission was less than 0.05. She was on telemetry and there were no concerns noted with this. She was utilizing incentive spirometer and Acapella and was instructed to continue this for 1 to 2 weeks or until symptoms resolve after discharge. She was receiving duo nebs and does have a nebulizer at home. She was prescribed continuing DuoNebs at discharge. She was reporting a pleuritic chest pain which was well controlled with tramadol 100 mg and this will be continued at discharge as needed. She was instructed to stop taking her Tylenol 3. Prednisone taper was prescribed to discharge starting with 60 mg daily for 2 days and then decreasing by 10 mg every 2 days until complete. All other home medications were continued. She was instructed to continue to utilize her 2 L of home oxygen via nasal cannula. She was instructed to continue her home diabetic medication regimen and check her blood sugars as before. She was advised that she may see an increase due to her steroids and if she notices blood glucose readings of greater than 400 she should contact her primary care provider. Recommend follow-up with primary care provider within 5-7 days of discharge, sooner if needed. Recommend repeat CBC, CMP, and magnesium in follow-up. Consider repeat chest x-ray. Recommend patient follow-up with pulmonary within the next 2 to 4 weeks. She did see physical therapy who recommended home at discharge. She does have a motorized scooter she utilizes due to her baseline muscular dystrophy. She was ambulating around the room quite well. Discharged home today. - Patient Instructions Diet: Diabetic Diet Activity: As Tolerated Driving: Do Not Drive (until feeling better ) Showering/Bathing: May Shower Notify Provider of: Fever, Increased Pain, Nausea and/or Vomiting Other/Special Instructions: Follow-up with primary care provider within 5 to 7 days of discharge, sooner if needed. Recommend follow-up with pulmonary within next 2-4 weeks. You were prescribed a narcotic pain medication called tramadol for your pain. Take this as needed and as prescribed. You may discuss this in the future with your primary care provider. Be aware this medication may cause constipation. You may utilize [id number] laxatives/stool softeners as needed. This medication will also impair your ability to operate machinery or drive. You were prescribed a renewal of your DuoNebs. You may take these every 4 hours as needed for shortness of breath and wheezing. You completed treatment of your pertussis while here and no antibiotic will be prescribed. RSV is a viral illness and antibiotics do not help with this. Stay hydrated. Drink plenty of water. Rest up as needed. Continue to wear your oxygen as before. Continue to check your blood sugars as before. Be aware your steroid may increase your blood sugars for some time. Contact your primary care provider if you notice blood sugars over 400. You were prescribed a steroid taper for your COPD exacerbation. Take 6 tablets or 60 mg daily for 2 days. Then take 5 tablets or 50 mg daily for 2 days. Follow with 4 tablets or 40 mg daily for 2 days. Then take 3 tablets or 30 mg daily for 2 days. Follow with 2 tablets or 20 mg daily for 2 days. Finally take 1 or 10 mg daily for 2 days. Resume home medications as directed. Continue to utilize your incentive spirometer (clear/blue device you inhale through) and Acapella (green tube you blow through) for 1 to 2 weeks or until symptoms resolve. Should symptoms return or worsen contact primary care provider or return to the emergency room. - Discharge Plan *PRESCRIPTION DRUG MONITORING PROGRAM REVIEWED*: No *COPY OF PRESCRIPTION DRUG MONITORING REPORT IN PATIENT STIVEN: No Prescriptions/Med Rec: Albuterol/Ipratropium [DuoNeb 3.0-0.5 MG/3 ML] 3 ml NEB Q4H PRN #15 neb PRN Reason: Shortness Of Breath/wheezing predniSONE [Prednisone] 10 mg PO ASDIRECTED #42 tablet traMADol [Ultram] 100 mg PO Q6H PRN #12 tablet PRN Reason: Pain Home Medications: Home Meds Gabapentin [Neurontin] 1,800 mg PO BID 10/09/15 [History] Losartan [Cozaar] 50 mg PO BID 10/09/15 [History] Spironolactone [Aldactone] 25 mg PO DAILY 10/09/15 [History] carvediloL [Coreg] 3.125 mg PO BID 10/09/15 [History] traZODone 225 mg PO BEDTIME 10/09/15 [History] ALPRAZolam [Xanax] 0.5 mg PO TID PRN 04/12/16 [History] lamoTRIgine [Lamictal] 200 mg PO BID 04/16/18 [History] Cholecalciferol (Vitamin D3) [Vitamin D3] 10,000 unit PO DAILY 07/23/19 [History] Albuterol Sulfate [Albuterol Sulfate HFA] 1 puff INH Q4H PRN 11/01/20 [History] Levothyroxine Sodium [Levothyroxine] 137 mcg PO ACBREAKFAST 11/01/20 [History] Methylphenidate HCl [Methylphenidate ER] 27 mg PO DAILY 11/01/20 [History] Multivitamin [Multi-Day Vitamins] 1 tab PO BEDTIME 11/01/20 [History] Triamcinolone Acetonide [Nasacort AQ [place]] 2 sprays NASBOTH DAILY 11/01/20 [History] Venlafaxine HCl [Venlafaxine ER] 225 mg PO DAILY 11/01/20 [History] valACYclovir HCl [Valtrex] 500 mg PO BID PRN 11/18/20 [History] Benzonatate [Tessalon [place]] 200 mg PO DAILY PRN 03/19/21 [History] Acetaminophen [Tylenol] 650 mg PO Q4H PRN tablet 03/22/21 [Rx] Nystatin [Nyamyc] 1 gm TOP TID PRN 04/14/21 [History] Temazepam 45 mg PO BEDTIME 04/14/21 [History] Dulaglutide [Trulicity] 1.5 mg SQ WEEKLY 07/02/21 [History] Mometasone/Formoterol [Dulera 200-5 MCG] 2 puff INH BID 07/02/21 [History] tiZANidine [Zanaflex] 2 - 4 mg PO TID PRN 07/02/21 [History] Albuterol/Ipratropium [DuoNeb 3.0-0.5 MG/3 ML] 3 ml NEB Q4H PRN #15 neb 07/05/21 [Rx] predniSONE [Prednisone] 10 mg PO ASDIRECTED #42 tablet 07/05/21 [Rx] traMADol [Ultram] 100 mg PO Q6H PRN #12 tablet 07/05/21 [Rx] Oxygen Therapy Mode: Nasal Cannula Oxygen Flow Rate (L/min): 2 Maintain SpO2% greater than: 88 Patient Handouts: Pertussis, Adult, How to Use an Incentive Spirometer, Home Oxygen Use, Adult, Respiratory Syncytial Virus Infection, Adult, Sepsis, Self Care, Adult Forms: ED Department Discharge Referrals: Gina Welch MD [Primary Care Provider] - 07/16/21 1:10 pm (This is for hospital follow up and this is your check in time. Your annual exam was cancelled from 07/08 and rescheduled for at 08:40 am and this is the check in time for that appointment. If these appointment don't coordinate with your Robert appointments please call and reschedule them when they work for you. [phone].) - Discharge Summary/Plan Comment DC Time >30 min.: Yes Total # of Minutes for Discharge Time: 45 mins - General Info Date of Service: 07/05/21 Admission Dx/Problem (Free Text: Admission Diagnosis/Problem Admission Diagnosis/Problem Pneumonia Functional Status: Reports: Pain Controlled, Tolerating Diet, Ambulating, Urinating, Incentive Spirometry, Other (Acapella ). Denies: New Symptoms - Review of Systems General: Reports: No Symptoms. Denies: Fever, Weakness, Fatigue, Malaise, Chills HEENT: Reports: No Symptoms. Denies: Headaches, Sore Throat Pulmonary: Reports: Shortness of Breath, Pleuritic Chest Pain, Cough, Sputum, Wheezing. Denies: Hemoptysis Cardiovascular: Reports: No Symptoms, Dyspnea on Exertion. Denies: Chest Pain, Palpitations, Edema, Lightheadedness Gastrointestinal: Reports: No Symptoms. Denies: Abdominal Pain, Constipation, Diarrhea, Nausea, Vomiting Genitourinary: Reports: No Symptoms. Denies: Pain Musculoskeletal: Reports: No Symptoms Skin: Reports: No Symptoms. Denies: Cyanosis Neurological: Reports: Pre-Existing Deficit (Baseline MD ), Difficulty Walking (Baseline ), Gait Disturbance (Baseline ). Denies: Confusion, Dizziness, Headache, Numbness, Seizure, Syncope, Tingling, Tremors, Trouble Speaking, Weakness, Change in Speech Psychiatric: Reports: No Symptoms - Patient Data Vitals - Most Recent: Last Vital Signs Temp 97.3 F 07/05/21 06:14 Pulse 72 07/05/21 09:02 Resp 16 07/05/21 06:14 BP 131/83 07/05/21 09:02 Pulse Ox 93 L 07/05/21 06:14 Weight - Most Recent: 244 lb 11.2 oz I&O - Last 24 hours: Intake & Output 07/04/21 07/05/21 07/05/21 22:59 06:59 14:59 Intake Total 1320 900 Output Total 500 900 Balance 820 0 Lab Results - Last 24 hrs: Laboratory Results - last 24 hr 07/04/21 07/04/21 07/04/21 Range/Units 11:19 17:08 20:40 WBC (3.98-10.04) K/mm3 RBC (3.98-5.22) M/mm3 Hgb (11.2-15.7) gm/dl Hct (34.1-44.9) % MCV (79.4-94.8) fl MCH (25.6-32.2) pg MCHC (32.2-35.5) g/dl RDW Std Deviation (36.4-46.3) fL Plt Count (182-369) K/mm3 MPV (9.4-12.3) fl Neut % (Auto) (34.0-71.1) % Lymph % (Auto) (19.3-51.7) % [place] % (Auto) (4.7-12.5) % Eos % (Auto) (0.7-5.8) Baso % (Auto) (0.1-1.2) % Neut # (Auto) (1.56-6.13) K/mm3 Lymph # (Auto) (1.18-3.74) K/mm3 [place] # (Auto) (0.24-0.36) K/mm3 Eos # (Auto) (0.04-0.36) K/mm3 Baso # (Auto) (0.01-0.08) K/mm3 Manual Slide Review Sodium (136-145) mEq/L Potassium (3.5-5.1) mEq/L Chloride (98-107) mEq/L Carbon Dioxide (21-32) mEq/L Anion Gap (5-15) BUN (7-18) mg/dL Creatinine (0.55-1.02) mg/dL Est Cr Clr Drug Dosing mL/min Estimated GFR (MDRD) (>60) mL/min BUN/Creatinine Ratio (14-18) Glucose (70-99) mg/dL POC Glucose 177 H 167 H 223 H (70-99) mg/dL Calcium (8.5-10.1) mg/dL Magnesium (1.8-2.4) mg/dL C-Reactive Protein (<1.0) mg/dL 07/05/21 07/05/21 07/05/21 Range/Units 04:58 04:58 06:17 WBC 11.99 H (3.98-10.04) K/mm3 RBC 3.87 L (3.98-5.22) M/mm3 Hgb 11.5 (11.2-15.7) gm/dl Hct 38.6 (34.1-44.9) % MCV 99.7 H (79.4-94.8) fl MCH 29.7 (25.6-32.2) pg MCHC 29.8 L (32.2-35.5) g/dl RDW Std Deviation 49.6 H (36.4-46.3) fL Plt Count 305 (182-369) K/mm3 MPV 9.3 L (9.4-12.3) fl Neut % (Auto) 84.2 H (34.0-71.1) % Lymph % (Auto) 12.2 L (19.3-51.7) % [place] % (Auto) 3.3 L (4.7-12.5) % Eos % (Auto) 0 L (0.7-5.8) Baso % (Auto) 0.1 (0.1-1.2) % Neut # (Auto) 10.10 H (1.56-6.13) K/mm3 Lymph # (Auto) 1.46 (1.18-3.74) K/mm3 [place] # (Auto) 0.40 H (0.24-0.36) K/mm3 Eos # (Auto) 0.00 L (0.04-0.36) K/mm3 Baso # (Auto) 0.01 (0.01-0.08) K/mm3 Manual Slide Review Normal smear Sodium 142 (136-145) mEq/L Potassium 4.6 (3.5-5.1) mEq/L Chloride 105 (98-107) mEq/L Carbon Dioxide 29 (21-32) mEq/L Anion Gap 12.6 (5-15) BUN 23 H (7-18) mg/dL Creatinine 1.1 H (0.55-1.02) mg/dL Est Cr Clr Drug Dosing 59.68 mL/min Estimated GFR (MDRD) 51 (>60) mL/min BUN/Creatinine Ratio 20.9 H (14-18) Glucose 223 H (70-99) mg/dL POC Glucose 211 H (70-99) mg/dL Calcium 8.7 (8.5-10.1) mg/dL Magnesium 2.6 H (1.8-2.4) mg/dL C-Reactive Protein 0.2 (<1.0) mg/dL AMBER Results - Last 24 hrs: Microbiology 07/02/21 17:15 Blood Culture - Preliminary Blood - Venous - Lab Draw 07/02/21 17:09 Blood Culture - Preliminary Blood - Venous 07/02/21 17:30 Urine Culture - Final Urine Med Orders - Current: Current Medications Acetaminophen (Acetaminophen 325 Mg Tab) 650 mg PO Q4H PRN PRN Reason: Pain (Mild 1-3)/fever Last Admin: 07/04/21 20:57 Dose: 650 mg Documented by: Albuterol/Ipratropium (Albuterol/Ipratropium 3.0-0.5 Mg/3 Ml Neb Soln) 3 ml NEB Q4H PRN PRN Reason: Shortness Of Breath/wheezing Last Admin: 07/05/21 09:20 Dose: 3 ml Documented by: Alprazolam (Alprazolam 0.5 Mg Tab) 0.5 mg PO TID PRN PRN Reason: Anxiety Last Admin: 07/04/21 10:11 Dose: 0.5 mg Documented by: Benzonatate (Benzonatate 100 Mg Cap) 200 mg PO DAILY PRN PRN Reason: Cough Last Admin: 07/04/21 08:48 Dose: 200 mg Documented by: Carvedilol (Carvedilol 3.125 Mg Tab) 3.125 mg PO BID [facility] Last Admin: 07/05/21 09:02 Dose: 3.125 mg Documented by: Enoxaparin Sodium (Enoxaparin 40 Mg/0.4 Ml Syringe) 40 mg SUBCUT DAILY [facility] Last Admin: 07/05/21 09:03 Dose: 40 mg Documented by: Gabapentin (Gabapentin 600 Mg Tab) 1,800 mg PO BID [facility] Last Admin: 07/05/21 09:00 Dose: 1,800 mg Documented by: Hydromorphone HCl (Hydromorphone 0.5 Mg/0.5 Ml Syringe) 0.5 mg IVPUSH Q2H PRN PRN Reason: Pain (severe 7-10) Last Admin: 07/04/21 11:19 Dose: 0.5 mg Documented by: Ceftriaxone Sodium 2 gm/ (Sodium Chloride) 100 mls @ 200 mls/hr IV Q24H [facility] Last Admin: 07/04/21 20:54 Dose: 200 mls/hr Documented by: Insulin Human Lispro (Insulin Lispro 100 Unit/Ml 3 Ml Kwikpen) 0 unit SUBCUT QIDACANDBED [facility]; Protocol Last Admin: 07/05/21 09:03 Dose: 4 units Documented by: Lamotrigine (Lamotrigine 100 Mg Tab) 200 mg PO BID [facility] Last Admin: 07/05/21 09:01 Dose: 200 mg Documented by: Levothyroxine Sodium (Levothyroxine 112 Mcg Tab) 112 mcg PO ACBREAKFAST [facility] Last Admin: 07/05/21 06:23 Dose: 112 mcg Documented by: Levothyroxine Sodium (Levothyroxine 25 Mcg Tab) 25 mcg PO ACBREAKFAST [facility] Last Admin: 07/05/21 06:23 Dose: 25 mcg Documented by: Losartan Potassium (Losartan 50 Mg Tab) 50 mg PO BID [facility] Last Admin: 07/05/21 09:02 Dose: 50 mg Documented by: Methylprednisolone Sodium Succinate (Methylprednisolone Sodium Succinate 40 Mg/1 Ml Sdv) 60 mg IVPUSH Q12H [facility] Last Admin: 07/04/21 23:18 Dose: 60 mg Documented by: Mometasone Furoate/Formoterol Fumar (Formoterol/Mometasone 200-5 Mcg 8.8 Gm Inhaler) 2 puff IH BID [facility] Last Admin: 07/05/21 09:20 Dose: 2 puff Documented by: Nystatin (Nystatin Topical Powder 15 Gm Bottle) 0 gm TOP TID PRN PRN Reason: Rash Spironolactone (Spironolactone 25 Mg Tab) 25 mg PO DAILY [facility] Last Admin: 07/05/21 09:02 Dose: 25 mg Documented by: Temazepam (Temazepam 30 Mg Cap) 30 mg PO BEDTIME [facility] Last Admin: 07/04/21 20:56 Dose: 30 mg Documented by: Temazepam (Temazepam 15 Mg Cap) 15 mg PO BEDTIME [facility] Last Admin: 07/04/21 20:56 Dose: 15 mg Documented by: Tramadol HCl (Tramadol 50 Mg Tab) 100 mg PO Q6H PRN PRN Reason: Pain Last Admin: 07/05/21 06:36 Dose: 100 mg Documented by: Trazodone HCl (Trazodone 50 Mg Tab) 225 mg PO BEDTIME [facility] Last Admin: 07/04/21 20:54 Dose: 225 mg Documented by: Venlafaxine HCl (Venlafaxine 75 Mg Cap.Er) 225 mg PO DAILY [facility] Last Admin: 07/05/21 09:01 Dose: 225 mg Documented by: Discontinued Medications Albuterol (Albuterol 0.083% 2.5 Mg/3 Ml Neb Soln) 2.5 mg NEB ONETIME ONE Stop: 07/02/21 15:53 Last Admin: 07/02/21 16:21 Dose: 2.5 mg Documented by: Azithromycin (Azithromycin 250 Mg Tab) 500 mg PO Q24H JUSTIN Stop: 07/04/21 22:01 Last Admin: 07/04/21 23:16 Dose: 500 mg Documented by: Gabapentin (Gabapentin 300 Mg Cap) 1,800 mg PO BID [facility] Last Admin: 07/02/21 21:43 Dose: 1,800 mg Documented by: Ceftriaxone Sodium 1 gm/ (Sodium Chloride) 100 mls @ 200 mls/hr IV ONETIME ONE Stop: 07/02/21 17:11 Last Admin: 07/02/21 17:30 Dose: 200 mls/hr Documented by: Ceftriaxone Sodium 1 gm/ (Sodium Chloride) 100 mls @ 200 mls/hr IV ONETIME ONE Stop: 07/02/21 21:44 Last Admin: 07/02/21 21:57 Dose: 200 mls/hr Documented by: Insulin Human Lispro (Insulin Lispro 100 Unit/Ml 3 Ml Kwikpen) 0 unit SUBCUT QIDACANDBED PRN; Protocol PRN Reason: Hyperglycemia Last Admin: 07/02/21 21:56 Dose: 10 units Documented by: Ketorolac Tromethamine (Ketorolac 30 Mg/Ml Sdv) 30 mg IVPUSH ONETIME ONE Stop: 07/02/21 16:59 Last Admin: 07/02/21 17:30 Dose: 30 mg Documented by: Mometasone Furoate/Formoterol Fumar (Formoterol/Mometasone 200-5 Mcg 8.8 Gm Inhaler) 1 puff IH DAILY [facility] Last Admin: 07/04/21 09:50 Dose: Not Given Documented by: Temazepam (Temazepam 15 Mg Cap) 45 mg PO BEDTIME [facility] Last Admin: 07/02/21 21:41 Dose: 45 mg Documented by: - Exam Quality Assessment: Reports: Supplemental Oxygen (2L - baseline ), DVT Prophylaxis. Denies: Urine Catheter General: Reports: Alert, Oriented, Cooperative, No Acute Distress HEENT: Reports: Pupils Equal, Pupils Reactive, Mucous Membr. Moist/[place]: Reports: Supple, Trachea Midline Lungs: Reports: Clear to Auscultation, Normal Respiratory Effort, Wheezing Cardiovascular: Reports: Regular Rate, Regular Rhythm GI/Abdominal Exam: Normal Bowel Sounds, Soft, Non-Tender, No Distention (Female) Exam: Deferred Rectal (Female) Exam: Deferred Back Exam: Reports: Normal Inspection, Full Range of Motion Extremities: Normal Inspection, Normal Range of Motion, Non-Tender, No Pedal Edema, Normal Capillary Refill Skin: Reports: Warm, Dry, Intact Neurological: Reports: No New Focal Deficit Psy/Mental Status: Reports: Alert
[2021-07-05] MEDS: methylPREDNISolone Sodium Succinate 40 MG/1 ML SDV IVPUSH SCH (11:14)
== END 2021-07-05 12:44 | disposition home or self-care (01) | DRG 193 ==
LOC: JD.ED 15:24 → JD.MS 17:28
PROVIDERS: ADMIT Family Medicine; ATTEND Family Medicine
DX: J18.9 Pneumonia, unspecified organism (principal); J96.22 Acute and chronic respiratory failure with hypercapnia; I42.9 Cardiomyopathy, unspecified; A37.90 Whooping cough, unspecified species without pneumonia; I10 Essential (primary) hypertension; J44.0 Chronic obstructive pulmonary disease with (acute) lower respiratory infection; N18.31 Chronic kidney disease, stage 3a; R32 Unspecified urinary incontinence; D63.1 Anemia in chronic kidney disease; F32.9 Major depressive disorder, single episode, unspecified; E11.9 Type 2 diabetes mellitus without complications; D64.9 Anemia, unspecified; Z86.16 Personal history of COVID-19; Z88.8 Allergy status to other drugs, medicaments and biological substances; Z20.822 Contact with and (suspected) exposure to COVID-19; G71.00 Muscular dystrophy, unspecified; M54.2 Cervicalgia; G47.30 Sleep apnea, unspecified; F32.89 Other specified depressive episodes; N80.9 Endometriosis, unspecified; E78.5 Hyperlipidemia, unspecified; E03.9 Hypothyroidism, unspecified; H54.7 Unspecified visual loss; E66.9 Obesity, unspecified; G62.9 Polyneuropathy, unspecified; F41.9 Anxiety disorder, unspecified; Z86.718 Personal history of other venous thrombosis and embolism; Z79.890 Hormone replacement therapy; B97.4 Respiratory syncytial virus as the cause of diseases classified elsewhere; F32.A Depression, unspecified; Z86.79 Personal history of other diseases of the circulatory system; Z79.899 Other long term (current) drug therapy; B94.8 Sequelae of other specified infectious and parasitic diseases; Z88.5 Allergy status to narcotic agent; Z88.2 Allergy status to sulfonamides; I42.0 Dilated cardiomyopathy; J44.9 Chronic obstructive pulmonary disease, unspecified; Z98.890 Other specified postprocedural states; Z90.49 Acquired absence of other specified parts of digestive tract; J20.9 Acute bronchitis, unspecified; G89.29 Other chronic pain; M25.50 Pain in unspecified joint; R05.9 Cough, unspecified; U09.9 Post COVID-19 condition, unspecified; R91.8 Other nonspecific abnormal finding of lung field
CPT/HCPCS: 36415; 71046; 80053; 83735; 84145; 85025; 86140; 87040 ×2; 87070; 87205; 87798; 87804 ×2; 93005; 94640; 99285; U0002; 80048; 81001; 82947; 87086; 94668; 94761; 97162-GP; 99223; 99232; 99239; A9270-GY; J0696; J1170; J1650; J1815; J1885; J2920; J7620-GY

== ENCOUNTER 2021-10-24 14:15 | Emergency (ER) | payer MEDICARE ==
[2021-10-24] MEDS ORDERED: Lactated Ringers 1,000 ML IV ONE (15:44)
[2021-10-24] MEDS ORDERED: Lactated Ringers 1,000 ML IV SCH (15:45)
[2021-10-24] MEDS ORDERED: Acetaminophen 325 MG Tab PO ONE (16:49)
[2021-10-24 17:36] LABS: CORONAVIRUS COVID-19 NAA POSITIVE (NEGATIVE)
[2021-10-24 18:21] VITALS: BP 135/84; PULSE 76
== END 2021-10-24 18:20 | disposition home or self-care (01) ==
LOC: SUPCPDRO 14:15 → JD.ED 14:15
DX: U07.1 COVID-19 (principal); I10 Essential (primary) hypertension; J44.9 Chronic obstructive pulmonary disease, unspecified; E11.9 Type 2 diabetes mellitus without complications; E66.9 Obesity, unspecified; Z68.34 Body mass index [BMI] 34.0-34.9, adult; Z79.899 Other long term (current) drug therapy; Z88.5 Allergy status to narcotic agent; Z88.8 Allergy status to other drugs, medicaments and biological substances
CPT/HCPCS: 0240U; 36415; 71045; 80053; 84484; 85025; 85610; 87045; 87046; 87899; 93005; 99284; A9270; J7120

== ENCOUNTER 2021-10-29 16:37 | Emergency (ER) | payer BC, MEDICARE ==
[2021-10-29 16:43] VITALS: BP 130/89; PULSE 97
[2021-10-29] MEDS ORDERED: Ondansetron 4 MG/2 ML SDV IVPUSH ONE (17:00)
[2021-10-29] MEDS ORDERED: Sodium Chloride 0.9% 1,000 ML IV SCH (17:00)
[2021-10-29] MEDS ORDERED: Sodium Chloride 0.9% 10 ML Syringe FLUSH PRN (17:00)
[2021-10-29] MEDS ORDERED: HYDROmorphone 0.5 MG/0.5 ML Syringe IVPUSH ONE (18:23)
== END 2021-10-29 19:07 | disposition home or self-care (01) ==
LOC: JD.ED 16:37
DX: U07.1 COVID-19 (principal); R07.89 Other chest pain; R00.2 Palpitations; I11.9 Hypertensive heart disease without heart failure; J44.9 Chronic obstructive pulmonary disease, unspecified; E11.22 Type 2 diabetes mellitus with diabetic chronic kidney disease; I12.9 Hypertensive chronic kidney disease with stage 1 through stage 4 chronic kidney disease, or unspecified chronic kidney disease; N18.9 Chronic kidney disease, unspecified; E66.9 Obesity, unspecified; Z68.34 Body mass index [BMI] 34.0-34.9, adult; Z88.5 Allergy status to narcotic agent; Z88.8 Allergy status to other drugs, medicaments and biological substances; Z79.899 Other long term (current) drug therapy
CPT/HCPCS: 36415; 71045; 80053; 84484; 85025; 85379; 93005; 96374; 96375; 99285; J1170; J2405; J7030; 93010

== ENCOUNTER 2022-01-07 17:12 | Emergency (ER) | payer BC, MEDICARE ==
[2022-01-07 17:29] VITALS: BP 129/90; PULSE 103
[2022-01-07] MEDS ORDERED: Lactated Ringers 1,000 ML IV ONE (17:43)
[2022-01-07] MEDS ORDERED: Ondansetron 4 MG/2 ML SDV IVPUSH ONE (17:43)
[2022-01-07] MEDS ORDERED: Morphine 4 MG/ML Syringe IVPUSH ONE (18:43)
[2022-01-07] MEDS ORDERED: diphenhydrAMINE 50 MG/ML SDV IVPUSH ONE (18:43)
[2022-01-07] MEDS ORDERED: Sodium Chloride 0.9% 10 ML Syringe FLUSH PRN (18:54)
[2022-01-07] MEDS ORDERED: Iopamidol 612 MG/ML 100 ML Bottle IVPUSH ONE (18:54)
[2022-01-07] MEDS ORDERED: Iopamidol 612 MG/ML 50 ML SDV IVPUSH ONE (18:54)
[2022-01-07] MEDS ORDERED: HYDROmorphone 1 MG/ML Syringe IVPUSH ONE (19:56)
== END 2022-01-07 21:55 | disposition home or self-care (01) ==
LOC: JD.ED 17:12
DX: A08.4 Viral intestinal infection, unspecified (principal); J44.9 Chronic obstructive pulmonary disease, unspecified; I11.9 Hypertensive heart disease without heart failure; E11.22 Type 2 diabetes mellitus with diabetic chronic kidney disease; I12.9 Hypertensive chronic kidney disease with stage 1 through stage 4 chronic kidney disease, or unspecified chronic kidney disease; N18.9 Chronic kidney disease, unspecified; E66.9 Obesity, unspecified; Z68.35 Body mass index [BMI] 35.0-35.9, adult; Z28.310 Unvaccinated for COVID-19; Z88.5 Allergy status to narcotic agent; Z88.8 Allergy status to other drugs, medicaments and biological substances; Z79.899 Other long term (current) drug therapy
CPT/HCPCS: 36415; 74177; 80053; 81001; 81025; 83605; 83690; 85025; 96361; 96374; 96375; 99284; J1170; J1200; J2270; J2405; J3490; J7120; Q9967

== ENCOUNTER 2022-01-19 13:53 | Emergency (ER) | payer BC, MEDICARE ==
[2022-01-19 14:06] VITALS: BP 140/87; PULSE 72
[2022-01-19] MEDS ORDERED: Sodium Chloride 0.9% 1,000 ML IV ONE (14:30)
[2022-01-19] MEDS ORDERED: HYDROmorphone 1 MG/ML Syringe IVPUSH ONE (14:32)
[2022-01-19] MEDS ORDERED: diphenhydrAMINE 50 MG/ML SDV IVPUSH ONE (14:32)
== END 2022-01-19 17:07 | disposition home or self-care (01) ==
LOC: JD.ED 13:53
DX: R10.9 Unspecified abdominal pain (principal); R74.8 Abnormal levels of other serum enzymes; I11.9 Hypertensive heart disease without heart failure; J44.9 Chronic obstructive pulmonary disease, unspecified; E11.9 Type 2 diabetes mellitus without complications; E66.9 Obesity, unspecified; Z68.35 Body mass index [BMI] 35.0-35.9, adult; Z86.16 Personal history of COVID-19; Z88.5 Allergy status to narcotic agent; Z88.8 Allergy status to other drugs, medicaments and biological substances; Z79.899 Other long term (current) drug therapy
CPT/HCPCS: 36415; 80053; 81001; 82550; 83690; 85025; 94762; 96374; 96375; 99283; J1170; J1200; J7030

== ENCOUNTER 2022-01-20 10:28 | Emergency (ER) | payer BC, MEDICARE ==
[2022-01-20] MEDS ORDERED: HYDROmorphone 1 MG/ML Syringe IVPUSH ONE ×2 (11:06→12:25)
[2022-01-20] MEDS ORDERED: LORazepam 2 MG/ML SDV IV ONE (11:07)
[2022-01-20] MEDS ORDERED: Dextrose 5%-0.9% NaCl 1,000 ML IV SCH (11:15)
[2022-01-20] MEDS ORDERED: Ondansetron 4 MG/2 ML SDV IVPUSH ONE (11:30)
[2022-01-20] MEDS ORDERED: Lactated Ringers 1,000 ML IV SCH (13:45)
[2022-01-20] MEDS ORDERED: fentaNYL 25 MCG/HR Transdermal Patch TRDERM SCH (13:45)
[2022-01-20 15:46] VITALS: BP 141/84; PULSE 68
== END 2022-01-20 15:45 | disposition home or self-care (01) ==
LOC: JD.ED 10:28
DX: G71.00 Muscular dystrophy, unspecified (principal); G89.4 Chronic pain syndrome; J44.9 Chronic obstructive pulmonary disease, unspecified; I10 Essential (primary) hypertension; E11.9 Type 2 diabetes mellitus without complications; E66.9 Obesity, unspecified; Z68.30 Body mass index [BMI] 30.0-30.9, adult; Z86.16 Personal history of COVID-19; Z90.49 Acquired absence of other specified parts of digestive tract; Z79.899 Other long term (current) drug therapy; Z88.5 Allergy status to narcotic agent; Z88.2 Allergy status to sulfonamides; Z88.8 Allergy status to other drugs, medicaments and biological substances
CPT/HCPCS: 36415; 80053; 81001; 82550; 82553; 83735; 83874; 83880; 84443; 84484; 85025; 85610; 85652; 85730; 86140; 93005; 96361; 96374; 96375; 96376; 99283; A9270; J1170; J2060; J2405; J7042; J7120; 93010; 99284

== ENCOUNTER 2022-05-22 12:03 | Emergency (ER) | payer BC, MEDICARE ==
[2022-05-22 15:58] VITALS: BP 145/78; PULSE 86
== END 2022-05-22 15:59 | disposition home or self-care (01) ==
LOC: JD.ED 12:03
DX: S09.90XA Unspecified injury of head, initial encounter (principal); J44.9 Chronic obstructive pulmonary disease, unspecified; M54.50 Low back pain, unspecified; M25.551 Pain in right hip; I10 Essential (primary) hypertension; E11.9 Type 2 diabetes mellitus without complications; E66.9 Obesity, unspecified; Z68.35 Body mass index [BMI] 35.0-35.9, adult; Z88.5 Allergy status to narcotic agent; Z88.8 Allergy status to other drugs, medicaments and biological substances; Z88.2 Allergy status to sulfonamides; Z88.6 Allergy status to analgesic agent; Z79.899 Other long term (current) drug therapy; Z86.16 Personal history of COVID-19; Z90.49 Acquired absence of other specified parts of digestive tract; W22.8XXA Striking against or struck by other objects, initial encounter
CPT/HCPCS: 70450; 70450-26; 72100; 72100-26; 73502-26-RT; 73502-RT; 99283; 99284

== ENCOUNTER 2022-06-04 05:50 | Emergency (ER) | payer BC, MEDICARE ==
[2022-06-04] MEDS ORDERED: diphenhydrAMINE 50 MG/ML SDV ONE (07:24)
[2022-06-04] MEDS ORDERED: HYDROmorphone 1 MG/ML Syringe ONE ×3 (07:24→11:26)
[2022-06-04] MEDS ORDERED: diphenhydrAMINE 50 MG/ML SDV IVPUSH ONE (07:27)
[2022-06-04] MEDS ORDERED: HYDROmorphone 1 MG/ML Syringe IV ONE ×3 (07:27→11:32)
[2022-06-04 08:54] LABS: ESTIMATED GFR 66 mL/min (>60)
[2022-06-04] MEDS ORDERED: Orphenadrine 100 MG Tab.ER ONE (09:29)
[2022-06-04] MEDS ORDERED: Orphenadrine 100 MG Tab.ER PO ONE (09:31)
[2022-06-04] MEDS ORDERED: methylPREDNISolone Sodium Succinate 125 MG/2 ML SDV ONE (11:26)
[2022-06-04] MEDS ORDERED: LORazepam 2 MG/ML SDV ONE (11:30)
[2022-06-04] MEDS ORDERED: LORazepam 2 MG/ML SDV IVPUSH ONE (11:30)
[2022-06-04] MEDS ORDERED: methylPREDNISolone Sodium Succinate 125 MG/2 ML SDV IVPUSH ONE (11:34)
[2022-06-04 12:50] VITALS: BP 108/60; PULSE 72
== END 2022-06-04 11:40 | disposition home or self-care (01) ==
LOC: JD.ED 05:50
DX: M54.50 Low back pain, unspecified (principal)
CPT/HCPCS: 36415; 71045; 72131; 72192; 80053; 81001; 82550; 85025; 96374; 96375; 96376; 99284; A9270; J1170; J1200; J2060; J2930; 36410

== ENCOUNTER 2022-06-19 15:45 | Emergency (ER) | payer BC, MEDICARE ==
[2022-06-19 16:05] VITALS: PULSE 74
[2022-06-19] MEDS ORDERED: Sodium Chloride 0.9% 10 ML Syringe FLUSH PRN (16:18)
[2022-06-19] MEDS ORDERED: Sodium Chloride 0.9% 1,000 ML IV SCH (16:30)
[2022-06-19 19:36] VITALS: BP 111/69
== END 2022-06-19 19:30 | disposition home or self-care (01) ==
LOC: JD.ED 15:45
DX: R07.89 Other chest pain (principal); J44.9 Chronic obstructive pulmonary disease, unspecified; Z79.899 Other long term (current) drug therapy
CPT/HCPCS: 36415; 71045; 80053; 84484; 85025; 93005; 96360; 99285; J3490; J7030

== ENCOUNTER 2022-07-27 10:01 | Emergency (ER) | payer BC, MEDICARE ==
[2022-07-27] MEDS ORDERED: fentaNYL 100 MCG/2 ML SDV IVPUSH ONE (11:13)
[2022-07-27 12:31] VITALS: BP 116/73; PULSE 70
== END 2022-07-27 12:36 | disposition home or self-care (01) ==
LOC: JD.ED 10:01
DX: S89.92XA Unspecified injury of left lower leg, initial encounter (principal); I12.9 Hypertensive chronic kidney disease with stage 1 through stage 4 chronic kidney disease, or unspecified chronic kidney disease; N18.9 Chronic kidney disease, unspecified; J44.9 Chronic obstructive pulmonary disease, unspecified; E11.9 Type 2 diabetes mellitus without complications; E66.9 Obesity, unspecified; Z88.8 Allergy status to other drugs, medicaments and biological substances; Z88.5 Allergy status to narcotic agent; Z79.899 Other long term (current) drug therapy; W20.8XXA Other cause of strike by thrown, projected or falling object, initial encounter; Y93.01 Activity, walking, marching and hiking
CPT/HCPCS: 73562; 96374; 99283; J3010

== ENCOUNTER 2022-11-17 16:39 | Emergency (ER) | payer BC, MEDICARE ==
[2022-11-17] MEDS ORDERED: Sodium Chloride 0.9% 1,000 ML IV ONE ×3 (16:49→19:35)
[2022-11-17 18:50] LABS: CORONAVIRUS COVID-19 NAA NEGATIVE (NEGATIVE)
[2022-11-17] MEDS ORDERED: Midodrine 5 MG Tab PO ONE (22:47)
[2022-11-17 23:47] VITALS: BP 81/53; PULSE 65
[2022-11-18] MEDS ORDERED: Midodrine 5 MG Tab PO ONE (22:23)
== END 2022-11-18 00:39 | disposition home or self-care (01) ==
LOC: JD.ED 16:39
DX: I95.2 Hypotension due to drugs (principal); T50.995A Adverse effect of other drugs, medicaments and biological substances, initial encounter; J44.9 Chronic obstructive pulmonary disease, unspecified; I12.9 Hypertensive chronic kidney disease with stage 1 through stage 4 chronic kidney disease, or unspecified chronic kidney disease; E11.22 Type 2 diabetes mellitus with diabetic chronic kidney disease; N18.9 Chronic kidney disease, unspecified; E66.9 Obesity, unspecified; Z68.27 Body mass index [BMI] 27.0-27.9, adult; Z88.5 Allergy status to narcotic agent; Z88.8 Allergy status to other drugs, medicaments and biological substances; Z88.2 Allergy status to sulfonamides; Z79.899 Other long term (current) drug therapy; Z86.16 Personal history of COVID-19; Z20.822 Contact with and (suspected) exposure to COVID-19
CPT/HCPCS: 0241U; 36415; 71045; 74019; 80053; 80306; 81001; 83605; 83735; 84443; 84484; 85025; 85610; 85730; 86140; 87040; 93005; 96360; 96361; 99285; A9270; J7030; 93010; 99284

== ENCOUNTER 2022-11-18 13:25 | Emergency (ER) | payer BC, MEDICARE ==
[2022-11-18] MEDS ORDERED: Sodium Chloride 0.9% 10 ML Syringe FLUSH PRN ×2 (14:03→14:28)
[2022-11-18] MEDS ORDERED: Albuterol/Ipratropium 3.0-0.5 MG/3 ML Neb Soln NEB ONE (14:27)
[2022-11-18] MEDS ORDERED: methylPREDNISolone Sodium Succinate 125 MG/2 ML SDV IVPUSH ONE (14:28)
[2022-11-18] MEDS ORDERED: Iopamidol 755 Mg/ML 100 ML Bottle IVPUSH ONE (14:28)
[2022-11-18] MEDS ORDERED: Sodium Chloride 0.9% 100 ML IV SCH (14:30)
[2022-11-18 14:59] LABS: ESTIMATED GFR 75 mL/min (>60)
[2022-11-18] MEDS ORDERED: Aspirin 81 MG Tab.Chew PO ONE (15:27)
[2022-11-18] MEDS ORDERED: atorvaSTATin 40 MG Tab PO ONE (16:27)
[2022-11-18] MEDS ORDERED: Heparin Sodium 5,000 Units/ML Vial IVPUSH ONE (16:27)
[2022-11-18] MEDS ORDERED: Heparin Sodium/D5W 25,000 UNITS/500 ML BAG IV SCH (16:30)
[2022-11-18 18:40] VITALS: BP 108/65; PULSE 86
== END 2022-11-18 18:15 ==
LOC: JD.ED 13:25
DX: I21.4 Non-ST elevation (NSTEMI) myocardial infarction (principal); R09.02 Hypoxemia; E11.22 Type 2 diabetes mellitus with diabetic chronic kidney disease; I12.9 Hypertensive chronic kidney disease with stage 1 through stage 4 chronic kidney disease, or unspecified chronic kidney disease; N18.9 Chronic kidney disease, unspecified; Z88.5 Allergy status to narcotic agent; E66.9 Obesity, unspecified; J44.9 Chronic obstructive pulmonary disease, unspecified; Z88.8 Allergy status to other drugs, medicaments and biological substances; Z88.2 Allergy status to sulfonamides
CPT/HCPCS: 36415; 36600; 71275; 80053; 82803; 83605; 83735; 83880; 84484; 85025; 85730; 86140; 93005; 94640; 96365; 96366; 96375; 99285; A9270; J1644; J2930; J3490; Q9967; 93010; J7620-GY

== ENCOUNTER 2022-12-16 09:48 | Emergency (ER) | payer BC, MEDICARE ==
[2022-12-16] MEDS ORDERED: HYDROmorphone 0.5 MG/0.5 ML Syringe IM ONE ×2 (10:00→12:09)
[2022-12-16] MEDS ORDERED: Orphenadrine 100 MG Tab.ER PO ONE (10:00)
[2022-12-16 10:06] VITALS: BP 117/78; PULSE 74
== END 2022-12-16 12:35 | disposition home or self-care (01) ==
LOC: JD.ED 09:48
DX: K57.32 Diverticulitis of large intestine without perforation or abscess without bleeding (principal); J44.9 Chronic obstructive pulmonary disease, unspecified; I12.9 Hypertensive chronic kidney disease with stage 1 through stage 4 chronic kidney disease, or unspecified chronic kidney disease; E11.22 Type 2 diabetes mellitus with diabetic chronic kidney disease; N18.9 Chronic kidney disease, unspecified; I25.2 Old myocardial infarction; Z86.16 Personal history of COVID-19; Z88.5 Allergy status to narcotic agent; Z88.8 Allergy status to other drugs, medicaments and biological substances; Z79.899 Other long term (current) drug therapy; V00.831A Fall from motorized mobility scooter, initial encounter
CPT/HCPCS: 70450; 71250; 72125; 73562; 74176; 96372; 99285; A9270; J1170; 99284

== ENCOUNTER 2023-01-14 07:15 | Inpatient (IN) | payer BC, MEDICARE ==
[2023-01-14] MEDS ORDERED: diphenhydrAMINE 50 MG/ML SDV IVPUSH ONE (07:43)
[2023-01-14] MEDS ORDERED: HYDROmorphone 1 MG/ML Syringe IVPUSH ONE ×2 (07:43→09:38)
[2023-01-14] MEDS ORDERED: Sodium Chloride 0.9% 1,000 ML IV ONE (07:43)
[2023-01-14] MEDS ORDERED: Ondansetron 4 MG/2 ML SDV IVPUSH ONE (07:43)
[2023-01-14] MEDS ORDERED: Sodium Chloride 0.9% 10 ML Syringe FLUSH PRN (07:56)
[2023-01-14 08:27] LABS: BASOPHILS ABSOLUTE AUTO 0.04 K/mm3 (0.01-0.08); BASOPHILS PERCENT AUTO 0.2 % (0.1-1.2); EOSINOPHILS ABSOLUTE AUTO 0.46 K/mm3 (0.04-0.36); EOSINOPHILS PERCENT AUTO 2.2 (0.7-5.8); HEMATOCRIT 40.4 % (34.1-44.9); IMMATURE GRAN ABSOLUTE AUTO 0.09 K/mm3 (0.00-0.10); IMMATURE GRAN PERCENT AUTO 0.4 % (<=1.0); LYMPHOCYTES ABSOLUTE AUTO 2.66 K/mm3 (1.18-3.74); LYMPHOCYTES PERCENT AUTO 12.6 % (19.3-51.7); MEAN CORPUSCULAR HEMOGLOBIN 29.8 pg (25.6-32.2); MEAN CORPUSCULAR HGB CONC 31.7 g/dl (32.2-35.5); MEAN PLATELET VOLUME 8.7 fl (9.4-12.3); MONOCYTES ABSOLUTE AUTO 1.87 K/mm3 (0.24-0.36); MONOCYTES PERCENT AUTO 8.9 % (4.7-12.5); NEUTROPHILS ABSOLUTE AUTO 15.99 K/mm3 (1.56-6.13); NEUTROPHILS PERCENT AUTO 75.7 % (34.0-71.1); RED BLOOD CELL COUNT 4.29 M/mm3 (3.98-5.22); WHITE BLOOD CELL COUNT,WBC 21.11 K/mm3 (3.98-10.04)
[2023-01-14 08:29] LABS: HEMOGLOBIN 12.8 gm/dl (11.2-15.7); MEAN CORPUSCULAR VOLUME 94.2 fl (79.4-94.8); PLATELET COUNT,PLT 412 K/mm3 (182-369)
[2023-01-14] MEDS: Iopamidol 612 MG/ML 100 ML Bottle IVPUSH ONE ×2 (08:42→08:49)
[2023-01-14] MEDS: Sodium Chloride 0.9% 10 ML Syringe FLUSH PRN (08:50)
[2023-01-14 08:52] LABS: SLIDE REVIEW ABNORMAL SMEAR
[2023-01-14 08:55] LABS: A/G RATIO 0.8 (1-2); ALBUMIN 3.3 g/dl (3.4-5.0); ANION GAP 13.3 (5-15); BILIRUBIN TOTAL 0.3 mg/dL (0.2-1.0); BUN/CREATININE RATIO 12.5 (14-18); CREATININE 0.8 mg/dL (0.55-1.02); EST CRCL DRUG DOSING (CG) 78.27 mL/min; POTASSIUM,K 4.3 mEq/L (3.5-5.1); PROTEIN TOTAL,TP 7.6 g/dl (6.4-8.2)
[2023-01-14 09:10] LABS: C-REACTIVE PROTEIN 23.2 mg/dL (<1.0)
[2023-01-14] MEDS ORDERED: Piperacillin/Tazobactam 4.5 GM in Sodium Chloride 0.9% 100 ML IV ONE (09:32)
[2023-01-14 10:04] LABS: APPEARANCE,URINE CLEAR (Clear); BILIRUBIN,URINE NEGATIVE (Negative); COLOR,URINE YELLOW (Yellow); GLUCOSE,URINE NEGATIVE (Negative); KETONES,URINE NEGATIVE (Negative); LEUKOCYTE ESTERASE,URINE NEGATIVE (Negative); NITRITE,URINE NEGATIVE (Negative); OCCULT BLOOD,URINE NEGATIVE (Negative); PH,URINE 7.5 (5.0-8.0); PROTEIN,URINE NEGATIVE (Negative); UROBILINOGEN,URINE 0.2 (0.2-1.0)
[2023-01-14] MEDS ORDERED: Orphenadrine 100 MG Tab.ER PO PRN (11:05)
[2023-01-14] MEDS ORDERED: ACETAMINOPHEN WITH CODEINE PO PRN (11:05)
[2023-01-14] MEDS ORDERED: Spironolactone 25 MG Tab PO SCH (11:15)
[2023-01-14] MEDS ORDERED: Benzonatate 100 MG Cap PO PRN (11:22)
[2023-01-14] MEDS ORDERED: Albuterol 6.7 GM Inhaler INH PRN (11:29)
[2023-01-14 11:53] LABS: ANION GAP 8.4 (5-15); BUN/CREATININE RATIO 12.9 (14-18); CALCIUM 8.8 mg/dL (8.5-10.1); CREATININE 0.7 mg/dL (0.55-1.02); EST CRCL DRUG DOSING (CG) 89.45 mL/min; POTASSIUM,K 4.4 mEq/L (3.5-5.1)
[2023-01-14] MEDS: Ibuprofen 400 MG Tab PO PRN (12:37)
[2023-01-14] MEDS: Heparin Sodium 5,000 Units/ML Vial SUBCUT SCH ×2 (12:39→20:30)
[2023-01-14] MEDS: BUDESONIDE INH SCH ×2 (13:07→20:50)
[2023-01-14] MEDS: FORMOTEROL INH SCH ×2 (13:07→20:50)
[2023-01-14] MEDS: GLYCOPYR INH SCH ×2 (13:07→20:50)
[2023-01-14] MEDS: amLODIPine 2.5 MG Tab PO SCH (14:02)
[2023-01-14] MEDS: Cholecalciferol (Vitamin D3) 5,000 UNIT Cap PO SCH (14:02)
[2023-01-14] MEDS: Gabapentin 600 MG Tab PO SCH ×2 (14:02→20:29)
[2023-01-14] MEDS: Piperacillin/Tazobactam 4.5 GM in Sodium Chloride 0.9% 100 ML IV SCH (18:19)
[2023-01-14] MEDS: traZODone 50 MG Tab PO SCH (20:29)
[2023-01-14] MEDS: busPIRone 5 MG Tab PO SCH (20:30)
[2023-01-15] MEDS: Piperacillin/Tazobactam 4.5 GM in Sodium Chloride 0.9% 100 ML IV SCH ×3 (02:29→18:03)
[2023-01-15] MEDS: Heparin Sodium 5,000 Units/ML Vial SUBCUT SCH ×3 (04:23→20:16)
[2023-01-15] MEDS: Acetaminophen 325 MG Tab PO PRN ×2 (04:44→14:44)
[2023-01-15] MEDS: Levothyroxine 75 MCG Tab PO SCH ×2 (04:45→05:09)
[2023-01-15] MEDS: Ibuprofen 400 MG Tab PO PRN (06:49)
[2023-01-15 07:16] LABS: ANION GAP 12.8 (5-15); BUN/CREATININE RATIO 5.6 (14-18); CALCIUM 9.3 mg/dL (8.5-10.1); CREATININE 0.9 mg/dL (0.55-1.02); EST CRCL DRUG DOSING (CG) 69.57 mL/min; POTASSIUM,K 4.8 mEq/L (3.5-5.1)
[2023-01-15] MEDS: METHYLPHENIDATE HCL 27 MG PO SCH ×3 (07:17→10:01)
[2023-01-15 07:35] LABS: BASOPHILS ABSOLUTE AUTO 0.04 K/mm3 (0.01-0.08); BASOPHILS PERCENT AUTO 0.4 % (0.1-1.2); EOSINOPHILS ABSOLUTE AUTO 0.66 K/mm3 (0.04-0.36); EOSINOPHILS PERCENT AUTO 6.1 (0.7-5.8); HEMATOCRIT 41.3 % (34.1-44.9); HEMOGLOBIN 12.9 gm/dl (11.2-15.7); IMMATURE GRAN ABSOLUTE AUTO 0.05 K/mm3 (0.00-0.10); IMMATURE GRAN PERCENT AUTO 0.5 % (<=1.0); LYMPHOCYTES ABSOLUTE AUTO 3.22 K/mm3 (1.18-3.74); LYMPHOCYTES PERCENT AUTO 29.5 % (19.3-51.7); MEAN CORPUSCULAR HEMOGLOBIN 29.9 pg (25.6-32.2); MEAN CORPUSCULAR HGB CONC 31.2 g/dl (32.2-35.5); MEAN CORPUSCULAR VOLUME 95.8 fl (79.4-94.8); MONOCYTES ABSOLUTE AUTO 0.91 K/mm3 (0.24-0.36); MONOCYTES PERCENT AUTO 8.3 % (4.7-12.5); NEUTROPHILS ABSOLUTE AUTO 6.02 K/mm3 (1.56-6.13); NEUTROPHILS PERCENT AUTO 55.2 % (34.0-71.1); PLATELET COUNT,PLT 417 K/mm3 (182-369); RED BLOOD CELL COUNT 4.31 M/mm3 (3.98-5.22)
[2023-01-15] MEDS ORDERED: Ketorolac 30 MG/ML SDV IVPUSH SCH (08:00)
[2023-01-15] MEDS: FORMOTEROL INH SCH ×2 (08:36→21:21)
[2023-01-15] MEDS: BUDESONIDE INH SCH ×2 (08:36→21:21)
[2023-01-15] MEDS: GLYCOPYR INH SCH ×2 (08:36→21:21)
[2023-01-15 09:31] LABS: SLIDE REVIEW ABNORMAL SMEAR
[2023-01-15] MEDS: Venlafaxine 75 MG Cap.ER PO SCH (09:40)
[2023-01-15] MEDS: Magnesium Oxide 400 MG Tab PO SCH (09:41)
[2023-01-15] MEDS: Carvedilol 3.125 MG Tab PO SCH ×2 (09:41→20:15)
[2023-01-15] MEDS: Gabapentin 600 MG Tab PO SCH ×2 (09:41→20:12)
[2023-01-15] MEDS: Cholecalciferol (Vitamin D3) 5,000 UNIT Cap PO SCH (09:41)
[2023-01-15] MEDS: amLODIPine 2.5 MG Tab PO SCH (09:41)
[2023-01-15] MEDS: busPIRone 5 MG Tab PO SCH ×2 (09:42→20:15)
[2023-01-15] MEDS: lamoTRIgine 100 MG Tab PO SCH ×2 (09:42→20:15)
[2023-01-15] MEDS: Fluticasone NASAL Spray 16 GM Bottle NASBOTH SCH (09:44)
[2023-01-15] MEDS: Spironolactone 25 MG Tab PO SCH (09:52)
[2023-01-15] MEDS: Nortriptyline 10 MG Cap PO SCH ×2 (09:52→20:15)
[2023-01-15] MEDS: Losartan 50 MG Tab PO SCH ×2 (09:52→20:13)
[2023-01-15 11:50] LABS: ANION GAP 11.8 (5-15); BUN/CREATININE RATIO 6.7 (14-18); CREATININE 0.9 mg/dL (0.55-1.02); EST CRCL DRUG DOSING (CG) 69.57 mL/min; POTASSIUM,K 3.8 mEq/L (3.5-5.1)
[2023-01-15] MEDS: Ketorolac 30 MG/ML SDV IM ONE ×2 (12:00→12:08)
[2023-01-15] MEDS ORDERED: Acetaminophen/oxyCODONE 325-5 MG Tab PO PRN (13:55)
[2023-01-15] MEDS: fentaNYL 25 MCG/HR Transdermal Patch TRDERM SCH (14:44)
[2023-01-15] MEDS: Ketorolac 30 MG/ML SDV IVPUSH SCH (18:03)
[2023-01-15] MEDS: Ondansetron 4 MG Tab.DIS PO PRN (18:29)
[2023-01-15 19:25] LABS: BASOPHILS PERCENT AUTO 0.5 % (0.1-1.2); EOSINOPHILS PERCENT AUTO 5.7 (0.7-5.8); HEMATOCRIT 41.8 % (34.1-44.9); HEMOGLOBIN 13.2 gm/dl (11.2-15.7); IMMATURE GRAN PERCENT AUTO 0.6 % (<=1.0); LYMPHOCYTES ABSOLUTE AUTO 3.49 K/mm3 (1.18-3.74); LYMPHOCYTES PERCENT AUTO 28.3 % (19.3-51.7); MEAN CORPUSCULAR HEMOGLOBIN 29.9 pg (25.6-32.2); MEAN CORPUSCULAR HGB CONC 31.6 g/dl (32.2-35.5); MEAN CORPUSCULAR VOLUME 94.8 fl (79.4-94.8); MEAN PLATELET VOLUME 8.7 fl (9.4-12.3); MONOCYTES PERCENT AUTO 10.1 % (4.7-12.5); NEUTROPHILS ABSOLUTE AUTO 6.77 K/mm3 (1.56-6.13); NEUTROPHILS PERCENT AUTO 54.8 % (34.0-71.1); PLATELET COUNT,PLT 449 K/mm3 (182-369); RED BLOOD CELL COUNT 4.41 M/mm3 (3.98-5.22); WHITE BLOOD CELL COUNT,WBC 12.35 K/mm3 (3.98-10.04)
[2023-01-15 19:26] LABS: BASOPHILS ABSOLUTE AUTO 0.06 K/mm3 (0.01-0.08); EOSINOPHILS ABSOLUTE AUTO 0.71 K/mm3 (0.04-0.36); IMMATURE GRAN ABSOLUTE AUTO 0.07 K/mm3 (0.00-0.10); MONOCYTES ABSOLUTE AUTO 1.25 K/mm3 (0.24-0.36)
[2023-01-15] MEDS ORDERED: Sodium Chloride 0.9% 500 ML IV SCH (19:45)
[2023-01-15] MEDS ORDERED: Lactated Ringers 1,000 ML IV ONE (19:45)
[2023-01-15] MEDS: traZODone 50 MG Tab PO SCH (20:12)
[2023-01-15] MEDS: Temazepam 30 MG Cap PO PRN (20:15)
[2023-01-15] MEDS: HYDROmorphone 0.5 MG/0.5 ML Syringe IVPUSH PRN ×2 (20:16→23:18)
[2023-01-15] MEDS: D5 1/2 NS w/ 20 mEq/L KCl 1,000 ML IV SCH (21:56)
[2023-01-15] MEDS ORDERED: Ketorolac 30 MG/ML SDV IM SCH (22:00)
[2023-01-16] MEDS: Ketorolac 30 MG/ML SDV IVPUSH SCH ×4 (00:04→17:45)
[2023-01-16] MEDS: Piperacillin/Tazobactam 4.5 GM in Sodium Chloride 0.9% 100 ML IV SCH ×3 (02:30→17:45)
[2023-01-16] MEDS: Heparin Sodium 5,000 Units/ML Vial SUBCUT SCH ×3 (05:21→20:06)
[2023-01-16] MEDS: Levothyroxine 75 MCG Tab PO SCH (05:23)
[2023-01-16] MEDS: D5 1/2 NS w/ 20 mEq/L KCl 1,000 ML IV SCH ×2 (05:24→21:56)
[2023-01-16 06:41] LABS: BASOPHILS ABSOLUTE AUTO 0.03 K/mm3 (0.01-0.08); BASOPHILS PERCENT AUTO 0.3 % (0.1-1.2); EOSINOPHILS ABSOLUTE AUTO 0.58 K/mm3 (0.04-0.36); EOSINOPHILS PERCENT AUTO 6.1 (0.7-5.8); HEMATOCRIT 33.8 % (34.1-44.9); HEMOGLOBIN 10.3 gm/dl (11.2-15.7); IMMATURE GRAN ABSOLUTE AUTO 0.05 K/mm3 (0.00-0.10); IMMATURE GRAN PERCENT AUTO 0.5 % (<=1.0); LYMPHOCYTES ABSOLUTE AUTO 3.64 K/mm3 (1.18-3.74); LYMPHOCYTES PERCENT AUTO 38.2 % (19.3-51.7); MEAN CORPUSCULAR HEMOGLOBIN 29.5 pg (25.6-32.2); MEAN CORPUSCULAR HGB CONC 30.5 g/dl (32.2-35.5); MEAN CORPUSCULAR VOLUME 96.8 fl (79.4-94.8); MEAN PLATELET VOLUME 8.8 fl (9.4-12.3); MONOCYTES ABSOLUTE AUTO 0.92 K/mm3 (0.24-0.36); MONOCYTES PERCENT AUTO 9.7 % (4.7-12.5); NEUTROPHILS PERCENT AUTO 45.2 % (34.0-71.1); PLATELET COUNT,PLT 359 K/mm3 (182-369); RED BLOOD CELL COUNT 3.49 M/mm3 (3.98-5.22); WHITE BLOOD CELL COUNT,WBC 9.52 K/mm3 (3.98-10.04)
[2023-01-16 06:45] LABS: ANION GAP 10.5 (5-15); BUN/CREATININE RATIO 7.5 (14-18); CALCIUM 8.5 mg/dL (8.5-10.1); CREATININE 0.8 mg/dL (0.55-1.02); EST CRCL DRUG DOSING (CG) 78.27 mL/min; POTASSIUM,K 4.5 mEq/L (3.5-5.1)
[2023-01-16] MEDS: BUDESONIDE INH SCH ×2 (08:38→20:10)
[2023-01-16] MEDS: FORMOTEROL INH SCH ×2 (08:38→20:10)
[2023-01-16] MEDS: GLYCOPYR INH SCH ×2 (08:38→20:10)
[2023-01-16] MEDS: lamoTRIgine 100 MG Tab PO SCH ×2 (09:27→20:08)
[2023-01-16] MEDS: Nortriptyline 10 MG Cap PO SCH ×2 (09:28→20:08)
[2023-01-16] MEDS: Carvedilol 3.125 MG Tab PO SCH ×2 (09:29→20:08)
[2023-01-16] MEDS: amLODIPine 2.5 MG Tab PO SCH (09:29)
[2023-01-16] MEDS: Spironolactone 25 MG Tab PO SCH (09:30)
[2023-01-16] MEDS: Magnesium Oxide 400 MG Tab PO SCH (09:30)
[2023-01-16] MEDS: busPIRone 5 MG Tab PO SCH ×2 (09:30→20:08)
[2023-01-16] MEDS: Gabapentin 600 MG Tab PO SCH ×2 (09:31→20:07)
[2023-01-16] MEDS: Cholecalciferol (Vitamin D3) 5,000 UNIT Cap PO SCH (09:31)
[2023-01-16] MEDS: Fluticasone NASAL Spray 16 GM Bottle NASBOTH SCH (09:32)
[2023-01-16] MEDS: Venlafaxine 75 MG Cap.ER PO SCH (09:32)
[2023-01-16] MEDS: Losartan 50 MG Tab PO SCH ×2 (09:32→20:07)
[2023-01-16] MEDS: METHYLPHENIDATE HCL 27 MG PO SCH (09:33)
[2023-01-16] MEDS: Acetaminophen 325 MG Tab PO PRN (11:39)
[2023-01-16 11:44] LABS: SLIDE REVIEW NORMAL SMEAR
[2023-01-16] MEDS ORDERED: Polyethylene Glycol 3350 Powder 17 GM Packet PO ONE (13:00)
[2023-01-16] MEDS: HYDROmorphone 0.5 MG/0.5 ML Syringe IVPUSH PRN ×2 (15:25→18:36)
[2023-01-16] MEDS: Polyethylene Glycol 3350 Powder 17 GM Packet PO SCH (16:56)
[2023-01-16] MEDS: traZODone 50 MG Tab PO SCH (20:06)
[2023-01-17] MEDS: HYDROmorphone 0.5 MG/0.5 ML Syringe IVPUSH PRN ×2 (00:08→03:00)
[2023-01-17] MEDS: Acetaminophen 325 MG Tab PO PRN ×4 (00:52→21:27)
[2023-01-17] MEDS: Ketorolac 30 MG/ML SDV IVPUSH SCH ×5 (00:53→17:52)
[2023-01-17] MEDS: Piperacillin/Tazobactam 4.5 GM in Sodium Chloride 0.9% 100 ML IV SCH ×3 (01:51→17:52)
[2023-01-17] MEDS: Heparin Sodium 5,000 Units/ML Vial SUBCUT SCH ×3 (04:20→21:13)
[2023-01-17 05:30] LABS: BASOPHILS ABSOLUTE AUTO 0.05 K/mm3 (0.01-0.08); BASOPHILS PERCENT AUTO 0.4 % (0.1-1.2); EOSINOPHILS ABSOLUTE AUTO 0.47 K/mm3 (0.04-0.36); EOSINOPHILS PERCENT AUTO 4.2 (0.7-5.8); IMMATURE GRAN ABSOLUTE AUTO 0.05 K/mm3 (0.00-0.10); IMMATURE GRAN PERCENT AUTO 0.4 % (<=1.0); LYMPHOCYTES ABSOLUTE AUTO 3.15 K/mm3 (1.18-3.74); LYMPHOCYTES PERCENT AUTO 28.1 % (19.3-51.7); MEAN CORPUSCULAR HEMOGLOBIN 29.5 pg (25.6-32.2); MEAN CORPUSCULAR HGB CONC 30.3 g/dl (32.2-35.5); MEAN CORPUSCULAR VOLUME 97.3 fl (79.4-94.8); MEAN PLATELET VOLUME 8.5 fl (9.4-12.3); MONOCYTES ABSOLUTE AUTO 1.04 K/mm3 (0.24-0.36); MONOCYTES PERCENT AUTO 9.3 % (4.7-12.5); NEUTROPHILS ABSOLUTE AUTO 6.45 K/mm3 (1.56-6.13); NEUTROPHILS PERCENT AUTO 57.6 % (34.0-71.1); PLATELET COUNT,PLT 337 K/mm3 (182-369); RED BLOOD CELL COUNT 3.39 M/mm3 (3.98-5.22); WHITE BLOOD CELL COUNT,WBC 11.21 K/mm3 (3.98-10.04)
[2023-01-17] MEDS: Levothyroxine 75 MCG Tab PO SCH (05:39)
[2023-01-17] MEDS: Ondansetron 4 MG Tab.DIS PO PRN (05:39)
[2023-01-17 05:45] LABS: ANION GAP 11.6 (5-15); BUN/CREATININE RATIO 5.6 (14-18); CALCIUM 8.4 mg/dL (8.5-10.1); CREATININE 0.9 mg/dL (0.55-1.02); EST CRCL DRUG DOSING (CG) 69.57 mL/min; POTASSIUM,K 4.6 mEq/L (3.5-5.1)
[2023-01-17] MEDS: FORMOTEROL INH SCH ×2 (08:35→20:23)
[2023-01-17] MEDS: GLYCOPYR INH SCH ×2 (08:35→20:23)
[2023-01-17] MEDS: BUDESONIDE INH SCH ×2 (08:35→20:23)
[2023-01-17] MEDS: Gabapentin 600 MG Tab PO SCH ×2 (09:43→21:14)
[2023-01-17] MEDS: Polyethylene Glycol 3350 Powder 17 GM Packet PO SCH (09:43)
[2023-01-17] MEDS: Losartan 50 MG Tab PO SCH ×2 (09:44→21:14)
[2023-01-17] MEDS: Cholecalciferol (Vitamin D3) 5,000 UNIT Cap PO SCH (09:45)
[2023-01-17] MEDS: Venlafaxine 75 MG Cap.ER PO SCH (09:45)
[2023-01-17] MEDS: Magnesium Oxide 400 MG Tab PO SCH (09:45)
[2023-01-17] MEDS: Spironolactone 25 MG Tab PO SCH (09:47)
[2023-01-17] MEDS: busPIRone 5 MG Tab PO SCH ×2 (09:47→21:13)
[2023-01-17] MEDS: Nortriptyline 10 MG Cap PO SCH ×2 (09:47→21:13)
[2023-01-17] MEDS: lamoTRIgine 100 MG Tab PO SCH ×2 (09:47→21:13)
[2023-01-17] MEDS: amLODIPine 2.5 MG Tab PO SCH (09:48)
[2023-01-17] MEDS: Carvedilol 3.125 MG Tab PO SCH ×2 (09:49→21:14)
[2023-01-17] MEDS: METHYLPHENIDATE HCL 27 MG PO SCH (09:50)
[2023-01-17] MEDS: Fluticasone NASAL Spray 16 GM Bottle NASBOTH SCH (09:50)
[2023-01-17] MEDS: traZODone 50 MG Tab PO SCH (21:15)
[2023-01-17] MEDS: Temazepam 30 MG Cap PO PRN (21:27)
[2023-01-18] MEDS: Ketorolac 30 MG/ML SDV IVPUSH SCH ×3 (01:18→12:39)
[2023-01-18] MEDS: Acetaminophen 325 MG Tab PO PRN ×3 (01:20→10:05)
[2023-01-18] MEDS: Piperacillin/Tazobactam 4.5 GM in Sodium Chloride 0.9% 100 ML IV SCH ×2 (01:21→10:11)
[2023-01-18 05:22] LABS: BASOPHILS ABSOLUTE AUTO 0.04 K/mm3 (0.01-0.08); BASOPHILS PERCENT AUTO 0.4 % (0.1-1.2); EOSINOPHILS ABSOLUTE AUTO 0.44 K/mm3 (0.04-0.36); EOSINOPHILS PERCENT AUTO 4.5 (0.7-5.8); HEMATOCRIT 34.2 % (34.1-44.9); HEMOGLOBIN 10.3 gm/dl (11.2-15.7); IMMATURE GRAN ABSOLUTE AUTO 0.04 K/mm3 (0.00-0.10); IMMATURE GRAN PERCENT AUTO 0.4 % (<=1.0); LYMPHOCYTES ABSOLUTE AUTO 3.01 K/mm3 (1.18-3.74); LYMPHOCYTES PERCENT AUTO 30.7 % (19.3-51.7); MEAN CORPUSCULAR HEMOGLOBIN 28.9 pg (25.6-32.2); MEAN CORPUSCULAR HGB CONC 30.1 g/dl (32.2-35.5); MEAN CORPUSCULAR VOLUME 96.1 fl (79.4-94.8); MEAN PLATELET VOLUME 8.5 fl (9.4-12.3); MONOCYTES PERCENT AUTO 8.2 % (4.7-12.5); NEUTROPHILS ABSOLUTE AUTO 5.48 K/mm3 (1.56-6.13); NEUTROPHILS PERCENT AUTO 55.8 % (34.0-71.1); PLATELET COUNT,PLT 337 K/mm3 (182-369); RED BLOOD CELL COUNT 3.56 M/mm3 (3.98-5.22); WHITE BLOOD CELL COUNT,WBC 9.81 K/mm3 (3.98-10.04)
[2023-01-18] MEDS: Levothyroxine 75 MCG Tab PO SCH (05:36)
[2023-01-18] MEDS: Heparin Sodium 5,000 Units/ML Vial SUBCUT SCH ×2 (05:38→12:39)
[2023-01-18 06:13] LABS: SLIDE REVIEW ABNORMAL SMEAR
[2023-01-18 07:45] VITALS: PULSE 65
[2023-01-18] MEDS ORDERED: Iopamidol 612 MG/ML 100 ML Bottle IVPUSH ONE (09:43)
[2023-01-18] MEDS: Sodium Chloride 0.9% 10 ML Syringe FLUSH PRN (09:45)
[2023-01-18] MEDS: Gabapentin 600 MG Tab PO SCH (10:04)
[2023-01-18] MEDS: Cholecalciferol (Vitamin D3) 5,000 UNIT Cap PO SCH (10:04)
[2023-01-18] MEDS: Losartan 50 MG Tab PO SCH (10:05)
[2023-01-18] MEDS: lamoTRIgine 100 MG Tab PO SCH (10:06)
[2023-01-18] MEDS: Nortriptyline 10 MG Cap PO SCH (10:07)
[2023-01-18] MEDS: Venlafaxine 75 MG Cap.ER PO SCH (10:07)
[2023-01-18] MEDS: Magnesium Oxide 400 MG Tab PO SCH (10:07)
[2023-01-18] MEDS: amLODIPine 2.5 MG Tab PO SCH (10:08)
[2023-01-18] MEDS: busPIRone 5 MG Tab PO SCH (10:09)
[2023-01-18] MEDS: Carvedilol 3.125 MG Tab PO SCH (10:09)
[2023-01-18] MEDS: Spironolactone 25 MG Tab PO SCH (10:10)
[2023-01-18] MEDS: Fluticasone NASAL Spray 16 GM Bottle NASBOTH SCH (10:11)
[2023-01-18 10:13] VITALS: BP 119/69
[2023-01-18] MEDS: BUDESONIDE INH SCH (10:13)
[2023-01-18] MEDS: GLYCOPYR INH SCH (10:13)
[2023-01-18] MEDS: FORMOTEROL INH SCH (10:13)
[2023-01-18] MEDS: Polyethylene Glycol 3350 Powder 17 GM Packet PO SCH (10:13)
[2023-01-18] MEDS: METHYLPHENIDATE HCL 27 MG PO SCH (10:14)
[2023-01-18] MEDS: Ondansetron 4 MG Tab.DIS PO PRN (14:24)
[2023-01-18] MEDS: fentaNYL 25 MCG/HR Transdermal Patch TRDERM SCH (14:25)
[2023-01-18] MEDS: HYDROmorphone 0.5 MG/0.5 ML Syringe IVPUSH PRN (14:27)
== END 2023-01-18 15:01 | disposition critical access hospital (66) | DRG 244 ==
LOC: JD.ED 07:15 → JD.MS 10:56
PROVIDERS: ADMIT Surgery; ATTEND Surgery
PROC: 05HC33Z Insertion of Infusion Device into Left Basilic Vein, Percutaneous Approach (ICD-10-PCS; principal; 2023-01-14)
PROC: 05HB33Z Insertion of Infusion Device into Right Basilic Vein, Percutaneous Approach (ICD-10-PCS; 2023-01-15)
DX: K57.20 Diverticulitis of large intestine with perforation and abscess without bleeding (principal); K59.00 Constipation, unspecified; I42.9 Cardiomyopathy, unspecified; H54.7 Unspecified visual loss; J44.9 Chronic obstructive pulmonary disease, unspecified; G47.30 Sleep apnea, unspecified; E66.9 Obesity, unspecified; F41.9 Anxiety disorder, unspecified; F32.A Depression, unspecified; N18.9 Chronic kidney disease, unspecified; I12.9 Hypertensive chronic kidney disease with stage 1 through stage 4 chronic kidney disease, or unspecified chronic kidney disease; D63.1 Anemia in chronic kidney disease; E11.22 Type 2 diabetes mellitus with diabetic chronic kidney disease; K56.600 Partial intestinal obstruction, unspecified as to cause; Z98.890 Other specified postprocedural states; Z86.010 Personal history of colon polyps; I25.2 Old myocardial infarction; Z86.718 Personal history of other venous thrombosis and embolism; Z88.5 Allergy status to narcotic agent; Z90.89 Acquired absence of other organs; Z90.49 Acquired absence of other specified parts of digestive tract; Z88.8 Allergy status to other drugs, medicaments and biological substances; Z91.041 Radiographic dye allergy status; Z88.2 Allergy status to sulfonamides; Z68.27 Body mass index [BMI] 27.0-27.9, adult
CPT/HCPCS: 36410; 36415; 74177; 74177-26; 80048; 80053; 81003; 83605; 83690; 85025; 86140; 87040; 94760; 94761; 96361; 96365; 96375; 96376; 97116-GP; 97162-GP; 97166-GO; 97530-GO; 99285; 99285-25; A9270-GY; J1170; J1200; J1644; J1885; J2405; J2543; J3480; J3490; J7030; J7120; Q9967

== ENCOUNTER 2023-03-26 10:07 | Emergency (ER) | payer BC, MEDICARE ==
[2023-03-26] MEDS ORDERED: Sodium Chloride 0.9% 10 ML Syringe FLUSH PRN (10:51)
[2023-03-26] MEDS ORDERED: HYDROmorphone 0.5 MG/0.5 ML Syringe IVPUSH ONE (10:52)
[2023-03-26] MEDS ORDERED: Iopamidol 755 Mg/ML 100 ML Bottle IVPUSH ONE (11:32)
[2023-03-26] MEDS: Sodium Chloride 0.9% 10 ML Syringe FLUSH PRN ×2 (11:35→12:01)
[2023-03-26] MEDS ORDERED: HYDROmorphone 1 MG/ML Syringe IVPUSH ONE (11:44)
[2023-03-26] MEDS ORDERED: Sodium Chloride 0.9% 100 ML IV SCH (11:45)
[2023-03-26] MEDS ORDERED: Sodium Chloride 0.9% 1,000 ML IV ONE (12:38)
[2023-03-26] MEDS ORDERED: fentaNYL 100 MCG/2 ML SDV IVPUSH ONE (14:24)
[2023-03-26 19:52] VITALS: BP 147/77; PULSE 101
== END 2023-03-26 15:08 | disposition home or self-care (01) ==
LOC: JD.ED 10:07
DX: M79.10 Myalgia, unspecified site (principal); I12.9 Hypertensive chronic kidney disease with stage 1 through stage 4 chronic kidney disease, or unspecified chronic kidney disease; E11.22 Type 2 diabetes mellitus with diabetic chronic kidney disease; N18.9 Chronic kidney disease, unspecified; J44.9 Chronic obstructive pulmonary disease, unspecified; I25.2 Old myocardial infarction; E66.9 Obesity, unspecified; Z68.25 Body mass index [BMI] 25.0-25.9, adult; Z86.718 Personal history of other venous thrombosis and embolism; Z86.16 Personal history of COVID-19; Z88.8 Allergy status to other drugs, medicaments and biological substances; Z88.5 Allergy status to narcotic agent; Z79.899 Other long term (current) drug therapy
CPT/HCPCS: 36415; 71275; 84484; 96361; 96374; 96375; 96376; 99284; J1170; J3010; J3490; J7030; Q9967

== ENCOUNTER 2023-04-15 13:08 | Emergency (ER) | payer BC, MEDICARE ==
[2023-04-15] MEDS ORDERED: Glucagon,Human Recombinant 1 MG Vial IVPUSH ONE (13:35)
[2023-04-15 14:51] VITALS: BP 92/57; PULSE 71
== END 2023-04-15 14:32 | disposition home or self-care (01) ==
LOC: JD.ED 13:08
DX: R07.0 Pain in throat (principal); I25.2 Old myocardial infarction; I12.9 Hypertensive chronic kidney disease with stage 1 through stage 4 chronic kidney disease, or unspecified chronic kidney disease; E11.22 Type 2 diabetes mellitus with diabetic chronic kidney disease; N18.9 Chronic kidney disease, unspecified; Z86.16 Personal history of COVID-19; Z79.899 Other long term (current) drug therapy; Z88.8 Allergy status to other drugs, medicaments and biological substances; Z88.5 Allergy status to narcotic agent; Z88.2 Allergy status to sulfonamides
CPT/HCPCS: 96374; 99283; J1610; 99282

== ENCOUNTER 2023-04-22 09:24 | Day surgery (SDC) | payer MEDICARE, BC ==
[~2023-04-22 09:24] MED LIST: Lactated Ringers 1,000 ML IV SCH; Sodium Chloride 0.9% 10 ML Syringe FLUSH PRN; Sodium Chloride 0.9% 10 ML Syringe FLUSH SCH
[2023-04-22] MEDS ORDERED: Lidocaine 1% 8 ML ONE (11:44)
[2023-04-22] MEDS ORDERED: Propofol 200 MG/20 ML SDV ONE ×2 (11:44→11:59)
[2023-04-22 13:27] VITALS: BP 133/83; PULSE 61
== END 2023-04-22 12:57 | disposition home or self-care (01) ==
LOC: JD.SDS 09:24
PROVIDERS: ATTEND Surgery
DX: K29.50 Unspecified chronic gastritis without bleeding (principal); K44.9 Diaphragmatic hernia without obstruction or gangrene; K29.80 Duodenitis without bleeding; K20.90 Esophagitis, unspecified without bleeding; K31.89 Other diseases of stomach and duodenum; K31.A0 Gastric intestinal metaplasia, unspecified; F41.9 Anxiety disorder, unspecified; Q27.30 Arteriovenous malformation, site unspecified; E11.9 Type 2 diabetes mellitus without complications; I42.0 Dilated cardiomyopathy; G71.00 Muscular dystrophy, unspecified; R09.02 Hypoxemia; D64.9 Anemia, unspecified; N28.9 Disorder of kidney and ureter, unspecified; I25.2 Old myocardial infarction; Z90.49 Acquired absence of other specified parts of digestive tract; Z90.89 Acquired absence of other organs; Z88.8 Allergy status to other drugs, medicaments and biological substances; Z88.5 Allergy status to narcotic agent; Z88.2 Allergy status to sulfonamides; Z79.84 Long term (current) use of oral hypoglycemic drugs; Z79.82 Long term (current) use of aspirin; Z79.890 Hormone replacement therapy; Z79.899 Other long term (current) drug therapy
CPT/HCPCS: 43239; J2704; J7120; 00731; J3490

== ENCOUNTER 2023-06-15 11:03 | Emergency (ER) | payer BC, MEDICARE ==
[2023-06-15] MEDS ORDERED: Ondansetron 4 MG/2 ML SDV IVPUSH ONE (12:28)
[2023-06-15] MEDS ORDERED: HYDROmorphone 0.5 MG/0.5 ML Syringe IM ONE (12:28)
[2023-06-15] MEDS ORDERED: Lactated Ringers 1,000 ML IV SCH (12:30)
[2023-06-15] MEDS ORDERED: Naloxone 0.4 MG/ML SDV IVPUSH PRN (13:42)
[2023-06-15] MEDS ORDERED: Ketorolac 15 MG/ML SDV IVPUSH ONE (13:42)
[2023-06-15] MEDS ORDERED: HYDROmorphone 0.5 MG/0.5 ML Syringe IVPUSH ONE (13:42)
[2023-06-15 15:50] VITALS: BP 143/71; PULSE 72
== END 2023-06-15 15:40 | disposition home or self-care (01) ==
LOC: JD.ED 11:03
DX: S09.90XA Unspecified injury of head, initial encounter (principal); Z88.5 Allergy status to narcotic agent; Z88.8 Allergy status to other drugs, medicaments and biological substances; V00.831A Fall from motorized mobility scooter, initial encounter
CPT/HCPCS: 70450; 72125; 73080; 73502; 96361; 96372; 96374; 96375; 99284; J1170; J1885; J2405; J7120; 99283

== ENCOUNTER 2023-09-11 09:12 | Emergency (ER) | payer BC, MEDICARE ==
[2023-09-11] MEDS ORDERED: Sodium Chloride 0.9% 1,000 ML IV ONE (09:52)
[2023-09-11] MEDS ORDERED: Sodium Chloride 0.9% 10 ML Syringe FLUSH PRN (09:52)
[2023-09-11 10:20] LABS: BASOPHILS ABSOLUTE AUTO 0.1 K/mm3 (0.0-0.2); BASOPHILS PERCENT AUTO 0.7 % (0.0-1.0); EOSINOPHILS ABSOLUTE AUTO 0.4 K/mm3 (0.0-0.4); EOSINOPHILS PERCENT AUTO 3.7 % (0.0-6.0); HEMATOCRIT 39.2 % (37.0-47.0); HEMOGLOBIN 12.2 gm/dl (12.0-16.0); IMMATURE GRAN ABSOLUTE AUTO 0.04 K/mm3 (0.00-0.05); IMMATURE GRAN PERCENT AUTO 0.4 % (0.0-0.4); LYMPHOCYTES ABSOLUTE AUTO 2.3 K/mm3 (1.0-4.8); LYMPHOCYTES PERCENT AUTO 22.2 % (24.0-44.0); MEAN CORPUSCULAR HEMOGLOBIN 28.2 pg (28.0-32.0); MEAN CORPUSCULAR HGB CONC 31.1 g/dl (32.0-36.0); MEAN CORPUSCULAR VOLUME 90.7 fl (83.0-99.0); MEAN PLATELET VOLUME 8.6 fl (9.4-12.3); MONOCYTES ABSOLUTE AUTO 0.7 K/mm3 (0.0-0.8); MONOCYTES PERCENT AUTO 6.5 % (0.0-8.0); NEUTROPHILS ABSOLUTE AUTO 6.8 K/mm3 (1.8-7.7); NEUTROPHILS PERCENT AUTO 66.5 % (41.0-71.0); PLATELET COUNT,PLT 398 K/mm3 (150-400); RED BLOOD CELL COUNT 4.32 M/mm3 (4.10-5.30); WHITE BLOOD CELL COUNT,WBC 10.18 K/mm3 (3.9-11.3)
[2023-09-11 10:34] LABS: A/G RATIO 0.9 (1-2); ALBUMIN 3.8 g/dl (3.4-5.0); ANION GAP 13.5 (5-15); BILIRUBIN TOTAL 0.3 mg/dL (0.2-1.0); CALCIUM 9.8 mg/dL (8.5-10.1); EST CRCL DRUG DOSING (CG) 59.63 mL/min; MAGNESIUM 2.3 mg/dL (1.8-2.4); POTASSIUM,K 4.5 mEq/L (3.5-5.1); PROTEIN TOTAL,TP 8.2 g/dl (6.4-8.2)
[2023-09-11 10:53] LABS: APPEARANCE,URINE CLEAR (Clear); BILIRUBIN,URINE NEGATIVE (Negative); COLOR,URINE YELLOW (Yellow); GLUCOSE,URINE NEGATIVE (Negative); KETONES,URINE NEGATIVE (Negative); LEUKOCYTE ESTERASE,URINE TRACE (Negative); NITRITE,URINE NEGATIVE (Negative); OCCULT BLOOD,URINE NEGATIVE (Negative); PROTEIN,URINE TRACE (Negative); UROBILINOGEN,URINE 0.2 (0.2-1.0)
[2023-09-11 10:55] LABS: CORONAVIRUS COVID-19 NAA NEGATIVE (NEGATIVE); INFLUENZA A NAA NEGATIVE (NEGATIVE); RESPIRATORY SYNCYTIAL VIR NAA NEGATIVE (NEGATIVE)
[2023-09-11 11:21] LABS: AMORPHOUS SEDIMENT,URINE MODERATE /hpf (NOT SEEN); BACTERIA,URINE MODERATE /hpf (FEW); MUCUS,URINE MODERATE /hpf (FEW); RBC,URINE 0-5 /hpf (0-5)
[2023-09-11] MEDS ORDERED: cefTRIAXone 1 GM in Sodium Chloride 0.9% 100 ML IV ONE (11:52)
[2023-09-11] MEDS ORDERED: Ondansetron 4 MG/2 ML SDV IVPUSH ONE (11:55)
[2023-09-11 14:36] VITALS: BP 95/69; PULSE 76
== END 2023-09-11 14:36 | disposition home or self-care (01) ==
LOC: JD.ED 09:12
DX: N30.00 Acute cystitis without hematuria (principal); E86.0 Dehydration; E11.9 Type 2 diabetes mellitus without complications; I25.2 Old myocardial infarction; I12.9 Hypertensive chronic kidney disease with stage 1 through stage 4 chronic kidney disease, or unspecified chronic kidney disease; N18.9 Chronic kidney disease, unspecified; Z79.82 Long term (current) use of aspirin; Z88.8 Allergy status to other drugs, medicaments and biological substances; Z88.5 Allergy status to narcotic agent; Z88.2 Allergy status to sulfonamides; Z79.899 Other long term (current) drug therapy; Z90.49 Acquired absence of other specified parts of digestive tract; Z20.822 Contact with and (suspected) exposure to COVID-19
CPT/HCPCS: 0241U; 36415; 80053; 81001; 83735; 85025; 96361; 96365; 96375; 99284; J0696; J2405; J3490; J7030

== ENCOUNTER 2023-09-27 16:08 | Emergency (ER) | payer BC, MEDICARE ==
[2023-09-27 16:21] VITALS: PULSE 78
[2023-09-27] MEDS ORDERED: Metoclopramide 10 MG/2 ML SDV IVPUSH ONE (16:38)
[2023-09-27] MEDS ORDERED: diphenhydrAMINE 50 MG/ML SDV IVPUSH ONE (16:39)
[2023-09-27] MEDS ORDERED: HYDROmorphone 1 MG/ML Syringe IVPUSH ONE (16:42)
[2023-09-27] MEDS ORDERED: Dextrose 5%-Lactated Ringers 1,000 ML IV SCH (16:45)
[2023-09-27 17:18] LABS: BASOPHILS PERCENT AUTO 0.4 % (0.0-1.0); EOSINOPHILS ABSOLUTE AUTO 0.1 K/mm3 (0.0-0.4); EOSINOPHILS PERCENT AUTO 1.7 % (0.0-6.0); HEMATOCRIT 41.5 % (37.0-47.0); HEMOGLOBIN 13.2 gm/dl (12.0-16.0); IMMATURE GRAN ABSOLUTE AUTO 0.03 K/mm3 (0.00-0.05); IMMATURE GRAN PERCENT AUTO 0.4 % (0.0-0.4); LYMPHOCYTES ABSOLUTE AUTO 1.9 K/mm3 (1.0-4.8); MEAN CORPUSCULAR HGB CONC 31.8 g/dl (32.0-36.0); MEAN CORPUSCULAR VOLUME 88.1 fl (83.0-99.0); MEAN PLATELET VOLUME 8.7 fl (9.4-12.3); MONOCYTES ABSOLUTE AUTO 0.5 K/mm3 (0.0-0.8); MONOCYTES PERCENT AUTO 7.8 % (0.0-8.0); NEUTROPHILS ABSOLUTE AUTO 4.2 K/mm3 (1.8-7.7); NEUTROPHILS PERCENT AUTO 61.7 % (41.0-71.0); PLATELET COUNT,PLT 402 K/mm3 (150-400); RED BLOOD CELL COUNT 4.71 M/mm3 (4.10-5.30); WHITE BLOOD CELL COUNT,WBC 6.89 K/mm3 (3.9-11.3)
[2023-09-27 17:39] LABS: A/G RATIO 0.9 (1-2); ALANINE AMINOTRANSFERASE,ALT 21 U/L (14-59); ALKALINE PHOSPHATASE 103 U/L (46-116); ANION GAP 14.7 (5-15); ASPARTATE AMNIOTRANSFERASE,AST 14 U/L (15-37); BILIRUBIN TOTAL 0.4 mg/dL (0.2-1.0); BLOOD UREA NITROGEN,BUN 9 mg/dL (7-18); C-REACTIVE PROTEIN <0.2 mg/dL (<1.0); CALCIUM 10.8 mg/dL (8.5-10.1); CARBON DIOXIDE,CO2 29 mEq/L (21-32); CHLORIDE,CL 103 mEq/L (98-107); EST CRCL DRUG DOSING (CG) 59.63 mL/min; ESTIMATED GFR 65 mL/min (>60); GLUCOSE RANDOM 162 mg/dL (70-99); LIPASE 33 U/L (16-77); MAGNESIUM 1.8 mg/dL (1.8-2.4); POTASSIUM,K 3.7 mEq/L (3.5-5.1); PROTEIN TOTAL,TP 8.5 g/dl (6.4-8.2); SODIUM,NA 143 mEq/L (136-145)
[2023-09-27 18:13] LABS: APPEARANCE,URINE CLEAR (Clear); BILIRUBIN,URINE NEGATIVE (Negative); COLOR,URINE YELLOW (Yellow); GLUCOSE,URINE NEGATIVE (Negative); KETONES,URINE NEGATIVE (Negative); LEUKOCYTE ESTERASE,URINE NEGATIVE (Negative); NITRITE,URINE NEGATIVE (Negative); OCCULT BLOOD,URINE NEGATIVE (Negative); PH,URINE 8.5 (5.0-8.0); PROTEIN,URINE NEGATIVE (Negative); UROBILINOGEN,URINE 0.2 (0.2-1.0)
[2023-09-27 18:29] LABS: BACTERIA,URINE FEW /hpf (FEW); MUCUS,URINE FEW /hpf (FEW); RBC,URINE 0-5 /hpf (0-5); SQUAMOUS EPITHELIAL CELLS,UR 0-5 /hpf (0-5); WBC,URINE 0-5 /hpf (0-5)
[2023-09-27] MEDS ORDERED: Prochlorperazine 10 MG/2 ML SDV IVPUSH ONE (19:18)
[2023-09-27] MEDS ORDERED: Iopamidol 612 MG/ML 100 ML Bottle IVPUSH ONE (19:28)
[2023-09-27] MEDS ORDERED: Sodium Chloride 0.9% 10 ML Syringe FLUSH ONE (19:28)
[2023-09-27] MEDS ORDERED: Gabapentin 300 MG Cap PO ONE (20:20)
[2023-09-27 22:24] VITALS: BP 112/84
[2023-09-30 04:46] LABS: IONIZED CA@PH7.4 1.41 mmol/L (1.09-1.30); IONIZED CALCIUM 1.34 mmol/L (1.09-1.30)
== END 2023-09-27 21:40 | disposition home or self-care (01) ==
LOC: JD.ED 16:08
DX: G89.28 Other chronic postprocedural pain (principal); R10.9 Unspecified abdominal pain; R11.2 Nausea with vomiting, unspecified; Z90.49 Acquired absence of other specified parts of digestive tract; Z79.82 Long term (current) use of aspirin; Z79.899 Other long term (current) drug therapy; Z88.8 Allergy status to other drugs, medicaments and biological substances
CPT/HCPCS: 36415; 74177; 80053; 81001; 82330; 83690; 83735; 85025; 86140; 96361; 96374; 96375; 99284; A9270; J0780; J1170; J1200; J2765; J3490; J7121; Q9967

== ENCOUNTER 2023-12-25 03:18 | Emergency (ER) | payer MEDICARE ==
[2023-12-25] MEDS ORDERED: Naloxone 0.4 MG/ML SDV IVPUSH PRN (03:51)
[2023-12-25] MEDS: Ondansetron 4 MG/2 ML SDV IVPUSH ONE (03:56)
[2023-12-25] MEDS: HYDROmorphone 0.5 MG/0.5 ML Syringe IVPUSH ONE ×2 (03:58→07:45)
[2023-12-25 04:03] LABS: BASOPHILS ABSOLUTE AUTO 0.1 K/mm3 (0.0-0.2); BASOPHILS PERCENT AUTO 0.6 % (0.0-1.0); EOSINOPHILS ABSOLUTE AUTO 0.2 K/mm3 (0.0-0.4); EOSINOPHILS PERCENT AUTO 2.2 % (0.0-6.0); HEMATOCRIT 43.2 % (37.0-47.0); HEMOGLOBIN 14.2 gm/dl (12.0-16.0); IMMATURE GRAN ABSOLUTE AUTO 0.03 K/mm3 (0.00-0.05); IMMATURE GRAN PERCENT AUTO 0.3 % (0.0-0.4); LYMPHOCYTES ABSOLUTE AUTO 2.3 K/mm3 (1.0-4.8); LYMPHOCYTES PERCENT AUTO 23.7 % (24.0-44.0); MEAN CORPUSCULAR HEMOGLOBIN 29.3 pg (28.0-32.0); MEAN CORPUSCULAR HGB CONC 32.9 g/dl (32.0-36.0); MEAN CORPUSCULAR VOLUME 89.3 fl (83.0-99.0); MEAN PLATELET VOLUME 8.5 fl (9.4-12.3); MONOCYTES ABSOLUTE AUTO 0.5 K/mm3 (0.0-0.8); NEUTROPHILS ABSOLUTE AUTO 6.7 K/mm3 (1.8-7.7); NEUTROPHILS PERCENT AUTO 68.2 % (41.0-71.0); PLATELET COUNT,PLT 471 K/mm3 (150-400); RED BLOOD CELL COUNT 4.84 M/mm3 (4.10-5.30); WHITE BLOOD CELL COUNT,WBC 9.84 K/mm3 (3.9-11.3)
[2023-12-25] MEDS: Sodium Chloride 0.9% 1,000 ML IV ONE ×2 (04:07→06:08)
[2023-12-25] MEDS: diphenhydrAMINE 50 MG/ML SDV IVPUSH ONE (04:08)
[2023-12-25] MEDS: Sodium Chloride 0.9% 10 ML Syringe FLUSH PRN (04:10)
[2023-12-25 04:25] LABS: A/G RATIO 1.2 (1-2); ALBUMIN 4.2 g/dl (3.4-5.0); ANION GAP 20.4 (5-15); BILIRUBIN TOTAL 0.5 mg/dL (0.2-1.0); CALCIUM 9.5 mg/dL (8.5-10.1); EST CRCL DRUG DOSING (CG) 61.86 mL/min; MAGNESIUM 2.2 mg/dL (1.8-2.4); POTASSIUM,K 3.4 mEq/L (3.5-5.1); PROTEIN TOTAL,TP 7.7 g/dl (6.4-8.2)
[2023-12-25] MEDS: Iopamidol 612 MG/ML 100 ML Bottle IVPUSH ONE (05:03)
[2023-12-25] MEDS: Ketorolac 15 MG/ML SDV IVPUSH ONE (07:56)
[2023-12-25 08:08] LABS: APPEARANCE,URINE CLEAR (Clear); BILIRUBIN,URINE NEGATIVE (Negative); COLOR,URINE YELLOW (Yellow); GLUCOSE,URINE NEGATIVE (Negative); KETONES,URINE NEGATIVE (Negative); LEUKOCYTE ESTERASE,URINE NEGATIVE (Negative); NITRITE,URINE NEGATIVE (Negative); OCCULT BLOOD,URINE NEGATIVE (Negative); PH,URINE 7.5 (5.0-8.0); PROTEIN,URINE NEGATIVE (Negative); UROBILINOGEN,URINE 0.2 (0.2-1.0)
[2023-12-25 08:59] VITALS: BP 129/82; PULSE 65
== END 2023-12-25 09:01 | disposition home or self-care (01) ==
LOC: JD.ED 03:18
DX: N20.0 Calculus of kidney (principal); I12.9 Hypertensive chronic kidney disease with stage 1 through stage 4 chronic kidney disease, or unspecified chronic kidney disease; E11.22 Type 2 diabetes mellitus with diabetic chronic kidney disease; N18.9 Chronic kidney disease, unspecified; Z88.6 Allergy status to analgesic agent; Z88.5 Allergy status to narcotic agent; Z88.8 Allergy status to other drugs, medicaments and biological substances; Z79.82 Long term (current) use of aspirin; Z79.899 Other long term (current) drug therapy; Z90.49 Acquired absence of other specified parts of digestive tract; Z86.16 Personal history of COVID-19
CPT/HCPCS: 36415; 74177; 74177-26; 80053; 80307; 81003; 83605; 83690; 83735; 85025; 96361; 96374; 96375; 96376; 99284-25; J1170; J1200; J1885; J2405; J3490; J7030; Q9967

== ENCOUNTER 2023-12-25 16:25 | Emergency (ER) | payer MEDICARE ==
[2023-12-25] MEDS: Famotidine 20 MG/2 ML SDV IVPUSH ONE (18:18)
[2023-12-25] MEDS: Haloperidol Lactate 5 MG/ML SDV IVPUSH ONE (18:19)
[2023-12-25] MEDS: Sodium Chloride 0.9% 1,000 ML IV ONE (18:19)
[2023-12-25 18:21] LABS: BASOPHILS PERCENT AUTO 0.6 % (0.0-1.0); EOSINOPHILS ABSOLUTE AUTO 0.1 K/mm3 (0.0-0.4); EOSINOPHILS PERCENT AUTO 1.3 % (0.0-6.0); HEMATOCRIT 38.2 % (37.0-47.0); HEMOGLOBIN 12.5 gm/dl (12.0-16.0); IMMATURE GRAN ABSOLUTE AUTO 0.01 K/mm3 (0.00-0.05); IMMATURE GRAN PERCENT AUTO 0.1 % (0.0-0.4); LYMPHOCYTES ABSOLUTE AUTO 1.7 K/mm3 (1.0-4.8); MEAN CORPUSCULAR HEMOGLOBIN 29.3 pg (28.0-32.0); MEAN CORPUSCULAR HGB CONC 32.7 g/dl (32.0-36.0); MEAN CORPUSCULAR VOLUME 89.5 fl (83.0-99.0); MEAN PLATELET VOLUME 8.3 fl (9.4-12.3); MONOCYTES ABSOLUTE AUTO 0.4 K/mm3 (0.0-0.8); MONOCYTES PERCENT AUTO 6.4 % (0.0-8.0); NEUTROPHILS ABSOLUTE AUTO 4.6 K/mm3 (1.8-7.7); NEUTROPHILS PERCENT AUTO 66.6 % (41.0-71.0); PLATELET COUNT,PLT 428 K/mm3 (150-400); RED BLOOD CELL COUNT 4.27 M/mm3 (4.10-5.30); WHITE BLOOD CELL COUNT,WBC 6.91 K/mm3 (3.9-11.3)
[2023-12-25 18:52] LABS: A/G RATIO 1.1 (1-2); ALBUMIN 3.6 g/dl (3.4-5.0); ANION GAP 13.3 (5-15); BILIRUBIN TOTAL 0.3 mg/dL (0.2-1.0); BUN/CREATININE RATIO 8.9 (14-18); CALCIUM 8.7 mg/dL (8.5-10.1); CREATININE 0.9 mg/dL (0.55-1.02); EST CRCL DRUG DOSING (CG) 68.73 mL/min; POTASSIUM,K 3.3 mEq/L (3.5-5.1); PROTEIN TOTAL,TP 6.9 g/dl (6.4-8.2)
[2023-12-25] MEDS: Benztropine 1 MG Tab PO ONE (20:58)
[2023-12-25] MEDS: Furosemide 40 MG/4 ML VIAL IVPUSH ONE (21:01)
[2023-12-25] MEDS: Acetaminophen 325 MG Tab PO ONE (21:20)
[2023-12-26] MEDS: Potassium Chloride 20 MEQ Tab.ER PO ONE (00:05)
[2023-12-26 02:12] VITALS: BP 130/99; PULSE 75
== END 2023-12-26 00:15 | disposition home or self-care (01) ==
LOC: JD.ED 16:25
DX: E87.6 Hypokalemia (principal); R79.89 Other specified abnormal findings of blood chemistry; R10.30 Lower abdominal pain, unspecified; I25.2 Old myocardial infarction; I12.9 Hypertensive chronic kidney disease with stage 1 through stage 4 chronic kidney disease, or unspecified chronic kidney disease; N18.9 Chronic kidney disease, unspecified; E11.22 Type 2 diabetes mellitus with diabetic chronic kidney disease; Z88.8 Allergy status to other drugs, medicaments and biological substances; Z88.5 Allergy status to narcotic agent; Z88.2 Allergy status to sulfonamides; Z88.6 Allergy status to analgesic agent; Z79.899 Other long term (current) drug therapy; Z86.16 Personal history of COVID-19; Z90.49 Acquired absence of other specified parts of digestive tract
CPT/HCPCS: 36415; 80053; 83605; 83690; 83735; 84484; 85025; 93005; 96361; 96374; 96375; 99284-25; A9270-GY; J1630; J1940; J3490; J7030

== ENCOUNTER 2024-05-31 13:38 | Emergency (ER) | payer MEDICARE ==
[2024-05-31] MEDS ORDERED: Sodium Chloride 0.9% 10 ML Syringe FLUSH PRN (14:04)
[2024-05-31 15:01] LABS: BASOPHILS ABSOLUTE AUTO 0.1 K/mm3 (0.0-0.2); BASOPHILS PERCENT AUTO 0.7 % (0.0-1.0); EOSINOPHILS ABSOLUTE AUTO 0.3 K/mm3 (0.0-0.4); EOSINOPHILS PERCENT AUTO 4.2 % (0.0-6.0); HEMATOCRIT 37.3 % (37.0-47.0); HEMOGLOBIN 11.8 gm/dl (12.0-16.0); IMMATURE GRAN ABSOLUTE AUTO 0.02 K/mm3 (0.00-0.05); IMMATURE GRAN PERCENT AUTO 0.2 % (0.0-0.4); LYMPHOCYTES ABSOLUTE AUTO 2.2 K/mm3 (1.0-4.8); LYMPHOCYTES PERCENT AUTO 26.7 % (24.0-44.0); MEAN CORPUSCULAR HEMOGLOBIN 29.9 pg (28.0-32.0); MEAN CORPUSCULAR HGB CONC 31.6 g/dl (32.0-36.0); MEAN CORPUSCULAR VOLUME 94.7 fl (83.0-99.0); MEAN PLATELET VOLUME 8.9 fl (9.4-12.3); MONOCYTES ABSOLUTE AUTO 0.6 K/mm3 (0.0-0.8); MONOCYTES PERCENT AUTO 6.9 % (0.0-8.0); NEUTROPHILS ABSOLUTE AUTO 4.9 K/mm3 (1.8-7.7); NEUTROPHILS PERCENT AUTO 61.3 % (41.0-71.0); PLATELET COUNT,PLT 317 K/mm3 (150-400); RED BLOOD CELL COUNT 3.94 M/mm3 (4.10-5.30); WHITE BLOOD CELL COUNT,WBC 8.06 K/mm3 (3.9-11.3)
[2024-05-31 15:20] LABS: INR 0.99; PROTHROMBIN TIME 10.5 SECONDS (9.7-12.0)
[2024-05-31 15:25] LABS: D-DIMER QUANTITATIVE 0.56 mg/L (0.19-0.50)
[2024-05-31 15:29] LABS: A/G RATIO 1.2 (1-2); ALBUMIN 3.6 g/dl (3.4-5.0); ANION GAP 10.7 (5-15); BILIRUBIN TOTAL 0.3 mg/dL (0.2-1.0); BUN/CREATININE RATIO 15.5 (14-18); CALCIUM 8.4 mg/dL (8.5-10.1); CREATININE 1.1 mg/dL (0.55-1.02); EST CRCL DRUG DOSING (CG) 55.55 mL/min; POTASSIUM,K 3.7 mEq/L (3.5-5.1); PROTEIN TOTAL,TP 6.7 g/dl (6.4-8.2)
[2024-05-31] MEDS ORDERED: Iopamidol 755 Mg/ML 100 ML Bottle IVPUSH ONE (17:10)
[2024-05-31] MEDS ORDERED: Sodium Chloride 0.9% 100 ML IV SCH (17:15)
[2024-05-31 20:43] VITALS: BP 123/83; PULSE 69
== END 2024-05-31 20:59 | disposition home or self-care (01) ==
LOC: JD.ED 13:38
DX: I42.9 Cardiomyopathy, unspecified (principal); I50.32 Chronic diastolic (congestive) heart failure; I12.9 Hypertensive chronic kidney disease with stage 1 through stage 4 chronic kidney disease, or unspecified chronic kidney disease; N18.9 Chronic kidney disease, unspecified; E11.9 Type 2 diabetes mellitus without complications; Z88.8 Allergy status to other drugs, medicaments and biological substances; Z79.890 Hormone replacement therapy; Z79.82 Long term (current) use of aspirin; Z79.899 Other long term (current) drug therapy; Z90.49 Acquired absence of other specified parts of digestive tract
CPT/HCPCS: 36410; 36415; 71045; 71045-26; 71275; 71275-26; 80053; 84484; 85025; 85379; 85610; 93005; 99285